=== PATIENT | male | born 1945 | race Caucasian/White ===

== ENCOUNTER → 2016-08-29 | Outpatient (CLI) | payer BC ==
[~2016-08-29] MED LIST: AMLO-110 PO; ASPI81TA28 PO; CRS/10 PO; FEXO1TAB46 PO; FISHOIL PO; FLAX1CAP11 PO; LPR25 PO; MOME50SP5; MULTTAB58 PO; NRV5 PO; PRED1SUS3 OPB; RIVA1TAB4 PO; TYLOTC500 PO; ZNTT/150 PO
[2016-08-29 11:56] LABS: BLOOD UREA NITROGEN 15 mg/dl (7-18); BUN/CREATININE RATIO 9.6 (10-20); CALCIUM 9.4 mg/dl (8.5-10.1); CARBON DIOXIDE 23 mmol/L (21-32); CHLORIDE 105 mmol/L (98-107); GLUCOSE 123 mg/dl (70-99); PHOSPHORUS 2.7 mg/dl (2.5-4.9); SODIUM 140 mmol/L (136-145)
== END | disposition home or self-care (01) ==
LOC: C.LAB1850 10:19
PROVIDERS: ATTEND Internal Medicine Nephrology
DX: E83.52 Hypercalcemia (principal); I10 Essential (primary) hypertension

== ENCOUNTER → 2016-10-31 | Outpatient (CLI) | payer BC ==
--- NOTE | 2016-10-31 10:40 | DIAGNOSTIC IMAGING REPORT ---
CHEST CT WITHOUT CONTRAST CT DOSE: 380.91 mGy.cm HISTORY: Parenchymal nodularity R59.0 Hilar adenopathy TECHNIQUE: Multiaxial CT images of the chest were performed without contrast. COMPARISON: 03/08/2016 FINDINGS: Stable multinodular appearance to both hemithoraces. Stable baseline interstitial change. Unchanging hilar as well as mediastinal adenopathy. Considerable components of the nodes are partially calcified. No evidence for new interval or progressive process. IMPRESSION: Chronic granulomatous change of both hemithoraces as well as hilar mediastinal regions. 2. Noncalcified lung nodules as well as mediastinal and hilar nodes also unchanged. 3. Study is considered generally consistent with a chronic granulomatous process, other entities considered less likely although routine screening should again be performed. A 1 year follow-up is felt to be sufficient Electronically signed by: Joselito Gunn M.D. 10/31/2016 10:38 AM Dictated Date/Time: 10/31/2016 10:34 AM
== END | disposition home or self-care (01) ==
LOC: C.CTS 10:14
PROVIDERS: ATTEND Family Medicine
DX: R59.0 Localized enlarged lymph nodes (principal)

== ENCOUNTER → 2016-12-14 | Outpatient (CLI) | payer BC ==
[2016-12-14 09:50] LABS: ESTIMATED AVERAGE GLUCOSE 126 mg/dl; HA1C FLAG Normal (Normal)
[2016-12-14 10:22] LABS: ALB/GLOB RATIO 0.8 (0.9-2); ALKALINE PHOSPHATASE 78 U/L (45-117); ALT/SGPT 36 U/L (12-78); AST/SGOT 20 U/L (15-37); BLOOD UREA NITROGEN 35 mg/dl (7-18); BUN/CREATININE RATIO 12.1 (10-20); CALCIUM 13.3 mg/dl (8.5-10.1); CARBON DIOXIDE 27 mmol/L (21-32); CHLORIDE 107 mmol/L (98-107); CHOLESTEROL 131 mg/dl (0-200); CHOLESTEROL/HDL RATIO 3.5; GLUCOSE 90 mg/dl (70-99); HDL CHOLESTEROL 37 mg/dl; LDL CHOLESTEROL CALCULATED 64 mg/dl; PHOSPHORUS 3.9 mg/dl (2.5-4.9); SODIUM 143 mmol/L (136-145); TRIGLYCERIDES 150 mg/dl (0-150); VERY LOW DENSITY LIPOPROT CALC 30 mg/dl
== END | disposition home or self-care (01) ==
LOC: C.LAB1850 08:07
PROVIDERS: ATTEND Family Medicine
DX: D86.9 Sarcoidosis, unspecified (principal); E78.5 Hyperlipidemia, unspecified; I10 Essential (primary) hypertension; D68.51 Activated protein C resistance; N28.9 Disorder of kidney and ureter, unspecified; R73.01 Impaired fasting glucose; D64.9 Anemia, unspecified

== ENCOUNTER → 2016-12-15 | Outpatient (CLI) | payer BC ==
[2016-12-15 14:59] LABS: URINE APPEARANCE CLEAR (CLEAR); URINE BILIRUBIN NEG (NEG); URINE COLOR YELLOW; URINE EPITHELIAL CELL AUTO 0-5 /lpf (0-5); URINE NITRITE NEG (NEG); URINE PH 5.5 (4.5-7.5); URINE SPECIFIC GRAVITY 1.012 (1.000-1.030); UROBILINOGEN NEG (NEG); ZZUR CULT IF INDIC CLEAN CATCH NO
[2016-12-15 15:00] LABS: MANUAL MICROSCOPIC REQUIRED? NO; REVIEW REQ? NO
== END | disposition home or self-care (01) ==
LOC: C.LAB1850 13:25
PROVIDERS: ATTEND Internal Medicine Nephrology
DX: N28.9 Disorder of kidney and ureter, unspecified (principal); D86.9 Sarcoidosis, unspecified; E83.52 Hypercalcemia

== ENCOUNTER → 2016-12-16 | Outpatient (CLI) | payer BC ==
[~2016-12-16] MED LIST changes: -FLAX1CAP11 PO; -MULTTAB58 PO; -NRV5 PO; -RIVA1TAB4 PO
[2016-12-16 16:11] LABS: BLOOD UREA NITROGEN 39 mg/dl (7-18); BUN/CREATININE RATIO 14.3 (10-20); CALCIUM 12.3 mg/dl (8.5-10.1); CARBON DIOXIDE 27 mmol/L (21-32); CHLORIDE 107 mmol/L (98-107); GLUCOSE 117 mg/dl (70-99); MAGNESIUM 2.4 mg/dl (1.8-2.4); PHOSPHORUS 3.7 mg/dl (2.5-4.9); POTASSIUM 3.6 mmol/L (3.5-5.1); SODIUM 142 mmol/L (136-145)
== END | disposition home or self-care (01) ==
LOC: C.LAB1850 14:19
PROVIDERS: ATTEND Internal Medicine Nephrology
DX: D86.9 Sarcoidosis, unspecified (principal)

== ENCOUNTER → 2016-12-26 | Outpatient (CLI) | payer BC ==
[2016-12-26 10:03] LABS: BLOOD UREA NITROGEN 38 mg/dl (7-18); BUN/CREATININE RATIO 17.9 (10-20); CARBON DIOXIDE 24 mmol/L (21-32); CHLORIDE 109 mmol/L (98-107); GLUCOSE 164 mg/dl (70-99); POTASSIUM 3.7 mmol/L (3.5-5.1); SODIUM 143 mmol/L (136-145)
== END | disposition home or self-care (01) ==
LOC: C.LAB1850 08:22
PROVIDERS: ATTEND Internal Medicine Nephrology
DX: I10 Essential (primary) hypertension (principal); N28.9 Disorder of kidney and ureter, unspecified

== ENCOUNTER → 2017-01-09 | Outpatient (CLI) | payer BC ==
[2017-01-09 14:16] LABS: BLOOD UREA NITROGEN 27 mg/dl (7-18); BUN/CREATININE RATIO 18.3 (10-20); CALCIUM 8.6 mg/dl (8.5-10.1); CARBON DIOXIDE 24 mmol/L (21-32); CHLORIDE 110 mmol/L (98-107); GLUCOSE 91 mg/dl (70-99); POTASSIUM 3.7 mmol/L (3.5-5.1); SODIUM 142 mmol/L (136-145)
[2017-01-09 14:17] LABS: PHOSPHORUS 1.9 mg/dl (2.5-4.9)
== END | disposition home or self-care (01) ==
LOC: C.LAB1850 11:58
PROVIDERS: ATTEND Internal Medicine Nephrology
DX: D86.9 Sarcoidosis, unspecified (principal)

== ENCOUNTER → 2017-02-24 | Outpatient (CLI) | payer BC ==
[2017-02-24 13:52] LABS: BLOOD UREA NITROGEN 24 mg/dl (7-18); BUN/CREATININE RATIO 13.8 (10-20); CALCIUM 8.8 mg/dl (8.5-10.1); CARBON DIOXIDE 27 mmol/L (21-32); CHLORIDE 108 mmol/L (98-107); GLUCOSE 96 mg/dl (70-99); PHOSPHORUS 2.2 mg/dl (2.5-4.9); POTASSIUM 3.8 mmol/L (3.5-5.1); SODIUM 141 mmol/L (136-145)
== END | disposition home or self-care (01) ==
LOC: C.LAB1850 11:25
PROVIDERS: ATTEND Internal Medicine Nephrology
DX: N28.9 Disorder of kidney and ureter, unspecified (principal)

== ENCOUNTER → 2017-04-05 | Outpatient (CLI) | payer BC ==
[2017-04-05 09:58] LABS: BLOOD UREA NITROGEN 21 mg/dl (7-18); BUN/CREATININE RATIO 13.1 (10-20); CALCIUM 8.4 mg/dl (8.5-10.1); CARBON DIOXIDE 25 mmol/L (21-32); CHLORIDE 111 mmol/L (98-107); GLUCOSE 119 mg/dl (70-99); PHOSPHORUS 2.8 mg/dl (2.5-4.9); POTASSIUM 3.4 mmol/L (3.5-5.1); SODIUM 141 mmol/L (136-145)
== END | disposition home or self-care (01) ==
LOC: C.LAB 08:15
PROVIDERS: ATTEND Internal Medicine Nephrology
DX: D86.9 Sarcoidosis, unspecified (principal)

== ENCOUNTER → 2017-05-30 | Outpatient (CLI) | payer BC ==
[2017-05-30 09:34] LABS: URINE APPEARANCE CLEAR (CLEAR); URINE BILIRUBIN NEG (NEG); URINE COLOR YELLOW; URINE EPITHELIAL CELL AUTO 0-5 /lpf (0-5); URINE NITRITE NEG (NEG); URINE PH 5.5 (4.5-7.5); URINE SPECIFIC GRAVITY 1.012 (1.000-1.030); UROBILINOGEN NEG (NEG); ZZUR CULT IF INDIC CLEAN CATCH NO
[2017-05-30 09:37] LABS: MANUAL MICROSCOPIC REQUIRED? NO; REVIEW REQ? NO
[2017-05-30 09:46] LABS: BLOOD UREA NITROGEN 21 mg/dl (7-18); BUN/CREATININE RATIO 12.4 (10-20); CALCIUM 9.1 mg/dl (8.5-10.1); CARBON DIOXIDE 27 mmol/L (21-32); CHLORIDE 107 mmol/L (98-107); CREATININE 1.67 mg/dl (0.60-1.40); GLUCOSE 94 mg/dl (70-99); MAGNESIUM 2.1 mg/dl (1.8-2.4); POTASSIUM 3.7 mmol/L (3.5-5.1); SODIUM 142 mmol/L (136-145)
[2017-05-30 09:58] LABS: CREATININE, URINE 43.3 mg/dl; URINE TOTAL PROTEIN < 5.0 mg/dl (0-11.9)
== END | disposition home or self-care (01) ==
LOC: C.LAB1850 07:19
PROVIDERS: ATTEND Internal Medicine Nephrology
DX: D86.9 Sarcoidosis, unspecified (principal)

== ENCOUNTER → 2017-07-15 | Outpatient (CLI) | payer BC ==
[~2017-07-15] MED LIST changes: +ACET1TAB84 PO; -AMLO-110 PO; +AMLO5TAB3 PO; +BRIM0.1S OPB; +BUTA1CAP17 PO; +MOME6000 NAE; +NTRGSL/4 UT; +OMEG120013 PO; +OMEG5CAP PO; +PRD/25 PO; +PRED1SUS3 OPL; +PRED1SUS3 OPR; +RANI150T85 PO; +VALA500T60 PO; -ZNTT/150 PO
[2017-07-15 10:58] LABS: BASO % 0.5 %; BASO ABS # 0.03 K/uL (0-0.2); EOS % 4.5 %; EOS ABS # 0.27 K/uL (0-0.5); HEMATOCRIT 42.5 % (42-52); HEMOGLOBIN 13.9 g/dL (14.0-18.0); IG# 0.01 K/uL (0.00-0.02); LYMPH % 39.9 %; LYMPH ABS # 2.42 K/uL (1.2-3.4); MEAN CELL VOLUME 86.9 fL (80-100); MEAN CORPUSCULAR HEMOGLOBIN 28.4 pg (25-34); MEAN CORPUSCULAR HGB CONC 32.7 g/dl (32-36); MEAN PLATELET VOLUME 9.8 fL (7.4-10.4); MONO % 9.4 %; MONO ABS # 0.57 K/uL (0.11-0.59); NEUT % 45.5 %; NEUT ABS # 2.76 K/uL (1.4-6.5); PLATELET COUNT 234 K/uL (130-400); RED CELL DISTRIBUTION WIDTH SD 44.4 fL (36.4-46.3); WHITE BLOOD COUNT 6.06 K/uL (4.8-10.8)
[2017-07-15 11:38] LABS: ALBUMIN 3.4 gm/dl (3.4-5.0); ALT/SGPT 29 U/L (12-78); AST/SGOT 14 U/L (15-37); BLOOD UREA NITROGEN 19 mg/dl (7-18); CALCIUM 8.6 mg/dl (8.5-10.1); CARBON DIOXIDE 29 mmol/L (21-32); CREATININE 1.47 mg/dl (0.60-1.40); GLUCOSE 87 mg/dl (70-99); POTASSIUM 3.6 mmol/L (3.5-5.1); SODIUM 140 mmol/L (136-145)
[2017-07-15 11:44] LABS: ALKALINE PHOSPHATASE 66 U/L (45-117); CHOLESTEROL 162 mg/dl (0-200); LDL CHOLESTEROL CALCULATED 72 mg/dl
[2017-07-15 12:51] LABS: HEMOGLOBIN A1C 6.7 % (4.5-5.6)
== END | disposition home or self-care (01) ==
LOC: C.LAB 09:06
PROVIDERS: ATTEND Nurse Practitioner Family
DX: E78.5 Hyperlipidemia, unspecified (principal); Z12.5 Encounter for screening for malignant neoplasm of prostate; I25.10 Atherosclerotic heart disease of native coronary artery without angina pectoris; N28.9 Disorder of kidney and ureter, unspecified; R73.01 Impaired fasting glucose

== ENCOUNTER → 2017-09-13 | Outpatient (CLI) | payer BC ==
[~2017-09-13] MED LIST changes: -ACET1TAB84 PO; +AMLO-110 PO; -AMLO5TAB3 PO; -BRIM0.1S OPB; -BUTA1CAP17 PO; -MOME6000 NAE; -NTRGSL/4 UT; -OMEG120013 PO; -OMEG5CAP PO; -PRD/25 PO; -PRED1SUS3 OPL; -PRED1SUS3 OPR; -VALA500T60 PO
[2017-09-13 10:06] LABS: ALBUMIN 3.3 gm/dl (3.4-5.0); BLOOD UREA NITROGEN 21 mg/dl (7-18); CALCIUM 9.1 mg/dl (8.5-10.1); CARBON DIOXIDE 27 mmol/L (21-32); CREATININE 1.46 mg/dl (0.60-1.40); GLUCOSE 88 mg/dl (70-99); POTASSIUM 3.4 mmol/L (3.5-5.1); SODIUM 139 mmol/L (136-145)
[2017-09-13 10:07] LABS: PHOSPHORUS 3.2 mg/dl (2.5-4.9)
== END | disposition home or self-care (01) ==
LOC: C.LAB1850 07:27
PROVIDERS: ATTEND Internal Medicine Nephrology
DX: D86.9 Sarcoidosis, unspecified (principal); N18.3 Chronic kidney disease, stage 3 (moderate)

== ENCOUNTER → 2017-09-28 | Outpatient (CLI) | payer BC | END | disposition home or self-care (01) | LOC: C.LAB1850 12:30 | DX: H20.9 Unspecified iridocyclitis (principal) ==

== ENCOUNTER → 2017-10-16 | Outpatient (CLI) | payer BC ==
[2017-10-16 16:09] LABS: ALBUMIN 3.5 gm/dl (3.4-5.0); BLOOD UREA NITROGEN 22 mg/dl (7-18); CARBON DIOXIDE 24 mmol/L (21-32); CREATININE 1.61 mg/dl (0.60-1.40); GLUCOSE 114 mg/dl (70-99); PHOSPHORUS 3.1 mg/dl (2.5-4.9); POTASSIUM 4.1 mmol/L (3.5-5.1); SODIUM 139 mmol/L (136-145)
== END | disposition home or self-care (01) ==
LOC: C.LAB1850 12:50
PROVIDERS: ATTEND Internal Medicine Nephrology
DX: N18.3 Chronic kidney disease, stage 3 (moderate) (principal)

== ENCOUNTER → 2017-10-17 | Outpatient (CLI) | payer BC | END | disposition home or self-care (01) | LOC: C.LAB1850 11:02 | DX: D86.9 Sarcoidosis, unspecified (principal) ==

== ENCOUNTER → 2017-10-30 | Outpatient (CLI) | payer BC ==
[2017-10-30 13:25] LABS: BASO % 0.8 %; BASO ABS # 0.04 K/uL (0-0.2); EOS ABS # 0.34 K/uL (0-0.5); HEMATOCRIT 44.2 % (42-52); HEMOGLOBIN 15.3 g/dL (14.0-18.0); IG# 0.01 K/uL (0.00-0.02); LYMPH % 26.6 %; LYMPH ABS # 1.29 K/uL (1.2-3.4); MEAN CELL VOLUME 87.2 fL (80-100); MEAN CORPUSCULAR HEMOGLOBIN 30.2 pg (25-34); MEAN PLATELET VOLUME 10.1 fL (7.4-10.4); MONO ABS # 0.39 K/uL (0.11-0.59); NEUT % 57.4 %; NEUT ABS # 2.78 K/uL (1.4-6.5); PLATELET COUNT 194 K/uL (130-400); RED CELL DISTRIBUTION WIDTH CV 14.3 % (11.5-14.5); RED CELL DISTRIBUTION WIDTH SD 45.3 fL (36.4-46.3); WHITE BLOOD COUNT 4.85 K/uL (4.8-10.8)
[2017-10-30 13:41] LABS: MEAN CORPUSCULAR HGB CONC 34.6 g/dl (32-36)
== END | disposition home or self-care (01) ==
LOC: C.LAB1850 12:42
PROVIDERS: ATTEND Ophthalmology
DX: H20.9 Unspecified iridocyclitis (principal)

== ENCOUNTER → 2017-11-13 | Outpatient (CLI) | payer BC ==
--- NOTE | 2017-11-13 13:34 | DIAGNOSTIC IMAGING REPORT ---
HEAD WITHOUT CONTRAST (CT) CLINICAL HISTORY: 72 years-old Male presenting with R51 left-sided headache R29.810 Facial droop, left thigh pain. TECHNIQUE: Multidetector CT imaging of the head was performed without the use of intravenous contrast. IV contrast: None. A dose lowering technique was used consistent with the principles of ALARA (as low as reasonably achievable). COMPARISON: 03/15/2015. CT DOSE (mGy.cm): The estimated cumulative dose is 537.48 mGy.cm. FINDINGS: Organic Preparation Technician topogram: Unremarkable. Proportional ventricular and sulcal prominence, likely age-related parenchymal volume loss. Periventricular and subcortical white matter hypoattenuation, nonspecific but likely indicative of chronic small vessel ischemic change. No mass effect or midline shift. No hemorrhage or acute territorial infarct. No extra-axial fluid collection. Paranasal sinuses and mastoid air cells clear. Calvarium intact. IMPRESSION: 1. No acute intracranial abnormality. Electronically signed by: Jagjit Prieto M.D. 11/13/2017 1:33 PM Dictated Date/Time: 11/13/2017 1:29 PM
== END | disposition home or self-care (01) ==
LOC: C.CTS 13:07
PROVIDERS: ATTEND Nurse Practitioner Family
DX: R29.810 Facial weakness (principal); R51 Headache

== ENCOUNTER 2017-11-18 20:34 | Emergency (ER) | payer BC ==
[~2017-11-18] VITALS: Ht 177.8 cm; Wt 86.9 kg
[2017-11-18 20:37] VITALS: TEMP 36.6; Ht 177.8 cm; Wt 86.9 kg
[2017-11-18] MEDS ORDERED: OMEG120013 PO (21:20)
[2017-11-18] MEDS ORDERED: OMEG5CAP PO (21:22)
[2017-11-18] MEDS ORDERED: MOME6000 NAE (21:28)
[2017-11-18 21:41] LABS: BASO % 1.1 %; BASO ABS # 0.05 K/uL (0-0.2); EOS % 8.5 %; HEMATOCRIT 45.5 % (42-52); IG# 0.01 K/uL (0.00-0.02); LYMPH % 31.8 %; MEAN CORPUSCULAR HEMOGLOBIN 29.9 pg (25-34); MEAN CORPUSCULAR HGB CONC 35.2 g/dl (32-36); MEAN PLATELET VOLUME 9.5 fL (7.4-10.4); MONO % 10.4 %; MONO ABS # 0.49 K/uL (0.11-0.59); NEUT ABS # 2.27 K/uL (1.4-6.5); PLATELET COUNT 206 K/uL (130-400); RED CELL DISTRIBUTION WIDTH CV 14.3 % (11.5-14.5); RED CELL DISTRIBUTION WIDTH SD 44.1 fL (36.4-46.3); WHITE BLOOD COUNT 4.72 K/uL (4.8-10.8)
[2017-11-18] MEDS ORDERED: NTRGSL/4 UT (21:41)
[2017-11-18] MEDS ORDERED: PRED1SUS3 OPL (21:45)
[2017-11-18] MEDS ORDERED: PRED1SUS3 OPR (21:47)
[2017-11-18 21:49] LABS: ALBUMIN 3.9 gm/dl (3.4-5.0); CALCIUM 9.1 mg/dl (8.5-10.1); CREATININE 1.56 mg/dl (0.60-1.40); POTASSIUM 3.7 mmol/L (3.5-5.1)
[2017-11-18] MEDS ORDERED: PRD/25 PO (21:49)
[2017-11-18] MEDS ORDERED: BRIM0.1S OPB (21:51)
[2017-11-18 21:52] LABS: TOTAL PROTEIN 8.2 gm/dl (6.4-8.2)
[2017-11-18] MEDS ORDERED: VALA500T60 PO (21:53)
[2017-11-18] MEDS ORDERED: ACET1TAB84 PO (21:54)
--- NOTE | 2017-11-18 22:17 | EMERGENCY ROOM VISIT NOTE ---
History Report prepared by Marty: Diane Butler Under the Supervision of: Dr. Jes Jaramillo D.O. First contact with patient: 21:45 Chief Complaint: NEURO SYMPTOMS Stated Complaint: HEADACHE, NUMBNESS ON LEFT SIDE OF BODY Nursing Triage Summary: Patient states "For about a month now I've been having pain and numbness in my left eye, left eyebrow and up my head. I've seen many doctors and am suppose to have surgery on my left eye Monday. I've had tests and scans. I saw my PCP Monday due to numbness and was sent here for a CT which was negative. I now have this numbness in my whole left side of my body, my face, my throat, my leg" Patient reports "my ribs don't feel numb, they just feel different from the right side" History of Present Illness The patient is a 72 year old male who presents to the Emergency Room with complaints of waxing and waning numbness on left side of face that started 3 days ago. The patient rates his pain a 4/10 in severity. He notes there is an aching pain on left side of face above his eye. The patient states "For about a month now I've been having pain and numbness in my left eye, left eyebrow and up my head. I've seen many doctors and am suppose to have surgery on my left eye Monday. I've had tests and scans. I saw my PCP Monday because of the numbness. I was sent here for a CT which was negative. I now have numbness in my whole left side of my body, my face, my throat, my leg, my arm. It started Monday with my face and then moved down the rest of my body." Patient reports "my ribs don't feel numb, they just feel different from the right side." He notes this all started with blurry vision in his left eye. He has been taking Prednisone for a couple of months. He was supposed to come off Prednisone in September but the blurry vision came on so he was advised to stay on 2.5 mg of Prednisone. He states his eye has been red and "tired feeling" for the past 3 days. The patient has had shingles on the right side in the past. He notes he has no feeling in his throat. He is able to swallow and breathe normally. The patient had a pinched nerve in his neck in the past. Pt denies fevers, chest pain, shortness of breath, nausea, vomiting, diarrhea, pain with urination, and melena. Source of History: patient Onset: 3 days ago Position: head Symptom Intensity: 4/10 Quality: numbness Timing: other (persistent) Associated Symptoms: + headache, + numbness (left side of body: face, arm, leg) Note: additional symptoms: blurred vision Review of Systems See HPI for pertinent positives & negatives. A total of 10 systems reviewed and were otherwise negative. Past Medical & Surgical Medical Problems: (1) Acute kidney failure (2) Appendectomy (3) Hypercalcemia (4) HYPERLIPIDEMIA NEC/NOS (5) Lyme disease (6) PERCUTANEOUS TRANSLUM CORON ANGIOPLASTY STATUS (7) Placement of stent in coronary artery Family History High cholesterol Social History Smoking Status: Never Smoker Drug Use: none Marital Status: Housing Status: lives with significant other Occupation Status: employed Current/Historical Medications Scheduled Amlodipine (Norvasc), 5 MG PO DAILY Aspirin (Aspirin Ec), 81 MG PO HS Brimonidine Tartrate (Alphagan P Oph), 1 DROPS OPB BID Agqwygivhl-Gcnbnczwxsnmo-Ezicq (Fioricet), 1 CAP PO Q6H Metoprolol Tartrate (Lopressor), 12.5 MG PO BID Mometasone Furoate (Nasal) (Mometasone Furoate), 2 SPRAYS LUISANA TID Nitroglycerin (Nitrostat), 0.4 MG UT PRN Ringle-3 Fatty Acids (Fish Oil), 2,400 MG PO QAM Ringle-3 Fatty Acids (Fish Oil 1200 mg), 1,200 MG PO QPM Prednisolone Acetate (Ophth) (Pred Forte 1% Oph), 1 DROPS OPL Q4-8HRS Prednisolone Acetate (Ophth) (Pred Forte 1% Oph), 1 DROPS OPR BID Prednisone (Prednisone), 2.5 MG PO DAILY Ranitidine (Zantac), 150 MG PO QAM Rosuvastatin Calcium (Crestor), 10 MG PO HS Valacyclovir (Valtrex), 1,000 MG PO TID Scheduled PRN Acetaminophen (Tylenol Arthritis Ext Rel), 650 MG PO Q8H PRN for Pain Fexofenadine Hcl (Bronwyn), 180 MG PO DAILY PRN for ALLERGY SX Allergies Coded Allergies: Penicillins (Unverified Allergy, Intermediate, HIVES- A CHILD, 12/15/16) Sulfa Antibiotics (Verified Allergy, Intermediate, rash, 12/15/16) Moxifloxacin (Verified Allergy, Unknown, unknowm, 12/15/16) Ubidecarenone (Verified Allergy, Unknown, UBIQUINOL CAUSES RASH, 12/15/16) Physical Exam Vital Signs Date Time Temp Pulse Resp B/P (MAP) Pulse Ox O2 Delivery O2 Flow Rate FiO2 11/19/17 01:55 68 18 139/90 98 Room Air 11/19/17 00:42 70 20 163/93 95 Room Air 11/19/17 00:08 69 20 146/102 97 Room Air 11/18/17 22:02 79 16 140/94 96 Room Air 11/18/17 20:37 36.6 78 18 148/100 96 Room Air Physical Exam GENERAL: alert, well appearing, well nourished, no distress, non-toxic EYE EXAM: mild scleral injection medially, PERRL and EOM's grossly intact. No hyphema, no periorbital edema. OROPHARYNX: no exudate, no erythema, lips, buccal mucosa, and tongue normal and mucous membranes are moist NECK: supple, no nuchal rigidity, no adenopathy, non-tender LUNGS: Clear to auscultation. Normal chest wall mechanics HEART: no murmurs, S1 normal and S2 normal ABDOMEN: abdomen soft, non-tender, normo-active bowel sounds, no masses, no rebound or guarding. BACK: Back is symmetrical on inspection and there is no deformity, no midline tenderness, no CVA tenderness. SKIN: no rashes and no bruising UPPER EXTREMITIES: upper extremities are grossly normal. LOWER EXTREMITIES: No pitting edema. NEURO EXAM: Normal sensorium, cranial nerves II-XII [grossly] intact, normal speech, no [gross] weakness of arms, no [gross] weakness of legs. [No drift. Finger to nose intact. Gross sensation intact.] Medical Decision & Procedures ER Provider Diagnostic Interpretation: Radiology results have been interpreted by the radiologist and reviewed by me. MRI HEAD: No evidence of acute infarct or intracranial hemorrhage. Periventricular and scattered T2/FLAIR white matter hyperintensities, nonspecific but most commonly related to chronic small vessel ischemic changes. Mild global cerebral volume loss. No mass effector hydrocephalus. Mild paranasal sinus mucosal thickening. Lens replacements. MRA HEAD: No evidence of large vessel occlusion or aneurysm. Small caliber right vertebral artery. MRI C SPINE: No fracture or malalignment. Spinal cord is normal in signal and caliber. C3-C4, small posterior disc/osteophyte complex and facet arthropathy causes mild canal and mild bilateral foraminal narrowing. C5-C6, posterior disc bulge causes minimal canal and foraminal narrowing. C7, posterior disc/osteophyte complex causes mild canal and mild foraminal narrowing. Laboratory Results 11/18/17 21:20 Red Blood Count 5.35, Mean Corpuscular Volume 85.0, Mean Corpuscular Hemoglobin 29.9, Mean Corpuscular Hemoglobin Concent 35.2, Mean Platelet Volume 9.5, Neutrophils (%) (Auto) 48.0, Lymphocytes (%) (Auto) 31.8, Monocytes (%) (Auto) 10.4, Eosinophils (%) (Auto) 8.5, Basophils (%) (Auto) 1.1, Neutrophils # (Auto ) 2.27, Lymphocytes # (Auto) 1.50, Monocytes # (Auto) 0.49, Eosinophils # (Auto ) 0.40, Basophils # (Auto) 0.05 11/18/17 21:20 Test 11/18/17 21:20 White Blood Count 4.72 K/uL (4.8-10.8) Red Blood Count 5.35 M/uL (4.7-6.1) Hemoglobin 16.0 g/dL (14.0-18.0) Hematocrit 45.5 % (42-52) Mean Corpuscular Volume 85.0 fL (80-100) Mean Corpuscular Hemoglobin 29.9 pg (25-34) Mean Corpuscular Hemoglobin Concent 35.2 g/dl (32-36) Platelet Count 206 K/uL (130-400) Mean Platelet Volume 9.5 fL (7.4-10.4) Neutrophils (%) (Auto) 48.0 % Lymphocytes (%) (Auto) 31.8 % Monocytes (%) (Auto) 10.4 % Eosinophils (%) (Auto) 8.5 % Basophils (%) (Auto) 1.1 % Neutrophils # (Auto) 2.27 K/uL (1.4-6.5) Lymphocytes # (Auto) 1.50 K/uL (1.2-3.4) Monocytes # (Auto) 0.49 K/uL (0.11-0.59) Eosinophils # (Auto) 0.40 K/uL (0-0.5) Basophils # (Auto) 0.05 K/uL (0-0.2) RDW Standard Deviation 44.1 fL (36.4-46.3) RDW Coefficient of Variation 14.3 % (11.5-14.5) Immature Granulocyte % (Auto) 0.2 % Immature Granulocyte # (Auto) 0.01 K/uL (0.00-0.02) Anion Gap 7.0 mmol/L (3-11) Est Creatinine Clear Calc Drug Dose 45.5 ml/min Estimated GFR () 51.4 Estimated GFR (Non- 44.3 BUN/Creatinine Ratio 15.4 (10-20) Calcium Level 9.1 mg/dl (8.5-10.1) Phosphorus Level 3.1 mg/dl (2.5-4.9) Magnesium Level 2.2 mg/dl (1.8-2.4) Total Bilirubin 0.8 mg/dl (0.2-1) Aspartate Amino Transf (AST/SGOT) 31 U/L (15-37) Alanine Aminotransferase (ALT/SGPT) 42 U/L (12-78) Alkaline Phosphatase 84 U/L (45-117) Total Protein 8.2 gm/dl (6.4-8.2) Albumin 3.9 gm/dl (3.4-5.0) Globulin 4.3 gm/dl (2.5-4.0) Albumin/Globulin Ratio 0.9 (0.9-2) Thyroid Stimulating Hormone (TSH) 0.960 uIu/ml (0.300-4.500) Lyme Disease IgG Antibody NEG (NEG) Lyme Disease IgM Antibody NEG (NEG) Laboratory results per my review. Medications Administered Medications (Trade) Dose Ordered Sig/Kiko Route Start Time Stop Time Status Last Admin Dose Admin Acetaminophen (Tylenol Tab) 650 mg NOW STAT PO 11/19/17 00:33 11/19/17 00:34 DC 11/19/17 00:41 650 MG Acetaminophen/ Butalbital/ Caffeine (Fioricet Tab) 1 tab NOW STAT PO 11/19/17 01:20 11/19/17 01:21 DC 11/19/17 01:53 1 TAB Ketorolac Tromethamine (Toradol Inj) 15 mg NOW STAT IV 11/19/17 01:30 11/19/17 01:31 DC 11/19/17 01:53 15 MG ED Course 2145: The patient was evaluated in room A9B. A complete history and physical exam was performed. 0033: Tylenol Tab 650 mg PO. 0055: I updated the patient on his results. He states the numbness on left side of body is better but he still has left frontal and retroorbital headache. 0100: Funduscopic exam attempted a bedside with ophthalmoscope, no evidence of acute papilledema, some vessels able to be identified and normal-appearing, optic disks not able to visualize. Slit exam performed bilaterally also. No evidence of iritis, no cell or flare in the anterior chamber bilaterally, no fulminant uveitis noted, mild appearance of likely episcleritis noted along the nasal aspect of the left eye. No foreign bodies seen, and patient denies any reported sense of foreign bodies. No anisocoria noted, mild arcus senilis noted b/l. 0120: Fioricet Tab 1 tab PO. 0130: Toradol Inj 15 mg IV. 0200: Upon reevaluation, the patient is feeling better. I discussed the findings and the treatment plan with the patient. He verbalizes agreement and understanding. He was discharged home. Medical Decision Differential diagnosis: Etiologies such as migraine headache, meningitis, sinusitis, CO exposure, ICH, SAH, infection, tumor, headache, sinus thrombosis, arterial dissection, as well as others were entertained. Unclear etiology of patient's symptoms here. Patient with prior headache and facial numbness, now with progression down the entire left side. No evidence of an MRI of new or subacute stroke. No evidence of any other lesions or mass. Patient refused IV contrast in MRI and they were all done without. Patient well-appearing here and symptoms did improve. Patient given medication to help with his headache. Patient already seeing a retinal specialist and scheduled for surgery on Monday including retinal biopsy. Patient has been being treated for likely uveitis. Tonight appeared to also have a mild episcleritis. Patient already on oral prednisone, has been slowly tapered down and is now only on 2.5 mg. Unclear if this is a contributing factor or if the level now that he is down to is the reason some of the symptoms worsened. Patient with prior evaluation for suspected sarcoid versus other autoimmune disease. This is not yet been clearly identified. I have no other evidence of occult infectious etiology. Patient's creatinine appears to be at baseline compared to prior EMR records. Patient well-appearing here throughout. Patient hemodynamically stable throughout. I do not suspect occult vasculitis or other vascular etiology at this time. I do not feel patient requires a lumbar puncture. Did discuss with the patient possible utility and close follow-up with neurology given paresthesias. Discussed with patient close follow-up, symptoms to watch and return for, he verbalized understanding and was agreeable with plan. Medication Reconcilliation Current Medication List: was personally reviewed by me Blood Pressure Screening Patient's blood pressure: Elevated blood pressure Blood pressure disposition: Elevated BP felt to be situational Impression Primary Impression: Headache Additional Impressions: Paresthesia Episcleritis Scribe Attestation The scribe's documentation has been prepared under my direction and personally reviewed by me in its entirety. I confirm that the note above accurately reflects all work, treatment, procedures, and medical decision making performed by me. Departure Information Dispostion Home / Self-Care Prescriptions Nfcemrcbqw-Tcoddwttrpupd-Zredw (FIORICET) 1 Cap Cap 1 CAP PO Q6H for Pain, #10 Prov: Jes Jaramillo, 11/19/17 Referrals Migue Banda III, CRNP (PCP) Patient Instructions My [facility] Additional Instructions Please continue your regular medications and eyedrops as prescribed. Please continue your regular steroids. Please be cautious when using any additional anti-inflammatories as they can irritate your stomach. You may use Tylenol. You may try the other medication if your headache is persistent despite Tylenol and rest. Please keep your appointment Monday with your eye doctor. Please consider using a lubricating eye drop daily to help prevent irritation of your eyes. If you develop worsening headaches, vision changes, weakness, increasing numbness, fevers, vomiting, or you have any other new or concerning symptoms, please return to the emergency room. Problem Qualifiers Primary Impression: Headache Headache type: unspecified Headache chronicity pattern: chronic headache Intractability: not intractable Qualified Codes: R51 - Headache Additional Impressions: Episcleritis Laterality: left Qualified Codes: H15.102 - Unspecified episcleritis, left eye
[2017-11-18 22:59] LABS: PHOSPHORUS 3.1 mg/dl (2.5-4.9)
[2017-11-19] MEDS ORDERED: ACETAMINOPHEN 325 MG TAB PO STA (00:33)
[2017-11-19] MEDS ORDERED: BUTALBITAL/ACETAMIN/CAFFEINE TAB PO STA (01:20)
[2017-11-19] MEDS ORDERED: KETOROLAC TROMETHAMINE 30 MG/ML VIAL IV STA (01:30)
[2017-11-19] MEDS ORDERED: BUTA1CAP17 PO (01:53)
[2017-11-19 01:55] VITALS: BP 139/90; PULSE 68; O2SAT 98
--- NOTE | 2017-11-19 10:20 | DIAGNOSTIC IMAGING REPORT ---
CERVICAL WITHOUT CONTRAST HISTORY: 72 years-old Male left neck numbness, LUE numbness, left chest wall numbness acute left neck and left upper extremity pain and numbness COMPARISON: MRI brain of same day TECHNIQUE: Multiplanar multisequence MRI of the cervical spine was obtained without contrast FINDINGS: Icer Air Conditioning localizer images demonstrate no gross abnormality. Mild atrophy of the cerebellum. No focal bone marrow edema, acute fracture or subluxation. Mild mucosal thickening of the sphenoid sinuses. Signal within the cervical and imaged thoracic spinal cord appear unremarkable. C2-C3: Mild intervertebral disc space narrowing with uncovertebral spurring. No central canal or foraminal narrowing. C3-C4: Mild intervertebral disc space narrowing with uncovertebral spurring and mild facet arthrosis. 5 mm synovial cyst involves the left facet joint. There is mild flattening of the ventral thecal sac with resultant mild central canal, mild left and mild to moderate right foraminal narrowing. C4-C5: Moderate intervertebral disc space narrowing with circumferential disc osteophyte complex, mild left and moderate right facet arthrosis. These findings cause mild central canal and moderate bilateral foraminal narrowing. C5-C6: Mild intervertebral disc space narrowing with spondylitic spurring and posterior disc bulge with mild to moderate facet arthrosis. No significant central canal narrowing. There is mild left and mild to moderate right foraminal narrowing. C6-C7: Moderate intervertebral disc space narrowing with circumferential disc osteophyte complex favoring the right lateral recess and right neural foramen and mild to moderate facet arthrosis. Mild central canal, mild left and mild to moderate right foraminal narrowing. C7-T1: Mild facet arthrosis without central canal or foraminal narrowing. Imaged upper thoracic levels are within normal limits. IMPRESSION: 1. No acute fracture, subluxation or focal bone marrow edema. 2. Multilevel discogenic degenerative changes and facet arthrosis as above with 5 mm synovial cyst involving the left C3-C4 facet joint. 3. Mild central canal narrowing is seen at C3-C4, C4-C5 and C6-C7 with multilevel foraminal stenosis as detailed above. The above report was generated using voice recognition software. It may contain grammatical, syntax or spelling errors. Electronically signed by: Robert Sanford M.D. 11/19/2017 10:19 AM Dictated Date/Time: 11/19/2017 10:10 AM
--- NOTE | 2017-11-19 10:24 | DIAGNOSTIC IMAGING REPORT ---
BRAIN WITHOUT CONTRAST HISTORY: 72 years-old Male left facial numbness, left headache, left eye vision prob acute left-sided facial numbness with headache COMPARISON: MRI cervical spine of same day, CT head 11/13/2017 TECHNIQUE: Multiplanar multisequence MRI of the brain was obtained without contrast FINDINGS: Floorworker localizer images demonstrate no gross abnormality. There is no restricted diffusion to suggest acute or subacute infarction. The midline structures including the corpus callosum, brainstem, optic chiasm, pituitary and pineal glands are unremarkable on the sagittal T1 series. No cerebellar tonsillar herniation. Degenerative changes of the imaged cervical spine. There is no acute intracranial hemorrhage, midline shift, abnormal extra-axial collections, hydrocephalus or intracranial mass. Moderate to extensive T2/FLAIR signal abnormalities are noted within the subcortical, deep and periventricular white matter of the cerebral hemispheres bilaterally. There is mild cerebral and cerebellar atrophy with ex vacuo ventriculomegaly. No pathologic blooming artifact. The major flow voids at the level of the skull base appear patent. Mastoid air cells are generally clear with trace right mastoid effusion. Mild maxillary and sphenoid with mild to moderate ethmoid sinus disease. Thinning of the optic lenses suggest prior cataract repair. Soft tissues and skull appear unremarkable. IMPRESSION: 1. No acute intracranial abnormality. 2. Mild atrophy with moderate to extensive chronic microvascular ischemic changes. 3. Paranasal sinus disease as above. The above report was generated using voice recognition software. It may contain grammatical, syntax or spelling errors. Electronically signed by: Robert Sanford M.D. 11/19/2017 10:22 AM Dictated Date/Time: 11/19/2017 10:19 AM
--- NOTE | 2017-11-19 10:37 | DIAGNOSTIC IMAGING REPORT ---
MRA HEAD WITHOUT CONTRAST HISTORY: 72 years-old Male left headache, left facial numbness acute left-sided headache COMPARISON: MRI had of same day TECHNIQUE: MRA of the head was obtained utilizing 3-D [id number] sequencing with MIP reformats FINDINGS: Beamer Helper localizer images demonstrate no gross abnormality. The imaged bilateral internal carotid arteries, middle and anterior cerebral arteries appear unremarkable. The anterior communicating artery is also within normal limits. The V4 segment of the right vertebral artery is diminutive with the majority of the vessel terminating into the adjacent PICA. Vertebral artery and posterior cerebral arteries appear patent and unremarkable. No high-grade stenosis, aneurysm, dissection or proximal branch occlusion. IMPRESSION: Unremarkable MRA without aneurysm, high-grade stenosis or proximal branch occlusion. The above report was generated using voice recognition software. It may contain grammatical, syntax or spelling errors. Electronically signed by: Robert Sanford M.D. 11/19/2017 10:36 AM Dictated Date/Time: 11/19/2017 10:31 AM
== END 2017-11-19 02:17 | disposition home or self-care (01) ==
LOC: C.EDB 20:35 → C.EDA 11-19 02:17
DX: R51 Headache (principal); R20.0 Anesthesia of skin; H15.102 Unspecified episcleritis, left eye; E78.5 Hyperlipidemia, unspecified; Z79.82 Long term (current) use of aspirin; Z79.899 Other long term (current) drug therapy; Z88.0 Allergy status to penicillin; Z88.1 Allergy status to other antibiotic agents; Z88.2 Allergy status to sulfonamides; Z88.8 Allergy status to other drugs, medicaments and biological substances

== ENCOUNTER → 2017-11-29 | Outpatient (CLI) | payer BC ==
[~2017-11-29] MED LIST changes: +ACET1TAB84 PO; +BRIM0.1S OPB; +BUTA1CAP17 PO; -FISHOIL PO; -MOME50SP5; +MOME6000 NAE; +NTRGSL/4 UT; +OMEG120013 PO; +OMEG5CAP PO; +PRD/25 PO; -PRED1SUS3 OPB; +PRED1SUS3 OPL; +PRED1SUS3 OPR; -TYLOTC500 PO; +VALA500T60 PO
== END | disposition home or self-care (01) ==
LOC: C.LAB1850 15:46
PROVIDERS: ATTEND Internal Medicine Nephrology
DX: D86.9 Sarcoidosis, unspecified (principal)

== ENCOUNTER → 2017-12-06 | Outpatient (CLI) | payer BC ==
--- NOTE | 2017-12-06 15:50 | DIAGNOSTIC IMAGING REPORT ---
(CHEST) THORAX WITHOUT CT DOSE: 453.96 mGycm CLINICAL HISTORY: 72 years-old Male with R91.1 Pulmonary nodule. Follow-up study in a patient with pulmonary nodule TECHNIQUE: Multiaxial CT images of the chest were performed without contrast. A dose lowering technique was utilized adhering to the principles of ALARA. COMPARISON: CT chest 10/31/2016 FINDINGS: Homogeneous thyroid. Calcified hilar and mediastinal lymph nodes compatible with prior granulomatous disease. Enlarged and prominent partially calcified lymph nodes are unchanged including a 9 mm left hilar lymph node at the level of the fernando on image 116 series 4. Enlarged subcarinal 1.6 x 3.0 cm lymph node is also stable. Heart is normal in size with coronary arterial calcifications. Fusiform dilation of the ascending thoracic aorta measures 4.4 x 4.4 cm, unchanged. The unopacified pulmonary arterial tree is unremarkable. There is no pneumothorax or pleural effusion. Calcified granulomata about the lungs noted bilaterally including conglomerate granulomata about the right upper lobe with adjacent pleural parenchymal scarring. Unchanged 5 mm solid nodule of the lateral segment right middle lobe. Multiple additional solid nodules, most of which measure in the 3 mm range also appear unchanged. No new or enlarging nodules identified. Central airways are patent. 6 mm solid nodule of the right lower lobe, image 181 series 4 previously measured 7 mm. Catheter granulomas about the spleen and liver. No acute process of the imaged upper abdomen. Soft tissues are within normal limits with bilateral gynecomastia. IMPRESSION: 1. Prior granulomatous disease with multiple calcified granulomata as well as multiple noncalcified solid pulmonary nodules throughout the lungs bilaterally measuring up to 6 mm. These findings appear unchanged from comparison study without new or enlarging nodules identified. 2. No pleural effusion or lobar airspace consolidation. 3. Fusiform dilation of the ascending thoracic aorta, 4.4 x 4.4 cm appears unchanged. Please refer to below summary of Fleischner criteria recommendations for follow-up of incidental CT nodules (Mag Gardner, Guidelines for management of small pulmonary nodules detected on CT scans: A statement from the Fleischner Society, Radiology 237: [phone].) SOLID NODULES Multiple nodules size: <6 mm * Low risk patients: no routine follow-up * high risk patients: optional CT at 12 months Multiple nodules size: 6-8 mm * Low risk patients: follow-up at 3-6 months, then consider further follow-up at 18-24 months * high risk patients: follow-up at 3-6 months, then at 18-24 months if no change Note: newly detected indeterminate nodule in persons 35 years of age or older. * Low risk patients: minimal or absent history of smoking and/or other known risk factors * high risk patients: history of smoking or of other known risk factors (e.g. first degree relative with lung cancer, or exposure to asbestos, radon, uranium) * if a nodule up to 8 mm is partly solid or is ground glass further follow-up is required after 24 months to exclude possible slow growing adenocarcinoma (OLIVE) The above report was generated using voice recognition software. It may contain grammatical, syntax or spelling errors. Electronically signed by: Robert Sanford M.D. 12/06/2017 3:48 PM Dictated Date/Time: 12/06/2017 3:39 PM
== END | disposition home or self-care (01) ==
LOC: C.CTS 15:06
PROVIDERS: ATTEND Nurse Practitioner Family
DX: R91.8 Other nonspecific abnormal finding of lung field (principal); I77.810 Thoracic aortic ectasia

== ENCOUNTER 2019-03-15 19:02 | Inpatient (IN) ==
[2019-03-15 20:28] LABS: Basophils # (auto) 0.02 K/uL (0-0.2); Basophils % (auto) 0.3 %; Eosinophils # (auto) 0.08 K/uL (0-0.5); Eosinophils % (auto) 1.4 %; Hematocrit (blood only) 40.3 % (42-52); Hemoglobin 13.6 g/dL (14.0-18.0); Immature Granulocytes # (auto) 0.01 K/uL (0.00-0.02); Immature Granulocytes % (auto) 0.2 %; Lymphocytes # (auto) 1.09 K/uL (1.2-3.4); Lymphocytes % (auto) 18.9 %; Mean Corpuscular Hemoglobin 29.8 pg (25-34); Mean Corpuscular Hgb Conc 33.7 g/dL (32-36); Mean Corpuscular Volume 88.4 fL (80-100); Monocytes # (auto) 0.55 K/uL (0.11-0.59); Monocytes % (auto) 9.5 %; Neutrophils # (auto) 4.03 K/uL (1.4-6.5); Neutrophils % (auto) 69.7 %; Platelet Count 158 K/uL (130-400); RDW Coefficient of Variation 12.8 % (11.5-14.5); RDW Standard Deviation 40.7 fL (36.4-46.3); Red Blood Count 4.56 M/uL (4.7-6.1); White Blood Count 5.78 K/uL (4.8-10.8)
--- NOTE | 2019-03-15 20:28 | XRay Report ---
XR chest 1V portable HISTORY: Atypical Chest Pain COMPARISON: Chest 10/03/2015. FINDINGS: No pneumothorax. No pleural effusions. The heart remains mildly enlarged. Diffuse interstit ial thickening persists. This favors a chronic interstitial process or mild congestive change. Stable calcified granuloma within the right upper lobe. No new focal lung consolidations. IMPRESSION: Diffuse interstitial thickening persists and favors a chronic interstitial lung disease or mild conge stive change. Electronically signed by: José Miguel Mason M.D. 03/15/2019 8:27 PM
[2019-03-15 20:33] LABS: Partial Thromboplastin Ratio 0.9; Partial Thromboplastin Time 24.1 Seconds (21.0-31.0); Prothrombin Time 10.5 Seconds (9.0-12.0)
[2019-03-15 20:41] LABS: Alanine Aminotransferase 23 U/L (12-78); Albumin Level 3.2 gm/dl (3.4-5.0); Aspartate Aminotransferase 15 U/L (15-37); BUN Creatinine Ratio 13.1 (10-20); Blood Urea Nitrogen 31 mg/dl (7-18); Calcium 11.6 mg/dl (8.5-10.1); Carbon Dioxide 27 mmol/L (21-32); Chloride 108 mmol/L (98-107); Creatinine Clr Calc Pharmacy 29.3 ml/min; Est GFR (African American) 30.9; Est GFR (Non-African American) 26.6; Glucose 120 mg/dl (70-99); Lipase 133 U/L (73-393); Potassium 3.6 mmol/L (3.5-5.1); Sodium 141 mmol/L (136-145)
[2019-03-15 20:46] LABS: Albumin Globulin Ratio 0.8 (0.9-2); Alkaline Phosphatase 70 U/L (45-117); Bilirubin,Total 0.7 mg/dl (0.2-1); Total Protein 7.2 gm/dl (6.4-8.2); Troponin I < 0.015 ng/ml (0-0.045)
--- NOTE | 2019-03-15 21:26 | Ultrasound Report ---
BILATERAL LOWER EXTREMITY VENOUS DOPPLER HISTORY: Leg swelling. COMPARISON STUDY: Left leg venous Doppler 06/05/2015. FINDINGS: Thrombus identified within the right posterior tibial veins, lesser saphenous vein at the p opliteal fossa, and additional superficial veins within the right medial calf. There is also thrombus identified within one of 2 mid left superficial femoral veins as well as super ficial thrombus within the left saphenous vein from the popliteal fossa through the distal calf. The bilateral common femoral, popliteal, anterior tibial, and peroneal veins are patent. IMPRESSION: Bilateral lower extremity deep and superficial vein thrombosis as described above. Electronically signed by: José Miguel Mason M.D. 03/15/2019 9:25 PM
--- NOTE | 2019-03-15 23:34 | History & Physical Report ---
Date of Service March 15, 2019 Assessment & Plan (1) DVT (deep venous thrombosis): Patient found to have bilateral lower extremity deep and superficial vein thrombosis in the right posterior tibial veins, lesser saphenous vein at the popliteal fossa and superficial veins of the right medial calf. Also thrombus within 1 of the 2 mid left superficial femoral veins as well as superficial thrombosis in the left saphenous vein from the popliteal fossa through the distal calf. Has history of prior venous thromboembolism. On 03/15/2015 he was found to have left lower extremity nonocclusive superficial femoral vein thrombosis. He was started on anticoagulation with Xarelto which was subsequently discontinued. Also found to be factor V Leiden heterozygous at that time. He has a strong family history of the same. Patient presently denies any chest pain, shortness of breath, pleurisy, hemoptysis or dizziness. Denies trauma to the lower extremities. He recently took a trip to [place], possible provoking factor. -Admit to medical floor -Anticoagulation with heparin drip -Creatinine clearance presently 29.3. Creatinine = 2.35. CKD 3 at baseline with baseline creatinine being 1.5. Would avoid use of an NOACs at this time given renal insufficiency. He may require lifetime anticoagulation, most likely with Coumadin. -Repeat chemistry panel in a.m. to assess renal function (2) Acute kidney injury: Patient with CKD stage III with baseline creatinine of approximately 1.5. Presenting today with elevated BUN = 31 and creatinine = 2.35. Patient appears euvolemic on clinical exam. States that he has been eating and drinking well. He has had SHUKRI in the past which was thought to be secondary to hypercalcemia which could very well be the case today as well as his calcium is 11.6. -Check urine sodium and creatinine to calculate FeNa -Hydration with normal saline solution at 125 mL/h x 2 L -Monitor BUN, creatinine, urine output and electrolytes -Avoid nephrotoxic agents -Renal dosing were appropriate -Consult nephrology. Patient is known to Dr. Salomon Present on Admission?: Yes (3) Hypercalcemia: Calcium = 11.6. Ionized calcium elevated as well at 1.43. Patient has had parathyroid hormone checked in the past which is been within normal range. Hypercalcemia possibly secondary to sarcoidosis. Low concern for malignancy. Patient also taking calcium supplements. Patient with no mental status changes/weakness/confusion. No evidence of tetany. Hypercalcemia most likely contributing to SHUKRI -Hydration with normal saline solution at 125 mL/h x 2 L -We will discontinue oral calcium supplementation -Patient to continue alendronate -Increase in prednisone dosing may also help to reduce plasma calcium levels if elevation is secondary to sarcoidosis -Consider sending parathyroid related peptide Present on Admission?: Yes (4) Stage 3 chronic kidney disease: Plan as above Present on Admission?: Yes (5) Sarcoidosis: Patient carries a diagnosis of sarcoidosis. He states that he has had a renal biopsy in the past which showed no evidence of sarcoid. He has never had a lung biopsy. He has had elevated AMARILIS levels in the past in 2018. Patient with elevated calcium today. -We will increase prednisone to 20 mg daily Present on Admission?: Yes (6) Hypertension: Blood pressure mildly elevated at 165/90. -Continue metoprolol 12.5 mg p.o. twice daily -Continue amlodipine 5 mg Present on Admission?: Yes (7) Gastro-esophageal reflux: Chronic. Stable. -Continue ranitidine 150 mg p.o. every morning Present on Admission?: Yes (8) Factor 5 Leiden mutation, heterozygous: See discussion of DVT above. This seems to be patient's second episode of VTE. Will most likely need long-term/lifelong anticoagulation. -Heparin drip for now -May need to be started on Coumadin versus NOAC pending renal function Present on Admission?: Yes (9) Dyslipidemia: Chronic stable -Continue Crestor 10 mg p.o. nightly Present on Admission?: Yes (10) CAD in [place] artery: Patient with no complaints of chest pain. EKG with no evidence of ischemia. Troponin x1 negative - continue aspirin -Continue metoprolol -Continue Crestor Present on Admission?: Yes (11) Aortic stenosis: Patient well compensated. No evidence of failure, angina, syncope or dyspnea - is routinely monitored by cardiology Present on Admission?: Yes (12) Anemia: No active bleeding -Continue folic acid FENnormal saline solution at 125 x 2 L, monitor electrolytes and replete as needed. Patient with normal phosphorus level. Heart healthy diet as tolerated Prophylaxis-heparin drip as above. Continue home ranitidine Code-full per discussion with patient Disposition-admission to medical floor Present on Admission?: Yes History of Present Illness Chief Complaint: Bilateral lower extremity edema pain Primary Care Provider: Migue Banda, III, [employer] Mr. Dena Bobo is a pleasant 74-year-old male with multiple medical problems to include sarcoidosis, HLA-B27, factor V Leiden mutation, CAD status post coronary artery stenting, CKD stage III, GERD, hypertension and anemia. Patient presents to the ER today complaining of pain in his legs bilaterally right more than left, as well as swelling and redness. He reports that his symptoms began approximately 5 to 6 months ago with pain in his left leg and the feeling of "a golf ball going through a hose". He was diagnosed with phlebitis. Allergies Allergy/AdvReac Type Severity Reaction Status Date / Time Penicillins Allergy Intermediate HIVES- A Verified 03/15/19 19:41 CHILD Sulfa (Sulfonamide Allergy Intermediate rash Verified 03/15/19 19:41 Antibiotics) moxifloxacin Allergy Mild Rash Verified 03/15/19 19:41 ubidecarenone Allergy Mild UBIQUINOL Verified 03/15/19 19:41 CAUSES itching of skin methotrexate Allergy Unknown Unknown Unverified 03/15/19 19:41 Ubiquino Allergy Unknown Unknown Uncoded 03/15/19 19:41 Home Medications Home Medications Medication Instructions Recorded Confirmed Type Alphagan P 1 drp OPHTHALMIC (EYE) BID 07/25/18 03/15/19 History acetaminophen [Tylenol Arthritis 650 mg PO Q8H PRN 07/25/18 03/15/19 History Pain] amlodipine 5 mg PO QAM 07/25/18 03/15/19 History aspirin 81 mg PO HS 07/25/18 03/15/19 History fexofenadine [Bronwyn Allergy] 180 mg PO DAILY PRN 07/25/18 03/15/19 History folic acid 1 mg PO HS 07/25/18 03/15/19 History metoprolol tartrate 12.5 mg PO BID 07/25/18 03/15/19 History nitroglycerin 1 tab SUBLINGUAL UD PRN 07/25/18 03/15/19 History prednisolone acetate [Pred Forte] 1 drp OPHTHALMIC (EYE) BID 07/25/18 03/15/19 History ranitidine HCl 150 mg PO QAM 07/25/18 03/15/19 History omega 1-awh-cis-fish oil 900 2 cap PO QAM cap 01/16/19 03/15/19 History mg-1,400 mg capsule,delayed release prednisone 2.5 mg tablet 5 mg PO QAM tab 01/16/19 03/15/19 History rosuvastatin 20 mg tablet 10 mg PO HS tab 01/16/19 03/15/19 History econazole 1 % topical cream 1 appln TOPICAL DAILY PRN #1 gm 02/14/19 03/15/19 History alendronate 70 mg PO WK 03/15/19 03/15/19 History calcium carbonate-vitamin D3 1 cap PO HS 03/15/19 03/15/19 History [Calcium 600 + D(3)] omega 8-tbc-ubm-fish oil 1 cap PO HS 03/15/19 03/15/19 History Past Med/Surg History Social History Preferred Language: Kinyarwanda Communication Ability: Effective Roof Slater Required: No Beliefs That Will Affect Care: None marital status: Current Living Situation: Spouse current occupational status: retired Feels Safe at Home: Yes Smoking Status: Never smoker Second Hand Exposure: No ; Hx Alcohol Use: Yes Alcohol type: beer, wine and hard liquor Hx Substance Use: No Childhood Exposure to Second-Hand Smoke: No Dental Care, Regularly: Yes Physical Activity Frequency: Daily Seatbelt Use: always Results & Data Vital Signs (Past 12 Hours) Vital Signs Temp Pulse Pulse Resp BP BP Pulse Ox 03/15/19 22:54 68 18 165/90 H 94 03/15/19 22:10 72 21 153/94 H 96 03/15/19 21:18 66 20 149/104 H 94 03/15/19 20:02 68 22 96 03/15/19 19:32 73 18 128/76 96 03/15/19 19:09 36.9 C 72 20 135/86 95 Code Status & VTE Plan VTE Prophylaxis Plan VTE Prophylaxis will be ordered: Yes PG Care Time/CCT Total # of Minutes Spent Total Time Spent with Patient: Total time spent is greater than 50% in coordination of care (as documented) at patient's floor/unit and/or counseling patient: (1) DVT (deep venous thrombosis) Affected thrombotic vein of extremity: other lower extremity vein Chronicity: acute DVT location: lower extremity Laterality: bilateral Qualified Code(s): I82.493 - Acute embolism and thrombosis of other specified deep vein of lower extremity, bilateral (2) Anemia Anemia type: unspecified type Qualified Code(s): D64.9 - Anemia, unspecified (3) Aortic stenosis Cardiac valve disease etiology: etiology unspecified Qualified Code(s): I35.0 - Nonrheumatic aortic (valve) stenosis (4) Gastro-esophageal reflux Esophagitis presence: esophagitis presence not specified Qualified Code(s): K21.9 - Gastro-esophageal reflux disease without esophagitis (5) Hypertension Hypertension type: essential hypertension Qualified Code(s): I10 - Essential (primary) hypertension
[2019-03-16] MEDS ORDERED: HEPARIN SODIUM/DEXTROSE 25,000 UNITS/500 ML BAG IV SCH (00:13)
[2019-03-16] MEDS ORDERED: ACETAMINOPHEN 325 MG TAB PO PRN (00:13)
[2019-03-16] MEDS ORDERED: NON-FORMULARY MEDICATION (Acetaminophen [Tylenol Arthritis Pain] 650 MG) PO PRN (00:13)
[2019-03-16] MEDS ORDERED: HEPARIN IV BOLUS 6,000 UNITS in SYRINGE 0 ML IV ONE (00:45)
[2019-03-16] MEDS: SODIUM CHLORIDE 0.9% 1000ML 1,000 ML IV SCH ×2 (00:59→09:11)
[2019-03-16 01:12] LABS: Magnesium 2.1 mg/dl (1.8-2.4); Phosphorus 3.4 mg/dl (2.5-4.9); Thyroid Stimulating Hormone 0.949 uIu/ml (0.300-4.500)
[2019-03-16] MEDS: ALPHAGAN~ORDER AWAITING ACTION SCH ×4 (01:14→23:14)
--- NOTE | 2019-03-16 01:18 | Emergency Department Note ---
Entered by Cherry Dalal acting as a scribe for Barney Herrera MD History of Present Illness General Chief complaint: Leg Injury/Pain Stated complaint: B/L LEG PAIN, LUMPS THAT HURT Time Seen by Provider: 03/15/19 19:43 Source: patient History of Present Illness Onset (ago): hour(s) (earlier today) Location: lower extremity, left and right Pain Consistency: + constant Maximum Pain Intensity: 6 Quality: + aching Associated symptoms: + denies other symptoms (injury, numbness) and + weakness; no chest pain The patient is a 74 year old male who presents to the Emergency Room with complaints of constant aching left leg pain beginning earlier today. The patient states that he has had intermittent left leg pain for several months. He states the pain feels like "marble pushing through a tube." The patient notes that he has right leg pain and redness starting today, and that he has weakness in both legs. He notes that there were sore and lumps on the left leg approximately one month ago. He states that he has an appointment for an US in about a week. The patient denies any injury, numbness, and chest pain. The patient notes that he flew home from [facility] this past week where he spent considerable time hiking and experienced weakness in his legs. He states that he is currently taking prednisone, and was taking methotrexate. He states that he has a history of cardiac problems and had 2 stents placed 20 years ago. Home Medications Home Medications Medication Instructions Recorded Confirmed Type Alphagan P 1 drp OPHTHALMIC (EYE) BID 07/25/18 03/15/19 History acetaminophen [Tylenol Arthritis 650 mg PO Q8H PRN 07/25/18 03/15/19 History Pain] amlodipine 5 mg PO QAM 07/25/18 03/15/19 History aspirin 81 mg PO HS 07/25/18 03/15/19 History fexofenadine [Bronwyn Allergy] 180 mg PO DAILY PRN 07/25/18 03/15/19 History folic acid 1 mg PO HS 07/25/18 03/15/19 History metoprolol tartrate 12.5 mg PO BID 07/25/18 03/15/19 History nitroglycerin 1 tab SUBLINGUAL UD PRN 07/25/18 03/15/19 History prednisolone acetate [Pred Forte] 1 drp OPHTHALMIC (EYE) BID 07/25/18 03/15/19 History ranitidine HCl 150 mg PO QAM 07/25/18 03/15/19 History omega 8-uaq-tks-fish oil 900 2 cap PO QAM cap 01/16/19 03/15/19 History mg-1,400 mg capsule,delayed release prednisone 2.5 mg tablet 5 mg PO QAM tab 01/16/19 03/15/19 History rosuvastatin 20 mg tablet 10 mg PO HS tab 01/16/19 03/15/19 History econazole 1 % topical cream 1 appln TOPICAL DAILY PRN #1 gm 02/14/19 03/15/19 History alendronate 70 mg PO WK 03/15/19 03/15/19 History calcium carbonate-vitamin D3 1 cap PO HS 03/15/19 03/15/19 History [Calcium 600 + D(3)] omega 1-lbq-ots-fish oil 1 cap PO HS 03/15/19 03/15/19 History Allergies Allergy/AdvReac Type Severity Reaction Status Date / Time Penicillins Allergy Intermediate HIVES- A Verified 03/15/19 19:41 CHILD Sulfa (Sulfonamide Allergy Intermediate rash Verified 03/15/19 19:41 Antibiotics) moxifloxacin Allergy Mild Rash Verified 03/15/19 19:41 ubidecarenone Allergy Mild UBIQUINOL Verified 03/15/19 19:41 CAUSES itching of skin methotrexate Allergy Unknown Unknown Unverified 03/15/19 19:41 Ubiquino Allergy Unknown Unknown Uncoded 03/15/19 19:41 Past Med/Surg History Medical History History of actinic keratosis (Resolved) Type 2 diabetes mellitus (Chronic) Tubular adenoma of colon (Resolved) Sarcoidosis (Chronic) Pulmonary nodule (Chronic) Onychomycosis of toenail (Chronic) Hypertension (Chronic) Hilar adenopathy (Chronic) HLA-B27 positive (Chronic) Gastro-esophageal reflux (Chronic) Factor 5 Leiden mutation, heterozygous (Chronic) Dyslipidemia (Chronic) CAD in [place] artery (Chronic) Ascending aorta dilation (Chronic) Aortic stenosis (Chronic) Ankle arthritis (Chronic) Anemia (Chronic) Acute deep vein thrombosis (DVT) of proximal vein of left lower extremity (Resolved) Acute kidney failure (Resolved) CVA (cerebral infarction) (Chronic) Hypercalcemia (Chronic) Encounter for pre-operative examination (Resolved) Encounter for screening colonoscopy (Resolved) Left leg DVT (Resolved) Numbness and tingling of left side of face (Resolved) Chronic steroid use Factor 5 Leiden mutation, heterozygous only on aspirin GERD (gastroesophageal reflux disease) HLA B27 positive Hyperlipidemia Hypertension Osteoarthritis Surgical History History of appendectomy History of bilateral cataract extraction History of cardiac cath hx of SOB---02/2000 @ [facility], 06/2010 @ [facility]---follows with Dr. Bright History of carpal tunnel surgery of right wrist History of colonoscopy History of esophagogastroduodenoscopy (EGD) History of heart artery stent 02/2000 x2 stents, 06/2010 x1 History of left inguinal hernia repair History of left wrist replacement History of open reduction and internal fixation (ORIF) procedure right foot--no longer has hardware in place History of tonsillectomy and adenoidectomy History of vitrectomy bilateral History of wisdom tooth extraction Status post biopsy of kidney benign Family History Mother Family history of diabetes mellitus Father Family history of diabetes mellitus Family hx colonic polyps Myocardial infarction Family/Other Family history of diabetes mellitus maternal aunts/uncles Aunt Breast cancer Social History Preferred Language: Italian Communication Ability: Effective Quilt Maker Required: No Beliefs That Will Affect Care: None marital status: Current Living Situation: Spouse current occupational status: retired Feels Safe at Home: Yes Smoking Status: Never smoker Second Hand Exposure: No ; Hx Alcohol Use: Yes Alcohol type: beer, wine and hard liquor Hx Substance Use: No Childhood Exposure to Second-Hand Smoke: No Dental Care, Regularly: Yes Physical Activity Frequency: Daily Seatbelt Use: always Review of Systems See HPI for pertinent positives & negatives. and A total of 10 systems reviewed and were otherwise negative Physical Exam Vital Signs Vital Signs - 24 hr 03/15/19 19:09 03/15/19 19:32 03/15/19 20:02 Temperature 36.9 C Temperature Source Oral Sepsis Recent Fever Within 48 Hours No Sepsis Action Taken by Nursing No Action Required Pulse Rate 72 68 Pulse Rate [Finger] 73 Pulse Rhythm Regular Pulse Strength Normal Respiratory Rate 20 18 22 Respiratory Effort / Characteristics Non-Labored Non-Labored Respiratory Depth Normal Normal Respiratory Pattern Regular Blood Pressure 135/86 Blood Pressure [Right Arm] 128/76 Blood Pressure Mean 102 Blood Pressure Mean [Right Arm] 93 Blood Pressure Position Sitting Pulse Oximetry 95 96 96 Oxygen Delivery Method Room Air Room Air Room Air 03/15/19 20:13 03/15/19 21:18 03/15/19 22:10 Temperature Temperature Source Sepsis Recent Fever Within 48 Hours Sepsis Action Taken by Nursing Pulse Rate Pulse Rate [Finger] 66 72 Pulse Rhythm Pulse Strength Respiratory Rate 20 21 Respiratory Effort / Characteristics Non-Labored Respiratory Depth Normal Respiratory Pattern Blood Pressure Blood Pressure [Right Arm] 149/104 H 153/94 H Blood Pressure Mean Blood Pressure Mean [Right Arm] 119 113 Blood Pressure Position Pulse Oximetry 94 96 Oxygen Delivery Method Room Air Room Air 03/15/19 22:54 Temperature Temperature Source Sepsis Recent Fever Within 48 Hours Sepsis Action Taken by Nursing Pulse Rate Pulse Rate [Finger] 68 Pulse Rhythm Pulse Strength Respiratory Rate 18 Respiratory Effort / Characteristics Respiratory Depth Respiratory Pattern Blood Pressure Blood Pressure [Right Arm] 165/90 H Blood Pressure Mean Blood Pressure Mean [Right Arm] 115 Blood Pressure Position Pulse Oximetry 94 Oxygen Delivery Method Room Air General: Non-ill appearing older male in no acute distress. HEENT: Normal cephalic atraumatic. Pupils are equal round and reactive to light. Extraocular movements are intact. Oropharynx is pink with moist mucous membranes. No swelling of the mouth lips or tongue. Neck: Supple with a midline trachea. No meningeal signs or stiffness, no JVD or bruits. No Stridor. Chest: Clear to auscultation bilaterally. No wheezes or rhonchi. No increased wo rk of breathing. Heart: regular rate and rhythm. Abdomen: Soft nontender, nondistended without rebound guarding or rigidity. Extremities: Mild lower edema bilaterally. No cyanosis clubbing. Minimal t enderness and minimal redness to the right ward. Slight tenderness to the left medial ankle. Spine/Back. Non tender to palpation. No CVA tenderness Skin: Good turgor without rashes. Neurologic exam: Cranial nerves two through 12 are intact. Motor and sensation are intact and symmetrical throughout. Course 1950: Past medical records reviewed. The patient was evaluated in room C06. A complete history and physical exam was performed. 2220: Upon reevaluation, the patient is resting more comfortably. 2222: Discussed the patient's case with Dr. Dean -[facility] Hospitalist who agrees to take the patient. The patient will be evaluated for further management. Administered Medications Heparin Sodium/Dextrose (Heparin Sodium/Dextrose) 25,000 units in 500 mls @ 28 mls/hr IV .[id number] [facility]; Protocol Stop: 04/15/19 00:12 Last Admin: 03/16/19 01:05 Dose: 1,400 units/hr, 28 mls/hr Documented by: [id number] Cosigned by: [id number] Sodium Chloride (Nss 1000ml) 1,000 mls @ 125 mls/hr IV .Q8H [facility] Stop: 03/16/19 16:12 Last Admin: 03/16/19 00:59 Dose: 125 mls/hr Documented by: [id number] Discontinued Medications Heparin Sodium (Porcine) 6,000 (units/ Syringe) 6 mls @ 10 mls/min IV NOW ONE Stop: 03/16/19 00:46 Last Admin: 03/16/19 00:53 Dose: 10 mls/min Documented by: [id number] Cosigned by: [id number] Medical Decision Making Differential Diagnosis DVT, electrolyte and metabolic abnormalities, infection, cardiac disease Medical Records Attestation: I reviewed the patient's medical records. Home Medications Current Medication List: was personally reviewed by me Laboratory Data Attestation: I reviewed the patient's lab results. Result diagrams: 03/15/19 20:03 03/15/19 20:03 Lab Results 03/15/19 03/15/19 03/15/19 Range/Units 20:03 20:03 20:03 WBC 5.78 (4.8-10.8) K/uL RBC 4.56 L (4.7-6.1) M/uL Hgb 13.6 L (14.0-18.0) g/dL Hct 40.3 L (42-52) % MCV 88.4 (80-100) fL MCH 29.8 (25-34) pg MCHC 33.7 (32-36) g/dL RDW Std Deviation 40.7 (36.4-46.3) fL RDW Coeff of [place] 12.8 (11.5-14.5) % Plt Count 158 (130-400) K/uL MPV 10.0 (7.4-10.4) fL Immature Gran % (Auto) 0.2 % Neut % (Auto) 69.7 % Lymph % (Auto) 18.9 % [place] % (Auto) 9.5 % Eos % (Auto) 1.4 % Baso % (Auto) 0.3 % Immature Gran # (Auto) 0.01 (0.00-0.02) K/uL Neut # (Auto) 4.03 (1.4-6.5) K/uL Lymph # (Auto) 1.09 L (1.2-3.4) K/uL [place] # (Auto) 0.55 (0.11-0.59) K/uL Eos # (Auto) 0.08 (0-0.5) K/uL Baso # (Auto) 0.02 (0-0.2) K/uL PT 10.5 (9.0-12.0) Seconds INR 1.0 (0.9-1.1) APTT 24.1 (21.0-31.0) Seconds PTT Ratio 0.9 Sodium 141 (136-145) mmol/L Potassium 3.6 (3.5-5.1) mmol/L Chloride 108 H (98-107) mmol/L Carbon Dioxide 27 (21-32) mmol/L Anion Gap 6.0 (3-11) BUN 31 H (7-18) mg/dl Creatinine 2.35 H (0.6-1.4) mg/dl Est Cr Clr Drug Dosing 29.3 ml/min Est GFR ( Amer) 30.9 Est GFR (Non-Af Amer) 26.6 BUN/Creatinine Ratio 13.1 (10-20) Glucose 120 H (70-99) mg/dl Calcium 11.6 H (8.5-10.1) mg/dl Total Bilirubin 0.7 (0.2-1) mg/dl AST 15 (15-37) U/L ALT 23 (12-78) U/L Alkaline Phosphatase 70 (45-117) U/L Troponin I < 0.015 (0-0.045) ng/ml Total Protein 7.2 (6.4-8.2) gm/dl Albumin 3.2 L (3.4-5.0) gm/dl Globulin 4.0 (2.5-4.0) gm/dl Albumin/Globulin Ratio 0.8 L (0.9-2) Lipase 133 (73-393) U/L Imaging Data Radiologist's Impression: Radiology results as stated below per my review and the radiologist's interpretation: BILATERAL LOWER EXTREMITY VENOUS DOPPLER HISTORY: Leg swelling. COMPARISON STUDY: Left leg venous Doppler 06/05/2015. FINDINGS: Thrombus identified within the right posterior tibial veins, lesser saphenous vein at the popliteal fossa, and additional superficial veins within the right medial calf. There is also thrombus identified within one of 2 mid left superficial femoral veins as well as superficial thrombus within the left saphenous vein from the popliteal fossa through the distal calf. The bilateral common femoral, popliteal, anterior tibial, and peroneal veins are patent. IMPRESSION: Bilateral lower extremity deep and superficial vein thrombosis as described above. Electronically signed by: José Miguel Mason M.D. 03/15/2019 9:25 PM XR chest 1V portable HISTORY: Atypical Chest Pain COMPARISON: Chest 10/03/2015. FINDINGS: No pneumothorax. No pleural effusions. The heart remains mildly enlarged. Diffuse interstitial thickening persists. This favors a chronic interstitial process or mild congestive change. Stable calcified granuloma within the right upper lobe. No new focal lung consolidations. IMPRESSION: Diffuse interstitial thickening persists and favors a chronic interstitial lung disease or mild congestive change. Electronically signed by: José Miguel Mason M.D. 03/15/2019 8:27 PM ECG Data Attestation: I personally reviewed and interpreted this ECG as follows: Indication: other (lower extremity pain) Rate (beats per minute): 67 Rhythm: sinus rhythm Findings: + RBBB; no acute ischemic change Comparison ECG Date: from (10/02/2018) Change: the following changes noted (RBBB is new) Blood Pressure Blood Pressure Findings: Elevated blood pressure Blood Pressure Disposition: further management by hospitalist [facility] Narrative This patient comes in as described above. He has been having bilateral leg pain for several weeks. He saw his regular doctor scheduled for an ultrasound in the next week. It started with his left leg however now is more in the right leg as well. The right ward is mildly red but no overtly cellulitic. he has had no fever or chills. no systemic complaints .no trauma or injury. No chest pain or shortness of breath. He is not on any blood thinners. he has been on Xarelto in the past . he does have chronic renal insufficiency. He is well-appearing. his feet are pink and well-perfused appearing with good distal pulses. IV access was established. EKG was obtained as well as chest x-ray, multiple blood testing was obtained. I did ultrasounds of both his legs and he had both superficial and deep clots in both legs. His creatinine had bumped up to 2.4 up from baseline in the mid 1 range. He has nothing clinically to suggest PE that he will need to be anticoagulated likely with IV heparin. I did discuss case with Dr. Dean, who is on-call for [facility] [place], she saw the patient will admit him evaluation. Impression & Plan Acute deep vein thrombosis (DVT) of both lower extremities, Bilateral leg pain, Renal failure, Factor 5 Leiden mutation, heterozygous, Sarcoid Discharge Plan Visit Data *Final* Discharge Date/Time: 03/15/19 23:57 Chief Complaint: Leg Injury/Pain Stated Complaint: B/L LEG PAIN, LUMPS THAT HURT ED Provider: Barney Herrera Discharge Problem: Acute deep vein thrombosis (DVT) of both lower extremities, Bilateral leg pain, Renal failure, Factor 5 Leiden mutation, heterozygous, Sarcoid Patient Disposition: Admitted As Inpatient Discharge Instructions Interventions: ED Discharge Assessment Last Done: 03/15/19 23:57 The scribe's documentation has been prepared under my direction and personally reviewed by me in its entirety. I confirm that the note above accurately reflects all work, treatment, procedures, and medical decision making performed by me.
[2019-03-16 07:15] LABS: Basophils # (auto) 0.05 K/uL (0-0.2); Basophils % (auto) 0.8 %; Eosinophils # (auto) 0.34 K/uL (0-0.5); Eosinophils % (auto) 5.6 %; Hematocrit (blood only) 40.7 % (42-52); Hemoglobin 13.8 g/dL (14.0-18.0); Immature Granulocytes # (auto) 0.02 K/uL (0.00-0.02); Immature Granulocytes % (auto) 0.3 %; Lymphocytes # (auto) 1.76 K/uL (1.2-3.4); Lymphocytes % (auto) 28.8 %; Mean Corpuscular Hemoglobin 29.9 pg (25-34); Mean Corpuscular Hgb Conc 33.9 g/dL (32-36); Mean Corpuscular Volume 88.3 fL (80-100); Mean Platelet Volume 10.2 fL (7.4-10.4); Monocytes # (auto) 0.74 K/uL (0.11-0.59); Monocytes % (auto) 12.1 %; Neutrophils % (auto) 52.4 %; Platelet Count 149 K/uL (130-400); RDW Coefficient of Variation 12.9 % (11.5-14.5); RDW Standard Deviation 41.1 fL (36.4-46.3); Red Blood Count 4.61 M/uL (4.7-6.1); White Blood Count 6.11 K/uL (4.8-10.8)
[2019-03-16 07:35] LABS: Partial Thromboplastin Ratio 3.7
[2019-03-16 07:38] LABS: Partial Thromboplastin Time 100.5 Seconds (21.0-31.0)
[2019-03-16 07:44] LABS: BUN Creatinine Ratio 13.2 (10-20); Calcium 10.6 mg/dl (8.5-10.1); Creatinine Clr Calc Pharmacy 31.1 ml/min; Est GFR (African American) 33.1; Est GFR (Non-African American) 28.5; Potassium 3.3 mmol/L (3.5-5.1)
[2019-03-16] MEDS: METOPROLOL TARTRATE 25 MG TAB PO SCH ×2 (08:26→20:20)
[2019-03-16] MEDS: AMLODIPINE BESYLATE 5 MG TAB PO SCH (08:27)
[2019-03-16] MEDS: predniSONE 20 MG TAB PO SCH (08:27)
[2019-03-16] MEDS: prednisoLONE acetate 1% OP SUSP 5 ML BTL OP SCH ×2 (08:28→20:21)
--- NOTE | 2019-03-16 10:51 | Nephrology Consultation ---
Date of Consultation March 16, 2019 Assessment & Plan (1) Acute kidney injury: -- SHUKRI due to dehydration associated w/ hypercalcemia -- Electrolyte balance is acceptable -- Monitor PRP (2) Stage 3 chronic kidney disease: -- Baseline creatinine 1.5 (3) Sarcoidosis: -- Diagnosis based on hypercalcemia in the setting of elevated AMARILIS level, low PTH, no urinary protein and no documented malignancy. Kidney biopsy was negative for granulomas. Patient condition has responded to steroid therapy -- Hold Ca + vitamin D supplement -- Agree w/ increasing Prednisone therapy -- Has received bisphosphonate as outpatient -- Continue IV hydration (4) Hypertension: -- On Amlodipine. Blood pressure has been variable. Will monitor (5) Factor 5 Leiden mutation, heterozygous: -- Bilateral LE DVT. Now on heparin gtt History of Present Illness Reason for Consultation: SHUKRI, hypercalcemia Attending Physician: Reynaldo Webber History of Present Illness Mr. Bobo is a 74 year old white male who is seen at the request of Dr. Webber for evaluation of SHUKRI and hypercalcemia. Medical records in the EMR were reviewed today and are summarized as follows: Mr. Castro has stage III CKD w/ baseline creatinine 1.5 and EGFR 44 cc/min. 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 Salomon. His medical history is significant for sarcoidosis, uveitis, osteoarthritis, factor V Leiden mutation, HTN, ASCVD, aortic aneurysm, chronic low back pain and HLA- B27 positivity. Mr. Bobo has been under the care of Dr. Gay (Rheumatology) for management of his sarcoidosis. He was intolerant of MTX due to breast tenderness. He remains on low dose prednisone, calcium + vitamin D. Over the last several weeks Mr. Bobo has experienced progressive leg pain. He presented to the ED yesterday where he was found to have bilateral LE DVT, Ca 11.6 and SHUKRI/CKD with serum creatinine 2.3. Allergies Allergy/AdvReac Type Severity Reaction Status Date / Time Penicillins Allergy Intermediate HIVES- A Verified 03/15/19 19:41 CHILD Sulfa (Sulfonamide Allergy Intermediate rash Verified 03/15/19 19:41 Antibiotics) moxifloxacin Allergy Mild Rash Verified 03/15/19 19:41 ubidecarenone Allergy Mild UBIQUINOL Verified 03/15/19 19:41 CAUSES itching of skin methotrexate Allergy Unknown Unknown Unverified 03/15/19 19:41 Ubiquino Allergy Unknown Unknown Uncoded 03/15/19 19:41 Home Medications Home Medications Medication Instructions Recorded Confirmed Type Alphagan P 1 drp OPHTHALMIC (EYE) BID 07/25/18 03/15/19 History acetaminophen [Tylenol Arthritis 650 mg PO Q8H PRN 07/25/18 03/15/19 History Pain] amlodipine 5 mg PO QAM 07/25/18 03/15/19 History aspirin 81 mg PO HS 07/25/18 03/15/19 History fexofenadine [Bronwyn Allergy] 180 mg PO DAILY PRN 07/25/18 03/15/19 History folic acid 1 mg PO HS 07/25/18 03/15/19 History metoprolol tartrate 12.5 mg PO BID 07/25/18 03/15/19 History nitroglycerin 1 tab SUBLINGUAL UD PRN 07/25/18 03/15/19 History prednisolone acetate [Pred Forte] 1 drp OPHTHALMIC (EYE) BID 07/25/18 03/15/19 History ranitidine HCl 150 mg PO QAM 07/25/18 03/15/19 History omega 5-emq-bsa-fish oil 900 2 cap PO QAM cap 01/16/19 03/15/19 History mg-1,400 mg capsule,delayed release prednisone 2.5 mg tablet 5 mg PO QAM tab 01/16/19 03/15/19 History rosuvastatin 20 mg tablet 10 mg PO HS tab 01/16/19 03/15/19 History econazole 1 % topical cream 1 appln TOPICAL DAILY PRN #1 gm 02/14/19 03/15/19 History alendronate 70 mg PO WK 03/15/19 03/15/19 History calcium carbonate-vitamin D3 1 cap PO HS 03/15/19 03/15/19 History [Calcium 600 + D(3)] omega 6-rzo-upu-fish oil 1 cap PO HS 03/15/19 03/15/19 History Patient History Medical History History of actinic keratosis (Resolved) Type 2 diabetes mellitus (Chronic) Tubular adenoma of colon (Resolved) Sarcoidosis (Chronic) Pulmonary nodule (Chronic) Onychomycosis of toenail (Chronic) Hypertension (Chronic) Hilar adenopathy (Chronic) HLA-B27 positive (Chronic) Gastro-esophageal reflux (Chronic) Factor 5 Leiden mutation, heterozygous (Chronic) Dyslipidemia (Chronic) CAD in [place] artery (Chronic) Ascending aorta dilation (Chronic) Aortic stenosis (Chronic) Ankle arthritis (Chronic) Anemia (Chronic) Acute deep vein thrombosis (DVT) of proximal vein of left lower extremity (Resolved) Acute kidney failure (Resolved) CVA (cerebral infarction) (Chronic) Hypercalcemia (Chronic) Encounter for pre-operative examination (Resolved) Encounter for screening colonoscopy (Resolved) Left leg DVT (Resolved) Numbness and tingling of left side of face (Resolved) Chronic steroid use Factor 5 Leiden mutation, heterozygous only on aspirin GERD (gastroesophageal reflux disease) HLA B27 positive Hyperlipidemia Hypertension Osteoarthritis Surgical History History of appendectomy History of bilateral cataract extraction History of cardiac cath hx of SOB---02/2000 @ [facility], 06/2010 @ [facility]---follows with Dr. Bright History of carpal tunnel surgery of right wrist History of colonoscopy History of esophagogastroduodenoscopy (EGD) History of heart artery stent 02/2000 x2 stents, 06/2010 x1 History of left inguinal hernia repair History of left wrist replacement History of open reduction and internal fixation (ORIF) procedure right foot--no longer has hardware in place History of tonsillectomy and adenoidectomy History of vitrectomy bilateral History of wisdom tooth extraction Status post biopsy of kidney benign Family History Mother Family history of diabetes mellitus Father Family history of diabetes mellitus Family hx colonic polyps Myocardial infarction Family/Other Family history of diabetes mellitus maternal aunts/uncles Aunt Breast cancer Social History Preferred Language: Mohawk Communication Ability: Effective Paint Stockman Required: No Beliefs That Will Affect Care: None marital status: Current Living Situation: Spouse Current Living Situation Comment: Lives at home with current occupational status: retired Other Information That Helps Us Care for You: No Feels Safe at Home: Yes Safety Concerns: Feels Safe At This Time Smoking Status: Never smoker Do You Dip or Chew Tobacco: No ; Second Hand Exposure: No ; Tobacco Cessation Education Requested by Patient: No Hx Alcohol Use: Yes Alcohol type: wine Hx Substance Use: No Childhood Exposure to Second-Hand Smoke: No Dental Care, Regularly: Yes Physical Activity Frequency: Daily Seatbelt Use: always Review of Systems Constitutional: no fever, no chills and no weakness Eyes: no worsening vision and no problem reported Ear, Nose, Mouth, Throat: no problem reported Respiratory: no cough and no dyspnea Cardiovascular: no chest pain, no palpitations and no edema Gastrointestinal: no abdominal pain, no nausea, no vomiting and no di arrhea/loose stools Genitourinary: no dysuria, no urinary hesitancy and no hematuria Musculoskeletal: no back pain Integumentary: no rash Neurologic: no falls, no dizziness and no confusion Physical Exam Constitutional: not in distress Eyes: PERRL, conjunctivae normal, anicteric sclerae ENMT: external ear and nose normal, oropharynx normal Neck: trachea midline, no thyromegaly Respiratory: normal respiratory effort, lungs clear to auscultation Cardiovascular: RRR, no murmur, no edema Gastrointestinal (Abdomen): normal bowel sounds, soft, nontender, no hepatosplenomegaly Musculoskeletal: Extremities: + lower leg abnormality (legs tender to palpation ) Bilateral Skin: no rashes, warm and dry Neurologic: awake; not confused Results & Data Vital Signs (Past 12 Hours) Vital Signs Temp Pulse Resp BP BP Pulse Ox 03/16/19 07:11 36.8 C 72 18 153/88 H 97 03/16/19 01:15 36.8 C 73 18 197/99 H 95 03/15/19 22:54 68 18 165/90 H 94 Laboratory Results Laboratory Tests 10/17/17 11/29/17 02/11/19 11:10 15:57 10:54 WBC Hgb Hct Plt Count Sodium Potassium Chloride Carbon Dioxide BUN Creatinine Glucose Calcium Angiotensin Convert Enz 80 H 71 H 25-OH Vitamin D Total TSH PTH Intact 18.7 02/11/19 03/15/19 03/16/19 10:54 20:03 00:34 WBC Hgb Hct Plt Count Sodium Potassium Chloride Carbon Dioxide BUN Creatinine 2.35 H Glucose Calcium 11.6 H Angiotensin Convert Enz 25-OH Vitamin D Total 45.1 TSH 0.949 PTH Intact 03/16/19 03/16/19 06:55 06:55 WBC 6.11 Hgb 13.8 L Hct 40.7 L Plt Count 149 Sodium 142 Potassium 3.3 L Chloride 110 H Carbon Dioxide 27 BUN 29 H Creatinine 2.22 H Glucose 90 Calcium 10.6 H Angiotensin Convert Enz 25-OH Vitamin D Total TSH PTH Intact Diagnostic Findings CXR 03/15/19: No pneumothorax. No pleural effusions. The heart remains mildly enlarged. Diffuse interstitial thickening persists. This favors a chronic interstitial process or mild congestive change. Stable calcified granuloma within the right upper lobe. No new focal lung consolidations. LE US 03/15/19: Thrombus identified within the right posterior tibial veins, lesser saphenous vein at the popliteal fossa, and additional superficial veins within the right medial calf. There is also thrombus identified within one of 2 mid left superficial femoral veins as well as superficial thrombus within the left saphenous vein from the popliteal fossa through the distal calf. The bilateral common femoral, popliteal, anterior tibial, and peroneal veins are patent. PG Care Time/CCT Total # of Minutes Spent Total Time Spent with Patient: Total time spent is greater than 50% in coordination of care (as documented) at patient's floor/unit and/or counseling patient: (1) Hypertension Hypertension type: essential hypertension Qualified Code(s): I10 - Essential (primary) hypertension
[2019-03-16 13:55] LABS: Partial Thromboplastin Ratio 2.5
[2019-03-16 15:06] VITALS: TEMP 98.2
[2019-03-16 19:53] LABS: Partial Thromboplastin Ratio 2.1; Partial Thromboplastin Time 56.4 Seconds (21.0-31.0)
[2019-03-16] MEDS: APIXABAN 5 MG TABLET PO SCH (20:19)
[2019-03-16] MEDS: POTASSIUM CHLORIDE 20 MEQ TABCR PO SCH (20:21)
[2019-03-16] MEDS ORDERED: FOLIC ACID 1 MG TAB PO SCH (21:00)
[2019-03-16] MEDS ORDERED: ROSUVASTATIN CALCIUM 20 MG TAB PO SCH (21:00)
[2019-03-16] MEDS ORDERED: ASPIRIN 81 MG ECTAB PO SCH (21:00)
--- NOTE | 2019-03-16 23:49 | Hospitalist Progress Note ---
Date of Service March 16, 2019 Assessment & Plan (1) DVT (deep venous thrombosis): Patient found to have bilateral lower extremity deep and superficial vein thrombosis in the right posterior tibial veins, lesser saphenous vein at the popliteal fossa and superficial veins of the right medial calf. Also thrombus within 1 of the 2 mid left superficial femoral veins as well as superficial thrombosis in the left saphenous vein from the popliteal fossa through the distal calf. Has history of prior venous thromboembolism. On 03/15/2015 he was found to have left lower extremity nonocclusive superficial femoral vein thrombosis. He was started on anticoagulation with Xarelto which was subsequently discontinued. Also found to be factor V Leiden heterozygous at that time. He has a strong family history of the same. Patient presently denies any chest pain, shortness of breath, pleurisy, hemoptysis or dizziness. Denies trauma to the lower extremities. He recently took a trip to [place], possible provoking factor. -Admit to medical floor -Anticoagulation with heparin drip Had extensive discussion with patient on multiple visits today. Patient was gvien option on eliquis or coumadin. Explained to patient lack of studies on patient with factor V leiden mutation. Patient darling decided on eliquis. Will transition to eliquis at 21:00. Will stop heparin. Anticipate discharge in AM. (2) Acute kidney injury: Patient with CKD stage III with baseline creatinine of approximately 1.5. Presenting today with elevated BUN = 31 and creatinine = 2.35. Patient appears euvolemic on clinical exam. States that he has been eating and drinking well. He has had SHUKRI in the past which was thought to be secondary to hypercalcemia which could very well be the case today as well as his calcium is 11.6. -creatinine is improving. Will continue IV fluid and monitor. -Consult nephrology. Patient is known to Dr. Salomon (3) Hypercalcemia: Calcium = 11.6. Ionized calcium elevated as well at 1.43. Patient has had parathyroid hormone checked in the past which is been within normal range. Hypercalcemia possibly secondary to sarcoidosis. Low concern for malignancy. Patient also taking calcium supplements. Patient with no mental status changes/weakness/confusion. No evidence of tetany. Hypercalcemia most likely contributing to SHUKRI -Hydration with normal saline solution at 125 mL/h x 2 L calcium improved to 10.6 (4) Stage 3 chronic kidney disease: Plan as above (5) Sarcoidosis: Patient carries a diagnosis of sarcoidosis. He states that he has had a renal biopsy in the past which showed no evidence of sarcoid. He has never had a lung biopsy. He has had elevated AMARILIS levels in the past in 2018. Patient with elevated calcium today. -We will increase prednisone to 20 mg daily (6) Hypertension: Blood pressure mildly elevated at 165/90. -Continue metoprolol 12.5 mg p.o. twice daily -Continue amlodipine 5 mg (7) Gastro-esophageal reflux: Chronic. Stable. -Continue ranitidine 150 mg p.o. every morning (8) Factor 5 Leiden mutation, heterozygous: See discussion of DVT above. This seems to be patient's second episode of VTE. Will most likely need long-term/lifelong anticoagulation. -Heparin drip for now/ WILL TRANSITION TO ELIQUIS -May need to be started on Coumadin versus NOAC pending renal function (9) Dyslipidemia: Chronic stable -Continue Crestor 10 mg p.o. nightly (10) CAD in [place] artery: Patient with no complaints of chest pain. EKG with no evidence of ischemia. Troponin x1 negative - continue aspirin -Continue metoprolol -Continue Crestor (11) Aortic stenosis: Patient well compensated. No evidence of failure, angina, syncope or dyspnea - is routinely monitored by cardiology (12) Anemia: No active bleeding -Continue folic acid SPENT 35 MINUTES IN MANAGEMNT OF PATIENT Subjective This is a pleasant 74 yo male who reports no new symptoms. He states his lower extremities are less swollen and painful. Patient denies any SOB, nausea, vomiting, palpatations. Review of Systems Review of Systems: All systems reviewed & are unremarkable except as noted in HPI & below Physical Exam Constitutional: WD/WN, vitals as above well developed and well nourished Eyes: PERRL, conjunctivae normal, anicteric sclerae ENMT: external ear and nose normal, oropharynx normal Neck: trachea midline, no thyromegaly Respiratory: normal respiratory effort, lungs clear to auscultation Cardiovascular: RRR, no murmur, no edema Gastrointestinal (Abdomen): normal bowel sounds, soft, nontender, no hepatosplenomegaly Neurologic: moves all extremities Psychiatric: A+Ox3, euthymic affect Lymphatic: no cervical or axillary lymphadenopathy Results & Data Vital Signs (Past 12 Hours) Vital Signs Temp Pulse Resp BP Pulse Ox 03/16/19 22:35 36.8 C 67 18 134/77 95 03/16/19 20:15 73 144/88 H 03/16/19 15:04 36.8 C 69 20 143/87 H 95 03/16/19 14:54 36.3 C L 71 16 142/82 H 95 PG Care Time/CCT Total # of Minutes Spent Total Time Spent with Patient: Total time spent is greater than 50% in coordination of care (as documented) at patient's floor/unit and/or counseling patient: (1) DVT (deep venous thrombosis) Affected thrombotic vein of extremity: other lower extremity vein Chronicity: acute DVT location: lower extremity Laterality: bilateral Qualified Code(s): I82.493 - Acute embolism and thrombosis of other specified deep vein of lower extremity, bilateral (2) Anemia Anemia type: unspecified type Qualified Code(s): D64.9 - Anemia, unspecified (3) Aortic stenosis Cardiac valve disease etiology: etiology unspecified Qualified Code(s): I35.0 - Nonrheumatic aortic (valve) stenosis (4) Gastro-esophageal reflux Esophagitis presence: esophagitis presence not specified Qualified Code(s): K21.9 - Gastro-esophageal reflux disease without esophagitis (5) Hypertension Hypertension type: essential hypertension Qualified Code(s): I10 - Essential (primary) hypertension
[2019-03-17 06:42] LABS: Calcium 10.1 mg/dl (8.5-10.1); Creatinine Clr Calc Pharmacy 33.1 ml/min; Est GFR (African American) 35.8; Est GFR (Non-African American) 30.9; Potassium 3.6 mmol/L (3.5-5.1)
[2019-03-17 06:55] LABS: Appearance Urine Clear (Clear); Bilirubin Urine Negative (Negative); Blood Urine Negative (Negative); Color Urine Yellow; Glucose Urine UA Negative (Negative); Ketones Urine Negative (Negative); Leukocyte Esterase Urine Negative (Negative); Nitrite Urine Negative (Negative); Protein Urine Negative (Negative); Specific Gravity Urine 1.016 (1.000-1.030); Urobilinogen Urine Negative (Negative); pH Urine 6.5 (4.5-7.5)
[2019-03-17 07:12] LABS: Creatinine Urine Random 58.2 mg/dl
[2019-03-17 08:10] VITALS: PULSE 75; O2SAT 91
[2019-03-17] MEDS: APIXABAN 5 MG TABLET PO SCH (08:11)
[2019-03-17] MEDS: POTASSIUM CHLORIDE 20 MEQ TABCR PO SCH (08:11)
[2019-03-17] MEDS: METOPROLOL TARTRATE 25 MG TAB PO SCH (08:12)
[2019-03-17] MEDS: AMLODIPINE BESYLATE 5 MG TAB PO SCH (08:13)
[2019-03-17] MEDS: predniSONE 20 MG TAB PO SCH (08:13)
[2019-03-17] MEDS: prednisoLONE acetate 1% OP SUSP 5 ML BTL OP SCH (08:14)
[2019-03-17] MEDS: ALPHAGAN~ORDER AWAITING ACTION SCH (08:15)
--- NOTE | 2019-03-17 10:03 | Nephrology Progress Note ---
Date of Service March 17, 2019 Assessment & Plan (1) Acute kidney injury: -- SHUKRI due to dehydration associated w/ hypercalcemia -- Nearing baseline kidney function (creatinine ~ 1.5). Electrolyte balance is acceptable -- Monitor PRP -- If discharge is anticipated please have patient schedule follow up appointment w/ Dr. Salomon ([facility] [phone]) within the next 7 - 14 days -- Will sign off. Please call if further Nephrology assistance is needed (2) Stage 3 chronic kidney disease: -- Baseline creatinine 1.5 (3) Sarcoidosis: -- Diagnosis based on hypercalcemia in the setting of elevated AMARILIS level, low PTH, no urinary protein and no documented malignancy. Kidney biopsy was negative for granulomas. Patient condition has responded to steroid therapy -- Hold Ca + vitamin D supplement -- Prednisone taper as per primary service -- Has received bisphosphonate as outpatient (4) Hypertension: -- On Amlodipine. Blood pressure has been variable. Will monitor (5) Factor 5 Leiden mutation, heterozygous: -- Bilateral LE DVT. Now on oral anticoagulant Subjective Mr. Bobo was seen & examined in his hospital room this morning. He is tolerating IV hydration without dyspnea or LE swelling. He voices no new medical concerns. Review of Systems Constitutional: no fever, no chills and no weakness Eyes: no worsening vision and no problem reported Ear, Nose, Mouth, Throat: no problem reported Respiratory: no cough and no dyspnea Cardiovascular: no chest pain, no palpitations and no edema Gastrointestinal: no abdominal pain, no nausea, no vomiting and no diarrhea/loose stools Genitourinary: no dysuria, no urinary hesitancy and no hematuria Musculoskeletal: no back pain Integumentary: no rash Neurologic: no falls, no dizziness and no confusion Physical Exam Constitutional: not in distress Eyes: PERRL, conjunctivae normal, anicteric sclerae ENMT: external ear and nose normal, oropharynx normal Neck: trachea midline, no thyromegaly Respiratory: normal respiratory effort, lungs clear to auscultation Cardiovascular: RRR, no murmur, no edema Gastrointestinal (Abdomen): normal bowel sounds, soft, nontender, no hepatosplenomegaly Musculoskeletal: Extremities: + lower leg abnormality (legs tender to palpation ) Skin: no rashes, warm and dry Neurologic: awake; not confused Results & Data Vital Signs (Past 12 Hours) Vital Signs Temp Pulse Resp BP Pulse Ox 03/17/19 08:00 36.8 C 75 20 144/84 H 91 03/16/19 22:35 36.8 C 67 18 134/77 95 Laboratory Results Laboratory Tests 03/16/19 03/17/19 06:55 05:15 WBC 6.11 Hgb 13.8 L Hct 40.7 L Plt Count 149 Sodium 143 Potassium 3.6 Chloride 111 H Carbon Dioxide 25 Creatinine 2.08 H Calcium 10.1 PG Care Time/CCT Total # of Minutes Spent Total Time Spent with Patient: Total time spent is greater than 50% in coordination of care (as documented) at patient's floor/unit and/or counseling patient: (1) Hypertension Hypertension type: essential hypertension Qualified Code(s): I10 - Essential (primary) hypertension
[2019-03-17 11:50] VITALS: BP 153/88
--- NOTE | 2019-03-24 20:24 | Discharge Summary ---
Date of Service March 17, 2019 Admission HPI Per Admitting Provider Mr. Dena Bobo is a pleasant 74-year-old male with multiple medical problems to include sarcoidosis, HLA-B27, factor V Leiden mutation, CAD status post coronary artery stenting, CKD stage III, GERD, hypertension and anemia. Patient presents to the ER today complaining of pain in his legs bilaterally right more than left, as well as swelling and redness. He reports that his symptoms began approximately 5 to 6 months ago with pain in his left leg and the feeling of "a golf ball going through a hose". He was diagnosed with phlebitis. Principal Diagnosis DVT thrombosis Discharge Exam Constitutional WD/WN, vitals as above well developed and well nourished Eyes PERRL, conjunctivae normal, anicteric sclerae ENMT external ear and nose normal, oropharynx normal Neck trachea midline, no thyromegaly Respiratory normal respiratory effort, lungs clear to auscultation Cardiovascular RRR, no murmur, no edema Gastrointestinal (Abdomen) normal bowel sounds, soft, nontender, no hepatosplenomegaly Neurologic moves all extremities Psychiatric A+Ox3, euthymic affect Lymphatic no cervical or axillary lymphadenopathy Discharge Data Allergies Allergy/AdvReac Type Severity Reaction Status Date / Time Penicillins Allergy Intermediate HIVES- A Verified 03/22/19 11:04 CHILD Sulfa (Sulfonamide Allergy Intermediate rash Verified 03/22/19 11:04 Antibiotics) moxifloxacin Allergy Mild Rash Verified 03/22/19 11:04 ubidecarenone Allergy Mild UBIQUINOL Verified 03/22/19 11:04 CAUSES itching of skin methotrexate AdvReac Intermediate sore Unverified 03/22/19 11:04 breasts Ubiquino Allergy Unknown Unknown Uncoded 03/22/19 11:04 Consultations 03/15/19 22:17 ED Decision to Admit Stat 03/16/19 00:13 Consult Nephrology Routine Ordered Studies 03/15/19 19:49 US venous doppler LE BI Stat Hospital Course (1) DVT (deep venous thrombosis): Patient found to have bilateral lower extremity deep and superficial vein thrombosis in the right posterior tibial veins, lesser saphenous vein at the popliteal fossa and superficial veins of the right medial calf. Also thrombus within 1 of the 2 mid left superficial femoral veins as well as superficial thrombosis in the left saphenous vein from the popliteal fossa through the distal calf. Has history of prior venous thromboembolism. On 03/15/2015 he was found to have left lower extremity nonocclusive superficial femoral vein thrombosis. He was started on anticoagulation with Xarelto which was subsequently discontinued. Also found to be factor V Leiden heterozygous at that time. He has a strong fam brett history of the same. Patient presently denies any chest pain, shortness of breath, pleurisy, hemoptysis or dizziness. Denies trauma to the lower extremities. He recently took a trip to [place], possible provoking factor. -Admit to medical floor -Anticoagulation with heparin drip Had extensive discussion with patient on multiple visits today. Patient was gvien option on eliquis or coumadin. Explained to patient lack of studies on patient with factor V leiden mutation. Patient ultimately decided on eliquis. On day prior to discharge, transitioned to eliquis at 21:00. Stopped heparin. On day of discharge, patient had no issues. (2) Acute kidney injury: Patient with CKD stage III with baseline creatinine of approximately 1.5. Presenting today with elevated BUN = 31 and creatinine = 2.35. Patient appears euvolemic on clinical exam. States that he has been eating and drinking well. He has had SHUKRI in the past which was thought to be secondary to hypercalcemia which could very well be the case today as well as his calcium is 11.6. -creatinine is improving. Will continue IV fluid and monitor. -Consult nephrology. Patient is known to Dr. Salomon (3) Hypercalcemia: Calcium = 11.6. Ionized calcium elevated as well at 1.43. Patient has had parathyroid hormone checked in the past which is been within normal range. Hypercalcemia possibly secondary to sarcoidosis. Low concern for malignancy. Patient also taking calcium supplements. Patient with no mental status chamorro es/weakness/confusion. No evidence of tetany. Hypercalcemia most likely contributing to SHUKRI -Hydration with normal saline solution at 125 mL/h x 2 L calcium improved to 10.1 (4) Stage 3 chronic kidney disease: Plan as above (5) Sarcoidosis: Patient carries a diagnosis of sarcoidosis. He states that he has had a renal biopsy in the past which showed no evidence of sarcoid. He has never had a lung biopsy. He has had elevated AMARILIS levels in the past in 2018. Patient with elevated calcium today. -We will increase prednisone to 20 mg daily (6) Hypertension: Blood pressure mildly elevated at 165/90. -Continue metoprolol 12.5 mg p.o. twice daily -Continue amlodipine 5 mg (7) Gastro-esophageal reflux: Chronic. Stable. -Continue ranitidine 150 mg p.o. every morning (8) Factor 5 Leiden mutation, heterozygous: See discussion of DVT above. This seems to be patient's second episode of VTE. Will most likely need long-term/lifelong anticoagulation. -Heparin drip for now/ WILL TRANSITION TO ELIQUIS -May need to be started on Coumadin versus NOAC pending renal function (9) Dyslipidemia: Chronic stable -Continue Crestor 10 mg p.o. nightly (10) CAD in [place] artery: Patient with no complaints of chest pain. EKG with no evidence of ischemia. Troponin x1 negative - continue aspirin -Continue metoprolol -Continue Crestor (11) Aortic stenosis: Patient well compensated. No evidence of failure, angina, syncope or dyspnea - is routinely monitored by cardiology (12) Anemia: No active bleeding -Continue folic acid Total Time Total Time Spent Total Time Spent (In Minutes): 32 Total Time Includes: Examination of the Patient, Discharge Planning and Medication Reconciliation Discharge Plan Discharge Items Patient Disposition: Home - Self-Care Reason For Visit: SHUKRI, DVT, HYPERCALCEMIA Discharge Diagnosis: Acute kidney injury Discharge Goals: Decrease discomfort Activity: Resume your previous activity Non-emergency contact: Primary Care Provider Call non-emergency contact if: you have any medication questions Follow-up/Referrals: Migue Banda III, CRNP [Primary Care Provider] - Diet: Heart Healthy Addtl Provider Instructions: Will continue on prendisone. Will gradually taper. 20mg for 4 days 10 mg for 4 days then resume 5 mg dose. In regards to Eliquis, Take 10 mg twice a day by mouth for 6 days; then 5 mg twice a day ongoing. F/U with PCP in 1-2 weeks F/U with nephrology in 1 week Prescriptions: New prednisone 20 mg Tablet 20 mg PO QAM Qty: 6 RF: 0 Eliquis 5 mg tablet See Rx Instructions .ROUTE .COMPLEX 30 Days Qty: 72 RF: 0 Continued econazole 1 % cream 1 appln topical DAILY PRN (Reason: Rash) Qty: 1 RF: 0 alendronate 70 mg tablet 70 mg PO WK RF: 0 omega 1-pgu-lfk-fish oil 900-1,400 mg Capsule,Delayed Release(Dr/Ec) 1 cap PO HS RF: 0 fexofenadine [[place] Allergy] 180 mg Tablet 180 mg PO DAILY PRN (Reason: Allergy Symptoms) RF: 0 amlodipine 5 mg Tablet 5 mg PO QAM RF: 0 aspirin 81 mg Tablet,Delayed Release (Dr/Ec) 81 mg PO HS RF: 0 acetaminophen [Tylenol Arthritis Pain] 650 mg Tablet Extended Release 650 mg PO Q8H PRN (Reason: Pain) RF: 0 prednisolone acetate [Pred Forte] 1 % Drops,Suspension 1 drp OPHTHALMIC (EYE) BID RF: 0 ranitidine HCl 150 mg Tablet 150 mg PO QAM RF: 0 nitroglycerin 0.4 mg Tablet, Sublingual 1 tab Sublingual UD PRN (Reason: Angina) RF: 0 folic acid 1 mg Tablet 1 mg PO HS RF: 0 metoprolol tartrate 25 mg Tablet 12.5 mg PO BID RF: 0 Alphagan P 0.1 % Drops 1 drp OPHTHALMIC (EYE) BID RF: 0 Fish Oil 900-1,400 mg capsule,delayed release(DR/EC) 2 cap PO QAM RF: 0 rosuvastatin 20 mg tablet 10 mg PO HS RF: 0 Discontinued Calcium 600 + D(3) 600 mg calcium- 200 unit Capsule 1 cap PO HS RF: 0 prednisone 2.5 mg tablet 5 mg PO QAM RF: 0 Stand-Alone Forms: [facility] Discharge Orders: Discharge Order (Routine); Ordered 03/17/19 Ordered By: Reynaldo Webber Admission Data Admit Date/Time: 03/15/19 23:31 Attending Provider: Reynaldo Webber Admit Provider: Martha Dean Primary Care Provider: Migue Banda III Other Providers: aJcob Travis Service: Medical Other Interventions: Discharge Summary Assessment (RN) Last Done: 03/17/19 11:48 DC Date/Time DO NOT enter until pt leaves facility: 03/17/19 13:40
== END 2019-03-17 13:40 | disposition home or self-care (01) | DRG 300 ==
LOC: ED 19:02 → 4W 23:31 → SUATTDRO 23:31 → 4W 23:57
DX: Z88.1 Allergy status to other antibiotic agents; E86.0 Dehydration; D86.9 Sarcoidosis, unspecified; I12.9 Hypertensive chronic kidney disease with stage 1 through stage 4 chronic kidney disease, or unspecified chronic kidney disease; Z79.82 Long term (current) use of aspirin; E78.5 Hyperlipidemia, unspecified; Z88.8 Allergy status to other drugs, medicaments and biological substances; Z88.0 Allergy status to penicillin; I82.412 Acute embolism and thrombosis of left femoral vein; I82.493 Acute embolism and thrombosis of other specified deep vein of lower extremity, bilateral; D63.1 Anemia in chronic kidney disease; I25.10 Atherosclerotic heart disease of native coronary artery without angina pectoris; I35.0 Nonrheumatic aortic (valve) stenosis; N17.9 Acute kidney failure, unspecified; Z88.2 Allergy status to sulfonamides; D68.51 Activated protein C resistance; Z79.52 Long term (current) use of systemic steroids; N18.3 Chronic kidney disease, stage 3 (moderate); E83.52 Hypercalcemia; K21.9 Gastro-esophageal reflux disease without esophagitis; Z95.5 Presence of coronary angioplasty implant and graft; I82.441 Acute embolism and thrombosis of right tibial vein; Z79.899 Other long term (current) drug therapy; I82.813 Embolism and thrombosis of superficial veins of lower extremities, bilateral

== ENCOUNTER 2023-02-17 13:34 | Inpatient (IN) ==
[2023-02-17 13:53] LABS: Hematocrit (blood only) 48.8 % (42.0-52.0); Hemoglobin 16.4 g/dl (14.0-18.0); Mean Corpuscular Hemoglobin 31.7 pg (25.0-34.0); Mean Corpuscular Hgb Conc 33.6 g/dL (32.0-36.0); Mean Corpuscular Volume 94.4 fL (80.0-100.0); Mean Platelet Volume 10.1 fL (9.4-12.4); Platelet Count 169 K/uL (130-400); RDW Coefficient of Variation 12.1 % (11.5-14.5); RDW Standard Deviation 42.2 fL (36.4-46.3); Red Blood Count 5.17 M/uL (4.70-6.10); White Blood Count 6.34 K/ul (4.8-10.8)
[2023-02-17] MEDS ORDERED: IOVERSOL 350 MG 125mL Prefilled Syringe IV ONE (13:53)
--- NOTE | 2023-02-17 13:57 | Emergency Department Note ---
Impression & Plan Stroke-like symptom, Right facial numbness ED Provider Note NAME: SINTIA VAN AGE: 78 SEX: M : 1945 ARRIVES VIA: Walk-In INFORMANT: Patient, the significant other ED PROVIDER(S): Klaus Pate DO CHIEF COMPLAINT: Facial numbness HPI: The patient is a 78-year-old male who presented to the emergency department through triage she was made a stroke alert immediately upon arrival. The patient states he started having right-sided numbness as well as difficulty speaking. The patient denies having any headache nausea or vomiting. He told his significant other he did not feel well throughout the day but had to travel to a city approximately 1 hour away. He presented to the emergency department for further evaluation as well as possible strokelike symptoms. The patient states he noticed a blurry vision in the right side. He also had discomfort over his right eye. He denies having any fever. He denies having any trauma. He does take Eliquis because of a history of DVT. He states he did take that medication this morning. ROS: See above HPI for pertinent positives & negatives. A total of 10 systems reviewed and were otherwise negative. PAST MEDICAL HISTORY: See Below PAST SURGICAL HISTORY: See Below FAMILY HISTORY: See Below SOCIAL HISTORY: See Below HOME MEDICATIONS: See Below ALLERGIES: See Below VITALS: See Below PHYSICAL EXAMINATION: GENERAL: Patient is awake alert in no acute distress patient is resting comfortably and showing no signs of anxiety EYES: The conjunctivae are clear. The pupils are round and reactive. EARS, NOSE, MOUTH AND THROAT: The nose is without any evidence of any deformity. NECK: The neck is nontender and supple. RESPIRATORY: Normal respiratory effort is noted there is no evidence of wheezing rhonchi or rales CARDIOVASCULAR: Regular rate and rhythm noted there no murmurs rubs or gallops normal S1 normal S2. GASTROINTESTINAL: The abdomen is soft. Abdomen is nontender. MUSCULOSKELETAL/EXTREMITIES: There is no evidence of gross deformity full range of motion is noted in the hips and shoulders. SKIN: There is no obvious evidence of any rash. There are no petechiae, pallor or cyanosis noted. NEUROLOGIC: Patient is awake alert and oriented x3 strength is symmetric patellar reflexes are 2+ bilaterally. There is no drift. Speech was clear. There is no facial droop. MEDICAL DECISION MAKING: The patient is a 78-year-old male who presented to the emergency department through triage was made a stroke alert. The patient was made a stroke alert prior to my arrival but the patient was seen before my shift started by myself. The patient had protocol orders placed. I evaluated the patient after he returned from CT. The patient mostly had right facial numbness and had some blurring of his right vision field. The blurring the right vision field significantly improved during the time in the emergency department. He was reevaluated multiple times. The right-sided facial numbness did not s ignificantly improved. He does appear to also have some discomfort over his right eye. Given the patient's history he was not a candidate for TNK given his use of apixaban. It was reconfirmed multiple times that the patient did take this medication prior to coming to the emergency department. I discussed patient's laboratory and radiographic studies with him. He was found to have no signs of intracranial hemorrhage or mass. He was not found to have a large vessel occlusion. Given the patient's ongoing symptoms the [facility] hospitalist was notified about the patient. They will evaluate the patient in the emergency department for further management and disposition. Triage Nursing notes reviewed. Prior medical records reviewed Vital Signs: reviewed and remarkable for initial hypertension Differential diagnosis: Infection, dehydration, metabolic abnormality, hypo/hyperglycemia, electrolyte disturbance, anemia, hypoxia, cardiac sources, intracerebral event, toxicologic, neurologic, as well as other pathologies. ER treatment provided: See below Diagnostics interpreted by me: ECG: EKG was obtained in the emergency department. My interpretation is sinus rhythm at 71 bpm. Right bundle wrench block pattern was noted. PVCs were noted. This was compared to a tracing from March 15, 2017. No changes were noted. Cardiac Monitoring: An order was placed for continuous cardiac monitoring. The monitor shows a rate of 70 bpm with sinus rhythm. Laboratory studies: As stated above and show below. Imaging studies: See below. Radiographic imaging was reviewed by myself Consultation(s): Dr. Santiago was notified about the patient. He will evaluate the patient in the emergency department. ED COURSE: Procedures: none Critical Care: I have personally spent greater than 35 minutes of critical care time in the direct management of this patient. This includes bedside care, interpretation of diagnostic studies, and testing, discussion with consultants, patient, and family members, and other required patient management activities. This 35 minutes is in excess of all separately billable procedures. Past Med/Surg History Medical History AAA (abdominal aortic aneurysm) Dr. 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 History of DVT (deep vein thrombosis) hx DVT BLLE 2018 following travel History of Lyme disease treated HLA-B27 positive tested 2013 Hyperlipidemia Hypertension Kidney insufficiency follows with Dr. Salomon Osteoarthritis Pulmonary nodule Sarcoidosis Tubular adenoma of colon Type 2 diabetes mellitus Surgical History History of appendectomy History of bilateral cataract extraction History of cardiac cath hx of SOB---02/2000 @ [place], 06/2010 @ [facility]---follows with Dr. Bright History of carpal tunnel surgery of right wrist History of colonoscopy History of esophagogastroduodenoscopy (EGD) History of heart artery stent 02/2000 x2 stents, 06/2010 x1 History of left inguinal hernia repair History of left wrist replacement History of open reduction and internal fixation (ORIF) procedure right foot--no longer has hardware in place History of tonsillectomy and adenoidectomy History of vitrectomy bilateral History of wisdom tooth extraction Status post biopsy of kidney benign Family History Mother Family history of diabetes mellitus Coronary heart disease Father Family history of diabetes mellitus Family hx colonic polyps Myocardial infarction Coronary heart disease Prostate cancer Family/Other Family history of diabetes mellitus maternal aunts/uncles Aunt Breast cancer Brother COPD (chronic obstructive pulmonary disease) Fibrosis of lung Sister Breast cancer Dementia Denies family history of Ovarian cancer Colorectal cancer Social History Smoking Status: Never smoker Second Hand Exposure: No; Do You Dip or Chew Tobacco: No; Hx Alcohol Use: Yes Alcohol type: wine Alcohol Intake Frequency: 4 or More x per/Week Alcohol Intake Frequency Comment: wine daily with dinner red wine Hx Substance Use: No Preferred Language: Frisian Communication Ability: Effective Visual Impairment: No Limitations Hearing Ability: Normal Last Puller Required: No Beliefs That Will Affect Care: None marital status: Current Living Situation: Spouse Current Living Situation Comment: Lives at home with 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 Feels Safe at Home: Yes Childhood Exposure to Second-Hand Smoke: No Diet: regular Diet Comment: regular Dental Care, Regularly: Yes Physical Activity Frequency: Daily Seatbelt Use: always Sunscreen Use: Yes Assistive Devices: Glasses Allergies Allergies Allergy/AdvReac Type Severity Reaction Status Date / Time Penicillins Allergy Intermediate HIVES- A Verified 11/23/22 15:32 CHILD Sulfa (Sulfonamide Allergy Intermediate rash Verified 11/23/22 15:32 Antibiotics) moxifloxacin Allergy Mild Rash Verified 11/23/22 15:32 ubidecarenone Allergy Mild UBIQUINOL Verified 11/23/22 15:32 CAUSES itching of skin doxycycline Allergy Rash Verified 11/23/22 15:32 methotrexate AdvReac Intermediate sore Verified 11/23/22 15:32 breasts Ubiquino Allergy Unknown Unknown Uncoded 11/23/22 15:32 Home Meds Home Medications Medication Instructions Recorded Confirmed acetaminophen 650 mg 650 mg PO Q8H PRN Pain 07/25/18 02/17/23 tablet,extended release (Tylenol Arthritis Pain) aspirin 81 mg tablet,delayed 81 mg PO HS 07/25/18 02/17/23 release (Adult Low Dose Aspirin) brimonidine 0.1 % eye drops 1 drp ophthalmic (eye) BID 07/25/18 02/17/23 (Alphagan P) fexofenadine 180 mg tablet 180 mg PO DAILY PRN Allergy 07/25/18 02/17/23 (Bronwyn Allergy) Symptoms prednisone 5 mg tablet 5 mg PO QAM 07/23/19 02/17/23 Vitamin B 1 dose PO QAM 05/20/20 02/17/23 Vitamin C 1 dose PO QAM 05/20/20 02/17/23 diphenhydramine 25 2 tab PO .q hs PRN sleep 05/20/20 02/17/23 mg-acetaminophen 500 mg tablet (Tylenol PM Extra Strength) cholecalciferol (vitamin D3) 125 5,000 unit PO QAM 07/06/20 02/17/23 mcg (5,000 unit) capsule (D3-5000) zoledronic acid 5 mg/100 mL in 1 ea IV YEARLY 01/14/21 02/17/23 mannitol 5 %-water intravenous piggybck (Reclast) prednisolone acetate 1 % eye 1 drp ophthalmic (eye) .qod 03/23/22 02/17/23 drops,suspension (Pred Forte) timolol 0.5 % eye drops 1 drp ophthalmic (eye) BID 04/29/22 02/17/23 vit C 250 mg-vit E 200 unit-zinc 250 cap PO DAILY 05/25/22 02/17/23 ox 12.5 vl-tezncc-[id number]-zeax capsule (ICaps AREDS2) mometasone 50 mcg/actuation nasal 2 spray intranasal DAILY PRN 02/17/23 02/17/23 spray (Nasonex 24hr Allergy) Congestion rosuvastatin 20 mg tablet (Crestor) 10 mg PO HS 02/17/23 02/17/23 Previous Rx's Medication Instructions Recorded compress.stocking,knee,reg,med #2 ea 09/09/19 famotidine 40 mg tablet 40 mg PO BID #90 tabs 10/10/22 tadalafil 5 mg tablet (Cialis) 5 mg PO DAILY #90 tabs 11/07/22 apixaban 5 mg tablet (Eliquis) See Rx Instructions .Route 11/16/22 .COMPLEX #180 tabs nitroglycerin 0.4 mg sublingual 0.4 mg sublingual .COMPLEX PRN 11/23/22 tablet Angina #25 tabs metoprolol tartrate 25 mg tablet See Rx Instructions .Route 12/23/22 .COMPLEX #90 tabs amlodipine 5 mg tablet 5 mg PO QAM #90 tabs 12/29/22 gabapentin 300 mg capsule See Rx Instructions .Route 02/10/23 .COMPLEX #180 caps Results & Data (ED) Vital Signs Vital Signs - 24 hr 02/17/23 13:36 02/17/23 13:55 02/17/23 13:55 Temperature 36.6 C Temperature Source Temporal Artery Scan Pulse Rate 72 Pulse Rate [Apical] 74 Pulse Rate from SpO2 Sensor Pulse Rhythm [Apical] Respiratory Rate 18 20 Respiratory Effort / Characteristics Non-Labored Spontaneous Non-Labored Respiratory Depth Normal Normal Respiratory Pattern Regular Blood Pressure 180/95 H Blood Pressure [Right Arm] Blood Pressure Mean 123 Blood Pressure Mean [Right Arm] Pulse Oximetry 98 98 98 Oxygen Delivery Method Room Air Room Air Room Air Sepsis Recent Fever Within 48 Hours No Sepsis New/Unexplained Change in Mental Status No Sepsis Action Taken by Nursing No Action Required 02/17/23 13:55 02/17/23 14:19 02/17/23 14:35 Temperature Temperature Source Pulse Rate Pulse Rate [Apical] 69 71 Pulse Rate from SpO2 Sensor Pulse Rhythm [Apical] Irregular Respiratory Rate 20 24 Respiratory Effort / Characteristics Non-Labored Non-Labored Respiratory Depth Normal Normal Respiratory Pattern Blood Pressure Blood Pressure [Right Arm] 129/77 137/100 Blood Pressure Mean Blood Pressure Mean [Right Arm] 94 112 Pulse Oximetry 98 94 94 Oxygen Delivery Method Room Air Room Air Room Air Sepsis Recent Fever Within 48 Hours Sepsis New/Unexplained Change in Mental Status Sepsis Action Taken by Nursing 02/17/23 14:45 02/17/23 14:48 02/17/23 14:50 Temperature Temperature Source Pulse Rate 69 71 Pulse Rate [Apical] 68 Pulse Rate from SpO2 Sensor 72 Pulse Rhythm [Apical] Respiratory Rate 25 H Respiratory Effort / Characteristics Respiratory Depth Respiratory Pattern Blood Pressure Blood Pressure [Right Arm] 144/77 H Blood Pressure Mean Blood Pressure Mean [Right Arm] 99 Pulse Oximetry 95 94 96 Oxygen Delivery Method Sepsis Recent Fever Within 48 Hours Sepsis New/Unexplained Change in Mental Status Sepsis Action Taken by Nursing 02/17/23 14:59 02/17/23 14:59 02/17/23 15:00 Temperature Temperature Source Pulse Rate 69 Pulse Rate [Apical] Pulse Rate from SpO2 Sensor 82 Pulse Rhythm [Apical] Respiratory Rate 24 Respiratory Effort / Characteristics Respiratory Depth Respiratory Pattern Blood Pressure 119/68 121/79 Blood Pressure [Right Arm] Blood Pressure Mean 85 93 Blood Pressure Mean [Right Arm] Pulse Oximetry 95 Oxygen Delivery Method Sepsis Recent Fever Within 48 Hours Sepsis New/Unexplained Change in Mental Status Sepsis Action Taken by Nursing 02/17/23 15:00 Temperature Temperature Source Pulse Rate 70 Pulse Rate [Apical] Pulse Rate from SpO2 Sensor 88 Pulse Rhythm [Apical] Respiratory Rate 25 H Respiratory Effort / Characteristics Respiratory Depth Respiratory Pattern Blood Pressure Blood Pressure [Right Arm] Blood Pressure Mean Blood Pressure Mean [Right Arm] Pulse Oximetry 94 Oxygen Delivery Method Sepsis Recent Fever Within 48 Hours Sepsis New/Unexplained Change in Mental Status Sepsis Action Taken by [facility] Medications Current Medication List: was personally reviewed by me Laboratory Data Attestation: I reviewed the patient's lab results. 02/17/23 13:43 02/17/23 13:43 Lab Results 02/17/23 02/17/23 02/17/23 Range/Units 13:43 13:43 13:43 WBC 6.34 (4.8-10.8) K/ul RBC 5.17 (4.70-6.10) M/uL Hgb 16.4 (14.0-18.0) g/dl POC Hgb (14.0-18.0) g/dl Hct 48.8 (42.0-52.0) % POC Hct (42-52) % MCV 94.4 (80.0-100.0) fL MCH 31.7 (25.0-34.0) pg MCHC 33.6 (32.0-36.0) g/dL RDW Std Deviation 42.2 (36.4-46.3) fL RDW Coeff of Jordan 12.1 (11.5-14.5) % Plt Count 169 (130-400) K/uL MPV 10.1 (9.4-12.4) fL PT 11.0 (9.0-12.0) Seconds INR 1.0 (0.9-1.1) APTT 27.6 (21.0-31.0) Seconds PTT Ratio 1.0 POC Sodium (135-144) mmol/L Sodium 137 (136-145) mmol/L POC Potassium (3.3-5.0) mmol/L Potassium 4.2 (3.5-5.1) mmol/L POC Chloride (101-112) mmol/L Chloride 106 (98-107) mmol/L Carbon Dioxide 25 (21-32) mmol/L POC Total CO2 (24-31) mmol/L Anion Gap 6 (3-11) POC Anion Gap (16-25) mmol/L POC BUN (7-18) mg/dl BUN 27 H (6-23) mg/dl Creatinine 1.44 H (0.6-1.4) mg/dl POC Creatinine (0.6-1.3) mg/dl Est Cr Clr Drug Dosing 45.8 ml/min Est GFR ( Amer) 54.3 ml/min Est GFR (Non-Af Amer) 46.8 ml/min BUN/Creatinine Ratio 18.8 (10-20) Glucose 145 H (70-99(Fasting)) mg/dl POC Glucose (70-99) mg/dl POC Glucose (other) (70-99) mg/dl Calcium 9.4 (8.6-10.3) mg/dl POC Ioniz Calcium Yuniel (1.12-1.32) mmol/l Magnesium 2.1 (1.7-2.4) mg/dl Total Bilirubin 0.9 (0.2-1.0) mg/dl AST 22 (13-39) U/L ALT 23 (7-52) U/L Alkaline Phosphatase 66 (34-104) U/L Total Protein 7.3 (6.0-8.3) gm/dl Albumin 4.1 (3.4-5.0) gm/dl Globulin 3.2 (2.5-4.0) gm/dl Albumin/Globulin Ratio 1.3 (0.9-2) Lyme Disease IgG Ab (Negative) Lyme Disease IgM Ab (Negative) 02/17/23 02/17/23 02/17/23 Range/Units 13:50 13:56 13:58 WBC (4.8-10.8) K/ul RBC (4.70-6.10) M/uL Hgb (14.0-18.0) g/dl POC Hgb 16.3 (14.0-18.0) g/dl Hct (42.0-52.0) % POC Hct 48 (42-52) % MCV (80.0-100.0) fL MCH (25.0-34.0) pg MCHC (32.0-36.0) g/dL RDW Std Deviation (36.4-46.3) fL RDW Coeff of Jordan (11.5-14.5) % Plt Count (130-400) K/uL MPV (9.4-12.4) fL PT (9.0-12.0) Seconds INR (0.9-1.1) APTT (21.0-31.0) Seconds PTT Ratio POC Sodium 139 (135-144) mmol/L Sodium (136-145) mmol/L POC Potassium 4.2 (3.3-5.0) mmol/L Potassium (3.5-5.1) mmol/L POC Chloride 105 (101-112) mmol/L Chloride (98-107) mmol/L Carbon Dioxide (21-32) mmol/L POC Total CO2 22 L (24-31) mmol/L Anion Gap (3-11) POC Anion Gap 17.0 (16-25) mmol/L POC BUN 27 H (7-18) mg/dl BUN (6-23) mg/dl Creatinine (0.6-1.4) mg/dl POC Creatinine 1.5 H (0.6-1.3) mg/dl Est Cr Clr Drug Dosing ml/min Est GFR ( Amer) ml/min Est GFR (Non-Af Amer) ml/min BUN/Creatinine Ratio (10-20) Glucose (70-99(Fasting)) mg/dl POC Glucose 156 H (70-99) mg/dl POC Glucose (other) 146 H (70-99) mg/dl Calcium (8.6-10.3) mg/dl POC Ioniz Calcium Yuniel 1.25 (1.12-1.32) mmol/l Magnesium (1.7-2.4) mg/dl Total Bilirubin (0.2-1.0) mg/dl AST (13-39) U/L ALT (7-52) U/L Alkaline Phosphatase (34-104) U/L Total Protein (6.0-8.3) gm/dl Albumin (3.4-5.0) gm/dl Globulin (2.5-4.0) gm/dl Albumin/Globulin Ratio (0.9-2) Lyme Disease IgG Ab Negative (Negative) Lyme Disease IgM Ab Negative (Negative) Administered Medications Discontinued Medications Ioversol (Ioversol 350 Mg 125ml Prefilled Syringe) 117 ml IV ONCE ONE Stop: 02/17/23 13:54 Last Admin: 02/17/23 13:53 Dose: 117 ml Documented By: EDK Imaging Data Attestation: I personally reviewed and interpreted this imaging study as follows: My Impression: 1 view chest x-ray was obtained in the emergency department. My interpretation is no free air or definite infiltrate, final report below. CT of the brain without contrast was obtained in the emergency department. My interpretation is no intracranial hemorrhage or mass effect, final report below. Radiologist's Impression: Chest X-Ray 02/17/23 13:40 XR chest 1V portable HISTORY: 78 years-old Male stroke alert acute stroke like symptoms COMPARISON: 06/27/2022 TECHNIQUE: AP view of the chest FINDINGS: Cardiac silhouette is enlarged. Chronic interstitial coarsening. Calcified granulomata of the right lung apex. No pneumothorax, pleural effusion or lobar airspace consolidation. Bones appear grossly intact. IMPRESSION: 1. Cardiomegaly with chronic interstitial coarsening. 2. Prior granulomatous disease. ACT 112: Negative or not required by law. The above report was generated using voice recognition software. It may contain grammatical, syntax or spelling errors. Electronically signed by: Ramirez Sanford M.D. 02/17/2023 2:[address] 02/17/23 13:[address] DOSE: 1357.02 mGy.cm HISTORY: Right-sided facial numbness. Neuro deficit, acute, stroke suspected TECHNIQUE: Multiaxial CT images of the head were performed without the use of intravenous contrast. Automated exposure control was utilized for this study. A dose lowering technique was utilized adhering to the principles of ALARA. Comparison: Head CT 05/23/2019 Findings: The paranasal sinuses and mastoid air cells are clear. The calvarium and skull base are intact. There is no mass, hematoma, midline shift, acute infarct. White matter hypodensity is nonspecific but suggestive of microvascular ischemic change. The ventricles and sulci demonstrate mild age-related involutional changes. Impression: No acute intracranial abnormality. Atrophy and microvascular ischemic changes. ACT 112: Negative or not required by law. Electronically signed by: José Miguel Mason M.D. 02/17/2023 2:10 PM Head CTA 02/17/23 13:46 CTA ANGIOGRAPHY OF THE HEAD CLINICAL HISTORY: Cerebrovascular accident. Right-sided facial numbness. COMPARISON STUDY: MRI of the brain July 25, 2019. Head CT May 23, 2019. MRA of the head November 18, 2017. TECHNIQUE: Helical axial images of the head were obtained following uneventful intravenous administration of 117 cc of Optiray. Sagittal and coronal reconstructions were viewed as well as maximal intensity projections on an independent 3-D workstation. Automated exposure control was utilized for the study. A dose lowering technique was utilized adhering to the principles of ALARA. CT DOSE: 468.64 mGy.cm FINDINGS: No acute intracranial hemorrhage is identified on this contrast enhanced exam. The bilateral M1, M2, A1 and A2 segments are patent. There is moderate plaque within the bilateral cavernous carotids without severe stenosis. There is mild stenosis of the bilateral cavernous carotids. No intracranial ane urysm is identified. There is short segment stenosis versus occlusion of the intracranial portion of the right vertebral artery. This has progressed since previous MRA. Basilar artery and posterior cerebral arteries are patent. IMPRESSION: 1. No large vessel occlusion within the anterior circulation. No intracranial aneurysm. 2. Moderate plaque within bilateral cavernous carotids with mild stenosis. 3. Short segment stenosis versus occlusion of the intracranial portion of the right vertebral artery with distal reconstitution. This has minimally progressed since previous MRA. ACT 112: Negative or not required by law. Electronically signed by: Issac Morales M.D. 02/17/2023 2:53 PM Neck CTA 02/17/23 13:46 CT angio neck with con CLINICAL HISTORY: 78 years-old Male with cva. Acute strokelike symptoms COMPARISON STUDY: CTA of the head of same day, chest CT 12/06/2017 TECHNIQUE: Following the IV administration of 117 mL of Optiray, CT angiogram of the neck was performed from the aortic arch to the skull base. Images are reviewed in the axial, sagittal, and coronal planes. 3-D MIPS images are created and assessed. IV contrast was administered without complication. All measurements were calculated based on NASCET criteria. A dose lowering t echnique was utilized adhering to the principles of ALARA. FINDINGS: There are numerous borderline enlarged upper mediastinal lymph nodes measuring up to 9-10 mm in short axis, increased in size from prior. Unremarkable thyroid and soft tissues. Calcified granulomata of the right upper lobe. Mild intralobular septal thickening with intermixed groundglass densities. Prior bilateral lens repair. Degenerative changes of the spine. Mild mucosal thickening of the paranasal sinuses. Atherosclerosis of the carotid arteries. No aneurysm, dissection, high-grade stenosis or arterial occlusion. Dominant left vertebral artery. The right selvin tebral artery terminates into the PICA. IMPRESSION: 1. Unremarkable CTA. 2. Nonspecific mildly enlarged mediastinal lymph nodes. ACT 112: Negative or not required by law. The above report was generated using voice recognition software. It may contain grammatical, syntax or spelling errors. Electronically signed by: Ramirez Sanford M.D. 02/17/2023 2:08 PM Discharge Plan Visit Data Chief Complaint: TIA Symptoms Stated Complaint: BLURRED VISION, RT SIDE NUMBNESS TO FACE ED Provider: Klaus Pate Discharge Problem: Stroke-like symptom, Right facial numbness Patient Disposition: Being Evaluated by Hospitalist Forms Stand Alone Forms: My [facility] Prescriptions Prescriptions: No Action (DME) compress.stocking,knee,reg,med Misc See Rx Instructions .ROUTE .MEDSUPPLY Qty: 2 2RF Rx Instructions: As directed famotidine 40 mg tablet 40 mg PO BID Qty: 90 3RF tadalafil [Cialis] 5 mg tablet 5 mg PO DAILY Qty: 90 3RF Eliquis 5 mg tablet See Rx Instructions .ROUTE .COMPLEX Qty: 180 3RF Dose Instruction: take 1 tablet by mouth twice a day Rx Instructions: take 1 tablet by mouth twice a day metoprolol tartrate 25 mg tablet See Rx Instructions .ROUTE .COMPLEX Qty: 90 0RF Dose Instruction: TAKE 1/2 A TABLET BY MOUTH TWICE DAILY Rx Instructions: TAKE 1/2 A TABLET BY MOUTH TWICE DAILY amlodipine 5 mg tablet 5 mg PO QAM Qty: 90 3RF gabapentin 300 mg capsule See Rx Instructions .ROUTE .COMPLEX Qty: 180 0RF Dose Instruction: TAKE 2 CAPSULES BY MOUTH AT BEDTIME Rx Instructions: TAKE 2 CAPSULES BY MOUTH AT BEDTIME prednisone 5 mg tablet 5 mg PO QAM nitroglycerin 0.4 mg tablet, sublingual 0.4 mg Sublingual .COMPLEX PRN (Reason: Angina) Qty: 25 1RF Rx Instructions: 0.4 mg sublingual Q5M FOR UP TO 3 DOSES PRN; zoledronic agbe-mdnozevf-mvpps [Reclast] 5 mg/100 mL piggyback 1 ea IV YEARLY timolol 0.5 % drops 1 drp ophthalmic (eye) BID Rx Instructions: Right eye ICaps AREDS2 250 mg-200 unit -12.5 mg-1 mg capsule 250 cap PO DAILY cholecalciferol (vitamin D3) [D3-5000] 125 mcg (5,000 unit) capsule 5,000 unit PO QAM diphenhydramine-acetaminophen [Tylenol PM Extra Strength] 25-500 mg tablet 2 tab PO .q hs PRN (Reason: sleep) Vitamin B 1 dose PO QAM Vitamin C 1 dose PO QAM fexofenadine [Bronwyn Allergy] 180 mg Tablet 180 mg PO DAILY PRN (Reason: Allergy Symptoms) aspirin [Adult Low Dose Aspirin] 81 mg Tablet,Delayed Release (Dr/Ec) 81 mg PO HS acetaminophen [Tylenol Arthritis Pain] 650 mg Tablet Extended Release 650 mg PO Q8H PRN (Reason: Pain) Alphagan P 0.1 % Drops 1 drp OPHTHALMIC (EYE) BID prednisolone acetate [Pred Forte] 1 % drops,suspension 1 drp OPHTHALMIC (EYE) .qod mometasone [Nasonex 24hr Allergy] 50 mcg/actuation spray,non-aerosol 2 spray intranasal DAILY PRN (Reason: Congestion) Rx Instructions: administer into each nostril rosuvastatin [Crestor] 20 mg tablet 10 mg PO HS Referrals Referrals: Migue Banda III, CRNP [Primary Care Provider] -
[2023-02-17 14:03] LABS: iSTAT Creatinine 1.5 mg/dl (0.6-1.3); iSTAT Hemoglobin 16.3 g/dl (14.0-18.0); iSTAT Ionized Calcium 1.25 mmol/l (1.12-1.32); iSTAT Potassium 4.2 mmol/L (3.3-5.0)
[2023-02-17 14:07] LABS: Partial Thromboplastin Time 27.6 Seconds (21.0-31.0)
--- NOTE | 2023-02-17 14:11 | CT Scan Report ---
HEAD CT NONCONTRAST CT DOSE: 1357.02 mGy.cm HISTORY: Right-sided facial numbness. Neuro deficit, acute, stroke suspected TECHNIQUE: Multiaxial CT images of the head were performed without the use of intravenous contrast. A utomated exposure control was utilized for this study. A dose lowering technique was utilized adheri ng to the principles of ALARA. Comparison: Head CT 05/23/2019 Findings: The paranasal sinuses and mastoid air cells are clear. The calvarium and skull base are int act. There is no mass, hematoma, midline shift, acute infarct. White matter hypodensity is nonspecifi c but suggestive of microvascular ischemic change. The ventricles and sulci demonstrate mild age-rela sagar involutional changes. Impression: No acute intracranial abnormality. Atrophy and microvascular ischemic changes. ACT 112: Negative or not required by law. Electronically signed by: José Miguel Mason M.D. 02/17/2023 2:10 PM
--- NOTE | 2023-02-17 14:11 | CT Scan Report ---
CT angio neck with con CLINICAL HISTORY: 78 years-old Male with cva. Acute strokelike symptoms COMPARISON STUDY: CTA of the head of same day, chest CT 12/06/2017 TECHNIQUE: Following the IV administration of 117 mL of Optiray, CT angiogram of the neck was perform ed from the aortic arch to the skull base. Images are reviewed in the axial, sagittal, and coronal pl anes. 3-D MIPS images are created and assessed. IV contrast was administered without complication. Al l measurements were calculated based on NASCET criteria. A dose lowering technique was utilized adhe ring to the principles of ALARA. FINDINGS: There are numerous borderline enlarged upper mediastinal lymph nodes measuring up to 9-10 mm in short axis, increased in size from prior. Unremarkable thyroid and soft tissues. Calcified granulomata of the right upper lobe. Mild intralobular septal thickening with intermixed groundglass densities. Prio r bilateral lens repair. Degenerative changes of the spine. Mild mucosal thickening of the paranasal sinuses. Atherosclerosis of the carotid arteries. No aneurysm, dissection, high-grade stenosis or arterial occ lusion. Dominant left vertebral artery. The right vertebral artery terminates into the PICA. IMPRESSION: 1. Unremarkable CTA. 2. Nonspecific mildly enlarged mediastinal lymph nodes. ACT 112: Negative or not required by law. The above report was generated using voice recognition software. It may contain grammatical, syntax o r spelling errors. Electronically signed by: Ramirez Sanford M.D. 02/17/2023 2:08 PM
[2023-02-17 14:13] LABS: Alanine Aminotransferase 23 U/L (7-52); Albumin Globulin Ratio 1.3 (0.9-2); Albumin Level 4.1 gm/dl (3.4-5.0); Alkaline Phosphatase 66 U/L (34-104); Anion Gap 6 (3-11); Aspartate Aminotransferase 22 U/L (13-39); BUN Creatinine Ratio 18.8 (10-20); Bilirubin,Total 0.9 mg/dl (0.2-1.0); Blood Urea Nitrogen 27 mg/dl (6-23); Calcium 9.4 mg/dl (8.6-10.3); Carbon Dioxide 25 mmol/L (21-32); Chloride 106 mmol/L (98-107); Creatinine Clr Calc Pharmacy 45.8 ml/min; Est GFR (African American) 54.3 ml/min; Est GFR (Non-African American) 46.8 ml/min; Globulin 3.2 gm/dl (2.5-4.0); Glucose 145 mg/dl (70-99(Fasting)); Magnesium 2.1 mg/dl (1.7-2.4); Potassium 4.2 mmol/L (3.5-5.1); Sodium 137 mmol/L (136-145); Total Protein 7.3 gm/dl (6.0-8.3)
--- NOTE | 2023-02-17 14:24 | XRay Report ---
XR chest 1V portable HISTORY: 78 years-old Male stroke alert acute stroke like symptoms COMPARISON: 06/27/2022 TECHNIQUE: AP view of the chest FINDINGS: Cardiac silhouette is enlarged. Chronic interstitial coarsening. Calcified granulomata of the right l dennis apex. No pneumothorax, pleural effusion or lobar airspace consolidation. Bones appear grossly int act. IMPRESSION: 1. Cardiomegaly with chronic interstitial coarsening. 2. Prior granulomatous disease. ACT 112: Negative or not required by law. The above report was generated using voice recognition software. It may contain grammatical, syntax o r spelling errors. Electronically signed by: Ramirez Sanford M.D. 02/17/2023 2:23 PM
[2023-02-17 14:47] LABS: Lyme Ab IgG w/WB Rflx Negative (Negative)
[2023-02-17 14:48] LABS: Lyme Ab IgM w/WB Rflx Negative (Negative)
--- NOTE | 2023-02-17 14:55 | CT Scan Report ---
CTA ANGIOGRAPHY OF THE HEAD CLINICAL HISTORY: Cerebrovascular accident. Right-sided facial numbness. COMPARISON STUDY: MRI of the brain July 25, 2019. Head CT May 23, 2019. MRA of the head November 18, 2017. TECHNIQUE: Helical axial images of the head were obtained following uneventful intravenous administr ation of 117 cc of Optiray. Sagittal and coronal reconstructions were viewed as well as maximal inten sity projections on an independent 3-D workstation. Automated exposure control was utilized for the study. A dose lowering technique was utilized adhering to the principles of ALARA. CT DOSE: 468.64 mGy.cm FINDINGS: No acute intracranial hemorrhage is identified on this contrast enhanced exam. The bilatera l M1, M2, A1 and A2 segments are patent. There is moderate plaque within the bilateral cavernous huber tids without severe stenosis. There is mild stenosis of the bilateral cavernous carotids. No intracra nial aneurysm is identified. There is short segment stenosis versus occlusion of the intracranial por tion of the right vertebral artery. This has progressed since previous MRA. Basilar artery and dance costume designer ior cerebral arteries are patent. IMPRESSION: 1. No large vessel occlusion within the anterior circulation. No intracranial aneurysm. 2. Moderate plaque within bilateral cavernous carotids with mild stenosis. 3. Short segment stenosis versus occlusion of the intracranial portion of the right vertebral artery with distal reconstitution. This has minimally progressed since previous MRA. ACT 112: Negative or not required by law. Electronically signed by: Issac Morales M.D. 02/17/2023 2:53 PM
--- NOTE | 2023-02-17 15:41 | History & Physical Report ---
Date of Service February 17, 2023 Assessment & Plan (1) Stroke-like symptom: Plan: Strokelike symptoms On initial stroke alert evaluation his right blurry vision improved, right-sided facial numbness did not improve. He was not a candidate for TNKase due to concurrent apixaban use. CTA: No large vessel occlusion, short segment stenosis versus occlusion of intracranial right vertebral artery with distal reconstitution minimally progressed compared to prior. Moderate cavernous carotid plaque. CThead: No acute finding CXR: No acute fine On TNKase candidate, no large vessel occlusion amenable to retrieval. Patient admitted for blood pressure management, stroke monitoring, completion of work-up MRI pending Permissive hypertension x24 hours Patient is on Eliquis/aspirin SPINNER IRON. Given strokelike symptoms on this, reasonable to switch to Eliquis/Plavix IF CVA noted on MRI continue permissive hypertension goal 220/110 for 24 hours, otherwise can treat to goal 180/100 CAD s/p PCI. - History of 3 stents. is on aspirin/eliquis. 1st 2 stents was in 1999 placed at [facility], had another stent in [address] Perera. NO NV and no sx since then. Stopped plaavix in october 2015 Given at least TIA symptoms above will switch to Eliquis/Plavix moving forward Continue metoprolol after 24-hours. AMARILIS previously discontinued due to renal dysfunction No chest pain, chest pressure or evidence of ACS on admission Hyperlipidemia Continue rosuvastatin, recommend increase to 20 mg will obtain lipid panel Hypertension Continue home antihypertensives after 24 hours, blood pressure currently well controlled DVT prophylaxis: Anticoagulated Disposition: PCU post stroke and for blood pressure monitoring CODE STATUS: DNR/DNI, discussed at bedside Diet: Heart healthy, low-sodium (2) Right facial numbness: (3) Ascending aorta dilation: (4) Gastro-esophageal reflux: (5) Hypertension: (6) Type 2 diabetes mellitus: (7) HLA-B27 positive: (8) Factor 5 Leiden mutation, heterozygous: (9) CAD in [place] artery: History of Present Illness Primary Care Provider: Migue Banda III, PAIGE Mr. Bobo is a 78-year-old male with a past medical history of type II DM, hypertension, HLAB27 positive, factor V Leiden heterozygote, CAD, CKD 3, GERD who presented to the ER as a stroke alert for right-sided numbness and dysarthria. Patient associated blurry vision in the right eye. He is on Eliquis for past DVT and factor V Leiden with last dose morning of 02/17. Danya is seen iwth his "[facility]". His reports this morning when he woke up his vision seemed more lurry than normal. Las tnknown normal was last night going to bed. Wa sat work and noticed while was working had increased blurriness of the RIGHT eye only and numbness/tinling on the whole side of his R face right up to the midpoint of his face, but right after the middle of his face sensation returned to normal. He called his and then came into the hospital because he was concerned about his sx. Did have a stroke card at home, and tried the steps it laid out but did not have any extremity strength deficits or facial asymmetry. Was able to smile and raise his eyebrows. No prior strokes initially reported, but pt subsequently notes he may have had similar symptoms many years ago in 2014. Right eye blurriness seems to have improved, but numbness/tingling seems about the same. No chest pain/chest pressure. nsr with occasional bigeminy in ER. Has a history of CAD w PCI.. history of 3 stents. is on aspirin/eliquis. 1st 2 stents was in 1999 placed at [facility], had another stent in [address] Perera. NO NV and no sx since then. Stopped plaavix in october 2015 DVT: 3 years ago, tx with eliquis HTN- bp normally well controlled at home ~110-120/70s normally on Amlodipine/Metorpolol. No longer on lisinopril (was stopped 02/[address] Salomon). Hx CKD bl creat 1.4-1.6. Medical History: Reviewed Medications: Reviewed Surgical History: Reviewed Family history: Reviewed Allergies: Reviewed Social History: No tobacco/EToh Code Status: Full Code Allergies Allergy/AdvReac Type Severity Reaction Status Date / Time Penicillins Allergy Intermediate HIVES- A Verified 11/23/22 15:32 CHILD Sulfa (Sulfonamide Allergy Intermediate rash Verified 11/23/22 15:32 Antibiotics) moxifloxacin Allergy Mild Rash Verified 11/23/22 15:32 ubidecarenone Allergy Mild UBIQUINOL Verified 05/10/23 15:32 CAUSES itching of skin doxycycline Allergy Rash Verified 11/23/22 15:32 methotrexate AdvReac Intermediate sore Verified 11/23/22 15:32 breasts Ubiquino Allergy Unknown Unknown Uncoded 11/23/22 15:32 Home Medications Medication Instructions Recorded Confirmed Type acetaminophen 650 mg 650 mg PO Q8H PRN Pain 07/25/18 02/17/23 History tablet,extended release (Tylenol Arthritis Pain) aspirin 81 mg tablet,delayed 81 mg PO HS 07/25/18 02/17/23 History release (Adult Low Dose Aspirin) brimonidine 0.1 % eye drops 1 drp ophthalmic (eye) BID 07/25/18 02/17/23 History (Alphagan P) fexofenadine 180 mg tablet 180 mg PO DAILY PRN Allergy 07/25/18 02/17/23 History ([place] Allergy) Symptoms prednisone 5 mg tablet 5 mg PO QAM 07/23/19 02/17/23 History compress.stocking,knee,reg,med #2 ea 09/09/19 02/17/23 Rx Vitamin B 1 dose PO QAM 05/20/20 02/17/23 History Vitamin C 1 dose PO QAM 05/20/20 02/17/23 History diphenhydramine 25 2 tab PO .q hs PRN sleep 05/20/20 02/17/23 History mg-acetaminophen 500 mg tablet (Tylenol PM Extra Strength) cholecalciferol (vitamin D3) 125 5,000 unit PO QAM 07/06/20 02/17/23 History mcg (5,000 unit) capsule (D3-5000) zoledronic acid 5 mg/100 mL in 1 ea IV YEARLY 01/14/21 02/17/23 History mannitol 5 %-water intravenous piggybck (Reclast) prednisolone acetate 1 % eye 1 drp ophthalmic (eye) .qod 03/23/22 02/17/23 History drops,suspension (Pred Forte) timolol 0.5 % eye drops 1 drp ophthalmic (eye) BID 04/29/22 02/17/23 History vit C 250 mg-vit E 200 unit-zinc 250 cap PO DAILY 05/25/22 02/17/23 History ox 12.5 ky-ctsrcc-zwzyxt-zeax capsule (ICaps AREDS2) famotidine 40 mg tablet 40 mg PO BID #90 tabs 10/10/22 02/17/23 Rx tadalafil 5 mg tablet (Cialis) 5 mg PO DAILY #90 tabs 11/07/22 02/17/23 Rx apixaban 5 mg tablet (Eliquis) See Rx Instructions .Route 11/16/22 02/17/23 Rx .COMPLEX #180 tabs nitroglycerin 0.4 mg sublingual 0.4 mg sublingual .COMPLEX PRN 11/23/22 02/17/23 Rx tablet Angina #25 tabs metoprolol tartrate 25 mg tablet See Rx Instructions .Route 12/23/22 02/17/23 Rx .COMPLEX #90 tabs amlodipine 5 mg tablet 5 mg PO QAM #90 tabs 12/29/22 02/17/23 Rx gabapentin 300 mg capsule See Rx Instructions .Route 02/10/23 02/17/23 Rx .COMPLEX #180 caps mometasone 50 mcg/actuation nasal 2 spray intranasal DAILY PRN 02/17/23 02/17/23 History spray (Nasonex 24hr Allergy) Congestion rosuvastatin 20 mg tablet (Crestor) 10 mg PO HS 02/17/23 02/17/23 History Past Med/Surg History Medical History AAA (abdominal aortic aneurysm) Dr. Bright monitors Aortic stenosis CAD in [place] artery Chronic steroid use Dyslipidemia Factor 5 Leiden mutation, heterozygous tested positive in 2014 GERD (gastroesophageal reflux disease) History of COVID-19 06/2021 [place]; congestion, headache, cough, chills; resolved. History of DVT (deep vein thrombosis) hx DVT BLLE 2018 following travel History of Lyme disease treated HLA-B27 positive tested 2013 Hyperlipidemia Hypertension Kidney insufficiency follows with Dr. Salomon Osteoarthritis Pulmonary nodule Sarcoidosis Tubular adenoma of colon Type 2 diabetes mellitus Surgical History History of appendectomy History of bilateral cataract extraction History of cardiac cath hx of SOB---02/2000 @ [facility], 06/2010 @ [facility]---follows with Dr. Bright History of carpal tunnel surgery of right wrist History of colonoscopy History of esophagogastroduodenoscopy (EGD) History of heart artery stent 02/2000 x2 stents, 06/2010 x1 History of left inguinal hernia repair History of left wrist replacement History of open reduction and internal fixation (ORIF) procedure right foot--no longer has hardware in place History of tonsillectomy and adenoidectomy History of vitrectomy bilateral History of wisdom tooth extraction Status post biopsy of kidney benign Family History Mother Family history of diabetes mellitus Coronary heart disease Father Family history of diabetes mellitus Family hx colonic polyps Myocardial infarction Coronary heart disease Prostate cancer Family/Other Family history of diabetes mellitus maternal aunts/uncles Aunt Breast cancer Brother COPD (chronic obstructive pulmonary disease) Fibrosis of lung Sister Breast cancer Dementia Denies family history of Ovarian cancer Colorectal cancer Social History Smoking Status: Never smoker Second Hand Exposure: No; Do You Dip or Chew Tobacco: No; Hx Alcohol Use: Yes Alcohol type: wine Alcohol Intake Frequency: 4 or More x per/Week Alcohol Intake Frequency Comment: wine daily with dinner red wine Hx Substance Use: No Preferred Language: Czech Communication Ability: Effective Visual Impairment: No Limitations Hearing Ability: Normal Campus Rep Required: No Beliefs That Will Affect Care: None marital status: Current Living Situation: Spouse Current Living Situation Comment: Lives at home with 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 NAD. Cooperative. HEENT: Atraumatic, normocephalic. Vision intact at time of assessment, acuity is sharp at time of assessment Pulm: Symmetrical chest rise. No increased work of breathing. No respiratory distress. Cardiac: RRR, occasional bigeminy radial pulses intact and symmetrical. Abdominal: Nontender, nondistended, soft. BS present. CRANIAL NERVES: II: Pupils equal and reactive, no relative afferent pupillary defect, no VF cuts III, IV, : EOM intact, no gaze preference or deviation, no nystagmus. V: Intact but slightly diminished sensation to soft touch on right V1, V2, and V3 segments bilaterally. Left sensation normal VII: no asymmetry, no nasolabial fold flattening VIII: normal hearing to speech IX, X: normal palatal elevation, no uvular deviation XI: 5/5 head turn and 5/5 shoulder shrug bilaterally XII: midline tongue protrusion MOTOR: RUE: 5/5 forming yardage control operator strength, finger flexion/extension, interosseus LUE: 5/5 forming yardage control operator strength, finger flexion/extension, interosseus RLE: 5/5 to hip flexion, ankle dorsiflexion/plantarflexion LLE: 5/5 to hip flexion, ankle dorsiflexion/plantarflexion SENSORY: Normal to touc in upper and lower extremities without deficit or asymmetry Results & Data Results & Data Vital Signs (Past 12 Hours) Vital Signs Temp Pulse Pulse Resp BP BP Pulse Ox 02/17/23 15:32 70 02/17/23 15:00 70 25 H 94 02/17/23 15:00 121/79 02/17/23 14:59 69 24 95 02/17/23 14:59 119/68 02/17/23 14:50 71 25 H 96 02/17/23 14:48 69 94 02/17/23 14:45 68 144/77 H 95 02/17/23 14:35 71 24 137/100 94 02/17/23 14:19 69 20 129/77 94 02/17/23 13:55 98 02/17/23 13:55 98 02/17/23 13:55 74 20 98 02/17/23 13:36 36.6 C 72 18 180/95 H 98 O2 Del Method 02/17/23 15:32 02/17/23 15:00 02/17/23 15:00 02/17/23 14:59 02/17/23 14:59 02/17/23 14:50 02/17/23 14:48 02/17/23 14:45 02/17/23 14:35 Room Air 02/17/23 14:19 Room Air 02/17/23 13:55 Room Air 02/17/23 13:55 Room Air 02/17/23 13:55 Room Air 02/17/23 13:36 Room Air PG Care Time/CCT Total # of Minutes Spent Total Time Spent with Patient: Total time spent is greater than 50% in coordination of care (as documented) at patient's floor/unit and/or counseling patient: Coding Level of Care Code 70498 INT INP/OBS CARE MIN Diagnoses Stroke-like symptom R29.90 Right facial numbness R20.0 Ascending aorta dilation I77.810 Gastro-esophageal reflux K21.9 Esophagitis presence: esophagitis presence not specified Hypertension I10 Hypertension type: essential hypertension Type 2 diabetes mellitus E11.9 HLA-B27 positive Z15.89 Factor 5 Leiden mutation, heterozygous D68.51 CAD in [place] artery I25.10 (4) Gastro-esophageal reflux Esophagitis presence: esophagitis presence not specified Qualified Code(s): K21.9 - Gastro-esophageal reflux disease without esophagitis (5) Hypertension Hypertension type: essential hypertension Qualified Code(s): I10 - Essential (primary) hypertension
[2023-02-17 15:59] LABS: C Reactive Protein < 0.50 mg/dl (0-0.5)
[2023-02-17] MEDS ORDERED: PHARMACIST DISCHARGE MED REC CONSULT PRN (18:59)
[2023-02-17] MEDS ORDERED: NITROGLYCERIN SL 0.4 MG/TAB TAB SL PRN (18:59)
[2023-02-17] MEDS ORDERED: LABETALOL HCL IV 5 MG/ML 20ML IV PRN (18:59)
[2023-02-17] MEDS: FAMOTIDINE 40 MG TABLET PO SCH (20:17)
[2023-02-17] MEDS: ROSUVASTATIN CALCIUM 20 MG TAB PO SCH (20:17)
[2023-02-17] MEDS: GABAPENTIN 300 MG CAP PO SCH (20:17)
[2023-02-17] MEDS: APIXABAN 5 MG TABLET PO SCH (20:18)
--- NOTE | 2023-02-17 22:07 | Magnetic Resonance Report ---
MRI OF THE BRAIN WITHOUT IV CONTRAST CLINICAL HISTORY: Strokelike symptoms. COMPARISON STUDY: CT of the brain dated 02/17/2023. TECHNIQUE: MRI of the brain was performed utilizing various T1 and T2-weighted sequences in the axial , sagittal, and coronal planes. IV contrast was not administered for this examination. FINDINGS: Brain parenchyma: There is age-related involutional change noting moderate confluent subcortical and periventricular microangiopathic disease. There is no hemorrhage or mass effect. There is no restrict ed diffusion to suggest acute ischemia. Abreu-white matter differentiation is preserved. No extra-axia l fluid collection is seen. The cerebellar tonsils are normal in configuration. Ventricles, sulci, and cisterns: Prominent secondary to involutional change. Pituitary and sella: Unremarkable. Intracranial vasculature: Normal flow voids are maintained at the skull base. Orbits: The bony orbits are grossly intact. Orbital contents are normal in appearance noting bilatera l ocular lens implants. Sinuses and mastoids: There is mild mucosal thickening within the maxillary, as well as the right fro ntal and right posterior ethmoid sinuses. Trace mucosal thickening is seen in the sphenoid sinuses. T he mastoid air cells are clear. Calvarium: Unremarkable. Cervical cord: Partially visualized cervical spinal cord is normal in morphology and signal intensity . IMPRESSION: No acute intracranial abnormality. ACT 112: Negative or not required by law. Electronically signed by: Tone Thomas M.D. 02/17/2023 10:05 PM
--- NOTE | 2023-02-18 00:30 | Electrocardiogram Report ---
Test Reason : Blood Pressure : / mmHG Vent. Rate : 071 BPM Atrial Rate : 071 BPM P-R Int : 172 ms QRS Dur : 142 ms QT Int : 432 ms P-R-T Axes : 047 122 026 degrees QTc Int : 469 ms Sinus rhythm with Premature ventricular complexes Right bundle branch block Left posterior fascicular block Bifascicular block Abnormal ECG When compared with ECG of 15-MAR-2019 19:58, Premature ventricular complexes are now Present Left posterior fascicular block is now Present Confirmed by Andrew Bright ([id number]) on 02/18/2023 12:30:04 AM Referred By: REFERRED SELF Confirmed By:Andrew Bright
[2023-02-18] MEDS: ACETAMINOPHEN 325 MG TAB PO PRN ×2 (04:34→09:10)
[2023-02-18 07:07] LABS: Basophils # (auto) 0.05 K/uL (0-0.2); Basophils % (auto) 1.1 %; Eosinophils # (auto) 0.42 K/uL (0-0.50); Hematocrit (blood only) 47.1 % (42.0-52.0); Hemoglobin 15.9 g/dl (14.0-18.0); Immature Granulocytes # (auto) 0.01 K/uL (0.01-0.20); Immature Granulocytes % (auto) 0.2 %; Lymphocytes # (auto) 1.66 K/uL (1.2-3.4); Lymphocytes % (auto) 35.7 %; Mean Corpuscular Hemoglobin 31.5 pg (25.0-34.0); Mean Corpuscular Hgb Conc 33.8 g/dL (32.0-36.0); Mean Corpuscular Volume 93.5 fL (80.0-100.0); Mean Platelet Volume 10.3 fL (9.4-12.4); Monocytes # (auto) 0.57 K/uL (0.11-0.59); Monocytes % (auto) 12.3 %; Neutrophils # (auto) 1.94 K/uL (1.40-6.50); Neutrophils % (auto) 41.7 %; Platelet Count 166 K/uL (130-400); RDW Coefficient of Variation 12.3 % (11.5-14.5); RDW Standard Deviation 42.3 fL (36.4-46.3); Red Blood Count 5.04 M/uL (4.70-6.10); White Blood Count 4.65 K/ul (4.8-10.8)
[2023-02-18 07:25] LABS: BUN Creatinine Ratio 16.4 (10-20); Chol HDL Ratio 3.7 (0-5); Creatinine Clr Calc Pharmacy 47.5 ml/min; Est GFR (African American) 62.6 ml/min; Potassium 3.4 mmol/L (3.5-5.1)
[2023-02-18] MEDS: FAMOTIDINE 40 MG TABLET PO SCH ×2 (08:14→21:06)
[2023-02-18] MEDS: predniSONE 5 MG TAB PO SCH (08:14)
[2023-02-18] MEDS: METOPROLOL TARTRATE 25 MG TAB PO SCH ×2 (08:15→21:06)
[2023-02-18] MEDS: CLOPIDOGREL BISULFATE 75 MG TAB PO SCH (08:15)
[2023-02-18] MEDS: APIXABAN 5 MG TABLET PO SCH ×2 (08:15→21:05)
[2023-02-18] MEDS: FEXOFENADINE HCL 180 MG TAB PO PRN (08:15)
[2023-02-18] MEDS: amLODIPine BESYLATE 5 MG TAB PO SCH (08:15)
[2023-02-18 08:21] LABS: Estimated Average Glucose 134 mg/dl; Hemoglobin A1C 6.3 % (4.5-5.6)
[2023-02-18] MEDS ORDERED: prednisoLONE acetate 1% OP SUSP 5 ML BTL OP SCH (09:00)
--- NOTE | 2023-02-18 10:47 | CT Scan Report ---
CT SCAN OF THE BRAIN WITHOUT IV CONTRAST CLINICAL HISTORY: Right facial numbness. COMPARISON STUDY: CT and MRI dictated 02/17/2023 of the brain TECHNIQUE: Unenhanced axial CT scan of the brain is performed from the vertex to the skull base. A do se lowering technique was utilized adhering to the principles of ALARA. CT DOSE: 625.80 mGy.cm FINDINGS: Brain parenchyma: There is age-related involutional change noting moderate subcortical and periventri cular microangiopathic disease. There is no hemorrhage, mass effect, or evidence of acute territorial ischemia by CT criteria. Abreu-white matter differentiation is preserved. No extra-axial fluid collec tion is seen. Ventricles, sulci, cisterns: Prominent secondary to involutional change. Intracranial vasculature: There is atherosclerotic calcification of the cavernous carotid and vertebr al arteries. Calvarium: Unremarkable. Sinuses and mastoids: The visualized paranasal sinuses are clear. The mastoid air cells are well pneu matized. Orbits: The bony orbits are grossly intact. There are bilateral ocular lens implants. IMPRESSION: There is no hemorrhage, mass effect, or evidence of acute territorial ischemia by CT dean mosley. ACT 112: Negative or not required by law. Electronically signed by: Tone Thomas M.D. 02/18/2023 10:45 AM
--- NOTE | 2023-02-18 13:37 | XCELERA ---
[id number]
--- NOTE | 2023-02-18 19:15 | Hospitalist Progress Note ---
Date of Service February 18, 2023 Assessment & Plan (1) Stroke-like symptom: Plan: Strokelike symptoms On initial stroke alert evaluation his right blurry vision improved, right-sided facial numbness did not improve. He was not a candidate for TNKase due to concurrent apixaban use. Recurrence of symptoms 8/5 am CTA: No large vessel occlusion, short segment stenosis versus occlusion of intracranial right vertebral artery with distal reconstitution minimally progres sed compared to prior. Moderate cavernous carotid plaque. CThead x2: No acute finding CXR: No acute fine On TNKase candidate, no large vessel occlusion amenable to retrieval. 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 Given strokelike symptoms on this, reasonable to switch to Eliquis/Plavix - Neuro consulted CAD s/p PCI. - History of 3 stents. is on aspirin/eliquis. 1st 2 st[place] [facility] [place] [address] Perera. NO [place] and no sx since then. Stopped plaavix in october 2015 Given at least TIA symptoms above will switch to Eliquis/Plavix moving forward BP management as below AMARILIS previously discontinued due to renal dysfunction No chest pain, chest pressure or evidence of ACS on admission Hyperlipidemia Continue rosuvastatin, recommend increase to 20 mg in spite of normal cholesterol and LDL Hypertension Resumed home amlodipine 5 mg daily plus metoprolol 12.5 mg twice daily DVT prophylaxis: Anticoagulated Disposition: PCU post stroke and for blood pressure monitoring CODE STATUS: DNR/DNI, discussed at bedside Diet: Heart healthy, low-sodium (2) Right facial numbness: (3) Ascending aorta dilation: (4) Gastro-esophageal reflux: (5) Hypertension: (6) Type 2 diabetes mellitus: (7) HLA-B27 positive: (8) Factor 5 Leiden mutation, heterozygous: (9) CAD in [place] artery: Admission and Anticipated Discharge Date Admission Date: February 18, 2023 Subjective At time of my evaluation, was reporting right-sided facial numbness with right side tongue numbness with associated head pain. Denies any speech difficulties, extremity numbness and tingling, or extremity weakness. Otherwise denies any lightheadedness or dizziness, chest pain, shortness of breath. Physical Exam Physical Exam: General: Well-appearing, NAD HEENT: Normal conjunctivae, EOMI, PERRL, non-erythematous oropharynx Neck: Supple, no midline cervical spine TTP, mild right sided cervical paraspinal TTP with hypertonicity Cardiovascular: RRR, no M/R/G Pulmonary: CTAB, no W/R/R Abdomen: Soft, NT/ND, no guarding Extremities: Moving all extremities, no pedal edema Integumentary: No suspicious rash or lesion on exposed skin Neurologic: AAOx3, no focal deficits, CN II-XII intact, SILT BUEs and BLEs in major dermatomal distribution, full and symmetric strength of BUEs and BLEs in major muscle groups, no dysdiadochokinesia, no dysmetria Psychiatric: Appropriate mood/affect Results & Data Results & Data Vital Signs (Past 12 Hours) Vital Signs Temp Pulse Pulse Resp BP Pulse Ox O2 Del Method 02/18/23 16:00 71 02/18/23 12:06 36.9 C 73 19 148/93 H 93 Room Air 02/18/23 09:15 37 C 71 16 158/80 H 97 Room Air Laboratory Results Reviewed CBC, BMP, A1c, cholesterol panel -notably unremarkable CBC, potassium low at 3.4, creatinine normalized to 1.28, hemoglobin A1c 6.3%, triglycerides mildly elevated 156, normal cholesterol and LDL Negative Lyme IgG and IgM Diagnostic Findings Repeat stat head CT scan given recurrence of right-sided facial symptomsno acute findings Reviewed brain MRIno acute findings TTE today demonstrates normal left ventricular function with EF 55 to 60%, severe aortic stenosis, normal bubble study PG Care Time/CCT Total # of Minutes Spent Total Time Spent with Patient: Total time spent is greater than 50% in coordination of care (as documented) at patient's floor/unit and/or counseling patient: Coding Level of Care Code 15269 SUB INP/OBS CARE 2/35MIN Diagnoses Stroke-like symptom R29.90 Right facial numbness R20.0 Ascending aorta dilation I77.810 Gastro-esophageal reflux K21.9 Esophagitis presence: esophagitis presence not specified Hypertension I10 Hypertension type: essential hypertension Type 2 diabetes mellitus E11.9 HLA-B27 positive Z15.89 Factor 5 Leiden mutation, heterozygous D68.51 CAD in [place] artery I25.10 (4) Gastro-esophageal reflux Esophagitis presence: esophagitis presence not specified Qualified Code(s): K21.9 - Gastro-esophageal reflux disease without esophagitis (5) Hypertension Hypertension type: essential hypertension Qualified Code(s): I10 - Essential (primary) hypertension
[2023-02-18] MEDS: ROSUVASTATIN CALCIUM 20 MG TAB PO SCH (21:06)
[2023-02-18] MEDS: GABAPENTIN 300 MG CAP PO SCH (21:06)
[2023-02-18] MEDS: BRIMONIDINE TARTRATE-P 0.15% 5 ML BTL OP SCH (21:52)
[2023-02-18] MEDS: TIMOLOL MALEATE 0.5% OP SOLN 5 ML BTL OP SCH (21:52)
[2023-02-19 07:06] LABS: Basophils # (auto) 0.05 K/uL (0-0.2); Eosinophils # (auto) 0.43 K/uL (0-0.50); Eosinophils % (auto) 8.8 %; Hematocrit (blood only) 46.5 % (42.0-52.0); Hemoglobin 15.9 g/dl (14.0-18.0); Immature Granulocytes # (auto) 0.02 K/uL (0.01-0.20); Immature Granulocytes % (auto) 0.4 %; Lymphocytes # (auto) 1.43 K/uL (1.2-3.4); Lymphocytes % (auto) 29.4 %; Mean Corpuscular Hemoglobin 31.8 pg (25.0-34.0); Mean Corpuscular Hgb Conc 34.2 g/dL (32.0-36.0); Monocytes # (auto) 0.54 K/uL (0.11-0.59); Monocytes % (auto) 11.1 %; Neutrophils % (auto) 49.3 %; Platelet Count 169 K/uL (130-400); RDW Coefficient of Variation 12.3 % (11.5-14.5); RDW Standard Deviation 42.2 fL (36.4-46.3); White Blood Count 4.87 K/ul (4.8-10.8)
[2023-02-19 07:21] LABS: BUN Creatinine Ratio 15.3 (10-20); Calcium 8.9 mg/dl (8.6-10.3); Creatinine Clr Calc Pharmacy 46.4 ml/min; Est GFR (African American) 60.9 ml/min; Est GFR (Non-African American) 52.5 ml/min; Potassium 3.5 mmol/L (3.5-5.1)
[2023-02-19] MEDS: APIXABAN 5 MG TABLET PO SCH (09:03)
[2023-02-19] MEDS: CLOPIDOGREL BISULFATE 75 MG TAB PO SCH (09:03)
[2023-02-19] MEDS: predniSONE 5 MG TAB PO SCH (09:04)
[2023-02-19] MEDS: METOPROLOL TARTRATE 25 MG TAB PO SCH (09:04)
[2023-02-19] MEDS: FEXOFENADINE HCL 180 MG TAB PO PRN (09:04)
[2023-02-19] MEDS: amLODIPine BESYLATE 5 MG TAB PO SCH (09:04)
[2023-02-19] MEDS: FAMOTIDINE 40 MG TABLET PO SCH (09:04)
[2023-02-19] MEDS: BRIMONIDINE TARTRATE-P 0.15% 5 ML BTL OP SCH (09:05)
[2023-02-19] MEDS: TIMOLOL MALEATE 0.5% OP SOLN 5 ML BTL OP SCH (09:05)
--- NOTE | 2023-02-19 09:49 | Neurology Consultation ---
Date of Consultation February 19, 2023 Assessment & Plan (1) Right facial numbness: (2) Blurry vision, right eye: (3) Chronic cerebral ischemia: (4) Hypertension: (5) Peripheral neuropathy: Plan patient had episode of right facial numbness and blurry vision in the right eye ( appears to have been the whole right eye, as opposed to his visual dukes off to the right). in addition to the symptoms he had a right-sided headache accompanying. All of the symptoms are resolved. His neurologic examination is unremarkable without focal findings, meningeal signs, or encephalopathy. MRI of the brain showed no stroke, but there was moderate diffuse old small vessel ischemic disease and CT angiography revealed some mild stenoses in places as listed. He was already on 81 milligram aspirin plus Eliquis 5 milligrams for DVT. Patient has a history of hypertension not adequately controlled on admission but quite controlled at 122/86 currently. Other risk factors for stroke would be diabetes and dyslipidemia. His lipids are fairly well controlled on low-dose rosuvastatin. The patient has generalized polyneuropathy, involving predominantly sensory fibers, likely secondary to diabetes but other etiologies are possible. The etiology of his symptoms is most likely vasospasm triggered by hypertension ( complicated migraine ). This is more likely because of the headache. I cannot entirely exclude calling this is a TIA, however, the treatment is going to end up being the same. Recommendations: 1. continue with clopidogrel 75 milligrams daily plus Eliquis 5 milligrams daily. I would not advocate "triple therapy" (aspirin, Plavix, and Eliquis). 2. blood pressure is controlled and aim for a mean arterial pressure 95-100 3. Control glucose trying to get hemoglobin A1c closer to 6.0. 4. the patient is lipids are fairly well controlled on low-dose rosuvastatin. I would consider increasing this to 20 milligrams daily. 5. I have no further neurologic testing or treatment recommendations to make at this time. We could follow up as an outpatient in 3 weeks or so ( with PA). History of Present Illness Reason for Consultation: Patient is a 78-year-old, who I was asked to see at the request Dr. Hernandez, for neurologic consultation regarding TIA versus stroke. Requesting Physician: Dr. Hernandez Attending Physician: Josi Hernandez MD History of Present Illness this patient has a history of hypertension, type 2 diabetes, dyslipidemia, and polyneuropathy a mild predominantly sensory in nature. He also has a history of factor 5 Leiden mutation, sarcoidosis ( pulmonary) positive HLA B27, coronary disease, history of DVT in 2019. He has been on 81 milligram aspirin and Eliquis 5 milligrams a day for years. In 2014, he had numbness and tingling of the left face and arm. He saw Dr. Virk. MRI of the brain showed old small vessel ischemic disease and MR angiography of the head and neck were unremarkable without any significant stenosis. He was on aspirin and was noted to have lower extremity DVT. He was discharged on clopidogrel and anticoagulant. over time he was back on aspirin alone and off the anticoagulant. In 2019, he had DVT was put on Eliquis 5 milligrams day in addition to the aspirin. On February 17, 2023, he awoke with some blurry vision in the right eye. When he closed his left eye the right eye was blurry in general. He could see out of his left eye. he drove to a town to do some errands when around 10 30 in the morning he had a worsening of vision off to the right and numbness on the right side of his face splitting the midline from top to bottom. He noted a pain abov e his right eye that radiated to his advent and then behind his ear. The right face had tingling and numbness but not the right arm, trunk, or leg. His speech was unaffected and he still had headache. He arrived to the emergency room on February 17 at 13:36 with a temperature 36.6, pulse 72 and regular, respiratory rate 18, blood pressure 180/95, new to saturation 98 percent. His neurologic examination was unremarkable according to the emergency room note. He did have a little bit of numbness and tingling at that time and a headache. CBC and Chem profile were unremarkable although he was slightly dehydrated with a BUN of 27 and creatinine of 1.4. Glucose was 145 and Lyme antibody titers were negative. Chest x-ray showed cardiomegaly and old granulomatous disease (history of sarc oidosis ). CT scan of the head showed no acute changes. CT angiography of the head was unremarkable with no significant vascular stenoses or anomalies. CT angiography of the neck showed mild stenosis in the cavernous internal carotid arteries bilaterally and in the distal right vertebral artery. MRI of the brain showed no acute changes but there were moderate bilateral white matter small vessel ischemic disease and generalized atrophy. Echocardiogram revealed aortic stenosis, a little bit worse than previous scan but no evidence of shunt or other significant problems. Laboratory studies from February 18 showed hemoglobin A1c of 6.3, triglycerides 156, and total cholesterol 176. when the patient woke up the morning of February 18 he was asymptomatic. Later in the morning he was up walking and noticed some tingling coming back on his right face and some blurry vision off to the right. A repeat CT scan of the head was unremarkable. Later on the symptoms resolved. This morning, he is asymptomatic and he has been up and around. He has no vision or numbness issues. Repeat CBC and Chem profile were unremarkable. Nursing reports no issues. He has been in normal sinus rhythm since admission. Allergies Allergy/AdvReac Type Severity Reaction Status Date / Time Penicillins Allergy Intermediate HIVES- A Verified 11/23/22 15:32 CHILD Sulfa (Sulfonamide Allergy Intermediate rash Verified 11/23/22 15:32 Antibiotics) moxifloxacin Allergy Mild Rash Verified 11/23/22 15:32 ubidecarenone Allergy Mild UBIQUINOL Verified 11/23/22 15:32 CAUSES itching of skin doxycycline Allergy Rash Verified 11/23/22 15:32 methotrexate AdvReac Intermediate sore Verified 11/23/22 15:32 breasts Ubiquino Allergy Unknown Unknown Uncoded 11/23/22 15:32 Home Medications Medication Instructions Recorded Confirmed Type acetaminophen 650 mg 650 mg PO Q8H PRN Pain 07/25/18 02/17/23 History tablet,extended release (Tylenol Arthritis Pain) aspirin 81 mg tablet,delayed 81 mg PO HS 07/25/18 02/17/23 History release (Adult Low Dose Aspirin) brimonidine 0.1 % eye drops 1 drp ophthalmic (eye) BID 07/25/18 02/17/23 History (Alphagan P) fexofenadine 180 mg tablet 180 mg PO DAILY PRN Allergy 07/25/18 02/17/23 History ([place] Allergy) Symptoms prednisone 5 mg tablet 5 mg PO QAM 07/23/19 02/17/23 History compress.stocking,knee,reg,med #2 ea 09/09/19 02/17/23 Rx Vitamin B 1 dose PO QAM 05/20/20 02/17/23 History Vitamin C 1 dose PO QAM 05/20/20 02/17/23 History diphenhydramine 25 2 tab PO .q hs PRN sleep 05/20/20 02/17/23 History mg-acetaminophen 500 mg tablet (Tylenol PM Extra Strength) cholecalciferol (vitamin D3) 125 5,000 unit PO QAM 07/06/20 02/17/23 History mcg (5,000 unit) capsule (D3-5000) zoledronic acid 5 mg/100 mL in 1 ea IV YEARLY 01/14/21 02/17/23 History mannitol 5 %-water intravenous piggybck (Reclast) prednisolone acetate 1 % eye 1 drp ophthalmic (eye) .qod 03/23/22 02/17/23 History drops,suspension (Pred Forte) timolol 0.5 % eye drops 1 drp ophthalmic (eye) BID 04/29/22 02/17/23 History vit C 250 mg-vit E 200 unit-zinc 250 cap PO DAILY 05/25/22 02/17/23 History ox 12.5 dh-dsszan-oxydgo-zeax capsule (ICaps AREDS2) famotidine 40 mg tablet 40 mg PO BID #90 tabs 10/10/22 02/17/23 Rx tadalafil 5 mg tablet (Cialis) 5 mg PO DAILY #90 tabs 11/07/22 02/17/23 Rx apixaban 5 mg tablet (Eliquis) See Rx Instructions .Route 11/16/22 02/17/23 Rx .COMPLEX #180 tabs nitroglycerin 0.4 mg sublingual 0.4 mg sublingual .COMPLEX PRN 11/23/22 02/17/23 Rx tablet Angina #25 tabs metoprolol tartrate 25 mg tablet See Rx Instructions .Route 12/23/22 02/17/23 Rx .COMPLEX #90 tabs amlodipine 5 mg tablet 5 mg PO QAM #90 tabs 12/29/22 02/17/23 Rx gabapentin 300 mg capsule See Rx Instructions .Route 02/10/23 02/17/23 Rx .COMPLEX #180 caps mometasone 50 mcg/actuation nasal 2 spray intranasal DAILY PRN 02/17/23 02/17/23 History spray (Nasonex 24hr Allergy) Congestion rosuvastatin 20 mg tablet (Crestor) 10 mg PO HS 02/17/23 02/17/23 History Patient History Medical History AAA (abdominal aortic aneurysm) Dr. Bright monitors Aortic stenosis CAD in [place] artery Chronic steroid use Dyslipidemia Factor 5 Leiden mutation, heterozygous tested positive in 2014 GERD (gastroesophageal reflux disease) History of COVID-19 06/2021 [place]; congestion, headache, cough, chills; resolved. History of DVT (deep vein thrombosis) hx DVT BLLE 2018 following travel History of Lyme disease treated HLA-B27 positive tested 2013 Hyperlipidemia Hypertension Kidney insufficiency follows with Dr. Salomon Osteoarthritis Pulmonary nodule Sarcoidosis Tubular adenoma of colon Type 2 diabetes mellitus Surgical History History of appendectomy History of bilateral cataract extraction History of cardiac cath hx of SOB---02/2000 @ [facility], 06/2010 @ [facility]---follows with Dr. Bright History of carpal tunnel surgery of right wrist History of colonoscopy History of esophagogastroduodenoscopy (EGD) History of heart artery stent 02/2000 x2 stents, 06/2010 x1 History of left inguinal hernia repair History of left wrist replacement History of open reduction and internal fixation (ORIF) procedure right foot--no longer has hardware in place History of tonsillectomy and adenoidectomy History of vitrectomy bilateral History of wisdom tooth extraction Status post biopsy of kidney benign Family History Mother , age 87 of senile dementia of the Alzheimer's type Family history of diabetes mellitus Coronary heart disease Dementia Father , age 89 Family history of diabetes mellitus Family hx colonic polyps Myocardial infarction Coronary heart disease Prostate cancer Family/Other Family history of diabetes mellitus maternal aunts/uncles Aunt Breast cancer Brother COPD (chronic obstructive pulmonary disease) Fibrosis of lung Sister Breast cancer Dementia Denies family history of Ovarian cancer Colorectal cancer Social History Smoking Status: Never smoker Second Hand Exposure: No; Do You Dip or Chew Tobacco: No; Hx Alcohol Use: Yes Alcohol type: wine Alcohol Intake Frequency: 4 or More x per/Week Alcohol Intake Frequency Comment: One red wine daily with dinner Hx Substance Use: No Preferred Language: Yakut Communication Ability: Effective Visual Impairment: No Limitations Hearing Ability: Normal Rail Switch Operator Required: No Beliefs That Will Affect Care: Scientology marital status: Current Living Situation: Spouse Current Living Situation Comment: Lives at home with current occupational status: retired 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[age], 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, [employer] 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 Feels Safe at Home: Yes Childhood Exposure to Second-Hand Smoke: No Diet: regular Diet Comment: regular Dental Care, Regularly: Yes Physical Activity Frequency: Daily Seatbelt Use: always Sunscreen Use: Yes Assistive Devices: Glasses Review of Systems Constitutional: no fever, no fatigue and no weakness Eyes: no diplopia, no eye pain and no worsening vision Ear, Nose, Mouth, Throat: no ear pain, no tinnitus, no hearing loss, no dizziness, no snoring, no hoarseness and no dysphagia Respiratory: no cough and no dyspnea Cardiovascular: no chest pain, no palpitations and no lightheadedness Gastrointestinal: no abdominal pain, no nausea and no vomiting Musculoskeletal: + neck pain and + joint pain; no back pain, no radicular pain and no myalgia Integumentary: no rash and no lesions Neurologic: no gait abnormality, no localized weakness, no generalized weakness, no tingling, no numbness, no tremor(s), no abnormal movements, no headache(s), no abnormal speech, no confusion and no memory loss Psychiatric: no depression, no irritability, no anxiety, no difficulty concentrating, no confusion and no hallucinations Endocrine: no fatigue and no flushing Hematologic / Lymphatic: no easy bleeding and no easy bruising Allergy / Immunological: no urticaria and no problem reported Exam (Neuro) Physical Exam: The patient is right-handed. The patient is awake, alert, and attentive. Speech is normal without any aphasia or dysarthria. The patient can name objects, repeat phrases, and has normal spontaneous speech. Mentation and thought processes are intact, with orientation to person, place and time, and normal fund of knowledge. Attention and concentration are normal. Mood and affect are normal and appropriate. General appearance and grooming are normal. Short and long-term memory are intact. Pupils are 4 mm bilaterally and reactive to light. Extraocular eye muscles are intact without nystagmus. Visual acuity and visual dukes seem normal grossly to confrontation. There are no deficits to sensation in the face in all 3 distributions of the fifth cranial nerve bilaterally. Corneal reflexes are positive bilaterally. Facial strength and symmetry was normal bilaterally. Hearing seems normal bilaterally. Palate moves well without asymmetry. There is normal sternocleidomastoid and trapezius (shoulder shrug) strength bilaterally. Tongue is midline with good strength bilaterally. Neck has a full range of motion without discomfort. There are no cervical bruits bilaterally. There are no cranial or ocular bruits. Heart is without murmur. There is a regular rhythm and rate. Cervical, thoracic, and lumbar spine are nontender to palpation. Gait is narrow based, with good arm swing, turns, and stance. Balance is normal eyes open or closed. With outstretched arms there is no drift. There are no resting, postural, or action tremors. There is no ataxia with finger to nose testing. There is good facility in the hands. No other abnormal involuntary movements are noted. Motor strength is 5/5 diffusely in the arms bilaterally including deltoids, biceps, triceps, brachioradialis, wrist flexors and extensors, piano technician, and intrinsic hand muscles. Motor strength is 5/5 diffusely in the legs bilaterally including hip flexors, quadriceps, hamstrings, gastrocnemius, tibialis anterior, tibialis posterior, and Peroneii muscles. Toe extensors are normal and there is good bulk in the extensor digitorum brevis muscles bilaterally. The limbs have good tone without rigidity or spasticity. There is no atrophy noted in the muscles. Muscle bulk is normal, there is no tenderness to palpation, no myotonia to percussion, and no fasciculations seen. Sensory examination is intact to touch and pin throughout all 4 limbs diffusely. Reflexes are 1/4 in the biceps, triceps, and brachioradialis tendons bilaterally. quadriceps and Achilles tendon reflexes are absent bilaterally. There is no clonus bilaterally. Toes are downgoing with plantar stimulation bilaterally. Peripheral pulses are present and of normal quality distally in all 4 limbs. There is no peripheral edema noted in the limbs. Results & Data Vital Signs (Past 12 Hours) Vital Signs Temp Pulse Pulse Resp BP Pulse Ox O2 Del Method 02/19/23 08:07 72 02/19/23 07:21 36.8 C 68 16 122/68 94 Room Air 02/19/23 03:14 36.3 C L 65 17 129/80 93 Room Air 02/19/23 01:03 66 02/18/23 23:01 36.5 C 64 16 127/76 95 Room Air PG Care Time/CCT Total # of Minutes Spent Total Time Spent with Patient: Total time spent is greater than 50% in coordination of care (as documented) at patient's floor/unit and/or counseling patient: Coding Level of Care Code 73206 INT INP/OBS CARE 3/75MIN Diagnoses Right facial numbness R20.0 Blurry vision, right eye H53.8 Chronic cerebral ischemia I67.82 Hypertension I10 Hypertension type: essential hypertension Peripheral neuropathy G62.9 (4) Hypertension Hypertension type: essential hypertension Qualified Code(s): I10 - Essential (primary) hypertension
[2023-02-19] MEDS ORDERED: STROKE PATIENT DISCHARGE STA (10:44)
--- NOTE | 2023-02-19 10:45 | Discharge Summary ---
Date of Service February 19, 2023 Admission HPI Per Admitting Provider Mr. Bobo is a 78-year-old male with a past medical history of type II DM, hypertension, HLAB27 positive, factor V Leiden heterozygote, CAD, CKD 3, GERD who presented to the ER as a stroke alert for right-sided numbness and dysarthria. Patient associated blurry vision in the right eye. He is on Eliquis for past DVT and factor V Leiden with last dose morning of 02/17. Danya is seen iwth his "newton". His reports this morning when he woke up his vision seemed more lurry than normal. Las tnknown normal was last night going to bed. Wa sat work and noticed while was working had increased blurriness of the RIGHT eye only and numbness/tinling on the whole side of his R face right up to the midpoint of his face, but right after the middle of his face sensation returned to normal. He called his and then came into the hospital because he was concerned about his sx. Did have a stroke card at home, and tried the steps it laid out but did not have any extremity strength deficits or facial asymmetry. Was able to smile and raise his eyebrows. No prior strokes initially reported, but pt subsequently notes he may have had similar symptoms many years ago in 2014. Right eye blurriness seems to have improved, but numbness/tingling seems about the same. No chest pain/chest pressure. nsr with occasional bigeminy in ER. Has a history of CAD w PCI.. history of 3 stents. is on aspirin/eliquis. 1st 2 stents was in 1999 placed at [facility], had another stent in [address] Perera. NO KS and no sx since then. Stopped plaavix in october 2015 DVT: 3 years ago, tx with eliquis HTN- bp normally well controlled at home ~110-120/70s normally on Amlodipine/Metorpolol. No longer on lisinopril (was stopped 02/[address] Salomon). Hx CKD bl creat 1.4-1.6. Medical History: Reviewed Medications: Reviewed Surgical History: Reviewed Family history: Reviewed Allergies: Reviewed Social History: No tobacco/EToh Code Status: Full Code Admission Exam Per Admitting Provider General: A&Ox3. NAD. Cooperative. HEENT: Atraumatic, normocephalic. Vision intact at time of assessment, acuity is sharp at time of assessment Pulm: Symmetrical chest rise. No increased work of breathing. No respiratory distress. Cardiac: RRR, occasional bigeminy radial pulses intact and symmetrical. Abdominal: Nontender, nondistended, soft. BS present. CRANIAL NERVES: II: Pupils equal and reactive, no relative afferent pupillary defect, no VF cuts III, IV, : EOM intact, no gaze preference or deviation, no nystagmus. V: Intact but slightly diminished sensation to soft touch on right V1, V2, and V3 segments bilaterally. Left sensation normal VII: no asymmetry, no nasolabial fold flattening VIII: normal hearing to speech IX, X: normal palatal elevation, no uvular deviation XI: 5/5 head turn and 5/5 shoulder shrug bilaterally XII: midline tongue protrusion MOTOR: RUE: 5/5 ticket attendant strength, finger flexion/extension, interosseus LUE: 5/5 ticket attendant strength, finger flexion/extension, interosseus RLE: 5/5 to hip flexion, ankle dorsiflexion/plantarflexion LLE: 5/5 to hip flexion, ankle dorsiflexion/plantarflexion SENSORY: Normal to touc in upper and lower extremities without deficit or asymmetry Principal Diagnosis TIA Discharge Exam General: Well-appearing, NAD HEENT: Normal conjunctivae Cardiovascular: RRR, +systolic murmur Pulmonary: CTAB, no W/R/R Extremities: Moving all extremities, no pedal edema Integumentary: No suspicious rash or lesion on exposed skin Neurologic: AAOx3, no focal deficits Psychiatric: Appropriate mood/affect Discharge Data Allergies Allergy/AdvReac Type Severity Reaction Status Date / Time Penicillins Allergy Intermediate HIVES- A Verified 11/23/22 15:32 CHILD Sulfa (Sulfonamide Allergy Intermediate rash Verified 11/23/22 15:32 Antibiotics) moxifloxacin Allergy Mild Rash Verified 11/23/22 15:32 ubidecarenone Allergy Mild UBIQUINOL Verified 11/23/22 15:32 CAUSES itching of skin doxycycline Allergy Rash Verified 11/23/22 15:32 methotrexate AdvReac Intermediate sore Verified 11/23/22 15:32 breasts Ubiquino Allergy Unknown Unknown Uncoded 11/23/22 15:32 Consultations 08/04/23 15:22 ED Decision to Admit Stat 02/18/23 10:17 Consult Neurology Routine Ordered Studies 02/17/23 13:40 CT head/brain wo con Stat 02/17/23 13:46 CT angio head w con Stat CT angio neck with con Stat 02/17/23 18:59 MR brain wo con Routine 02/18/23 10:15 CT head/brain wo con Stat Hospital Course (1) Stroke-like symptom: (2) Right facial numbness: (3) Ascending aorta dilation: (4) Gastro-esophageal reflux: (5) Hypertension: (6) Type 2 diabetes mellitus: (7) HLA-B27 positive: (8) Factor 5 Leiden mutation, heterozygous: (9) CAD in [place] artery: (10) Dyslipidemia: (11) Aortic stenosis: Plan Strokelike symptoms - TIA vs complex migraine On initial stroke alert evaluation his right blurry vision improved, right-sided facial numbness did not improve. He was not a candidate for TNKase due to concurrent apixaban use. Recurrence of symptoms 8/5 am CTA: No large vessel occlusion, short segment stenosis versus occlusion of intracranial right vertebral artery with distal reconstitution minimally progressed compared to prior. Moderate cavernous carotid plaque. 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 Given strokelike symptoms on this, switched to Eliquis/Plavix - Increased rosuvastatin to 20mg - Continue BP control as below - A1c 6.3 % - continue glucose control - Neuro consulted - f/u as outpatient in about 3 weeks CAD s/p PCI - History of 3 stents. is on aspirin/eliquis. 1st 2 stents was in 1999 placed at [facility], had another stent [place] [address] Perera. NO KS and no sx since then. Stopped Plavix in october 2015 Given TIA symptoms above switched to Eliquis/Plavix moving forward BP management as below AMARILIS previously discontinued due to renal dysfunction No chest pain, chest pressure or evidence of ACS on admission Hyperlipidemia Continue rosuvastatin, recommend increase to 20 mg in spite of normal cholesterol and LDL; TGs mildly elevated Hypertension Resumed home amlodipine 5 mg daily plus metoprolol 12.5 mg twice daily Aortic stenosis: - Continue monitoring with concrete curer Dr. Bright Total Time Total Time Spent Total Time Spent (In Minutes): 40 Total Time Includes: Examination of the Patient, Discharge Planning, Medication Reconciliation and Communication With Other Providers Discharge Plan Discharge Items Patient Disposition: Home - Self-Care Reason For Visit: CVA VS TIA Discharge Diagnosis: TIA Activity: Resume your previous activity Activity Comment: Try to minimize heavy lifting for this next week Non-emergency contact: Primary Care Provider, Imaging Clerk and Neurologist Call non-emergency contact if: your symptoms worsen Follow-up/Referrals: Migue Banda III, CRNP [Primary Care Provider] - Diet: Heart Healthy Addtl Attending Provider Instructions: group care worker your new prescriptions for the increased dose of rosuvastatin and new prescription for Plavix. If you do not hear anything in the next week for your follow up neurology appointment, contact your primary care provider. Pending Studies at Discharge: No Stand-Alone Forms: My [facility], Smoking Cessation Medications and DC Order Prescriptions: New clopidogrel 75 mg Tablet 75 mg PO DAILY Qty: 30 2RF rosuvastatin [Crestor] 20 mg Tablet 20 mg PO HS Qty: 30 2RF Continued famotidine 40 mg tablet 40 mg PO BID Qty: 90 3RF tadalafil [Cialis] 5 mg tablet 5 mg PO DAILY Qty: 90 3RF Eliquis 5 mg tablet See Rx Instructions .ROUTE .COMPLEX Qty: 180 3RF Dose Instruction: take 1 tablet by mouth twice a day Rx Instructions: take 1 tablet by mouth twice a day metoprolol tartrate 25 mg tablet See Rx Instructions .ROUTE .COMPLEX Qty: 90 0RF Dose Instruction: TAKE 1/2 A TABLET BY MOUTH TWICE DAILY Rx Instructions: TAKE 1/2 A TABLET BY MOUTH TWICE DAILY amlodipine 5 mg tablet 5 mg PO QAM Qty: 90 3RF gabapentin 300 mg capsule See Rx Instructions .ROUTE .COMPLEX Qty: 180 0RF Dose Instruction: TAKE 2 CAPSULES BY MOUTH AT BEDTIME Rx Instructions: TAKE 2 CAPSULES BY MOUTH AT BEDTIME prednisone 5 mg tablet 5 mg PO QAM nitroglycerin 0.4 mg tablet, sublingual 0.4 mg Sublingual .COMPLEX PRN (Reason: Angina) Qty: 25 1RF Rx Instructions: 0.4 mg sublingual Q5M FOR UP TO 3 DOSES PRN; zoledronic [id number] [Reclast] 5 mg/100 mL piggyback 1 ea IV YEARLY timolol 0.5 % drops 1 drp ophthalmic (eye) BID Rx Instructions: Right eye ICaps AREDS2 250 mg-200 unit -12.5 mg-1 mg capsule 250 cap PO DAILY cholecalciferol (vitamin D3) [D3-5000] 125 mcg (5,000 unit) capsule 5,000 unit PO QAM diphenhydramine-acetaminophen [Tylenol PM Extra Strength] 25-500 mg tablet 2 tab PO .q hs PRN (Reason: sleep) Vitamin B 1 dose PO QAM Vitamin C 1 dose PO QAM fexofenadine [Bronwyn Allergy] 180 mg Tablet 180 mg PO DAILY PRN (Reason: Allergy Symptoms) acetaminophen [Tylenol Arthritis Pain] 650 mg Tablet Extended Release 650 mg PO Q8H PRN (Reason: Pain) Alphagan P 0.1 % Drops 1 drp OPHTHALMIC (EYE) BID prednisolone acetate [Pred Forte] 1 % drops,suspension 1 drp OPHTHALMIC (EYE) .qod mometasone [Nasonex 24hr Allergy] 50 mcg/actuation spray,non-aerosol 2 spray intranasal DAILY PRN (Reason: Congestion) Rx Instructions: administer into each nostril Discontinued aspirin [Adult Low Dose Aspirin] 81 mg Tablet,Delayed Release (Dr/Ec) 81 mg PO HS rosuvastatin [Crestor] 20 mg tablet 10 mg PO HS No Action (DME) compress.stocking,knee,reg,med Misc See Rx Instructions .ROUTE .MEDSUPPLY Qty: 2 2RF Rx Instructions: As directed Discharge Orders: Discharge Order (Routine); Ordered 02/19/23 Ordered By: Josi Leyva/Other Patient Handouts: A1C Admission Data Admit Date/Time: 02/18/23 16:15 Attending Provider: Josi Hernandez Admit Provider: Jagjit Castaneda Primary Care Provider: Migue Banda III Other Providers: Jagjit Castaneda ; Benny Freedman Other Interventions: Discharge Summary Assessment (RN) Last Done: 02/19/23 11:24 Coding Level of Care Code 92766 INP/OBS DISCH >30 MIN Diagnoses Stroke-like symptom R29.90 Right facial numbness R20.0 Ascending aorta dilation I77.810 Gastro-esophageal reflux K21.9 Esophagitis presence: esophagitis presence not specified Hypertension I10 Hypertension type: essential hypertension Type 2 diabetes mellitus E11.9 HLA-B27 positive Z15.89 Factor 5 Leiden mutation, heterozygous D68.51 CAD in [place] artery I25.10 Dyslipidemia E78.5 Aortic stenosis I35.0 Cardiac valve disease etiology: etiology unspecified
--- NOTE | 2023-02-20 12:53 | Pharmacy Report ---
Pharmacist Stroke Counseling - Date of Service February 20, 2023 - Scope: Pharmacy has been consulted to provide medication discharge counseling for this patient admitted with transient ischemic attack vs complicated migraine as per the Pharmacist Discharge Counseling for Stroke Patients Protocol. - Medications on Discharge: Home Medications Medication Instructions Recorded Confirmed acetaminophen 650 mg 650 mg PO Q8H PRN Pain 07/25/18 02/20/23 tablet,extended release (Tylenol Arthritis Pain) brimonidine 0.1 % eye drops 1 drp ophthalmic (eye) BID 07/25/18 02/20/23 (Alphagan P) fexofenadine 180 mg tablet 180 mg PO DAILY PRN Allergy 07/25/18 02/20/23 (Bronwyn Allergy) Symptoms prednisone 5 mg tablet 5 mg PO QAM 07/23/19 02/20/23 diphenhydramine 25 2 tab PO .q hs PRN sleep 05/20/20 02/20/23 mg-acetaminophen 500 mg tablet (Tylenol PM Extra Strength) cholecalciferol (vitamin D3) 125 5,000 unit PO QAM 07/06/20 02/20/23 mcg (5,000 unit) capsule (D3-5000) zoledronic acid 5 mg/100 mL in 1 ea IV YEARLY 01/14/21 02/20/23 mannitol 5 %-water intravenous piggybck (Reclast) prednisolone acetate 1 % eye 1 drp ophthalmic (eye) .qod 03/23/22 02/20/23 drops,suspension (Pred Forte) vit C 250 mg-vit E 200 unit-zinc 250 cap PO DAILY 05/25/22 02/20/23 ox 12.5 mn-zomkpv-rmkwlr-zeax capsule (ICaps AREDS2) mometasone 50 mcg/actuation nasal 2 spray intranasal DAILY PRN 02/17/23 02/20/23 spray (Nasonex 24hr Allergy) Congestion Vitamin C 1 dose PO QAM 02/20/23 02/20/23 timolol 0.5 % eye drops 1 drp ophthalmic (eye) BID 02/20/23 02/20/23 New Rx's Medication Instructions Recorded compress.stocking,knee,reg,med #2 ea 09/09/19 famotidine 40 mg tablet 40 mg PO BID #90 tabs 10/10/22 tadalafil 5 mg tablet (Cialis) 5 mg PO DAILY #90 tabs 11/07/22 apixaban 5 mg tablet (Eliquis) See Rx Instructions .Route 11/16/22 .COMPLEX #180 tabs nitroglycerin 0.4 mg sublingual 0.4 mg sublingual .COMPLEX PRN 11/23/22 tablet Angina #25 tabs metoprolol tartrate 25 mg tablet See Rx Instructions .Route 12/23/22 .COMPLEX #90 tabs amlodipine 5 mg tablet 5 mg PO QAM #90 tabs 12/29/22 gabapentin 300 mg capsule See Rx Instructions .Route 02/10/23 .COMPLEX #180 caps clopidogrel 75 mg tablet 75 mg PO DAILY #30 tabs 02/19/23 rosuvastatin 20 mg tablet (Crestor) 20 mg PO HS #30 tabs 02/19/23 - Action: The above medications, specifically ones for stroke treatment/prophylaxis, have been reviewed in detail with the patient prior to discharge. This includes indication, common adverse reactions, drug interactions, and medication administration. Medication counseling has been employed using the teach-back method to ensure understanding. - Outcome: The patient demonstrated understanding of the medications. Additional comments: * Patient had several questions which were answered throughout the counseling session. * PCP is making a referral for patient to see neurology. Thank you for allowing pharmacy to be involved in the care of this patient. Please call [phone] with any additional questions
== END 2023-02-19 12:15 | disposition home or self-care (01) | DRG 69 ==
LOC: ED 13:34 → 2S 13:34 → SUATTDRO 16:19 → 2S 18:41

== ENCOUNTER 2023-07-19 15:15 | Inpatient (IN) ==
--- NOTE | 2023-07-19 15:23 | ED Triage Note ---
Date of Service July 19, 2023 Provider in Triage Author: Barry Chawla History of Present Illness This patient was briefly evaluated while in triage. An abbreviated physical exam was performed. This patient is a 78-year-old Male who presents to the ED for evaluation of chest pain/pressure started at 0330 this AM-woke him from sleep +cardiac history was supposed to have a diagnostic cath with Dr. Conklin today but "was full" was off Eliquis x 2 days for cath Physical Exam GENERAL: NAD CARDIOVASCULAR: RRR RESPIRATORY: CTA ABDOMEN: BS x 4. Nontender to palpation. Initial orders for labs and / or imaging were placed and patient was placed in the waiting area until a bed is available. Please see further documentation for the full ED course. MDM / Impression Impression Impression: Chest pain, Aortic stenosis
--- NOTE | 2023-07-19 15:56 | XRay Report ---
SINGLE VIEW CHEST CLINICAL HISTORY: Atypical chest pain FINDINGS: A PA radiograph is compared to study dated 02/17/2023. Correlation is made with chest CT date d 12/06/2017. There are calcified mediastinal lymph nodes. The heart is enlarged. The pulmonary vascul ature is noncongested. Chronic interstitial thickening similar to previous. Calcified granulomas are again seen in the right upper lobe. There is mild bibasilar scarring/atelectasis. The lungs and pleur al spaces are otherwise clear. No pneumothorax is seen. The skeletal structures are osteopenic. The b lb thorax is grossly intact. Degenerative change is noted in the spine. IMPRESSION: Cardiomegaly with no active disease in the chest. ACT 112: Negative or not required by law. Electronically signed by: Tone Thomas M.D. 07/19/2023 3:55 PM
[2023-07-19 16:06] LABS: Basophils # (auto) 0.03 K/uL (0.00-0.20); Basophils % (auto) 0.4 %; Eosinophils % (auto) 2.6 %; Hematocrit (blood only) 49.2 % (42.0-52.0); Hemoglobin 16.5 g/dl (14.0-18.0); Immature Granulocytes # (auto) 0.02 K/uL (0.01-0.20); Immature Granulocytes % (auto) 0.3 %; Lymphocytes # (auto) 1.08 K/uL (1.20-3.40); Mean Corpuscular Hemoglobin 31.6 pg (25.0-34.0); Mean Corpuscular Hgb Conc 33.5 g/dL (32.0-36.0); Mean Corpuscular Volume 94.3 fL (80.0-100.0); Mean Platelet Volume 9.9 fL (9.4-12.4); Monocytes # (auto) 0.55 K/uL (0.11-0.59); Monocytes % (auto) 7.1 %; Neutrophils # (auto) 5.85 K/uL (1.40-6.50); Neutrophils % (auto) 75.6 %; Platelet Count 153 K/uL (130-400); RDW Coefficient of Variation 12.8 % (11.5-14.5); RDW Standard Deviation 44.9 fL (36.4-46.3); Red Blood Count 5.22 M/uL (4.70-6.10); White Blood Count 7.73 K/ul (4.8-10.8)
[2023-07-19] MEDS ORDERED: NITROGLYCERIN 2% OINTMENT 30GM TUBE EXT STA (16:13)
[2023-07-19] MEDS ORDERED: ASPIRIN CHEW 324 MG PO STA (16:13)
[2023-07-19 16:18] LABS: Albumin Globulin Ratio 1.5 (0.9-2); Albumin Level 4.3 gm/dl (3.4-5.0); BUN Creatinine Ratio 17.5 (10-20); Bilirubin,Total 0.8 mg/dl (0.2-1.0); Calcium 9.5 mg/dl (8.6-10.3); Creatinine Clr Calc Pharmacy 56.6 ml/min; Est GFR (African American) 67.7 ml/min; Est GFR (Non-African American) 58.4 ml/min; Globulin 2.9 gm/dl (2.5-4.0); Total Protein 7.2 gm/dl (6.0-8.3)
--- NOTE | 2023-07-19 16:19 | Emergency Department Note ---
History of Present Illness General Chief Complaint: Chest Pain Stated Complaint: SEVERE CHEST PAINS, REF BY DOC Time Seen by Provider: 07/19/23 16:02 History of Present Illness Provider Complaint: chest pain Time: 03:15 Duration: improved Onset: during rest Pain Location: left chest Pain Radiation: none Severity: severe Current Pain Intensity: 2 Quality: + aching and + dull Relieved By: + nothing Exacerbated By: + nothing Context: no recent illness, no recent surgery, no recent immobilization, no recent travel or no trauma/injury Associated symptoms: no dyspnea, no palpitations, no fever or no leg swelling Was supposed to be scheduled for cardiac catheterization today outpatient but had to be canceled. Home Medications Medication Instructions Recorded Confirmed Type acetaminophen 650 mg 650 mg PO HS Pain 07/25/18 07/19/23 History tablet,extended release (Tylenol Arthritis Pain) brimonidine 0.1 % eye drops 1 drp OPB BID 07/25/18 07/19/23 History (Alphagan P) fexofenadine 180 mg tablet 180 mg PO DAILY PRN Allergy 07/25/18 07/19/23 History ([place] Allergy) Symptoms prednisone 5 mg tablet 5 mg PO QAM 07/23/19 07/19/23 History compress.stocking,knee,reg,med #2 ea 09/09/19 07/19/23 Rx cholecalciferol (vitamin D3) 125 5,000 unit PO QAM 07/06/20 07/19/23 History mcg (5,000 unit) capsule (D3-5000) zoledronic acid 5 mg/100 mL in 1 ea IV YEARLY 01/14/21 07/19/23 History mannitol 5 %-water intravenous piggybck (Reclast) nitroglycerin 0.4 mg sublingual 0.4 mg sublingual .COMPLEX PRN 11/23/22 07/19/23 Rx tablet Angina #25 tabs timolol 0.5 % eye drops 1 drp OPB BID 02/20/23 07/19/23 History rosuvastatin 20 mg tablet (Crestor) 20 mg PO HS #90 tabs 05/31/23 07/19/23 Rx famotidine 40 mg tablet 40 mg PO BID #180 tabs 06/07/23 07/19/23 Rx amlodipine 5 mg tablet 5 mg PO QAM #90 tabs 06/15/23 07/19/23 Rx mometasone 50 mcg/actuation nasal 2 spray intranasal DAILY PRN 06/15/23 07/19/23 Rx spray (Nasonex 24hr Allergy) Congestion #3 BTLS apixaban 5 mg tablet (Eliquis) 5 mg PO BID 07/19/23 07/19/23 History ascorbic acid (vitamin C) 1,000 mg 1 g PO DAILY 07/19/23 07/19/23 History tablet (Vitamin C) clopidogrel 75 mg tablet 75 mg PO QAM 07/19/23 07/19/23 History cyanocobalamin (vitamin B-12) 1,000 mcg PO DAILY 07/19/23 07/19/23 History 1,000 mcg tablet (Vitamin B-12) gabapentin 300 mg capsule 600 mg PO HS 07/19/23 07/19/23 History metoprolol tartrate 25 mg tablet 12.5 mg PO BID 07/19/23 07/19/23 History prednisolone acetate 1 % eye 1 drp OPB Q OTHER DAY 07/19/23 07/19/23 History drops,suspension vit C 250 mg-vit E 90 mg-zinc 40 1 tab PO BID 07/19/23 07/19/23 History mg-copper 1 ko-cenotm-hazdmo capsule (PreserVision AREDS-2) Allergies Allergy/AdvReac Type Severity Reaction Status Date / Time Penicillins Allergy Intermediate HIVES- A Verified 07/13/23 10:36 CHILD Sulfa (Sulfonamide Allergy Intermediate rash Verified 07/13/23 10:36 Antibiotics) moxifloxacin Allergy Mild Rash Verified 07/13/23 10:36 ubidecarenone Allergy Mild UBIQUINOL Verified 07/13/23 10:36 CAUSES itching of skin doxycycline Allergy Rash Verified 07/13/23 10:36 methotrexate AdvReac Intermediate sore Verified 07/13/23 10:36 breasts Ubiquino Allergy Unknown Unknown Uncoded 07/13/23 10:36 Past Med/Surg History Medical History History of COVID-19 06/2021 [place]; congestion, headache, cough, chills; resolved. AAA (abdominal aortic aneurysm) Dr. Bright monitors Kidney insufficiency follows with Dr. Salomon Sarcoidosis History of Lyme disease treated History of DVT (deep vein thrombosis) hx DVT BLLE 2019 following travel Type 2 diabetes mellitus Tubular adenoma of colon Pulmonary nodule Hypertension HLA-B27 positive tested 2013 Factor 5 Leiden mutation, heterozygous tested positive in 2014 Dyslipidemia CAD in [place] artery Aortic stenosis Osteoarthritis GERD (gastroesophageal reflux disease) Chronic steroid use Hyperlipidemia Surgical History History of carpal tunnel surgery of right wrist History of open reduction and internal fixation (ORIF) procedure right foot--no longer has hardware in place History of left wrist replacement Status post biopsy of kidney benign History of left inguinal hernia repair History of appendectomy History of esophagogastroduodenoscopy (EGD) History of colonoscopy History of wisdom tooth extraction History of tonsillectomy and adenoidectomy History of vitrectomy bilateral History of bilateral cataract extraction History of heart artery stent 02/2000 x2 stents, 06/2010 x1 History of cardiac cath hx of SOB---02/2000 @ [facility], 06/2010 @ [facility]---follows with Dr. Bright Family History Mother , age 87 of senile dementia of the Alzheimer's type Family history of diabetes mellitus Coronary heart disease Dementia Father , age 89 Family history of diabetes mellitus Family hx colonic polyps Myocardial infarction Coronary heart disease Prostate cancer Family/Other Family history of diabetes mellitus maternal aunts/uncles Aunt Breast cancer Brother COPD (chronic obstructive pulmonary disease) Fibrosis of lung Sister Breast cancer Dementia Denies family history of Ovarian cancer Colorectal cancer Social History Smoking Status: Never smoker Second Hand Exposure: No; Do You Dip or Chew Tobacco: No; Tobacco Cessation Education Requested by Patient: No Hx Alcohol Use: Yes Alcohol type: wine Alcohol Intake Frequency: 4 or More x per/Week Alcohol Intake Frequency Comment: One red wine daily with dinner Hx Substance Use: No Preferred Language: [place] Communication Ability: Effective Visual Impairment: No Limitations Hearing Ability: Normal Sew On Operator Required: No Beliefs That Will Affect Care: None marital status: Current Living Situation: Spouse Current Living Situation Comment: Lives at home with current occupational status: retired 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, [employer]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, [employer] How many Children do You have: 2 other: 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 Feels Safe at Home: Yes Safety Concerns: Feels Safe At This Time Childhood Exposure to Second-Hand Smoke: No Diet: regular Diet Comment: regular caffeine: Yes during the past year weight has: remained stable Dental Care, Regularly: Yes Physical Activity Frequency: Daily Seatbelt Use: always Sunscreen Use: Yes Assistive Devices: None Physical Exam Vital Signs Vital Signs - 24 hr 07/19/23 15:22 07/19/23 16:00 07/19/23 16:08 Temperature 36.3 C L Temperature Source Temporal Artery Scan Pulse Rate 71 67 Pulse Rate [Left Apical] 70 Pulse Rhythm Regular Pulse Strength Normal Respiratory Rate 20 19 Respiratory Effort / Characteristics Non-Labored Spontaneous Non-Labored Respiratory Depth Normal Normal Respiratory Pattern Regular Blood Pressure 161/101 H Blood Pressure [Right Arm] 174/110 H Blood Pressure Mean 121 Blood Pressure Mean [Right Arm] 131 Blood Pressure Position Sitting Pulse Oximetry 95 94 Oxygen Delivery Method Room Air Room Air Sepsis Recent Fever Within 48 Hours No Sepsis New/Unexplained Change in Mental Status No Sepsis Action Taken by Nursing No Action Required 07/19/23 16:30 07/19/23 16:56 07/19/23 16:56 Temperature Temperature Source Pulse Rate 65 65 Pulse Rate [Left Apical] Pulse Rhythm Pulse Strength Respiratory Rate 14 17 Respiratory Effort / Characteristics Respiratory Depth Respiratory Pattern Blood Pressure 144/96 H Blood Pressure [Right Arm] Blood Pressure Mean 112 Blood Pressure Mean [Right Arm] Blood Pressure Position Pulse Oximetry 92 95 95 Oxygen Delivery Method Room Air Room Air Room Air Sepsis Recent Fever Within 48 Hours Sepsis New/Unexplained Change in Mental Status Sepsis Action Taken by Nursing Physical Exam GENERAL: oriented to person, place, and time. appears well-developed and well- nourished. HENT: Exam performed. - Head: Normocephalic and atraumatic. EYES: Conjunctivae and EOM are normal. Right eye exhibits no discharge. Left eye exhibits no discharge. No scleral icterus. NECK: Normal range of motion. Neck supple. No JVD present. CV: Normal rate, regular rhythm, normal heart sounds and intact distal pulses. There is no peripheral edema. Palpable radial pulses bue. PULM/CHEST: Effort normal and breath sounds normal. No respiratory distress. No stridor. no wheezes. no rales. ABD: The abdomen is soft. There is no tenderness. NEURO: Motor and sensation grossly intact. SKIN: Skin is warm and dry. He is not diaphoretic. PSYCH: normal mood and affect. Behavior is normal. Judgment and thought content normal. Course Course 1602: The patient was evaluated in room B3. A complete history and physical exam was performed Cardiac monitoring: An order was placed for continuous cardiac monitoring. The monitor shows a rate of 70 with sinus rhythm interpreted by me 1628: Vital signs stable. Labs and imaging within normal limits. Patient be admitted to the [facility] team for chest pain workup. Administered Medications Famotidine (Famotidine 40 Mg Tablet) 40 mg PO BID GEMA Stop: 08/18/23 20:59 Last Admin: 07/19/23 20:13 Dose: 40 mg Documented By: VIRGINIA Gabapentin (Gabapentin 300 Mg Cap) 600 mg PO HS [facility] Stop: 08/18/23 20:59 Last Admin: 07/19/23 20:15 Dose: 600 mg Documented By: VIRGINIA Metoprolol Tartrate (Metoprolol Tartrate 25 Mg Tab) 12.5 mg PO BID GEMA Stop: 08/18/23 20:59 Last Admin: 07/19/23 20:14 Dose: 12.5 mg Documented By: VIRGINIA Nitroglycerin (Nitroglycerin 2% Ointment 30gm Tube) 1.5 inch EXT Q6H [facility] Stop: 08/18/23 19:04 Last Admin: 07/19/23 19:42 Dose: 1.5 inch Documented By: VIRGINIA Rosuvastatin Calcium (Rosuvastatin Calcium 20 Mg Tab) 20 mg PO HS [facility] Stop: 08/18/23 20:59 Last Admin: 07/19/23 20:14 Dose: 20 mg Documented By: VIRGINIA Timolol Maleate (Timolol Maleate 0.5% Op Soln 5 Ml Btl) 1 drops OP BID GEMA Stop: 08/18/23 20:59 Last Admin: 07/19/23 20:16 Dose: 1 drops Documented By: VIRGINIA Discontinued Medications Apixaban (Apixaban 5 Mg Tablet) 5 mg PO ONE ONE Stop: 07/19/23 19:05 Last Admin: 07/19/23 20:13 Dose: 5 mg Documented By: VIRGINIA Aspirin (Aspirin Chew 324 Mg) 324 mg PO NOW STA Stop: 07/19/23 16:14 Last Admin: 07/19/23 16:18 Dose: 324 mg Documented By: REINIER Nitroglycerin (Nitroglycerin 2% Ointment 30gm Tube) 0.5 inch EXT NOW STA Stop: 07/19/23 16:14 Last Admin: 07/19/23 16:18 Dose: 0.5 inch Documented By: REINIER Nitroglycerin (Nitroglycerin 2% Ointment 30gm Tube) 1 inch EXT Q6 GEMA Stop: 08/18/23 17:59 Last Admin: 07/19/23 19:32 Dose: Not Given Documented By: VIRGINIA Medical Decision Making Laboratory Data Attestation: I reviewed the patient's lab results. 07/19/23 15:33 07/19/23 15:33 Labs: Lab Results 07/19/23 Range/Units 15:33 WBC 7.73 (4.8-10.8) K/ul RBC 5.22 (4.70-6.10) M/uL Hgb 16.5 (14.0-18.0) g/dl Hct 49.2 (42.0-52.0) % MCV 94.3 (80.0-100.0) fL MCH 31.6 (25.0-34.0) pg MCHC 33.5 (32.0-36.0) g/dL RDW Std Deviation 44.9 (36.4-46.3) fL RDW Coeff of Jordan 12.8 (11.5-14.5) % Plt Count 153 (130-400) K/uL MPV 9.9 (9.4-12.4) fL Immature Gran % (Auto) 0.3 % Neut % (Auto) 75.6 % Lymph % (Auto) 14.0 % White % (Auto) 7.1 % Eos % (Auto) 2.6 % Baso % (Auto) 0.4 % Neut # (Auto) 5.85 (1.40-6.50) K/uL Lymph # (Auto) 1.08 L (1.20-3.40) K/uL White # (Auto) 0.55 (0.11-0.59) K/uL Eos # (Auto) 0.20 (0.00-0.50) K/uL Baso # (Auto) 0.03 (0.00-0.20) K/uL Immature Gran # (Auto) 0.02 (0.01-0.20) K/uL PT 10.6 (9.0-12.0) Seconds INR 1.0 (0.9-1.1) APTT 27 (21-31) Seconds PTT Ratio 1.0 Sodium 139 (136-145) mmol/L Potassium 4.0 (3.5-5.1) mmol/L Chloride 106 (98-107) mmol/L Carbon Dioxide 27 (21-32) mmol/L Anion Gap 6 (3-11) BUN 21 (6-23) mg/dl Creatinine 1.20 (0.6-1.4) mg/dl Est Cr Clr Drug Dosing 56.6 ml/min Est GFR ( Amer) 67.7 ml/min Est GFR (Non-Af Amer) 58.4 ml/min BUN/Creatinine Ratio 17.5 (10-20) Glucose 161 H (70-99(Fasting)) mg/dl Calcium 9.5 (8.6-10.3) mg/dl Total Bilirubin 0.8 (0.2-1.0) mg/dl AST 27 (13-39) U/L ALT 39 (7-52) U/L Alkaline Phosphatase 84 (34-104) U/L Troponin I High Sens 9.2 (0-20) pg/ml Total Protein 7.2 (6.0-8.3) gm/dl Albumin 4.3 (3.4-5.0) gm/dl Globulin 2.9 (2.5-4.0) gm/dl Albumin/Globulin Ratio 1.5 (0.9-2) Imaging Data Chest x-ray: Attestation: I personally reviewed and interpreted this imaging study as follows: My impression: Chest x-ray negative. Airway clear. No pneumothorax. No consolidation. cardiomegaly no cephalization.. No free air under the diaphragm. No fractures of the skeletal structures. Radiologist's impression: Chest X-Ray 07/19/23 15:23 SINGLE VIEW CHEST CLINICAL HISTORY: Atypical chest pain FINDINGS: A PA radiograph is compared to study dated 02/17/2023. Correlation is made with chest CT dated 12/06/2017. There are calcified mediastinal lymph nodes. The heart is enlarged. The pulmonary vasculature is noncongested. Chronic interstitial thickening similar to previous. Calcified granulomas are again seen in the right upper lobe. There is mild bibasilar scarring/atelectasis. The lungs and pleural spaces are otherwise clear. No pneumothorax is seen. The skeletal structures are osteopenic. The bony thorax is grossly intact. Degenerative change is noted in the spine. IMPRESSION: Cardiomegaly with no active disease in the chest. ACT 112: Negative or not required by law. Electronically signed by: Tone Thomas M.D. 07/19/2023 3:55 PM ECG Data Attestation: I personally reviewed and interpreted this ECG as follows: Indication: chest pain Rate (beats per minute): 72 Rhythm: normal sinus Findings: no ST depression, no ST elevation or no prolonged QT Comparison ECG Date: from (February 2023) Change: no significant change Additional Comments: Bifascicular block present MDM Narrative 1602: The patient was evaluated in room B3. A complete history and physical exam was performed Cardiac monitoring: An order was placed for continuous cardiac monitoring. The monitor shows a rate of 70 with sinus rhythm interpreted by me 1628: Vital signs stable. Labs and imaging within normal limits. Patient be admitted to the [facility] team for chest pain workup. Impression & Plan Chest pain, Aortic stenosis Discharge Plan Visit Data Chief Complaint: Chest Pain Stated Complaint: SEVERE CHEST PAINS, REF BY DOC ED Provider: Clint Anderson Discharge Problem: Chest pain, Aortic stenosis Patient Disposition: Admitted As Inpatient Discharge Instructions Interventions: ED Discharge Assessment Last Done: 07/19/23 18:00
[2023-07-19 16:24] LABS: Troponin I High Sensitivity 9.2 pg/ml (0-20)
[2023-07-19 16:29] LABS: Partial Thromboplastin Time 27 Seconds (21-31); Prothrombin Time 10.6 Seconds (9.0-12.0)
--- NOTE | 2023-07-19 16:58 | History & Physical Report ---
Date of Service July 19, 2023 Assessment & Plan (1) Chest pain: Plan: Patient developed severe 10/10 left-sided chest pain on the morning of 07/19 that woke him from sleep around 0315 Pain lasted 5 seconds, and then he had numbness and tingling radiating down the left arm No prior experiences like this one Hx of heart stents in 1999 and 2009 No chest pain at time of admission Of note, patient was supposed to have a cardiac catheterization on 07/19, however this was canceled as the hospital was full Cardiology consulted; reached out to Dr. Mc who will try to do the catheterization on 07/20 Nitropaste/Nitrostat as needed for acute chest pain A.m. CBC, BMP, mag (2) History of heart artery stent: Plan: 02/2000 x2 06/2010 x1 Continue Plavix (3) Factor 5 Leiden mutation, heterozygous: Plan: Hx of DVTs (on Eliquis) Patient was told to hold Eliquis starting Monday 07/17 for his upcoming cardiac cath; after it was canceled, he took 1 dose of Eliquis on the evening of 07/18 Per cardiology, okay to give evening dose of Eliquis on 07/19, and hold the morning dose SCDs (4) Dyslipidemia: Plan: Continue rosuvastatin (5) Hypertension: Plan: BP 144/96 at time of admission Continue metoprolol Hold amlodipine x 1 day prior to catheterization Plan Disposition: Admit to [facility] telemetry Full code AHA diet; n.p.o. at midnight VTE PPx: SCDs; okay to continue dose of Eliquis, Plavix prior to heart catheterization, per cardiology History of Present Illness Chief Complaint: Chest pain Primary Care Provider: Migue Banda, III, PAIGE Annekine is a 78-year-old male with PMH of CAD, multiple stents, aortic stenosis, dyslipidemia, factor V Leiden, HTN, sarcoidosis, and CKD stage III. Patient presented for severe 10/10 left-sided chest pain that developed around 0315 the morning of 07/19/2023. The pain lasted 5 seconds and woke him from sleep. He reports that it radiated down his left arm; he is still experiencing some numbness in his fingertips. He describes the pain as someone ripping his heart out of his chest. No prior experiences like this, per patient. He did not take any pain medications at the time. He reports that he took his normal morning medications around lunchtime today, including Plavix. He did not take Eliquis today on 07/19; last taken the night of 07/18. Patient was supposed to have an outpatient catheterization today, however it was canceled due to the [facility] full. Dr. Bright requested he come in to have the cath inpatient. Patient is hypertensive at 144/96 at time of admission; vitals otherwise stable. ED course: Aspirin 324 mg p.o. Nitropaste ROS: Patient endorses chest pain (resolved), chest pressure, and numbness/tingling in the left fingertips Patient denies fever, chills, sweating, GONZALEZ, dizziness, lightheadedness, cough, chest palpitations, SOB, abdominal pain, N/V/D, dysuria, burning with urination, or numbness/tingling in the legs. On Eliquis for DVT PPx; history of DVTs Patient denies prior history of MIs, CVA, or diabetes (Note: Patient has T2DM listed on his problems list, however he denies history of diabetes and is not currently taking any diabetic medications; last A1c 6.5% on 05/29/2023) Hx of two TIAs Allergies Allergy/AdvReac Type Severity Reaction Status Date / Time Penicillins Allergy Intermediate HIVES- A Verified 07/13/23 10:36 CHILD Sulfa (Sulfonamide Allergy Intermediate rash Verified 07/13/23 10:36 Antibiotics) moxifloxacin Allergy Mild Rash Verified 07/13/23 10:36 ubidecarenone Allergy Mild UBIQUINOL Verified 07/13/23 10:36 CAUSES itching of skin doxycycline Allergy Rash Verified 07/13/23 10:36 methotrexate AdvReac Intermediate sore Verified 07/13/23 10:36 breasts Ubiquino Allergy Unknown Unknown Uncoded 07/13/23 10:36 Home Medications Medication Instructions Recorded Confirmed Type acetaminophen 650 mg 650 mg PO HS Pain 07/25/18 07/19/23 History tablet,extended release (Tylenol Arthritis Pain) brimonidine 0.1 % eye drops 1 drp OPB BID 07/25/18 07/19/23 History (Alphagan P) fexofenadine 180 mg tablet 180 mg PO DAILY PRN Allergy 07/25/18 07/19/23 History ([place]wyn Allergy) Symptoms prednisone 5 mg tablet 5 mg PO QAM 07/23/19 07/19/23 History compress.stocking,knee,reg,med #2 ea 09/09/19 07/19/23 Rx cholecalciferol (vitamin D3) 125 5,000 unit PO QAM 07/06/20 07/19/23 History mcg (5,000 unit) capsule (D3-5000) zoledronic acid 5 mg/100 mL in 1 ea IV YEARLY 01/14/21 07/19/23 History mannitol 5 %-water intravenous piggybck (Reclast) nitroglycerin 0.4 mg sublingual 0.4 mg sublingual .COMPLEX PRN 11/23/22 07/19/23 Rx tablet Angina #25 tabs timolol 0.5 % eye drops 1 drp OPB BID 02/20/23 07/19/23 History rosuvastatin 20 mg tablet (Crestor) 20 mg PO HS #90 tabs 05/31/23 07/19/23 Rx famotidine 40 mg tablet 40 mg PO BID #180 tabs 06/07/23 07/19/23 Rx amlodipine 5 mg tablet 5 mg PO QAM #90 tabs 06/15/23 07/19/23 Rx mometasone 50 mcg/actuation nasal 2 spray intranasal DAILY PRN 06/15/23 07/19/23 Rx spray (Nasonex 24hr Allergy) Congestion #3 BTLS apixaban 5 mg tablet (Eliquis) 5 mg PO BID 07/19/23 07/19/23 History ascorbic acid (vitamin C) 1,000 mg 1 g PO DAILY 07/19/23 07/19/23 History tablet (Vitamin C) clopidogrel 75 mg tablet 75 mg PO QAM 07/19/23 07/19/23 History cyanocobalamin (vitamin B-12) 1,000 mcg PO DAILY 07/19/23 07/19/23 History 1,000 mcg tablet (Vitamin B-12) gabapentin 300 mg capsule 600 mg PO HS 07/19/23 07/19/23 History metoprolol tartrate 25 mg tablet 12.5 mg PO BID 07/19/23 07/19/23 History prednisolone acetate 1 % eye 1 drp OPB Q OTHER DAY 07/19/23 07/19/23 History drops,suspension vit C 250 mg-vit E 90 mg-zinc 40 1 tab PO BID 07/19/23 07/19/23 History mg-copper 1 [id number] capsule (PreserVision AREDS-2) Past Med/Surg History Medical History History of COVID-19 06/2021 [place]; congestion, headache, cough, chills; resolved. AAA (abdominal aortic aneurysm) Dr. Bright monitors Kidney insufficiency follows with Dr. Salomon Sarcoidosis History of Lyme disease treated History of DVT (deep vein thrombosis) hx DVT BLLE 2018 following travel Type 2 diabetes mellitus Tubular adenoma of colon Pulmonary nodule Hypertension HLA-B27 positive tested 2013 Factor 5 Leiden mutation, heterozygous tested positive in 2014 Dyslipidemia CAD in [place] artery Aortic stenosis Osteoarthritis GERD (gastroesophageal reflux disease) Chronic steroid use Hyperlipidemia Surgical History History of carpal tunnel surgery of right wrist History of open reduction and internal fixation (ORIF) procedure right foot--no longer has hardware in place History of left wrist replacement Status post biopsy of kidney benign History of left inguinal hernia repair History of appendectomy History of esophagogastroduodenoscopy (EGD) History of colonoscopy History of wisdom tooth extraction History of tonsillectomy and adenoidectomy History of vitrectomy bilateral History of bilateral cataract extraction History of heart artery stent 02/2000 x2 stents, 06/2010 x1 History of cardiac cath hx of SOB---02/2000 @ [place], 06/2010 @ [facility]---follows with Dr. Bright Family History Mother , age 87 of senile dementia of the Alzheimer's type Family history of diabetes mellitus Coronary heart disease Dementia Father , age 89 Family history of diabetes mellitus Family hx colonic polyps Myocardial infarction Coronary heart disease Prostate cancer Family/Other Family history of diabetes mellitus maternal aunts/uncles Aunt Breast cancer Brother COPD (chronic obstructive pulmonary disease) Fibrosis of lung Sister Breast cancer Dementia Denies family history of Ovarian cancer Colorectal cancer Social History Smoking Status: Never smoker Second Hand Exposure: No; Do You Dip or Chew Tobacco: No; Hx Alcohol Use: Yes Alcohol type: wine Alcohol Intake Frequency: 4 or More x per/Week Alcohol Intake Frequency Comment: One red wine daily with dinner Hx Substance Use: No Preferred Language: [place] Communication Ability: Effective Visual Impairment: No Limitations Hearing Ability: Normal Spinning Frame Changer Required: No Beliefs That Will Affect Care: Adventism marital status: Current Living Situation: Spouse Current Living Situation Comment: Lives at home with current occupational status: retired 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, 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, [employer] [place] How many Children do You have: 2 other: 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 Feels Safe at Home: Yes Childhood Exposure to Second-Hand Smoke: No Diet: regular Diet Comment: regular caffeine: Yes during the past year weight has: remained stable Dental Care, Regularly: Yes Physical Activity Frequency: Daily Seatbelt Use: always Sunscreen Use: Yes Assistive Devices: Glasses Review of Systems Review of Systems: See HPI above Physical Exam Physical Exam: General: no acute distress; pleasant affect non-toxic appearing; well-nourished; cooperative HEENT: normocephalic, atraumatic; no scleral icterus; dry mucus membrane; vision and hearing grossly intact Neck: supple; no lymphadenopathy; trachea midline Skin: warm, dry without signs of tenting; no cyanosis; no rashes, bruising, lesions, or erythema noted CV: chest wall NTP; RRR; 2/6 systolic ejection murmur noted at the second MCL ICS; pulses intact and symmetric at radial, DP, and PT Lungs: no acute respiratory distress; symmetrical chest wall expansion; clear breath sounds across all lung dukes w/o adventitious sounds; no wheezing ABD: Soft, NTP; BS present; no rebound/guarding; no ascites; no distention MSK: no tics or fasciculations; no edema noted in the LEs b/l, nonerythematous Neuro: A&Ox3; normal mood and affect; fluent speech; no focal deficits; sensation grossly intact in LEs B/L Results & Data Results & Data Vital Signs (Past 12 Hours) Vital Signs Temp Pulse Pulse Resp BP BP Pulse Ox 07/19/23 16:30 65 14 144/96 H 92 07/19/23 16:08 67 07/19/23 16:00 70 19 174/110 H 94 07/19/23 15:22 36.3 C L 71 20 161/101 H 95 O2 Del Method 07/19/23 16:30 Room Air 07/19/23 16:08 07/19/23 16:00 Room Air 07/19/23 15:22 Room Air Laboratory Results Abnormal lab results 07/19/23 Range/Units 15:33 Lymph # (Auto) 1.08 L (1.20-3.40) K/uL Glucose 161 H (70-99(Fasting)) mg/dl Diagnostic Findings Chest X-Ray 07/19/23 15:23 SINGLE VIEW CHEST CLINICAL HISTORY: Atypical chest pain FINDINGS: A PA radiograph is compared to study dated 02/17/2023. Correlation is made with chest CT dated 12/06/2017. There are calcified mediastinal lymph nodes. The heart is enlarged. The pulmonary vasculature is noncongested. Chronic interstitial thickening similar to previous. Calcified granulomas are again seen in the right upper lobe. There is mild bibasilar scarring/atelectasis. The lungs and pleural spaces are otherwise clear. No pneumothorax is seen. The skeletal structures are osteopenic. The bony thorax is grossly intact. Degenerative change is noted in the spine. IMPRESSION: Cardiomegaly with no active disease in the chest. ACT 112: Negative or not required by law. Electronically signed by: Tone Thomas M.D. 07/19/2023 3:55 PM Code Status & VTE Plan Code Status Full code VTE Prophylaxis Plan VTE Prophylaxis will be ordered: Yes Supervising Physician Co-Signing Physician Notes Patient seen and examined, chart reviewed, case discussed with José Miguel Molina PA-C and I agree with the assessment and plan as above except as otherwise noted. Labs and images reviewed. Mr. Bobo is a 78-year-old man with past history of aortic stenosis, CAD with PCI times 08/1999, times 08/05/2009, and factor V Leiden on Eliquis. He was pending a cardiac catheterization today as part of his evaluation for aortic stenosis and potential AVR which was unfortunately canceled due to high census however he awoke this morning with 10/10 left-sided chest pain which developed around 315 and woke him from sleep. He had radiation down his left arm. EKG was without acute ischemic changes and troponin was normal. Repeat pending. Case was discussed with cardiology, patient was recommended to present to the ER and is anticipated to have a catheterization 07/20. Pt last took eliquis last night, and did take his plaavix today. Plavix continued, okay to give 1 additional dose of Eliquis tonight and then hold. Heparinization not recommended at this time. At time bedside reassessment patient reports he is nearly pain-free. +sm. Heart rate is regular. Lungs are clear. Near euvolemic. Agree with assessment and management as above PG Care Time/CCT Total # of Minutes Spent Total Time Spent with Patient: Total time spent is greater than 50% in coordination of care (as documented) at patient's floor/unit and/or counseling patient: Coding [place] [address] INT INP/OBS CARE MIN Patient Type Established History Detailed Exam Detailed Medical Decision Making Low Complexity Diagnoses Chest pain R07.9 History of heart artery stent Z95.5 Factor 5 Leiden mutation, heterozygous D68.51 Dyslipidemia E78.5 Essential hypertension I10 Hypertension type: essential hypertension (5) Hypertension Hypertension type: essential hypertension Qualified Code(s): I10 - Essential (primary) hypertension
[2023-07-19] MEDS ORDERED: NITROGLYCERIN SL 0.4 MG/TAB TAB SL PRN (18:00)
[2023-07-19] MEDS ORDERED: NITROGLYCERIN 2% OINTMENT 30GM TUBE EXT SCH ×2 (18:00→22:00)
[2023-07-19] MEDS ORDERED: Nursing to Pharmacy Communication SCH (18:45)
[2023-07-19] MEDS ORDERED: APIXABAN 5 MG TABLET PO ONE (19:04)
[2023-07-19] MEDS: NITROGLYCERIN 2% OINTMENT 30GM TUBE EXT SCH (19:42)
[2023-07-19] MEDS: FAMOTIDINE 40 MG TABLET PO SCH (20:13)
[2023-07-19] MEDS: ROSUVASTATIN CALCIUM 20 MG TAB PO SCH (20:14)
[2023-07-19] MEDS: METOPROLOL TARTRATE 25 MG TAB PO SCH (20:14)
[2023-07-19] MEDS: GABAPENTIN 300 MG CAP PO SCH (20:15)
[2023-07-19] MEDS: TIMOLOL MALEATE 0.5% OP SOLN 5 ML BTL OP SCH (20:16)
[2023-07-20] MEDS: NITROGLYCERIN 2% OINTMENT 30GM TUBE EXT SCH ×4 (01:05→21:22)
[2023-07-20] MEDS: ACETAMINOPHEN 325 MG TAB PO PRN ×2 (03:10→16:23)
[2023-07-20 06:57] LABS: Basophils # (auto) 0.02 K/uL (0.00-0.20); Basophils % (auto) 0.4 %; Eosinophils # (auto) 0.15 K/uL (0.00-0.50); Eosinophils % (auto) 2.9 %; Hematocrit (blood only) 44.5 % (42.0-52.0); Immature Granulocytes # (auto) 0.01 K/uL (0.01-0.20); Immature Granulocytes % (auto) 0.2 %; Lymphocytes # (auto) 1.54 K/uL (1.20-3.40); Lymphocytes % (auto) 29.5 %; Mean Corpuscular Hemoglobin 31.6 pg (25.0-34.0); Mean Corpuscular Hgb Conc 33.7 g/dL (32.0-36.0); Mean Corpuscular Volume 93.9 fL (80.0-100.0); Mean Platelet Volume 10.1 fL (9.4-12.4); Monocytes # (auto) 0.56 K/uL (0.11-0.59); Monocytes % (auto) 10.7 %; Neutrophils # (auto) 2.94 K/uL (1.40-6.50); Neutrophils % (auto) 56.3 %; Platelet Count 141 K/uL (130-400); RDW Coefficient of Variation 12.8 % (11.5-14.5); RDW Standard Deviation 44.2 fL (36.4-46.3); Red Blood Count 4.74 M/uL (4.70-6.10); White Blood Count 5.22 K/ul (4.8-10.8)
[2023-07-20 07:11] LABS: BUN Creatinine Ratio 16.1 (10-20); Calcium 8.6 mg/dl (8.6-10.3); Creatinine Clr Calc Pharmacy 57.7 ml/min; Est GFR (African American) 69.1 ml/min; Est GFR (Non-African American) 59.6 ml/min; Magnesium 2.1 mg/dl (1.7-2.4); Potassium 3.9 mmol/L (3.5-5.1)
[2023-07-20 07:17] LABS: Troponin I High Sensitivity 9.4 pg/ml (0-20)
[2023-07-20] MEDS ORDERED: FEXOFENADINE HCL 180 MG TAB PO PRN (09:14)
[2023-07-20] MEDS ORDERED: FLUTICASONE PROPIONATE NA SPR 16 GM BTL PRN (09:17)
[2023-07-20] MEDS: predniSONE 5 MG TAB PO SCH (09:31)
[2023-07-20] MEDS: FAMOTIDINE 40 MG TABLET PO SCH ×2 (09:32→21:03)
[2023-07-20] MEDS: METOPROLOL TARTRATE 25 MG TAB PO SCH ×2 (09:32→17:27)
[2023-07-20] MEDS: CLOPIDOGREL BISULFATE 75 MG TAB PO SCH (09:33)
[2023-07-20] MEDS: TIMOLOL MALEATE 0.5% OP SOLN 5 ML BTL OP SCH ×2 (09:34→21:04)
[2023-07-20] MEDS ORDERED: NITROGLYCERIN/D5W 100MCG/ML 20ML SYR ONE (13:25)
[2023-07-20] MEDS ORDERED: niCARdipine HCL INJ 2.5 MG/ML 10 ML AMP ONE (13:25)
[2023-07-20] MEDS ORDERED: fentaNYL citrate PF 100 MCG/2 ML VIAL ONE (13:25)
[2023-07-20] MEDS ORDERED: HEPARIN (PORCINE) 1000 UNIT/ML 10 ML (CATH LAB USE ONLY) ONE (13:25)
[2023-07-20] MEDS ORDERED: MIDAZOLAM HCL 1 MG/ML 2ML VIAL ONE (13:25)
[2023-07-20] MEDS ORDERED: IODIXANOL (VISIPAQUE) 320 MG/ML 100ML IV ONE (13:50)
--- NOTE | 2023-07-20 14:03 | Electrocardiogram Report ---
Test Reason : Blood Pressure : / mmHG Vent. Rate : 072 BPM Atrial Rate : 072 BPM P-R Int : 154 ms QRS Dur : 132 ms QT Int : 400 ms P-R-T Axes : 052 -67 058 degrees QTc Int : 438 ms Sinus rhythm with Premature supraventricular complexes Right bundle branch block Left anterior fascicular block Bifascicular block Minimal voltage criteria for LVH, may be normal variant ( R in aVL ) Abnormal ECG When compared with ECG of 17-FEB-2023 13:57, Premature ventricular complexes are no longer Present Premature supraventricular complexes are now Present Left anterior fascicular block is now Present Left posterior fascicular block is no longer Present Confirmed by Klaus Rashid ([id number]) on 07/20/2023 2:02:51 PM Referred By: Confirmed By:Klaus Rashid
[2023-07-20] MEDS ORDERED: CLOPIDOGREL BISULFATE 300 MG TAB ONE (14:55)
--- NOTE | 2023-07-20 15:56 | Post Anesthesia Assessment ---
Date of Service July 20, 2023 Post Sedation Assessment Vital Signs Temp Pulse Pulse Pulse Resp BP BP 07/20/23 15:46 97.5 F L 70 18 160/96 H 07/20/23 15:34 97.2 F L 69 17 174/105 H 07/20/23 15:19 65 18 166/96 H 07/20/23 15:05 69 18 159/95 H 07/20/23 12:39 66 16 165/95 H 07/20/23 12:00 67 07/20/23 11:10 98.2 F 62 18 165/97 H 07/20/23 09:28 97.7 F 66 17 150/100 H 07/20/23 07:54 98.4 F 72 15 131/85 07/20/23 03:36 97.5 F L 62 20 07/20/23 02:49 65 07/20/23 02:39 97.5 F L 67 18 07/20/23 02:27 07/20/23 02:10 66 12 07/20/23 02:00 166/101 H 07/20/23 02:00 68 12 07/20/23 01:50 64 12 07/20/23 01:40 63 14 07/20/23 01:30 62 15 07/20/23 01:20 60 10 L 07/20/23 01:10 07/20/23 01:00 142/96 H 07/20/23 01:00 64 15 07/20/23 00:50 63 21 07/20/23 00:40 63 16 07/20/23 00:30 64 22 07/20/23 00:20 62 22 07/20/23 00:10 62 20 07/20/23 00:00 63 21 07/20/23 00:00 140/94 07/19/23 23:50 59 L 10 L 07/19/23 23:40 61 11 L 07/19/23 23:30 61 13 07/19/23 23:20 62 12 07/19/23 23:11 62 17 07/19/23 23:11 149/97 H 07/19/23 23:10 60 18 07/19/23 23:00 63 11 L 07/19/23 22:50 65 11 L 07/19/23 22:40 67 20 07/19/23 22:30 66 9 L 07/19/23 22:20 65 10 L 07/19/23 22:15 65 13 07/19/23 22:10 65 12 07/19/23 22:00 67 15 07/19/23 21:57 71 27 H 07/19/23 21:57 162/94 H 07/19/23 21:56 73 19 07/19/23 21:30 66 13 07/19/23 21:20 69 15 07/19/23 21:10 68 18 07/19/23 21:00 66 17 07/19/23 20:52 70 17 07/19/23 20:52 143/99 H 07/19/23 20:50 70 15 07/19/23 20:47 07/19/23 20:47 70 18 07/19/23 20:40 71 16 07/19/23 20:30 73 20 07/19/23 20:20 71 19 07/19/23 20:12 77 27 H 07/19/23 20:12 156/106 H 07/19/23 20:11 77 24 07/19/23 20:10 77 15 07/19/23 20:00 79 22 07/19/23 19:50 78 18 07/19/23 19:42 145/102 H 07/19/23 19:42 80 23 07/19/23 19:02 67 15 07/19/23 18:32 65 07/19/23 16:56 65 17 07/19/23 16:56 07/19/23 16:30 65 14 144/96 H 07/19/23 16:08 67 07/19/23 16:00 70 19 BP Pulse Ox O2 Del Method 07/20/23 15:46 96 Room Air 07/20/23 15:34 97 Room Air 07/20/23 15:19 96 Room Air 07/20/23 15:05 93 Room Air 07/20/23 12:39 96 Room Air 07/20/23 12:00 07/20/23 11:10 96 Room Air 07/20/23 09:28 98 Room Air 07/20/23 07:54 96 Room Air 07/20/23 03:36 145/80 H 95 Room Air 07/20/23 02:49 07/20/23 02:39 167/105 H 95 Room Air 07/20/23 02:27 Room Air 07/20/23 02:10 94 07/20/23 02:00 07/20/23 02:00 94 07/20/23 01:50 94 07/20/23 01:40 94 07/20/23 01:30 94 07/20/23 01:20 96 07/20/23 01:10 92 07/20/23 01:00 07/20/23 01:00 93 07/20/23 00:50 94 07/20/23 00:40 95 07/20/23 00:30 93 07/20/23 00:20 92 07/20/23 00:10 94 07/20/23 00:00 94 07/20/23 00:00 07/19/23 23:50 96 07/19/23 23:40 96 07/19/23 23:30 96 07/19/23 23:20 94 07/19/23 23:11 96 07/19/23 23:11 07/19/23 23:10 96 07/19/23 23:00 94 07/19/23 22:50 94 07/19/23 22:40 96 07/19/23 22:30 92 07/19/23 22:20 93 07/19/23 22:15 162/94 H 94 Room Air 07/19/23 22:10 93 07/19/23 22:00 96 07/19/23 21:57 96 07/19/23 21:57 07/19/23 21:56 07/19/23 21:30 07/19/23 21:20 07/19/23 21:10 07/19/23 21:00 07/19/23 20:52 07/19/23 20:52 07/19/23 20:50 07/19/23 20:47 Room Air 07/19/23 20:47 143/99 H 97 Room Air 07/19/23 20:40 07/19/23 20:30 07/19/23 20:20 07/19/23 20:12 07/19/23 20:12 07/19/23 20:11 156/106 H 98 Room Air 07/19/23 20:10 07/19/23 20:00 07/19/23 19:50 07/19/23 19:42 07/19/23 19:42 145/102 H 98 Room Air 07/19/23 19:02 162/97 H 95 Room Air 07/19/23 18:32 07/19/23 16:56 95 Room Air 07/19/23 16:56 95 Room Air 07/19/23 16:30 92 Room Air 07/19/23 16:08 07/19/23 16:00 174/110 H 94 Room Air Recovery Score Activity: Moves 4 extremities Respiration: Deep Breath/Cough Circulation: +/-20% PreAnes Value Consciousness: Fully Awake Oxygen Saturation: > 92% On Room Air Post Anesthesia Score: 10 Discharge Sedation Level of Care: Fast Track Phase II Post Sedation Plan On clinical assessment, the patient appears to have tolerated the sedation without complications. Patient is recovering as anticipated. Patient will continue to be monitored by nursing and may be discharged when sedation discharge criteria are met per below protocol. Upon Completions of procedure up to 15 minutes continue every 5 minute vital signs and the P.A.R. score; then discharge to a Phase I or Fast Track to Phase II per the following guidelines: * Discharge Patient to appropriate Phase II area if PAR is 8 or greater or return to pre- procedure baseline. The post - procedure orders will be as directed. * If PAR score is less than 8 or not return to pre-procedure baseline then patient will follow Phase I monitoring till PAR is reached for Phase II. The Phase I may be done in procedure room or may call to secure a Phase I area. * If naloxone or flumazenil are used for reversal, hold in Phase I for continued monitoring from when last reversal dose was given for a minimum of 60 minutes or longer pending the nurse and/or physician discretion of patient condition before discharge to Phase II. Please call the Sedation Physician to re-evaluate and complete post-note for discharge to Phase II area. Do NOT discharge from procedure sedation or Phase 1 until post- sedation evaluation note is complete by procedure /sedation MD Sedation Discharge Instructions to be given to the patient at discharge to home.
--- NOTE | 2023-07-20 15:58 | Cardiac Catheterization ---
[facility] Data: Burner Tender Cardiac Status Clinical evaluation leading to the procedure CAD Presenation: Unstable angina Diagnostic Physicians Name: Paul Mc MD Closure Device Recommendations: Medical Therapy and/or Counseling Cardiac Cath Procedure Full Procedure Date July 20, 2023 Pre-Procedure Diagnosis Pre-Procedure Diagnosis: Angina, CAD and Valvular Disease AUC Score AUC Score: 7 Post-Procedure Diagnosis Post-Procedure Diagnosis: Severe CAD and Successful PCI Procedure(s) Performed Procedure(s) Performed: Coronary Angiography and Drug Eluting Stent Glass Presser Paul Mc MD Chromium Plater(s) Susanne Estimated Blood Loss Estimated Blood Loss: 10 Medication(s) Medication(s): Fentanyl, Heparin, Lidocaine 1%, Nicardipine, Nitroglycerin and Versed Summary of Findings Indication: Chest pain, history of coronary disease, severe aortic stenosis Access: 6 Fr right radial artery Catheters: [place], diagnostic JL 3.5, JR4 guide Findings: LM -normal caliber, 20 to 30% distal stenosis LAD -large caliber, 40 % ostial, proximal stent with 30% in-stent restenosis, 40% earlymid segment disease, latemid short stent widely patent. Distal vessel without significant disease until 80% stenosis as wraps around apex Circumflex -small nondominant, 90% mid stenosis Ramusmedium caliber, proximal/mid luminal irregularities, focal 90% distal stenosis RCA -medium caliber, calcified, mild diffuse disease extending from proximal and mid segment. Latemid segment calcified/tortuous. 95% calcified stenosis at takeoff of very small PDA just before prior stent with moderate in-stent restenosis. Posterior lateral branch is medium caliber without significant disease. -- PCI -- Antithrombotic therapy: Heparin, clopidogrel Procedure: RCA cannulated with JR4 guide Pre-procedure flow YARELI 3 Heel Seat Pounder 50 wire passed across lesion into distal vessel Distal RCA lesion predilated with 2.0 and 2.5 compliant balloon With the aid of a telescope support catheter dilated lesion stented with 2.25 x 15 mm [place] drug-eluting stent Stent post-dilated with 2.5 noncompliant balloon IC vasodilators administered for spasm Post procedure YARELI 3 flow, stent well expanded with minimal residual stenosis. Compromised (YARELI I) flow in small PDA. Arterial Closure: TR band Summary: 1. Multivessel coronary artery disease -95% focal distal RCA just before prior stent 90% mid small nondominant circumflex 90% focal distal ramus 40% ostial LAD, patent proximal and mid LAD stents. Apical LAD with 80% stenosis. 2. Successful PCI of distal RCA with single JESSE (2.25 x 15 mm Frank; postdilated with 2.5 NC). Recommendations: To PCU for continued monitoring Reloaded with clopidogrel 300 mg in Burner Tender On discharge plan on dual therapy with clopidogrel, Eliquis. Plan to medically manage remainder of small and distal vessel disease. Outpatient decision on referral for AVR if recurrent symptoms post PCI. Hemodynamics Rest Ao:: 165/102/129 Final Ao: 142/84/109 LV: -- Recommendations Recommendations: Medical Therapy and/or Counseling Specimens Specimens: None Radiation Exposure (mGy) 4934 Contrast (mls) 140 Anesthesia Moderate 9665-0782 Procedural Complication(s) None Disposition PCU I attest to the content of the Intraoperative Record and any orders documented therein. Any exceptions are noted below. [facility] Card Cath Procedure Codes Cardiac Catheterization Procedure 1: Cardiovascular Cath Procedures: 22673 Coronaries Moderate Sedation Procedure 1: Sedation/Anesthesia: 08873 Mod Sedation by the same physician;Init15 Min Child Age 5 & Up Procedure 2: Sedation/Anesthesia: 20686 Mod Sedation by the same physician; Ea [id number] Minutes Stenting Procedure 1: Cardiovascular Stent Procedures: 10069 Perc transcatheter placement of intracoronary stent(s), with ang PG Care Time/CCT Total # of Minutes Spent Total Time Spent with Patient: Total time spent is greater than 50% in coordination of care (as documented) at patient's floor/unit and/or counseling patient:
--- NOTE | 2023-07-20 16:31 | Electrocardiogram Report ---
Test Reason : Blood Pressure : / mmHG Vent. Rate : 067 BPM Atrial Rate : 067 BPM P-R Int : 160 ms QRS Dur : 134 ms QT Int : 426 ms P-R-T Axes : 038 029 033 degrees QTc Int : 450 ms Normal sinus rhythm Right bundle branch block Abnormal ECG When compared with ECG of 19-JUL-2023 15:29, Premature supraventricular complexes are no longer Present Left anterior fascicular block is no longer Present Confirmed by Klaus Rashid ([id number]) on 07/20/2023 4:30:55 PM Referred By: Andrew Bright Confirmed By:Klaus Rashid
[2023-07-20] MEDS ORDERED: amLODIPine BESYLATE 5 MG TAB PO ONE (16:59)
--- NOTE | 2023-07-20 17:05 | Hospitalist Progress Note ---
Date of Service July 20, 2023 Assessment & Plan (1) Chest pain: Plan: Patient developed severe 10/10 left-sided chest pain on the morning of 07/19 that woke him from sleep around 0315 Pain lasted 5 seconds, and then he had numbness and tingling radiating down the left arm Hx of heart stents in 1999 and 2009 in the RCA and LAD No chest pain at time of admission Of note, patient was supposed to have a cardiac catheterization on 07/19, however this was canceled as the hospital was full Now s/p cardiac catheterization with stent placed to the distal RCA. Mild residual chest pain secondary to jailing of the very small PDA with compromised flow-medically managed with Nitropaste, blood pressure control and pain medicine as necessary -Monitor on telemetry for arrhythmias Echocardiogram here with moderate to severe AAS Resume Eliquis and Plavix Follow CBC, BMP. Give gentle IV fluids given history of CKD stage III and contrast-induced renal injury previously (2) CAD in [place] artery: Plan: As above (3) Aortic stenosis: Plan: Noted to be severe prior to cath, now noted to be borderline severe here Dr. Mc recommends repeat echocardiogram tomorrow to reassess and if aortic valve largely unchanged and remains asymptomatic post PCI, may be able to defer AVR and continue close surveillance (4) Hypertension: Plan: Blood pressures quite elevated post cath Give evening dose of metoprolol now and resume amlodipine now due to significantly elevated BPs continues on nitropaste too for CP (5) Factor 5 Leiden mutation, heterozygous: Plan: Hx of DVTs (on Eliquis) Resume Eliquis post cath (6) Dyslipidemia: Plan: Continue rosuvastatin (7) Stage 3 chronic kidney disease: Plan: Creatinine at baseline, monitor post cath (8) Type 2 diabetes mellitus: Plan: Hemoglobin A1c 6.5% in 05/2023 Not on medications at home Follow as an outpatient (9) Inflammatory polyarthritis: Plan: Continue home prednisone 5 mg daily, gabapentin Has HLA-B27 positive disease, follows with [facility] rheumatology Also with a history of sarcoidosis (10) Ascending aorta dilation: Plan: Followed by cardiology outpatient (11) Uveitis: Plan: Related to his inflammatory polyarthritis and sarcoidosis Continue prednisone drops and oral prednisone Plan Disposition: Continued stay on PCU Full code Admission and Anticipated Discharge Date Admission Date: July 19, 2023 Subjective Patient still having some ongoing chest pain that started during the cardiac catheterization and is related to the stent placement. Otherwise is eating dinner, feels well except for his blood pressures are high. I discussed his care with cardiology, Dr. Mc Telemetry with normal sinus rhythm and PVCs with rates in the 60s Physical Exam Constitutional: WD/WN, vitals as above Neck: trachea midline, no thyromegaly Respiratory: normal respiratory effort, lungs clear to auscultation Cardiovascular: Rate/Rhythm: regular rate and regular rhythm Heart Sounds: + murmur (2/6 KANDY at the RUSB) Extremities: no edema Chest (Breasts): Chest: normal inspection of chest Gastrointestinal (Abdomen): normal bowel sounds, soft, nontender, no hepatosplenomegaly Musculoskeletal: Extremities: extremities normal to inspection; no cyanosis and no clubbing Skin: no rashes, warm and dry Neurologic: moves all extremities and awake; no focal motor deficits Psychiatric: A+Ox3, euthymic affect Lymphatic: no lymphedema Results & Data Results & Data Vital Signs (Past 12 Hours) Vital Signs Temp Pulse Pulse Resp BP Pulse Ox O2 Del Method 07/20/23 16:18 36.3 C L 72 17 165/99 H 97 Room Air 07/20/23 15:46 36.4 C L 70 18 160/96 H 96 Room Air 07/20/23 15:34 36.2 C L 69 17 174/105 H 97 Room Air 07/20/23 15:19 65 18 166/96 H 96 Room Air 07/20/23 15:05 69 18 159/95 H 93 Room Air 07/20/23 12:39 66 16 165/95 H 96 Room Air 07/20/23 12:00 67 07/20/23 11:10 36.8 C 62 18 165/97 H 96 Room Air 07/20/23 09:28 36.5 C 66 17 150/100 H 98 Room Air 07/20/23 07:54 36.9 C 72 15 131/85 96 Room Air Laboratory Results CBC, BMP, troponin reviewed PG Care Time/CCT Total # of Minutes Spent Total Time Spent with Patient: Total time spent is greater than 50% in coordination of care (as documented) at patient's floor/unit and/or counseling patient: Coding Level of Care Code 50615 SUB INP/OBS CARE 3/50MIN Diagnoses Chest pain R07.9 CAD in [place] artery I25.10 Aortic valve stenosis, etiology of cardiac valve disease unspecified I35.0 Essential hypertension I10 Hypertension type: essential hypertension Factor 5 Leiden mutation, heterozygous D68.51 Dyslipidemia E78.5 Stage 3 chronic kidney disease N18.3 Type 2 diabetes mellitus E11.9 Inflammatory polyarthritis M06.4 Ascending aorta dilation I77.810 Uveitis H20.9 (4) Hypertension Hypertension type: essential hypertension Qualified Code(s): I10 - Essential (primary) hypertension
--- NOTE | 2023-07-20 17:30 | Cardiology Consultation ---
Date of Consultation July 20, 2023 Assessment & Plan (1) CAD in [place] artery: Post PCI with JESSE to distal RCA. Prior stents in right posterior AV branch and proximal, mid LAD patent Severe disease in small nondominant circumflex and very distal ramus, apical LAD 2. Borderline severe aortic stenosis 3. Preserved LV function 4. Hypertension 5. History of DVT, factor V Leiden heterozygous on chronic anticoagulation 6. Dyslipidemia 7. Sarcoidosis 8. AAA 9. Borderline dilated aortic root 10. CVI post left GSV VenaSeal 2018 Patient underwent successful PCI of distal RCA today with single JESSE. Mild residual chest pain post procedure likely secondary to jailing of very small PDA with compromised flow. Will plan to medically manage with nitrates, blood pressure control and pain medicines as necessary. Continue to monitor on telemetry overnight. Long-term reviewed patient's most recent echocardiogram. Aortic valve appears to open relatively well on 2D imaging and measured velocities/gradients consistent with more moderate to severe disease. Will repeat echocardiogram in morning. If aortic valve largely unchanged and remains asymptomatic as an outpatient post PCI may be able to defer AVR and continue close surveillance. Can resume anticoagulation with Eliquis tonight. Long-term home on dual therapy with clopidogrel, Eliquis. If stable overnight likely home tomorrow. History of Present Illness Attending Physician: Lavern Gordon MD History of Present Illness Mr. Bobo is a very pleasant 78-year-old man with a history of coronary artery disease post prior RCA and LAD stents and borderline severe aortic stenosis was admitted with chest pain. He is followed by Dr. Bright as an outpatient for his cardiac care. Other medical issues include type 2 diabetes, AAA, heterozygous factor V Leiden with prior DVT, hypertension, dyslipidemia, chronic venous insufficiency post left GSV VenaSeal 06/2019, sarcoidosis, GERD. Also hospitalized 02/2023 with possible TIA. At that time underwent echo which read as severe (PV 3.7, MG 41, THAO 0.84), EF 55%, mild MR, borderline dilated aortic root. Patient asymptomatic at that time. Recently seen by Dr. Bright and findings of severe discussed. Planning for cardiac catheterization in the near future. On Monday evening patient developed severe unrelenting chest pain, "felt like my heart was tearing apart." Presented to ED yesterday. ECG showed sinus rhythm with unchanged bifascicular block and occasional PVC. HS TropI negative x 4. Catheterization today showed multivessel CAD with 95% distal RCA stenosis just before prior stent. Also with severe disease and small nondominant circumflex, very distal ramus and apical LAD. Had PCI with single JESSE placed to distal RCA. Post procedure partially compromised flow in very small RPDA with mild postprocedure chest discomfort. Allergies Allergy/AdvReac Type Severity Reaction Status Date / Time Penicillins Allergy Intermediate HIVES- A Verified 07/13/23 10:36 CHILD Sulfa (Sulfonamide Allergy Intermediate rash Verified 07/13/23 10:36 Antibiotics) moxifloxacin Allergy Mild Rash Verified 07/13/23 10:36 ubidecarenone Allergy Mild UBIQUINOL Verified 07/13/23 10:36 CAUSES itching of skin doxycycline Allergy Rash Verified 07/13/23 10:36 methotrexate AdvReac Intermediate sore Verified 07/13/23 10:36 breasts Ubiquino Allergy Unknown Unknown Uncoded 07/13/23 10:36 Home Medications Medication Instructions Recorded Confirmed Type acetaminophen 650 mg 650 mg PO HS Pain 07/25/18 07/19/23 History tablet,extended release (Tylenol Arthritis Pain) brimonidine 0.1 % eye drops 1 drp OPB BID 07/25/18 07/19/23 History (Alphagan P) fexofenadine 180 mg tablet 180 mg PO DAILY PRN Allergy 07/25/18 07/19/23 History ([place] Allergy) Symptoms prednisone 5 mg tablet 5 mg PO QAM 07/23/19 07/19/23 History compress.stocking,knee,reg,med #2 ea 09/09/19 07/19/23 Rx cholecalciferol (vitamin D3) 125 5,000 unit PO QAM 07/06/20 07/19/23 History mcg (5,000 unit) capsule (D3-5000) zoledronic acid 5 mg/100 mL in 1 ea IV YEARLY 01/14/21 07/19/23 History mannitol 5 %-water intravenous piggybck (Reclast) nitroglycerin 0.4 mg sublingual 0.4 mg sublingual .COMPLEX PRN 11/23/22 07/19/23 Rx tablet Angina #25 tabs timolol 0.5 % eye drops 1 drp OPB BID 02/20/23 07/19/23 History rosuvastatin 20 mg tablet (Crestor) 20 mg PO HS #90 tabs 05/31/23 07/19/23 Rx famotidine 40 mg tablet 40 mg PO BID #180 tabs 06/07/23 07/19/23 Rx amlodipine 5 mg tablet 5 mg PO QAM #90 tabs 06/15/23 07/19/23 Rx mometasone 50 mcg/actuation nasal 2 spray intranasal DAILY PRN 06/15/23 07/19/23 Rx spray (Nasonex 24hr Allergy) Congestion #3 BTLS apixaban 5 mg tablet (Eliquis) 5 mg PO BID 07/19/23 07/19/23 History ascorbic acid (vitamin C) 1,000 mg 1 g PO DAILY 07/19/23 07/19/23 History tablet (Vitamin C) clopidogrel 75 mg tablet 75 mg PO QAM 07/19/23 07/19/23 History cyanocobalamin (vitamin B-12) 1,000 mcg PO DAILY 07/19/23 07/19/23 History 1,000 mcg tablet (Vitamin B-12) gabapentin 300 mg capsule 600 mg PO HS 07/19/23 07/19/23 History metoprolol tartrate 25 mg tablet 12.5 mg PO BID 07/19/23 07/19/23 History prednisolone acetate 1 % eye 1 drp OPB Q OTHER DAY 07/19/23 07/19/23 History drops,suspension vit C 250 mg-vit E 90 mg-zinc 40 1 tab PO BID 07/19/23 07/19/23 History mg-copper 1 [id number]-[id number] capsule (PreserVision AREDS-2) Patient History Medical History (Updated 07/20/23 @ 17:04 by Lavern Gordon MD) Uveitis Inflammatory polyarthritis History of COVID-19 06/2021 [place]; congestion, headache, cough, chills; resolved. AAA (abdominal aortic aneurysm) Dr. Bright monitors Kidney insufficiency follows with Dr. Salomon Sarcoidosis History of Lyme disease treated History of DVT (deep vein thrombosis) hx DVT BLLE 2018 following travel Type 2 diabetes mellitus Tubular adenoma of colon Pulmonary nodule Hypertension HLA-B27 positive tested 2013 Factor 5 Leiden mutation, heterozygous tested positive in 2014 Dyslipidemia CAD in [place] artery Aortic stenosis Osteoarthritis GERD (gastroesophageal reflux disease) Chronic steroid use Hyperlipidemia Surgical History History of carpal tunnel surgery of right wrist History of open reduction and internal fixation (ORIF) procedure right foot--no longer has hardware in place History of left wrist replacement Status post biopsy of kidney benign History of left inguinal hernia repair History of appendectomy History of esophagogastroduodenoscopy (EGD) History of colonoscopy History of wisdom tooth extraction History of tonsillectomy and adenoidectomy History of vitrectomy bilateral History of bilateral cataract extraction History of heart artery stent 02/2000 x2 stents, 06/2010 x1 History of cardiac cath hx of SOB---02/2000 @ [facility], 06/2010 @ [facility]---follows with Dr. Bright Family History Mother , age 87 of senile dementia of the Alzheimer's type Family history of diabetes mellitus Coronary heart disease Dementia Father , age 89 Family history of diabetes mellitus Family hx colonic polyps Myocardial infarction Coronary heart disease Prostate cancer Family/Other Family history of diabetes mellitus maternal aunts/uncles Aunt Breast cancer Brother COPD (chronic obstructive pulmonary disease) Fibrosis of lung Sister Breast cancer Dementia Denies family history of Ovarian cancer Colorectal cancer Social History Smoking Status: Never smoker Second Hand Exposure: No; Do You Dip or Chew Tobacco: No; Tobacco Cessation Education Requested by Patient: No Hx Alcohol Use: Yes Alcohol type: wine Alcohol Intake Frequency: 4 or More x per/Week Alcohol Intake Frequency Comment: One red wine daily with dinner Hx Substance Use: No Preferred Language: Thai Communication Ability: Effective Visual Impairment: No Limitations Hearing Ability: Normal Storeroom Supervisor Required: No Beliefs That Will Affect Care: None marital status: Current Living Situation: Spouse Current Living Situation Comment: Lives at home with current occupational status: retired 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[age], 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, [employer] How many Children do You have: 2 other: 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 Feels Safe at Home: Yes Safety Concerns: Feels Safe At This Time Childhood Exposure to Second-Hand Smoke: No Diet: regular Diet Comment: regular caffeine: Yes during the past year weight has: remained stable Dental Care, Regularly: Yes Physical Activity Frequency: Daily Seatbelt Use: always Sunscreen Use: Yes Assistive Devices: None Review of Systems Review of Systems: All systems reviewed & are unremarkable except as noted in HPI & below Physical Exam Physical Exam: General: Comfortable HEENT: Sclerae anicteric Lungs: Clear to auscultation bilaterally Cardiac: Regular rate and rhythm, 2/6 systolic ejection murmur Vascular: TR band in place Abdomen: Soft, nontender Extremities: Well perfused, no peripheral edema Neuro: Nonfocal Psych: Alert orient x3, normal affect and mood Results & Data Vital Signs (Past 12 Hours) Vital Signs Temp Pulse Pulse Resp BP Pulse Ox O2 Del Method 07/20/23 16:18 97.3 F L 72 17 165/99 H 97 Room Air 07/20/23 15:46 97.5 F L 70 18 160/96 H 96 Room Air 07/20/23 15:34 97.2 F L 69 17 174/105 H 97 Room Air 07/20/23 15:19 65 18 166/96 H 96 Room Air 07/20/23 15:05 69 18 159/95 H 93 Room Air 07/20/23 12:39 66 16 165/95 H 96 Room Air 07/20/23 12:00 67 07/20/23 11:10 98.2 F 62 18 165/97 H 96 Room Air 07/20/23 09:28 97.7 F 66 17 150/100 H 98 Room Air 07/20/23 07:54 98.4 F 72 15 131/85 96 Room Air PG Care Time/CCT Total # of Minutes Spent Total Time Spent with Patient: Total time spent is greater than 50% in coordination of care (as documented) at patient's floor/unit and/or counseling patient: Coding Level of Care Code 20061 INT INP/OBS CARE 2/55MIN Diagnoses CAD in [place] artery I25.10
[2023-07-20] MEDS: [UNRECOGNIZED DRUG - REMARK] SCH ×2 (17:38→23:41)
[2023-07-20] MEDS ORDERED: SODIUM CHLORIDE 0.9% 1,000 ML IV SCH (18:30)
[2023-07-20] MEDS ORDERED: Nursing to Pharmacy Communication SCH (20:15)
[2023-07-20] MEDS ORDERED: ACETAMINOPHEN 325 MG TAB PO SCH (21:00)
[2023-07-20] MEDS: GABAPENTIN 300 MG CAP PO SCH (21:03)
[2023-07-20] MEDS: CEROVITE ADV FORMULA TAB PO SCH (21:04)
[2023-07-20] MEDS: ROSUVASTATIN CALCIUM 20 MG TAB PO SCH (21:04)
[2023-07-20] MEDS ORDERED: MELATONIN 3 MG TAB PO PRN (23:54)
[2023-07-20] MEDS ORDERED: SODIUM CHLORIDE 0.65% NA SOLN 45 ML (OCEAN) PRN (23:55)
[2023-07-21] MEDS: ACETAMINOPHEN 325 MG TAB PO PRN (00:09)
[2023-07-21] MEDS: NITROGLYCERIN 2% OINTMENT 30GM TUBE EXT SCH ×2 (03:56→08:45)
[2023-07-21 06:49] LABS: Basophils # (auto) 0.02 K/uL (0.00-0.20); Basophils % (auto) 0.3 %; Eosinophils # (auto) 0.15 K/uL (0.00-0.50); Eosinophils % (auto) 2.2 %; Hematocrit (blood only) 43.4 % (42.0-52.0); Hemoglobin 14.6 g/dl (14.0-18.0); Immature Granulocytes # (auto) 0.01 K/uL (0.01-0.20); Immature Granulocytes % (auto) 0.1 %; Lymphocytes # (auto) 1.46 K/uL (1.20-3.40); Lymphocytes % (auto) 21.9 %; Mean Corpuscular Hemoglobin 31.5 pg (25.0-34.0); Mean Corpuscular Hgb Conc 33.6 g/dL (32.0-36.0); Mean Corpuscular Volume 93.5 fL (80.0-100.0); Mean Platelet Volume 9.9 fL (9.4-12.4); Monocytes # (auto) 0.64 K/uL (0.11-0.59); Monocytes % (auto) 9.6 %; Neutrophils # (auto) 4.39 K/uL (1.40-6.50); Neutrophils % (auto) 65.9 %; Platelet Count 141 K/uL (130-400); RDW Coefficient of Variation 12.7 % (11.5-14.5); RDW Standard Deviation 43.6 fL (36.4-46.3); Red Blood Count 4.64 M/uL (4.70-6.10); White Blood Count 6.67 K/ul (4.8-10.8)
[2023-07-21 07:15] LABS: BUN Creatinine Ratio 14.2 (10-20); Calcium 8.7 mg/dl (8.6-10.3); Creatinine Clr Calc Pharmacy 56.8 ml/min; Est GFR (African American) 67.7 ml/min; Est GFR (Non-African American) 58.4 ml/min; Potassium 3.8 mmol/L (3.5-5.1)
[2023-07-21] MEDS: FAMOTIDINE 40 MG TABLET PO SCH (08:31)
[2023-07-21] MEDS: CEROVITE ADV FORMULA TAB PO SCH (08:31)
[2023-07-21] MEDS: METOPROLOL TARTRATE 25 MG TAB PO SCH (08:31)
[2023-07-21] MEDS: predniSONE 5 MG TAB PO SCH (08:32)
[2023-07-21] MEDS: [UNRECOGNIZED DRUG - REMARK] SCH (08:32)
[2023-07-21] MEDS: CLOPIDOGREL BISULFATE 75 MG TAB PO SCH (08:32)
[2023-07-21] MEDS: TIMOLOL MALEATE 0.5% OP SOLN 5 ML BTL OP SCH (08:33)
[2023-07-21] MEDS ORDERED: amLODIPine BESYLATE 5 MG TAB PO SCH (09:00)
[2023-07-21] MEDS ORDERED: prednisoLONE acetate 1% OP SUSP 5 ML BTL OP SCH (09:00)
[2023-07-21] MEDS ORDERED: CLOPIDOGREL BISULFATE 75 MG TAB PO SCH (09:00)
[2023-07-21] MEDS ORDERED: CYANOCOBALAMIN (B-12) 500 MCG TABLET PO SCH (09:00)
[2023-07-21] MEDS ORDERED: APIXABAN 5 MG TABLET PO SCH (09:00)
--- NOTE | 2023-07-21 09:03 | XCELERA ---
[id number]
--- NOTE | 2023-07-21 10:25 | Cardiology Progress Note ---
Date of Service July 21, 2023 Assessment & Plan (1) CAD in [place] artery: Plan: Post PCI with JESSE to distal RCA. Prior stents in right posterior AV branch and proximal, mid LAD patent Severe disease in small nondominant circumflex and very distal ramus, apical LAD 2. Borderline severe aortic stenosis 3. Preserved LV function 4. Hypertension 5. History of DVT, factor V Leiden heterozygous on chronic anticoagulation 6. Dyslipidemia 7. Sarcoidosis 8. AAA 9. Borderline dilated aortic root 10. CVI post left GSV VenaSeal 2019 Chest pain-free this morning Hemodynamically electrically stable overnight No signs of accessory complications Post procedure labs stable Repeat echocardiogram today shows preserved LV function with borderline severe aortic stenosis, largely unchanged from 02/2023. Will discontinue nitropatch and have patient walk halls this morning. If stable OK with discharge later today. Continue dual therapy with Eliquis, clopidogrel Continue home amlodipine, metoprolol Continue current statin Follow-up with Dr. Bright in 2 weeks. Will discuss cardiac rehab. Admission and Anticipated Discharge Date Admission Date: July 19, 2023 Subjective Feeling well this morning. Slight headache. Had some LT flank/chest wall pain overnight that responded to tylenol (different than post procedure chest pain). Telemetry reviewed -- no events. Review of Systems Review of Systems: All systems reviewed & are unremarkable except as noted in HPI & below Physical Exam Physical Exam: General: Comfortable HEENT: Sclerae anicteric Lungs: Clear to auscultation bilaterally Cardiac: Regular rate and rhythm, 2/6 systolic ejection murmur Vascular: Right radial artery access site with no ecchymosis, hematoma. Distal pulse and sensation intact. Abdomen: Soft, nontender Extremities: Well perfused, no peripheral edema Neuro: Nonfocal Psych: Alert orient x3, normal affect and mood Results & Data Vital Signs (Past 12 Hours) Vital Signs Temp Pulse Pulse Resp BP Pulse Ox O2 Del Method 07/21/23 08:05 98.1 F 83 18 127/89 93 Room Air 07/21/23 07:00 79 07/21/23 03:54 77 117/61 07/20/23 23:26 98.1 F 72 18 143/87 H 97 Room Air PG Care Time/CCT Total # of Minutes Spent Total Time Spent with Patient: Total time spent is greater than 50% in coordination of care (as documented) at patient's floor/unit and/or counseling patient: Coding Level of Care Code 17137 SUB INP/OBS CARE 50MIN Diagnoses CAD in [place] artery I25.10
--- NOTE | 2023-07-21 14:45 | Discharge Summary ---
Discharge Summary Date of Service July 21, 2023 Notes For Next Care Provider Medication Changes From Visit None Admission HPI Per Admitting Provider Matthew is a 78-year-old male with PMH of CAD, multiple stents, aortic stenosis, dyslipidemia, factor V Leiden, HTN, sarcoidosis, and CKD stage III. Patient presented for severe 10/10 left-sided chest pain that developed around 0315 the morning of 07/19/2023. The pain lasted 5 seconds and woke him from sleep. He reports that it radiated down his left arm; he is still experiencing some numbness in his fingertips. He describes the pain as someone ripping his heart out of his chest. No prior experiences like this, per patient. He did not take any pain medications at the time. He reports that he took his normal morning me dications around lunchtime today, including Plavix. He did not take Eliquis today on 07/19; last taken the night of 07/18. Patient was supposed to have an outpatient catheterization today, however it was canceled due to the hospital being full. Dr. Bright requested he come in to have the cath inpatient. Patient is hypertensive at 144/96 at time of admission; vitals otherwise stable. ED course: Aspirin 324 mg p.o. Nitropaste ROS: Patient endorses chest pain (resolved), chest pressure, and numbness/tingling in the left fingertips Patient denies fever, chills, sweating, GONZALEZ, dizziness, lightheadedness, cough, chest palpitations, SOB, abdominal pain, N/V/D, dysuria, burning with urination, or numbness/tingling in the legs. On Eliquis for DVT PPx; history of DVTs Patient denies prior history of MIs, CVA, or diabetes (Note: Patient has T2DM listed on his problems list, however he denies history of diabetes and is not currently taking any diabetic medications; last A1c 6.5% on 05/29/2023) Hx of two TIAs Principal Dx & Hospital Course #1 = Principal Diagnosis (1) Chest pain: Patient developed severe 10/10 left-sided chest pain on the morning of 07/19 that woke him from sleep around 0315 Pain lasted 5 seconds, and then he had numbness and tingling radiating down the left arm Hx of heart stents in 1999 and 2009 in the RCA and LAD No chest pain at time of admission Of note, patient was supposed to have a cardiac catheterization on 07/19, however this was canceled as the hospital was full Now s/p cardiac catheterization with stent placed to the distal RCA. Mild residual chest pain secondary to jailing of the very small PDA with compromised flow-medically managed with Nitropaste, blood pressure control and pain medicine as necessary He had one more recurrence of a burning type of CP after walking the morning of discharge that went away and he was bale to walk many more laps again without recurrence-Cardiology did not think this was cardiac related. Repeat ECG negative -Monitored on telemetry for arrhythmias-had 7 beats VT, otherwise NSR Echocardiogram here with moderate to severe Resumed Eliquis after cath and continues on Plavix Renal function stable continue current meds otherwise and stable for discharge Close f/u with Cardiology in 2 weeks light activity only until then and wrist precautions given (2) CAD in [place] artery: As above (3) Aortic stenosis: Noted to be severe prior to cath, now noted to be borderline severe here Dr. Mc recommended repeat echocardiogram to reassess and aortic valve largely unchanged and if remains asymptomatic post PCI, may be able to defer AVR and continue close surveillance (4) Hypertension: Blood pressures quite elevated post cath-now controlled with resuming home meds continue amlodipine, metoprolol (5) Factor 5 Leiden mutation, heterozygous: Hx of DVTs (on Eliquis) (6) Dyslipidemia: Continue rosuvastatin (7) Stage 3 chronic kidney disease: Creatinine at baseline, monitored post cath and business process lead 1.2 (8) Type 2 diabetes mellitus: Hemoglobin A1c 6.5% in 05/2023 Not on medications at home Follow as an outpatient (9) Inflammatory polyarthritis: Continue home prednisone 5 mg daily, gabapentin Has HLA-B27 positive disease, follows with [facility] rheumatology Also with a history of sarcoidosis (10) Ascending aorta dilation: Followed by cardiology outpatient (11) Uveitis: Related to his inflammatory polyarthritis and sarcoidosis Continue prednisone drops and oral prednisone Plan Disposition: dc to home Discussed care with Cardiology on day of discharge Full code Discharge Exam Constitutional WD/WN, vitals as above Neck trachea midline, no thyromegaly Respiratory normal respiratory effort, lungs clear to auscultation Cardiovascular Rate/Rhythm: regular rate and regular rhythm Heart Sounds: + murmur (2/6 KANDY at the RUSB) Extremities: no edema Chest (Breasts) Chest: normal inspection of chest Gastrointestinal (Abdomen) normal bowel sounds, soft, nontender, no hepatosplenomegaly Musculoskeletal Extremities: extremities normal to inspection; no cyanosis and no clubbing Skin no rashes, warm and dry Neurologic moves all extremities and awake; no focal motor deficits Psychiatric A+Ox3, euthymic affect Lymphatic no lymphedema Updated Medication List Medication Instructions Recorded Confirmed Type acetaminophen 650 mg 650 mg PO HS Pain 07/25/18 07/19/23 History tablet,extended release (Tylenol Arthritis Pain) brimonidine 0.1 % eye drops 1 drp OPB BID 07/25/18 07/19/23 History (Alphagan P) fexofenadine 180 mg tablet 180 mg PO DAILY PRN Allergy 07/25/18 07/19/23 History ([place] Allergy) Symptoms prednisone 5 mg tablet 5 mg PO QAM 07/23/19 07/19/23 History compress.stocking,knee,reg,med #2 ea 09/09/19 07/19/23 Rx cholecalciferol (vitamin D3) 125 5,000 unit PO QAM 07/06/20 07/19/23 History mcg (5,000 unit) capsule (D3-5000) zoledronic acid 5 mg/100 mL in 1 ea IV YEARLY 01/14/21 07/19/23 History mannitol 5 %-water intravenous piggybck (Reclast) nitroglycerin 0.4 mg sublingual 0.4 mg sublingual .COMPLEX PRN 11/23/22 07/19/23 Rx tablet Angina #25 tabs timolol 0.5 % eye drops 1 drp OPB BID 02/20/23 07/19/23 History rosuvastatin 20 mg tablet (Crestor) 20 mg PO HS #90 tabs 05/31/23 07/19/23 Rx famotidine 40 mg tablet 40 mg PO BID #180 tabs 06/07/23 07/19/23 Rx amlodipine 5 mg tablet 5 mg PO QAM #90 tabs 06/15/23 07/19/23 Rx mometasone 50 mcg/actuation nasal 2 spray intranasal DAILY PRN 06/15/23 07/19/23 Rx spray (Nasonex 24hr Allergy) Congestion #3 BTLS apixaban 5 mg tablet (Eliquis) 5 mg PO BID 07/19/23 07/19/23 History ascorbic acid (vitamin C) 1,000 mg 1 g PO DAILY 07/19/23 07/19/23 History tablet (Vitamin C) clopidogrel 75 mg tablet 75 mg PO QAM 07/19/23 07/19/23 History cyanocobalamin (vitamin B-12) 1,000 mcg PO DAILY 07/19/23 07/19/23 History 1,000 mcg tablet (Vitamin B-12) gabapentin 300 mg capsule 600 mg PO HS 07/19/23 07/19/23 History metoprolol tartrate 25 mg tablet 12.5 mg PO BID 07/19/23 07/19/23 History prednisolone acetate 1 % eye 1 drp OPB Q OTHER DAY 07/19/23 07/19/23 History drops,suspension vit C 250 mg-vit E 90 mg-zinc 40 1 tab PO BID 07/19/23 07/19/23 History mg-copper 1 ej-rbpoaw-bhenen capsule (PreserVision AREDS-2) Hospital Stay Data Consultations 07/19/23 16:27 ED Decision to Admit Stat 07/19/23 18:00 Consult Cardiology Routine Procedures Performed Operation Date: 07/20/23 12:30 Actual Procedures p Cineradiography w/Routine Exam - Paul Mc MD p Cath, Coronaries ONLY (no LV) - Paul Mc MD s Drug Eluting Stent SGl Vessel - Paul Mc MD Diagnostic Imagining Performed 07/20/23 07:43 CL Cath Imgs for PACS use only Routine ECHO Pending Results Patient Have Any Pending Studies at Discharge: No Discharge Instructions Given to Patient (Per Discharging Provider) ACTIVITY RECOMMENDATIONS: Excess manipulation of the wrist should be avoided for the next 24-48 hours. * No lifting over 2 pounds (approximately a 1/2 gallon of milk) with the utilized arm for 24 hours. * No strenuous activity such as bowling or tennis for 3 days. * Keep the site of the procedure covered with a bandage for 24 hours. *You may shower the day after the procedure. Do not take a tub bath or submerge the puncture site in water for the next 3 days. *Do not operate any motorized equipment for 3 days. SPECIAL CARE INSTRUCTIONS: The site may be slightly bruised and sore following your procedure. Should any of the following occur, contact the Dr. who performed your procedure. 1. Redness/inflammation, swelling, chills, or fever, or colored drainage at procedure site within 3-7 days after your procedure. 2. Coldness, discoloration, ongoing numbness, severe pain, or swelling. Expect mild tingling of hand and tenderness at the puncture site for up to three days. If this persists beyond three days, or other symptoms develop, notify the Dr. who performed your procedure. BLEEDING: If the procedure site on your wrist begins to bleed, do not panic 1. Place 1 or 2 fingers firmly just slightly above the insertion site to stop the bleeding. You may be able to feel your pulse as you hold pressure. 2. Lift your finger after 5 minutes to see if the bleeding has stopped. 3. Once the bleeding has stopped, gently wipe the wrist area clean with a bandage. * If the bleeding from your wrist does not stop after 10 minutes, or if there is a large amount of bleeding or spurting, call 911 (do not drive yourself to the hospital). SKIN IRRITATION: * You may experience some redness and/or swelling in the area where radiation was administered. If any skin irritation occurs, please contact your family physician. FOLLOW UP VISIT: Keep any scheduled doctor appointments. Total Time Total Time Spent Total Time Spent (In Minutes): 40 min Coding Level of Care Code 97648 INP/OBS DISCH >30 MIN Diagnoses Chest pain R07.9 CAD in [place] artery I25.10 Aortic valve stenosis, etiology of cardiac valve disease unspecified I35.0 Essential hypertension I10 Hypertension type: essential hypertension Factor 5 Leiden mutation, heterozygous D68.51 Dyslipidemia E78.5 Stage 3 chronic kidney disease N18.3 Type 2 diabetes mellitus E11.9 Inflammatory polyarthritis M06.4 Ascending aorta dilation I77.810 Uveitis H20.9
--- NOTE | 2023-07-21 15:38 | Electrocardiogram Report ---
Test Reason : Blood Pressure : / mmHG Vent. Rate : 072 BPM Atrial Rate : 072 BPM P-R Int : 174 ms QRS Dur : 132 ms QT Int : 418 ms P-R-T Axes : 069 -68 014 degrees QTc Int : 457 ms Poor data quality, interpretation may be adversely affected Normal sinus rhythm Right bundle branch block Left anterior fascicular block Bifascicular block Minimal voltage criteria for LVH, may be normal variant Abnormal ECG When compared with ECG of 20-JUL-2023 15:07, Left anterior fascicular block is now Present Confirmed by Klaus Rashid ([id number]) on 07/21/2023 3:38:14 PM Referred By: Andrew Bright Confirmed By:Klaus Rashid
--- NOTE | 2023-07-27 07:39 | Coding Query ---
CODING QUERY To promote full compliance with coding requirements relating to patient care, provider participation is requested in all cases of verification specialist uncertainty. Please assist us with the question(s) below: Coding Question(s): Pt s/p cardiac catheterization with stent placed to the distal RCA. Mild residual chest pain secondary to jailing of the very small PDA with compromised flow medically managed with Nitropaste, blood pressure control and pain medicine as necessary. Pt had one more recurrence of a burning type chest pain. Please check below the phrase that describes the mild residual chest post cardiac cath /jailing of the small PDA. Thanks for your help! TEZ Sharp [facility] Physician's Response(s): Residual chest pain d/t jailing of PDA is expected post cardiac catheterization Residual chest pain d/t jailing of the PDA is a postoperative complication Other: please document: Principal Diagnosis: "that condition established after study, to be chiefly responsible for occasioning the admission of the patient to the hospital for care." Co-Existing Principal Diagnosis: "when two or more diagnoses equally meet the criteria for principal diagnosis as determined by the circumstances of admission, diagnostic work up, and/or therapy provided, and the Alphabetic Index, Tabular List, or another coding guideline does not provide sequencing direction, any one of the diagnoses may be sequenced first." "When the physician has documented what appears to be a current diagnosis in the body of the record, but has not included the diagnosis in the final diagnostic statement, the physician should be asked whether the diagnosis should be added." ([facility] 2 QTR90. p3-4) HECTOR
--- NOTE | 2023-07-31 05:48 | Coding Query ---
CODING QUERY To promote full compliance with coding requirements relating to patient care, provider participation is requested in all cases of certified pediatric nurse practitioner uncertainty. Please assist us with the question(s) below: Coding Question(s): Pt s/p cardiac catheterization with stent placed to the distal RCA. Mild residual chest pain postprocedure secondary to jailing of the very small PDA with compromised flow medically managed with Nitropaste, blood pressure control and pain medicine as necessary. Pt had one more recurrence of a burning type chest pain. Please check below the phrase that describes the mild residual chest post-cath jailing of the PDA. Thanks for your help! Erik [facility] Physician's Response(s): __x Residual chest pain d/t jailing of the PDA is an expected post cardiac cahteterization Residual chest pain d/t jailing of the PDA is a postoperative complication Other: Please document: Principal Diagnosis: "that condition established after study, to be chiefly responsible for occasioning the admission of the patient to the hospital for care." Co-Existing Principal Diagnosis: "when two or more diagnoses equally meet the criteria for principal diagnosis as determined by the circumstances of admission, diagnostic work up, and/or therapy provided, and the Alphabetic Index, Tabular List, or another coding guideline does not provide sequencing direction, any one of the diagnoses may be sequenced first." "When the physician has documented what appears to be a current diagnosis in the body of the record, but has not included the diagnosis in the final diagnostic statement, the physician should be asked whether the diagnosis should be added." ([facility] 2 QTR90. p3-4) HECTOR
== END 2023-07-21 16:10 | disposition home or self-care (01) | DRG 322 ==
LOC: ED 15:15 → SUATTDRO 17:25 → EDINP 17:25 → 2N 07-20 02:27 → 2S 07-20 09:13
PROC: CLB.CCO (2023-07-20 12:30)

== ENCOUNTER 2025-01-05 20:11 | Observation (INO) ==
[2025-01-05] MEDS ORDERED: Patient's HEIGHT &/or WEIGHT Needed SCH (20:30)
--- NOTE | 2025-01-05 20:30 | Emergency Department Note ---
Impression & Plan Weakness, Headache, Dysrhythmia, cardiac ED Provider Note NAME: SITNIA VAN AGE: 80 SEX: M : 1945 ARRIVES VIA: Ambulance INFORMANT: Patient, EMS, the patient's ED PROVIDER(S): Klaus Pate DO CHIEF COMPLAINT: Generalized weakness HPI: The patient is a 80-year-old male who presented to the emergency department for an evaluation of generalized weakness. The patient states he was walking in his home when he had an acute onset of generalized weakness. He feels that his arms and legs are weak. He has a frontal headache. He is also had some nausea vomiting. He does feel dizzy but he also feels though he may pass out. The patient denies having any chest pain or difficulty breathing. He denies having any abdominal pain. The patient denies having any recent trauma. The patient is been compliant with his outpatient medications and he does take Eliquis. ROS: See above HPI for pertinent positives & negatives. A total of 10 systems reviewed and were otherwise negative. PAST MEDICAL HISTORY: See Below PAST SURGICAL HISTORY: See Below FAMILY HISTORY: See Below SOCIAL HISTORY: See Below HOME MEDICATIONS: See Below ALLERGIES: See Below VITALS: See Below PHYSICAL EXAMINATION: GENERAL: The patient is listless and slow to respond to questioning. Voice is soft. EYES: The conjunctivae are clear. The pupils are round and reactive. EARS, NOSE, MOUTH AND THROAT: The nose is without any evidence of any deformity. NECK: The neck is nontender and supple. RESPIRATORY: Normal respiratory effort is noted there is no evidence of wheezing rhonchi or rales CARDIOVASCULAR: Regular rate and rhythm noted there no murmurs rubs or gallops normal S1 normal S2. GASTROINTESTINAL: The abdomen is soft. There is tenderness in the right side of the abdomen. There is no guarding rigidity. MUSCULOSKELETAL/EXTREMITIES: There is no evidence of gross deformity full range of motion is noted in the hips and shoulders. SKIN: There is no obvious evidence of any rash. There are no petechiae, pallor or cyanosis noted. NEUROLOGIC: Patient is awake and oriented to person place and situation. Strength is symmetric but diminished. Speech was soft but clear. Both hands have a drift. There is no facial droop. MEDICAL DECISION MAKING: The patient is a 80-year-old male who presented to the emergency department for generalized weakness. The patient's initial evaluation was very confusing at first. He had generalized weakness. His speech was soft. He also complained of nausea. He states that he could not walk. I was unsure if he was having a posterior circulation stroke syndrome. He was made a stroke alert. I discussed the patient's laboratory and radiographic studies with him. I discussed this case with the telestroke neurologist. Ultimately the patient was felt to be a candidate for inpatient management however stroke may not be the leading diagnosis. He does take Eliquis. He is not a candidate for TNK. He to has no signs of large vessel occlusion. I discussed his condition with the on-call [facility]. They have agreed to evaluate the patient in the emergency department. He was having episodes of ectopy on the campus monitor. At times it looks like SVT versus rapid atrial fibrillation/flutter. He may require further cardiac workup. Given his past history of TAVR. Triage Nursing notes reviewed. Prior medical records reviewed Vital Signs: reviewed and remarkable for elevated blood pressure. Differential diagnosis: Infection, dehydration, metabolic abnormality, hypo/hyperglycemia, electrolyte disturbance, anemia, hypoxia, cardiac sources, intracerebral event, toxicologic, neurologic, as well as other pathologies. ER treatment provided: See below Diagnostics interpreted by me: ECG: EKG was obtained in the emergency department. My interpretation is sinus rhythm at 70 bpm. Frequent PVCs were noted. Right bundle-branch block pattern was noted. This was compared to a tracing from October 29, 2024. The ectopy is new otherwise no specific changes were noted. A second EKG was obtained in the emergency department. My interpretation is sinus rhythm at 72 bpm. Frequent PVCs were still noted. Right bundle branch block pattern was also noted. This compares similar to the initial tracing obtained in the emergency department. Cardiac Monitoring: An order was placed for continuous cardiac monitoring. The monitor shows a rate of 70 bpm with sinus rhythm. Frequent PVCs were noted. Laboratory studies: As stated above and show below. Imaging studies: See below. Radiographic imaging was reviewed by myself Consultation(s): I discussed this case with Dr. Bryan who is on-call for the [facility] group. ED COURSE: Procedures: none Critical Care: I have personally spent greater than 35 minutes of critical care time in the direct management of this patient. This includes bedside care, interpretation of diagnostic studies, and testing, discussion with consultants, patient, and family members, and other required patient management activities. This 35 minutes is in excess of all separately billable procedures. 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 Pulsatile tinnitus Peripheral neuropathy Chronic venous insufficiency (Chronic) Stage 3 chronic kidney disease (Chronic) Type 2 diabetes mellitus (Chronic) Sarcoidosis (Chronic) Pulmonary nodule (Chronic) Hypertension (Chronic) Hilar adenopathy (Chronic) HLA-B27 positive (Chronic) tested 2013 Gastro-esophageal reflux (Chronic) Factor 5 Leiden mutation, heterozygous (Chronic) tested positive in 2014 Dyslipidemia (Chronic) CAD in [place] artery (Chronic) Ascending aorta dilation (Chronic) Aortic stenosis (Chronic) Anemia (Chronic) Medical History TIA (transient ischemic attack) Chest pain History of COVID-19 06/2021 [place]; congestion, headache, cough, chills; resolved. AAA (abdominal aortic aneurysm) Dr. Bright monitors Kidney insufficiency follows with Dr. Salomon Sarcoidosis History of Lyme disease treated History of DVT (deep vein thrombosis) hx DVT BLLE 2018 following travel Tubular adenoma of colon Osteoarthritis GERD (gastroesophageal reflux disease) Chronic steroid use Hyperlipidemia Surgical History Aortic valve replaced History of carpal tunnel surgery of right wrist History of open reduction and internal fixation (ORIF) procedure right foot--no longer has hardware in place History of left wrist replacement Status post biopsy of kidney benign History of left inguinal hernia repair History of appendectomy History of esophagogastroduodenoscopy (EGD) History of colonoscopy History of wisdom tooth extraction History of tonsillectomy and adenoidectomy History of vitrectomy bilateral History of bilateral cataract extraction History of cardiac cath hx of SOB---02/2000 @ [facility], 06/2010 @ [facility]---follows with Dr. Bright Family History Mother , age 87 of senile dementia of the Alzheimer's type Family history of diabetes mellitus Coronary heart disease Dementia Father , age 89 Family history of diabetes mellitus Family hx colonic polyps Myocardial infarction Coronary heart disease Prostate cancer Family/Other Family history of diabetes mellitus maternal aunts/uncles Aunt Breast cancer Brother COPD (chronic obstructive pulmonary disease) Fibrosis of lung Sister Breast cancer Dementia Denies family history of Ovarian cancer Colorectal cancer Social History Smoking Status: Never smoker Second Hand Exposure: No; Do You Dip or Chew Tobacco: No; Hx Alcohol Use: Yes Alcohol type: beer and wine Alcohol Intake Frequency: 4 or More x per/Week Alcohol Intake Frequency Comment: One red wine daily with dinner Hx Substance Use: No Preferred Language: American Communication Ability: Effective Visual Impairment: No Limitations Hearing Ability: Normal Public Health Sanitarian Technician Required: No Beliefs That Will Affect Care: None marital status: Current Living Situation: Spouse Current Living Situation Comment: Lives at home with current occupational status: retired current occupation: Retired How many Children do You have: 2 other: 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 Feels Safe at Home: Yes Childhood Exposure to Second-Hand Smoke: No Diet Comment: MED caffeine: Yes during the past year weight has: remained stable Dental Care, Regularly: Yes Physical Activity Frequency: Daily Seatbelt Use: always Sunscreen Use: Yes Assistive Devices: Glasses Allergies Allergies Allergy/AdvReac Type Severity Reaction Status Date / Time doxycycline Allergy Intermediate Rash Verified 01/05/25 20:53 Penicillins Allergy Intermediate HIVES- A Verified 01/05/25 20:53 CHILD Sulfa (Sulfonamide Allergy Intermediate rash Verified 01/05/25 20:53 Antibiotics) moxifloxacin Allergy Mild Rash Verified 01/05/25 20:53 ubidecarenone Allergy Mild UBIQUINOL Verified 01/05/25 20:53 CAUSES itching of skin methotrexate AdvReac Intermediate sore Verified 01/05/25 20:53 breasts Home Meds Home Medications Medication Instructions Recorded Confirmed acetaminophen 650 mg 650 mg PO DIRECTED PRN Pain 07/25/18 01/05/25 tablet,extended release (Tylenol Arthritis Pain) brimonidine 0.1 % eye drops 1 drp OPB BID 07/25/18 01/05/25 (Alphagan P) fexofenadine 180 mg tablet 180 mg PO DAILY PRN Allergy 07/25/18 01/05/25 ([place]wyn Allergy) Symptoms prednisone 5 mg tablet 5 mg PO QAM 07/23/19 01/05/25 cholecalciferol (vitamin D3) 125 5,000 unit PO QAM 07/06/20 01/05/25 mcg (5,000 unit) capsule (D3-5000) zoledronic acid 5 mg/100 mL in 1 ea IV YEARLY 01/14/21 01/05/25 mannitol 5 %-water intravenous piggybck (Reclast) timolol 0.5 % eye drops 1 drp OPB BID 02/20/23 01/05/25 ascorbic acid (vitamin C) 1,000 mg 1 g PO DAILY 07/19/23 01/05/25 tablet (Vitamin C) cyanocobalamin (vitamin B-12) 1,000 mcg PO DAILY 07/19/23 01/05/25 1,000 mcg tablet (Vitamin B-12) prednisolone acetate 1 % eye 1 drp OPB Q OTHER DAY 07/19/23 01/05/25 drops,suspension vit C 250 mg-vit E 90 mg-zinc 40 1 tab PO BID 07/19/23 01/05/25 mg-copper 1 [id number] capsule (PreserVision AREDS-2) Lactobacillus acidophilus 10 10,000 mmu cells PO DAILY 01/05/25 01/05/25 billion cell capsule (Probiotic) amlodipine 5 mg tablet 5 mg PO QAM 01/05/25 01/05/25 melatonin 10 mg tablet 10 mg PO HS 01/05/25 01/05/25 Previous Rx's Medication Instructions Recorded compress.stocking,knee,reg,med #2 ea 09/09/19 nitroglycerin 0.4 mg sublingual 0.4 mg sublingual .COMPLEX PRN 11/23/22 tablet Angina #25 tabs mometasone 50 mcg/actuation nasal 2 spray intranasal DAILY PRN 06/15/23 spray (Nasonex 24hr Allergy) Congestion #3 BTLS famotidine 40 mg tablet 40 mg PO BID #180 tabs 04/16/24 apixaban 5 mg tablet (Eliquis) 5 mg PO BID #180 tabs 07/22/24 clopidogrel 75 mg tablet 75 mg PO QAM #90 tabs 08/12/24 gabapentin 300 mg capsule 600 mg (2 x 300 mg) PO HS #180 caps 10/09/24 metoprolol tartrate 25 mg tablet 12.5 mg (1/2 x 25 mg) PO BID 90 10/21/24 days #90 tabs rosuvastatin 20 mg tablet (Crestor) 20 mg PO HS #90 tabs 11/11/24 Results & Data (ED) Vital Signs Vital Signs - 24 hr 01/05/25 20:18 01/05/25 20:43 01/05/25 20:44 Temperature Temperature Source Pulse Rate 68 68 Pulse Rate [Finger] Pulse Rhythm [Finger] Pulse Strength [Finger] Respiratory Rate Respiratory Effort / Characteristics Respiratory Depth Blood Pressure 190/111 H Blood Pressure [Right Arm] Blood Pressure Mean Blood Pressure Mean [Right Arm] Pulse Oximetry 88 L Oxygen Delivery Method Room Air Nasal Cannula Oxygen Flow Rate 0 Sepsis Recent Fever Within 48 Hours Sepsis New/Unexplained Change in Mental Status Sepsis Action Taken by Nursing Oxygen Flow Rate - Titration 2 Pulse Oximetry Post Tiitration 94 01/05/25 20:45 01/05/25 20:47 01/05/25 20:55 Temperature 36.5 C Temperature Source Oral Pulse Rate Pulse Rate [Finger] 70 66 Pulse Rhythm [Finger] Regular Regular Pulse Strength [Finger] Normal Normal Respiratory Rate 17 14 Respiratory Effort / Characteristics Non-Labored Spontaneous Non-Labored Spontaneous Respiratory Depth Shallow Normal Blood Pressure Blood Pressure [Right Arm] 163/98 H 163/98 H Blood Pressure Mean Blood Pressure Mean [Right Arm] 119 119 Pulse Oximetry 93 92 Oxygen Delivery Method Nasal Cannula Nasal Cannula Oxygen Flow Rate 2 2 Sepsis Recent Fever Within 48 Hours No Sepsis New/Unexplained Change in Mental Status N/A Sepsis Action Taken by Nursing No Action Required Oxygen Flow Rate - Titration Pulse Oximetry Post Tiitration 01/05/25 21:06 01/05/25 21:18 01/05/25 21:29 Temperature Temperature Source Pulse Rate 65 Pulse Rate [Finger] 68 69 Pulse Rhythm [Finger] Pulse Strength [Finger] Respiratory Rate 12 20 Respiratory Effort / Characteristics Respiratory Depth Blood Pressure 146/91 H Blood Pressure [Right Arm] 151/82 H 151/82 H Blood Pressure Mean Blood Pressure Mean [Right Arm] 105 105 Pulse Oximetry 93 93 Oxygen Delivery Method Nasal Cannula Nasal Cannula Oxygen Flow Rate 2 Sepsis Recent Fever Within 48 Hours Sepsis New/Unexplained Change in Mental Status Sepsis Action Taken by Nursing Oxygen Flow Rate - Titration Pulse Oximetry Post Tiitration 01/05/25 21:38 01/05/25 21:44 01/05/25 21:45 Temperature Temperature Source Pulse Rate 139 H 65 Pulse Rate [Finger] 70 Pulse Rhythm [Finger] Pulse Strength [Finger] Respiratory Rate 20 16 Respiratory Effort / Characteristics Respiratory Depth Blood Pressure 154/90 H Blood Pressure [Right Arm] 146/92 H Blood Pressure Mean 103 Blood Pressure Mean [Right Arm] 110 Pulse Oximetry 92 94 Oxygen Delivery Method Room Air Nasal Cannula Oxygen Flow Rate 2 Sepsis Recent Fever Within 48 Hours Sepsis New/Unexplained Change in Mental Status Sepsis Action Taken by Nursing Oxygen Flow Rate - Titration Pulse Oximetry Post Tiitration 01/05/25 22:05 01/05/25 22:30 Temperature Temperature Source Pulse Rate 70 71 Pulse Rate [Finger] Pulse Rhythm [Finger] Pulse Strength [Finger] Respiratory Rate 18 16 Respiratory Effort / Characteristics Respiratory Depth Blood Pressure 146/84 H 152/95 H Blood Pressure [Right Arm] Blood Pressure Mean 106 115 Blood Pressure Mean [Right Arm] Pulse Oximetry 94 97 Oxygen Delivery Method Nasal Cannula Nasal Cannula Oxygen Flow Rate 2 2 Sepsis Recent Fever Within 48 Hours Sepsis New/Unexplained Change in Mental Status Sepsis Action Taken by Nursing Oxygen Flow Rate - Titration Pulse Oximetry Post Tiitration Home Medications Current Medication List: was personally reviewed by me Laboratory Data Attestation: I reviewed the patient's lab results. 01/05/25 20:21 01/05/25 20:21 Lab Results 01/05/25 01/05/25 01/05/25 Range/Units 20:21 20:22 20:27 WBC 4.25 L (4.8-10.8) K/ul RBC 4.47 L (4.70-6.10) M/uL Hgb 13.9 L (14.0-18.0) g/dl POC Hgb 13.6 L (14.0-18.0) g/dl Hct 42.2 (42.0-52.0) % POC Hct 40 L (42-52) % MCV 94.4 (80.0-100.0) fL MCH 31.1 (25.0-34.0) pg MCHC 32.9 (32.0-36.0) g/dL RDW Std Deviation 44.5 (36.4-46.3) fL RDW Coeff of [place] 13.0 (11.5-14.5) % Plt Count 125 L (130-400) K/uL MPV 10.6 (9.4-12.4) fL Immature Gran % (Auto) 0.2 % Neut % (Auto) 50.6 % Lymph % (Auto) 32.2 % [place] % (Auto) 11.3 % Eos % (Auto) 4.5 % Baso % (Auto) 1.2 % Neut # (Auto) 2.15 (1.40-6.50) K/uL Lymph # (Auto) 1.37 (1.20-3.40) K/uL [place] # (Auto) 0.48 (0.11-0.59) K/uL Eos # (Auto) 0.19 (0.00-0.50) K/uL Baso # (Auto) 0.05 (0.00-0.20) K/uL Immature Gran # (Auto) 0.01 (0.01-0.20) K/uL PT 11.0 (9.0-12.0) Seconds INR 1.0 (0.9-1.1) APTT 24 (21-31) Seconds PTT Ratio 0.9 POC Sodium 141 (135-144) mmol/L Sodium 140 (136-145) mmol/L POC Potassium 3.7 (3.3-5.0) mmol/L Potassium 3.8 (3.5-5.1) mmol/L POC Chloride 108 (101-112) mmol/L Chloride 110 H (98-107) mmol/L Carbon Dioxide 22 (21-32) mmol/L POC Total CO2 20 L (24-31) mmol/L Anion Gap 8 (3-11) POC Anion Gap 18.0 (16-25) mmol/L POC BUN 19 H (7-18) mg/dl BUN 22 (6-23) mg/dl Creatinine 1.18 (0.6-1.4) mg/dl POC Creatinine 1.3 (0.6-1.3) mg/dl Est Cr Clr Drug Dosing 51.6 ml/min eGFR 63.16 BUN/Creatinine Ratio 18.6 (10-20) Glucose 141 H (70-99(Fasting)) mg/dl POC Glucose 131 H (70-99) mg/dl POC Glucose (other) 139 H (70-99) mg/dl Calcium 8.7 (8.6-10.3) mg/dl POC Ioniz Calcium Yuniel 1.20 (1.12-1.32) mmol/l Magnesium 2.0 (1.7-2.4) mg/dl Total Bilirubin 0.8 (0.2-1.0) mg/dl AST 19 (13-39) U/L ALT 23 (7-52) U/L Alkaline Phosphatase 64 (34-104) U/L Troponin I High Sens 7.6 (0-20) pg/ml Total Protein 6.0 (6.0-8.3) gm/dl Albumin 3.4 (3.4-5.0) gm/dl Globulin 2.6 (2.5-4.0) gm/dl Albumin/Globulin Ratio 1.3 (0.9-2) Urine Color Urine Appearance (Clear) Urine pH (4.5-7.5) Ur Specific [place] (1.000-1.030) Urine Protein (Negative) Urine Glucose (UA) (Negative) Urine Ketones (Negative) Urine Blood (Negative) Urine Nitrite (Negative) Urine Bilirubin (Negative) Urine Urobilinogen (Negative) Ur Leukocyte Esterase (Negative) Urine Comment Anaplasma Smear See Comment Babesia Smear See Comment 01/05/25 Range/Units 21:18 WBC (4.8-10.8) K/ul RBC (4.70-6.10) M/uL Hgb (14.0-18.0) g/dl POC Hgb (14.0-18.0) g/dl Hct (42.0-52.0) % POC Hct (42-52) % MCV (80.0-100.0) fL MCH (25.0-34.0) pg MCHC (32.0-36.0) g/dL RDW Std Deviation (36.4-46.3) fL RDW Coeff of Jordan (11.5-14.5) % Plt Count (130-400) K/uL MPV (9.4-12.4) fL Immature Gran % (Auto) % Neut % (Auto) % Lymph % (Auto) % [place] % (Auto) % Eos % (Auto) % Baso % (Auto) % Neut # (Auto) (1.40-6.50) K/uL Lymph # (Auto) (1.20-3.40) K/uL [place] # (Auto) (0.11-0.59) K/uL Eos # (Auto) (0.00-0.50) K/uL Baso # (Auto) (0.00-0.20) K/uL Immature Gran # (Auto) (0.01-0.20) K/uL PT (9.0-12.0) Seconds INR (0.9-1.1) APTT (21-31) Seconds PTT Ratio POC Sodium (135-144) mmol/L Sodium (136-145) mmol/L POC Potassium (3.3-5.0) mmol/L Potassium (3.5-5.1) mmol/L POC Chloride (101-112) mmol/L Chloride (98-107) mmol/L Carbon Dioxide (21-32) mmol/L POC Total CO2 (24-31) mmol/L Anion Gap (3-11) POC Anion Gap (16-25) mmol/L POC BUN (7-18) mg/dl BUN (6-23) mg/dl Creatinine (0.6-1.4) mg/dl POC Creatinine (0.6-1.3) mg/dl Est Cr Clr Drug Dosing ml/min eGFR BUN/Creatinine Ratio (10-20) Glucose (70-99(Fasting)) mg/dl POC Glucose (70-99) mg/dl POC Glucose (other) (70-99) mg/dl Calcium (8.6-10.3) mg/dl POC Ioniz Calcium Yuniel (1.12-1.32) mmol/l Magnesium (1.7-2.4) mg/dl Total Bilirubin (0.2-1.0) mg/dl AST (13-39) U/L ALT (7-52) U/L Alkaline Phosphatase (34-104) U/L Troponin I High Sens (0-20) pg/ml Total Protein (6.0-8.3) gm/dl Albumin (3.4-5.0) gm/dl Globulin (2.5-4.0) gm/dl Albumin/Globulin Ratio (0.9-2) Urine Color Yellow Urine Appearance Clear (Clear) Urine pH 7.0 (4.5-7.5) Ur Specific [place] 1.019 (1.000-1.030) Urine Protein Negative (Negative) Urine Glucose (UA) Negative (Negative) Urine Ketones Negative (Negative) Urine Blood Negative (Negative) Urine Nitrite Negative (Negative) Urine Bilirubin Negative (Negative) Urine Urobilinogen Negative (Negative) Ur Leukocyte Esterase Negative (Negative) Urine Comment Anaplasma Smear Babesia Smear Administered Medications Discontinued Medications Sodium Chloride (Nss) 1,000 mls @ 999 mls/hr IV .Q1H1M ONE Stop: 01/05/25 22:23 Last Infusion: 01/05/25 22:32 Dose: Infused Documented By: Admin: 01/05/25 21:31 Dose: 999 mls/hr Documented By: MARIO Ioversol (Optiray 320 125ml) 119 ml IV ONCE ONE Stop: 01/05/25 20:33 Last Admin: 01/05/25 20:32 Dose: 119 ml Documented By: MARIAM Labetalol HCl (Labetalol Hcl Iv 5 Mg/Ml 20ml) 10 mg IV NOW STA Stop: 01/05/25 20:41 Last Admin: 01/05/25 20:44 Dose: 10 mg Documented By: MARIO Ondansetron HCl (Ondansetron Inj 2 Mg/Ml 2 Ml Vial) 4 mg IV NOW STA Stop: 01/05/25 20:26 Last Admin: 01/05/25 20:42 Dose: 4 mg Documented By: FAINA Imaging Data Attestation: I personally reviewed and interpreted this imaging study as follows: My Impression: CT of the brain was obtained in the emergency department. My interpretation is no intracranial hemorrhage or mass effect, final report below. 1 view chest x-ray was obtained in the emergency department. My interpretation is volume overload with mild cardiomegaly, final report pending. Radiologist's Impression: Abdomen/Pelvis CT 01/05/25 20:25 Exam(s): CT ABDOMEN + PELVIS With Contrast IV Amt: 118ml EXAM: CT Abdomen and Pelvis With Intravenous Contrast CLINICAL HISTORY: Reason for exam: right sided pain. TECHNIQUE: Axial computed tomography images of the abdomen and pelvis with intravenous contrast. CTDI is 26 mGy and DLP is 1533 mGy-cm. Automated exposure control was utilized for the study. A dose lowering technique was utilized adhering to the principles of ALARA. CONTRAST: Patient received 118ml of IV contrast COMPARISON: 03/08/2016 FINDINGS: Lung bases: Mild atelectatic change. Pulmonary micronodules right middle lobe stable from 2016 and considered benign. No follow-up indicated per Fleischner society guidelines. Heart: Aortic valve replacement. Coronary artery atherosclerosis. ABDOMEN: Liver: Unremarkable. No mass. Gallbladder and bile ducts: Unremarkable. No calcified stones. No ductal dilation. Pancreas: Unremarkable. No mass. No ductal dilation. Spleen: Calcified splenic granulomata. Adrenals: Unremarkable. No mass. Kidneys and ureters: Unremarkable. No solid mass. No hydronephrosis. Stomach and bowel: No bowel obstruction. Sigmoid diverticulosis. No mucosal thickening. PELVIS: Appendix: Appendix not identified. Bladder: Unremarkable. No mass. Reproductive: Unremarkable as visualized. ABDOMEN and PELVIS: Intraperitoneal space: Unremarkable. No free fluid or free air. Bones/joints: Osteopenia. Degenerative change in the lumbar spine. Benign intraosseous hemangioma L3 vertebral body. No acute fracture. No dislocation. Soft tissues: Small fat containing inguinal hernias. Vasculature: Atherosclerosis of the aorta. Lymph nodes: Calcified mediastinal and right hilar lymph nodes with enlarged subcarinal lymph node, likely on the basis of chronic granulomatous disease and stable from prior. No intra-abdominal lymphadenopathy. IMPRESSION: No acute findings in the abdomen or pelvis. Electronically signed by: Eddie Leon M.D. 01/05/25 21:32 PM Chest X-Ray 01/05/25 20:25 Exam(s): XR CXR 1 VIEW EXAM: XR Chest, 1 View CLINICAL HISTORY: Reason for exam: neuro deficit, acute stroke suspected. TECHNIQUE: Frontal view of the chest. COMPARISON: 10/02/2024 FINDINGS: Lungs: Pulmonary vascular congestion and interstitial prominence, possibly reflecting mild edema. No airspace consolidation. Pleural space: No significant pleural effusion. No pneumothorax. Heart: Cardiomegaly and aortic valve replacement. Bones/joints: No acute fracture. No dislocation. IMPRESSION: Pulmonary vascular congestion and interstitial prominence, possibly reflecting mild edema. Electronically signed by: Eddie Leon M.D. 01/05/25 22:[address] 01/05/25 20:25 CR Exam(s): CT HEAD Without Contrast EXAM: CT Head Without Intravenous Contrast CLINICAL HISTORY: Reason for exam: neuro deficit, acute stroke suspected. TECHNIQUE: Axial computed tomography images of the head/brain without intravenous contrast. CTDI is 37 mGy and DLP is 624 mGy-cm. Automated exposure control was utilized for the study. A dose lowering technique was utilized adhering to the principles of ALARA. COMPARISON: No relevant prior studies available. FINDINGS: Brain: Generalized parenchymal volume loss. Periventricular and deep cerebral white matter hypoattenuation suggesting chronic small vessel ischemic change. Abreu-white matter differentiation maintained. No hemorrhage, mass effect, parenchymal edema, or midline shift. Ventricles: No hydrocephalus. Bones/joints: No acute fracture. Soft tissues: Unremarkable. Vasculature: Intracranial atherosclerosis. Gas in the right certified industrial hygienist space. Sinuses: Unremarkable as visualized. Mastoid air cells: No significant mastoid effusion. Orbits: Lens replacements. IMPRESSION: 1. No acute intracranial process. 2. Gas in the right certified industrial hygienist space. This may represent intravenous gas from recent IV manipulation. Communications: Call Doctor Stroke Electronically signed by: Eddie Leon M.D. 01/05/25 20:50 PM Head CTA 01/05/25 20:25 CR Exam(s): CTA HEAD With Contrast IV Amt: 119ml EXAM: CT Angiography Head With Intravenous Contrast CLINICAL HISTORY: Reason for exam: neuro deficit, acute stroke suspected. TECHNIQUE: Axial computed tomographic angiography images of the head with intravenous contrast. CTDI is 31 mGy and DLP is 472 mGy-cm. Automated exposure control was utilized for the study. A dose lowering technique was utilized adhering to the principles of ALARA. MIP reconstructed images were created and reviewed. CONTRAST: Patient received 119ml of IV contrast COMPARISON: 10/02/2024 FINDINGS: Right internal carotid artery: Calcification of the intracranial right ICA without significant stenosis. No aneurysm. Right anterior cerebral artery: Unremarkable. No occlusion or significant stenosis. No aneurysm. Right middle cerebral artery: Unremarkable. No occlusion or significant stenosis. No aneurysm. Right posterior cerebral artery: Unremarkable. No occlusion or significant stenosis. No aneurysm. Right vertebral artery: Right vertebral artery terminates in PICA. Left internal carotid artery: Calcification of the intracranial left ICA without significant stenosis. No aneurysm. Left anterior cerebral artery: Unremarkable. No occlusion or significant stenosis. No aneurysm. Left middle cerebral artery: Unremarkable. No occlusion or significant stenosis. No aneurysm. Left posterior cerebral artery: Unremarkable. No occlusion or significant stenosis. No aneurysm. Left vertebral artery: Unremarkable as visualized. Basilar artery: Unremarkable. No occlusion or significant stenosis. No aneurysm. 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 IMPRESSION: Patent intracranial circulation. Communications: 01/05/25 20:52 Call Doctor Regarding Stroke, called Dr. Pate on 01/05 20: 52 (-04:00) Electronically signed by: Eddie Leon M.D. 01/05/25 20:52 PM Neck CTA 01/05/25 20:25 CR Exam(s): CTA NECK With Contrast IV Amt: 119ml EXAM: CT Angiography Neck With Intravenous Contrast CLINICAL HISTORY: Reason for exam: neuro deficit, acute stroke suspected. TECHNIQUE: Routine carotid CT angiography protocol was performed with intravenous contrast. NASCET criteria using the distal ICAs for comparison were used for evaluation of stenoses. CTDI is 12.41 mGy and DLP is 472 mGy-cm. Automated exposure control was utilized for the study. A dose lowering technique was utilized adhering to the principles of ALARA. MIP reconstructed images were created and reviewed. CONTRAST: Patient received 119ml of IV contrast COMPARISON: 10/02/2024 FINDINGS: VASCULATURE: Right common carotid artery: Unremarkable. No occlusion or significant stenosis. No dissection. Right internal carotid artery: Unremarkable. Extracranial segment is patent with no occlusion or significant stenosis. No dissection. Right external carotid artery: Unremarkable. No occlusion. Right vertebral artery: Unremarkable. No occlusion or significant stenosis. No dissection. Left common carotid artery: Unremarkable. No occlusion or significant stenosis. No dissection. Left internal carotid artery: Unremarkable. Extracranial segment is patent with no occlusion or significant stenosis. No dissection. Left external carotid artery: Unremarkable. No occlusion. Left vertebral artery: Unremarkable. No occlusion or significant stenosis. No dissection. Other vasculature: Intravenous gas from recent IV manipulation. NECK: Bones/joints: Degenerative change in the cervical spine. No acute fracture. Soft tissues: Unremarkable. Lung apices: Calcified granuloma right lung apex. CAROTID STENOSIS REFERENCE USING NASCET CRITERIA: % ICA stenosis = (1 - narrowest ICA diameter/diameter of distal cervical ICA) x 100. Mild - <50% stenosis. Moderate - 50-69% stenosis. Severe - 70-94% stenosis. Near occlusion - 95-99% stenosis. Occluded - 100% stenosis. IMPRESSION: No dissection, hemodynamically significant stenosis, or occlusion. Communications: Call Doctor Stroke Electronically signed by: Eddie Leon M.D. 01/05/25 20:57 PM Discharge Plan Visit Data Chief Complaint: Weakness Stated Complaint: WEAKNESS IN LEGS, NEAR SYNCOPE ED Provider: Klaus Pate Discharge Problem: Weakness, Headache, Dysrhythmia, cardiac Patient Disposition: Being Evaluated by Hospitalist Condition: Fair Forms Stand Alone Forms: [facility] [email or web address] Textbook Time Prescriptions Prescriptions: No Action (DME) compress.stocking,knee,reg,med Misc See Rx Instructions .ROUTE .MEDSUPPLY Qty: 2 2RF Rx Instructions: As directed mometasone [Nasonex 24hr Allergy] 50 mcg/actuation spray,non-aerosol 2 spray intranasal DAILY PRN (Reason: Congestion) Qty: 3 3RF Rx Instructions: administer into each nostril famotidine 40 mg tablet 40 mg PO BID Qty: 180 3RF Eliquis 5 mg tablet 5 mg PO BID Qty: 180 3RF clopidogrel 75 mg tablet 75 mg PO QAM Qty: 90 3RF gabapentin 300 mg capsule 600 mg PO HS Qty: 180 3RF metoprolol tartrate 25 mg tablet 12.5 mg PO BID 90 Days Qty: 90 3RF rosuvastatin [Crestor] 20 mg tablet 20 mg PO HS Qty: 90 3RF prednisone 5 mg tablet 5 mg PO QAM nitroglycerin 0.4 mg tablet, sublingual 0.4 mg Sublingual .COMPLEX PRN (Reason: Angina) Qty: 25 1RF Rx Instructions: 0.4 mg sublingual Q5M FOR UP TO 3 DOSES PRN; zoledronic [id number] [Reclast] 5 mg/100 mL piggyback 1 ea IV YEARLY timolol 0.5 % drops 1 drp OPB BID Rx Instructions: both eyes cholecalciferol (vitamin D3) [D3-5000] 125 mcg (5,000 unit) capsule 5,000 unit PO QAM fexofenadine [Bronwyn Allergy] 180 mg Tablet 180 mg PO DAILY PRN (Reason: Allergy Symptoms) acetaminophen [Tylenol Arthritis Pain] 650 mg Tablet Extended Release 650 mg PO DIRECTED PRN (Reason: Pain) brimonidine [Alphagan P] 0.1 % Drops 1 drp OPB BID prednisolone acetate 1 % drops,suspension 1 drp OPB Q OTHER DAY ascorbic acid (vitamin C) [Vitamin C] 1,000 mg Tablet 1 g PO DAILY PreserVision AREDS-2 250-90-40-1 mg Capsule 1 tab PO BID cyanocobalamin (vitamin B-12) [Vitamin B-12] 1,000 mcg Tablet 1,000 mcg PO DAILY melatonin 10 mg Tablet 10 mg PO HS Probiotic 10 billion cell Capsule 10,000 mmu cells PO DAILY amlodipine 5 mg tablet 5 mg PO QAM Referrals Referrals: Migue Banda III, CRNP [Primary Care Provider] -
[2025-01-05] MEDS: OPTIRAY 320 125ml IV ONE (20:32)
[2025-01-05 20:38] LABS: iSTAT Creatinine 1.3 mg/dl (0.6-1.3); iSTAT Hemoglobin 13.6 g/dl (14.0-18.0); iSTAT Ionized Calcium 1.2 mmol/l (1.12-1.32); iSTAT Potassium 3.7 mmol/L (3.3-5.0)
[2025-01-05] MEDS: ONDANSETRON INJ 2 MG/ML 2 ML VIAL IV STA (20:42)
[2025-01-05] MEDS: LABETALOL HCL IV 5 MG/ML 20ML IV STA (20:44)
--- NOTE | 2025-01-05 20:51 | CT Scan Report ---
Exam(s): CT HEAD Without Contrast EXAM: CT Head Without Intravenous Contrast CLINICAL HISTORY: Reason for exam: neuro deficit, acute stroke suspected. TECHNIQUE: Axial computed tomography images of the head/brain without intravenous contrast. CTDI is 37 mGy and DLP is 624 mGy-cm. Automated exposure control was utilized for the study. A dose lowering technique was utilized adhering to the principles of ALARA. COMPARISON: No relevant prior studies available. FINDINGS: Brain: Generalized parenchymal volume loss. Periventricular and deep cerebral white matter hypoattenuation suggesting chronic small vessel ischemic change. Abreu-white matter differentiation maintained. No hemorrhage, mass effect, parenchymal edema, or midline shift. Ventricles: No hydrocephalus. Bones/joints: No acute fracture. Soft tissues: Unremarkable. Vasculature: Intracranial atherosclerosis. 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 Sinuses: Unremarkable as visualized. Mastoid air cells: No significant mastoid effusion. Orbits: Lens replacements. IMPRESSION: 1. No acute intracranial process. 2. 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 This may represent intravenous gas from recent IV manipulation. Communications: Call Doctor Stroke Electronically signed by: Eddie Leon M.D. 01/05/25 20:50 PM
[2025-01-05 20:52] LABS: Albumin Globulin Ratio 1.3 (0.9-2); BUN Creatinine Ratio 18.6 (10-20); Bilirubin,Total 0.8 mg/dl (0.2-1.0); Calcium 8.7 mg/dl (8.6-10.3); Creatinine Clr Calc Pharmacy 51.6 ml/min; Globulin 2.6 gm/dl (2.5-4.0); Potassium 3.8 mmol/L (3.5-5.1)
--- NOTE | 2025-01-05 20:54 | CT Scan Report ---
Exam(s): CTA HEAD With Contrast IV Amt: 119ml EXAM: CT Angiography Head With Intravenous Contrast CLINICAL HISTORY: Reason for exam: neuro deficit, acute stroke suspected. TECHNIQUE: Axial computed tomographic angiography images of the head with intravenous contrast. CTDI is 31 mGy and DLP is 472 mGy-cm. Automated exposure control was utilized for the study. A dose lowering technique was utilized adhering to the principles of ALARA. MIP reconstructed images were created and reviewed. CONTRAST: Patient received 119ml of IV contrast COMPARISON: 10/02/2024 FINDINGS: Right internal carotid artery: Calcification of the intracranial right ICA without significant stenosis. No aneurysm. Right anterior cerebral artery: Unremarkable. No occlusion or significant stenosis. No aneurysm. Right middle cerebral artery: Unremarkable. No occlusion or significant stenosis. No aneurysm. Right posterior cerebral artery: Unremarkable. No occlusion or significant stenosis. No aneurysm. Right vertebral artery: Right vertebral artery terminates in PICA. Left internal carotid artery: Calcification of the intracranial left ICA without significant stenosis. No aneurysm. Left anterior cerebral artery: Unremarkable. No occlusion or significant stenosis. No aneurysm. Left middle cerebral artery: Unremarkable. No occlusion or significant stenosis. No aneurysm. Left posterior cerebral artery: Unremarkable. No occlusion or significant stenosis. No aneurysm. Left vertebral artery: Unremarkable as visualized. Basilar artery: Unremarkable. No occlusion or significant stenosis. No aneurysm. 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 IMPRESSION: Patent intracranial circulation. Communications: 01/05/25 20:52 Call Doctor Regarding Stroke, called Dr. Pate on 01/05 20: 52 (-04:00) Electronically signed by: Eddie Leon M.D. 01/05/25 20:52 PM
[2025-01-05 20:55] LABS: Basophils # (auto) 0.05 K/uL (0.00-0.20); Basophils % (auto) 1.2 %; Eosinophils # (auto) 0.19 K/uL (0.00-0.50); Eosinophils % (auto) 4.5 %; Hematocrit (blood only) 42.2 % (42.0-52.0); Hemoglobin 13.9 g/dl (14.0-18.0); Immature Granulocytes # (auto) 0.01 K/uL (0.01-0.20); Immature Granulocytes % (auto) 0.2 %; Lymphocytes # (auto) 1.37 K/uL (1.20-3.40); Lymphocytes % (auto) 32.2 %; Mean Corpuscular Hemoglobin 31.1 pg (25.0-34.0); Mean Corpuscular Hgb Conc 32.9 g/dL (32.0-36.0); Mean Corpuscular Volume 94.4 fL (80.0-100.0); Mean Platelet Volume 10.6 fL (9.4-12.4); Monocytes # (auto) 0.48 K/uL (0.11-0.59); Monocytes % (auto) 11.3 %; Neutrophils # (auto) 2.15 K/uL (1.40-6.50); Neutrophils % (auto) 50.6 %; Platelet Count 125 K/uL (130-400); RDW Standard Deviation 44.5 fL (36.4-46.3); Red Blood Count 4.47 M/uL (4.70-6.10); White Blood Count 4.25 K/ul (4.8-10.8)
[2025-01-05 20:57] LABS: Troponin I High Sensitivity 7.6 pg/ml (0-20)
--- NOTE | 2025-01-05 20:58 | CT Scan Report ---
Exam(s): CTA NECK With Contrast IV Amt: 119ml EXAM: CT Angiography Neck With Intravenous Contrast CLINICAL HISTORY: Reason for exam: neuro deficit, acute stroke suspected. TECHNIQUE: Routine carotid CT angiography protocol was performed with intravenous contrast. NASCET criteria using the distal ICAs for comparison were used for evaluation of stenoses. CTDI is 12.41 mGy and DLP is 472 mGy-cm. Automated exposure control was utilized for the study. A dose lowering technique was utilized adhering to the principles of ALARA. MIP reconstructed images were created and reviewed. CONTRAST: Patient received 119ml of IV contrast COMPARISON: 10/02/2024 FINDINGS: VASCULATURE: Right common carotid artery: Unremarkable. No occlusion or significant stenosis. No dissection. Right internal carotid artery: Unremarkable. Extracranial segment is patent with no occlusion or significant stenosis. No dissection. Right external carotid artery: Unremarkable. No occlusion. Right vertebral artery: Unremarkable. No occlusion or significant stenosis. No dissection. Left common carotid artery: Unremarkable. No occlusion or significant stenosis. No dissection. Left internal carotid artery: Unremarkable. Extracranial segment is patent with no occlusion or significant stenosis. No dissection. Left external carotid artery: Unremarkable. No occlusion. Left vertebral artery: Unremarkable. No occlusion or significant stenosis. No dissection. Other vasculature: Intravenous gas from recent IV manipulation. NECK: Bones/joints: Degenerative change in the cervical spine. No acute fracture. Soft tissues: Unremarkable. Lung apices: Calcified granuloma right lung apex. CAROTID STENOSIS REFERENCE USING NASCET CRITERIA: % ICA stenosis = (1 - narrowest ICA diameter/diameter of distal cervical ICA) x 100. Mild - <50% stenosis. Moderate - 50-69% stenosis. Severe - 70-94% stenosis. Near occlusion - 95-99% stenosis. Occluded - 100% stenosis. IMPRESSION: No dissection, hemodynamically significant stenosis, or occlusion. Communications: Call Doctor Stroke Electronically signed by: Eddie Leon M.D. 01/05/25 20:57 PM
[2025-01-05 21:14] LABS: Partial Thromboplastin Ratio 0.9; Partial Thromboplastin Time 24 Seconds (21-31)
[2025-01-05] MEDS: SODIUM CHLORIDE 0.9% 1,000 ML IV ONE (21:31)
--- NOTE | 2025-01-05 21:33 | CT Scan Report ---
Exam(s): CT ABDOMEN + PELVIS With Contrast IV Amt: 118ml EXAM: CT Abdomen and Pelvis With Intravenous Contrast CLINICAL HISTORY: Reason for exam: right sided pain. TECHNIQUE: Axial computed tomography images of the abdomen and pelvis with intravenous contrast. CTDI is 26 mGy and DLP is 1533 mGy-cm. Automated exposure control was utilized for the study. A dose lowering technique was utilized adhering to the principles of ALARA. CONTRAST: Patient received 118ml of IV contrast COMPARISON: 03/08/2016 FINDINGS: Lung bases: Mild atelectatic change. Pulmonary micronodules right middle lobe stable from 2016 and considered benign. No follow-up indicated per Fleischner society guidelines. Heart: Aortic valve replacement. Coronary artery atherosclerosis. ABDOMEN: Liver: Unremarkable. No mass. Gallbladder and bile ducts: Unremarkable. No calcified stones. No ductal dilation. Pancreas: Unremarkable. No mass. No ductal dilation. Spleen: Calcified splenic granulomata. Adrenals: Unremarkable. No mass. Kidneys and ureters: Unremarkable. No solid mass. No hydronephrosis. Stomach and bowel: No bowel obstruction. Sigmoid diverticulosis. No mucosal thickening. PELVIS: Appendix: Appendix not identified. Bladder: Unremarkable. No mass. Reproductive: Unremarkable as visualized. ABDOMEN and PELVIS: Intraperitoneal space: Unremarkable. No free fluid or free air. Bones/joints: Osteopenia. Degenerative change in the lumbar spine. Benign intraosseous hemangioma L3 vertebral body. No acute fracture. No dislocation. Soft tissues: Small fat containing inguinal hernias. Vasculature: Atherosclerosis of the aorta. Lymph nodes: Calcified mediastinal and right hilar lymph nodes with enlarged subcarinal lymph node, likely on the basis of chronic granulomatous disease and stable from prior. No intra-abdominal lymphadenopathy. IMPRESSION: No acute findings in the abdomen or pelvis. Electronically signed by: Eddie Leon M.D. 01/05/25 21:32 PM
[2025-01-05 21:43] LABS: Appearance Urine Clear (Clear); Bilirubin Urine Negative (Negative); Blood Urine Negative (Negative); Color Urine Yellow; Glucose Urine UA Negative (Negative); Ketones Urine Negative (Negative); Leukocyte Esterase Urine Negative (Negative); Nitrite Urine Negative (Negative); Protein Urine Negative (Negative); Specific Gravity Urine 1.019 (1.000-1.030); Urobilinogen Urine Negative (Negative)
--- NOTE | 2025-01-05 21:55 | History & Physical Report ---
Date of Service January 05, 2025 Assessment & Plan (1) Weakness: (2) Pancytopenia: (3) Type 2 diabetes mellitus: Plan 80-year-old male PMHx T2DM, CAD s/p PCI, s/p TAVR, HTN, dyslipidemia, CKD stage III, HLA-B27 positive, factor V Leiden mutation, sarcoidosis, and multiple pulmonary nodules determined by CT presenting for sudden feeling of presyncope on day of arrival. ED evaluation reveals leukopenia 4.25, H&H 13.9/42.2, platelets 125; PT/INR WNL; CMP chloride 110, glucose 141; troponin 7.6; UA negative; CTAP no acute findings; CXR pending official read; head CT no acute findings, gas located in R inclusion paraeducator space; head CTA patent intracranial circulation; neck CTA no dissection significant stenosis or occlusion; EKG sinus rhythm with PS PACs and occasional PVCs as well as RBBB and LAFB at 72 bpm.; Provided with 1L NSS, Zofran 4 mg IV, labetalol 10 mg IV in ED. Stroke alert was called in ED. #Weakness/Gas in inclusion paraeducator space/Pancytopenia Weakness starting day of arrival, sudden onset feeling as though he may pass out; denies associated diaphoresis and "feeling hot", no h/o falls, no associated symptoms of chest pain or SOB. No infectious symptoms. No neurological deficits, h/o prior TIA. Does have some outside exposure, ? tick involvement. Low suspicion for CVA at this time. No recent facial trauma, no dental complaints. After reviewing ED note from 10/02/2024 and cardiology note from 10/03/2024, it appears that the patient has had similar symptoms in the past, being evaluated for leg weakness and feeling lightheaded, followed by a headache. Was treated with abortive migraine medications and discharged home at that time. At present, pt is without headache but if this does result, could consider migraine cocktail and possibility of complex migraines. Also, history consistent with ? fevers as well as pancytopenia, possible early infection. - CBC leukopenia 4.25, H&H 13.9/42.4, platelets 125; PT/INR WNL; CMP chloride 110, glucose 141; trop 7.6, pending repeat- CBC am - ESR 4, CRP < 0.50, TSH 0.676; tick panel pending - Blood cx pending - UA negative for infection - EKG sinus rhythm with PSVC, PVCs at 72 bpm - CXR pulmonary vascular congestion and interstitial prominence, possibly reflecting mild edema - Head CT with no acute findings, does reveal gas located in R inclusion paraeducator space -- Dr Boss made aware, will evaluate on 01/06/2025 -- appreciate input + recs - CTAP, head CTA, and neck CTA all WNL - Echo 07/2024 EF 60%, otherwise grossly unremarkable - echo pending - Hypoxic on arrival at 88% -- IS, O2 prn (none at baseline), and DuoNebs prn SOB - Fall precautions - PT/OT consults placed - Will provide stress dose steroids given chronic use -- Prednisone 20 mg now then in am, then resume normal dosing - ? infection (diaphoresis earlier, now cold, ? fever) vs autoimmune vs tick vs neurological Will empirically give ceftriaxone (cover for lyme and if infection based on CT findings) Added doxycycline for tick borne illnesses - history and patient's environment suspicious for tick bite Spoke with pt regarding his prior "allergy" to doxycycline, no anaphylactic symptoms at that time, no hives or throat swelling Patient agreeable to trial of doxycycline in a.m. (0615 on 01/06/2025) as compared to alternative rifampin. EpiPen will be at bedside. Both myself and attending Dr. Bryan aware of when dose will be provided. #T2DM H/o DMT2, diet controlled. Insulin carl. Does take gabapentin. - Most recent A1C 10/2024 @ 6.7% - SSI with target BSG range 110-160mg/dL, CF 40, carb ratio deferred - BSG ACHS - Adjust regimen if needed #CAD s/p PCI/ s/p TAVR- Catheterization 10/2024 w/ PCI 2/2 90% occlusion of circumflex, TAVR 07/2024, follows with cardiology, most recent visit being 11/26/2024; Plavix - continue #HTN- Amlodipine, metoprolol - continue #FVL- Unprovoked DVTs (2019), on Eliquis - continue (plts low at admission, no active bleeding per report) #HLAB27 (+)- Follows with rheumatology, most recent visit being 12/13/2024; daily prednisone - continue as above #Dyslipidemia- Rosuvastatin - continue #CKD stage III- Follows with nephrology, most recent visit being 10/21/2024; Cr 1.18 at admission - BMP am #Sarcoidosis/Pulm. nodules- Has been encouraged to follow up pulm in the past but has not, consider inpatient eval if clinically relevant - no pulm symptoms at present, was hypoxic and requiring O2 at initial ED eval #GERD- Famotidine - continue Dispo: Admit, med/tele VTE prophylaxis: On Eliquis This document was dictated utilizing [employer]. Please excuse any grammatical errors that may be secondary to use of this software. Admission and Anticipated Discharge Date Admission Date: 01/05/2025 History of Present Illness Chief Complaint: Weakness Primary Care Provider: Migue Banda III, PAIGE 80-year-old male PMHx T2DM, CAD s/p PCI, s/p TAVR, HTN, dyslipidemia, CKD stage III, HLA-B27 positive, factor V Leiden mutation, sarcoidosis, and multiple pulmonary nodules determined by CT presenting for sudden feeling of presyncope on day of arrival. Patient started his day in normal health per his . They were able to visit with her child and attend [employer] the morning of arrival. He did eat breakfast and lunch today, and when he got home and unloaded some things from the car, he was able to rest for some time. Around approximately 1830- 1900, he decided to walk into the kitchen where his was going to be preparing soup for their dinner. At that time, he had a very sudden onset of full body weakness, and he began to fall to his left side. He caught himself on the counter and did not fall to the ground. His states that she was able to help him get to a chair and sit down and at that time, he did experience full body diaphoresis and reports feeling very hot. He was able to get to a laying position in a chair and states that he had to close his eyes because he was having some dizziness. He did not feel as though the room was spinning around him, but he just felt dizzy in his head. He states that the symptoms are still ongoing but have significantly improved since being evaluated in the hospital. He did take a nitroglycerin at the time of the symptoms starting because he said that he had a slight "twinge passed through the heart" and so he wanted to ensure that this was not a cardiac event. He states this does not feel like any prior cardiac events. He feels as though his heart rate was fluctuating throughout the day. His main complaint is that he just felt "totally weak." He has not been sick otherwise, denying any chest pain, SOB, palpitations, cough, abdominal pain, N/V/D/C, numbness/tingling, fever/chills, URI symptoms, dental complaints, headache, vision changes, rigors, or LOC. He has never had this happen before. He does not wear oxygen at baseline. Patient does have a history of Lyme disease around 2009 timeframe, and he does spend some significant time outdoors. He did just recently mow the lawn the Monday [employer]. Patient is still feeling overly weak, states that he would not be able to stand or walk on his own even if he wanted to. He is not having specific areas of weakness just a generalized feeling of such. ED evaluation reveals leukopenia 4.25, H&H 13.9/42.2, platelets 125; PT/INR WNL; CMP chloride 110, glucose 141; troponin 7.6; UA negative; CTAP no acute findings; CXR pending official read; head CT no acute findings, gas located in R inclusion paraeducator space; head CTA patent intracranial circulation; neck CTA no dissection significant stenosis or occlusion; EKG sinus rhythm with PS PACs and occasional PVCs as well as RBBB and LAFB at 72 bpm.; Provided with 1L NSS, Zofran 4 mg IV, labetalol 10 mg IV in ED. Stroke alert was called in ED. Please see Dr. Bryan's attestation for adjustments/additions to treatment plan. Allergies Allergy/AdvReac Type Severity Reaction Status Date / Time doxycycline Allergy Intermediate Rash Verified 01/05/25 20:53 Penicillins Allergy Intermediate HIVES- A Verified 01/05/25 20:53 CHILD Sulfa (Sulfonamide Allergy Intermediate rash Verified 01/05/25 20:53 Antibiotics) moxifloxacin Allergy Mild Rash Verified 01/05/25 20:53 ubidecarenone Allergy Mild UBIQUINOL Verified 01/05/25 20:53 CAUSES itching of skin methotrexate AdvReac Intermediate sore Verified 01/05/25 20:53 breasts Home Medications Medication Instructions Recorded Confirmed Type acetaminophen 650 mg 650 mg PO DIRECTED PRN Pain 07/25/18 01/05/25 History tablet,extended release (Tylenol Arthritis Pain) brimonidine 0.1 % eye drops 1 drp OPB BID 07/25/18 01/05/25 History (Alphagan P) fexofenadine 180 mg tablet 180 mg PO DAILY PRN Allergy 07/25/18 01/05/25 History ([place] Allergy) Symptoms prednisone 5 mg tablet 5 mg PO QAM 07/23/19 01/05/25 History compress.stocking,knee,reg,med #2 ea 09/09/19 12/16/24 Rx cholecalciferol (vitamin D3) 125 5,000 unit PO QAM 07/06/20 01/05/25 History mcg (5,000 unit) capsule (D3-5000) zoledronic acid 5 mg/100 mL in 1 ea IV YEARLY 01/14/21 01/05/25 History mannitol 5 %-water intravenous piggybck (Reclast) nitroglycerin 0.4 mg sublingual 0.4 mg sublingual .COMPLEX PRN 11/23/22 01/05/25 Rx tablet Angina #25 tabs timolol 0.5 % eye drops 1 drp OPB BID 02/20/23 01/05/25 History mometasone 50 mcg/actuation nasal 2 spray intranasal DAILY PRN 06/15/23 01/05/25 Rx spray (Nasonex 24hr Allergy) Congestion #3 BTLS ascorbic acid (vitamin C) 1,000 mg 1 g PO DAILY 07/19/23 01/05/25 History tablet (Vitamin C) cyanocobalamin (vitamin B-12) 1,000 mcg PO DAILY 07/19/23 01/05/25 History 1,000 mcg tablet (Vitamin B-12) prednisolone acetate 1 % eye 1 drp OPB Q OTHER DAY 07/19/23 01/05/25 History drops,suspension vit C 250 mg-vit E 90 mg-zinc 40 1 tab PO BID 07/19/23 01/05/25 History mg-copper 1 [id number] capsule (PreserVision AREDS-2) famotidine 40 mg tablet 40 mg PO BID #180 tabs 04/16/24 01/05/25 Rx apixaban 5 mg tablet (Eliquis) 5 mg PO BID #180 tabs 07/22/24 01/05/25 Rx clopidogrel 75 mg tablet 75 mg PO QAM #90 tabs 08/12/24 01/05/25 Rx gabapentin 300 mg capsule 600 mg (2 x 300 mg) PO HS #180 caps 10/09/24 01/05/25 Rx metoprolol tartrate 25 mg tablet 12.5 mg (1/2 x 25 mg) PO BID 90 10/21/24 01/05/25 Rx days #90 tabs rosuvastatin 20 mg tablet (Crestor) 20 mg PO HS #90 tabs 11/11/24 01/05/25 Rx Lactobacillus acidophilus 10 10,000 mmu cells PO DAILY 01/05/25 01/05/25 History billion cell capsule (Probiotic) amlodipine 5 mg tablet 5 mg PO QAM 01/05/25 01/05/25 History melatonin 10 mg tablet 10 mg PO HS 01/05/25 01/05/25 History Past Med/Surg History Problem List (Updated 01/05/25 @ 23:09 by Lisa Camargo PA-C) Pancytopenia Dysrhythmia, cardiac (Acute) Headache (Acute) Weakness (Acute) S/p TAVR (transcatheter aortic valve replacement), bioprosthetic Multiple pulmonary nodules determined by computed tomography of lung BPH (benign prostatic hyperplasia) Uveitis Inflammatory polyarthritis History of heart artery stent 02/2000 x2 stents, 06/2010 x1, stents x 3 deployed in [place] 08/25/24 Dyspnea on exertion Chronic cerebral ischemia History of colon polyps Sensorineural hearing loss of both ears [place] choroidopathy Pulsatile tinnitus Peripheral neuropathy Chronic venous insufficiency (Chronic) Stage 3 chronic kidney disease (Chronic) Type 2 diabetes mellitus (Chronic) Sarcoidosis (Chronic) Pulmonary nodule (Chronic) Hypertension (Chronic) Hilar adenopathy (Chronic) HLA-B27 positive (Chronic) tested 2013 Gastro-esophageal reflux (Chronic) Factor 5 Leiden mutation, heterozygous (Chronic) tested positive in 2014 Dyslipidemia (Chronic) CAD in [place] artery (Chronic) Ascending aorta dilation (Chronic) Aortic stenosis (Chronic) Anemia (Chronic) Medical History TIA (transient ischemic attack) Chest pain History of COVID-19 06/2021 [place]; congestion, headache, cough, chills; resolved. AAA (abdominal aortic aneurysm) Dr. Bright monitors Kidney insufficiency follows with Dr. Salomon Sarcoidosis History of Lyme disease treated History of DVT (deep vein thrombosis) hx DVT BLLE 2018 following travel Tubular adenoma of colon Osteoarthritis GERD (gastroesophageal reflux disease) Chronic steroid use Hyperlipidemia Surgical History Aortic valve replaced History of carpal tunnel surgery of right wrist History of open reduction and internal fixation (ORIF) procedure right foot--no longer has hardware in place History of left wrist replacement Status post biopsy of kidney benign History of left inguinal hernia repair History of appendectomy History of esophagogastroduodenoscopy (EGD) History of colonoscopy History of wisdom tooth extraction History of tonsillectomy and adenoidectomy History of vitrectomy bilateral History of bilateral cataract extraction History of cardiac cath hx of SOB---02/2000 @ [place], 06/2010 @ [facility]---follows with Dr. Bright Family History Mother , age 87 of senile dementia of the Alzheimer's type Family history of diabetes mellitus Coronary heart disease Dementia Father , age 89 Family history of diabetes mellitus Family hx colonic polyps Myocardial infarction Coronary heart disease Prostate cancer Family/Other Family history of diabetes mellitus maternal aunts/uncles Aunt Breast cancer Brother COPD (chronic obstructive pulmonary disease) Fibrosis of lung Sister Breast cancer Dementia Denies family history of Ovarian cancer Colorectal cancer Social History Smoking Status: Never smoker Second Hand Exposure: No; Do You Dip or Chew Tobacco: No; Hx Alcohol Use: Yes Alcohol type: beer and wine Alcohol Intake Frequency: 4 or More x per/Week Alcohol Intake Frequency Comment: One red wine daily with dinner Hx Substance Use: No Preferred Language: Tuvaluan Communication Ability: Effective Visual Impairment: No Limitations Hearing Ability: Normal Crater And Packer Required: No Beliefs That Will Affect Care: None marital status: Current Living Situation: Spouse Current Living Situation Comment: Lives at home with current occupational status: retired current occupation: Retired How many Children do You have: 2 other: 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 Feels Safe at Home: Yes Childhood Exposure to Second-Hand Smoke: No Diet Comment: MED caffeine: Yes during the past year weight has: remained stable Dental Care, Regularly: Yes Physical Activity Frequency: Daily Seatbelt Use: always Sunscreen Use: Yes Assistive Devices: Glasses Review of Systems Review of Systems: All systems reviewed & are unremarkable except as noted in Subjective Physical Exam Physical Exam: General: No acute distress Skin: Warm and dry Head: Normocephalic, atraumatic Eyes: Keeps eyes closed throughout exam; PERRL, conjunctivae clear, sclera non- icteric ENT: External ear and ear canal without swelling, posterior ear unremarkable bilat; nose atraumatic; good dentition, tongue normal appearance, pharynx normal Neck: Supple, no LAD Cardio: RRR, no M/G/R, S1 and S2 normal Resp: Wearing O2 via NC; no respiratory distress, Lungs CTA in all lobes bilaterally, no wheezes, rales, or rhonchi Abdomen: Soft, symmetric, nontender; No masses or hepatosplenomegaly; Bowel sounds normoactive MSK: No deformities; pulses palpable and equal; no edema. Neuro: II- PERRL, no VF deficits III, IV, - EOMs intact, no deviation, no nystagmus V- Normal sensation in all locations VII- No asymmetry, no nasolabial fold flattening VIII- Normal hearing to speech IX, X- Normal palatal elevation, no ulnar deviation XI- 5/5 head turn + shoulder shrug bilaterally XII- Midline tongue protrusion Motor: 5/5 strength throughout BUE; ELIAN with weakness raising legs against resistance, normal dorsi and plantarflexion against resistance; no pronator drift Reflexes: WNL throughout Sensory: Normal sensation throughout, no hemineglect Coordination: Normal [id number], no tremor Gait: Unable to asses Psych: Appropriate mood and affect; good judgement and insight. is present in room at time of visit. Results & Data Results & Data Vital Signs (Past 12 Hours) Vital Signs Temp Pulse Pulse Resp BP BP Pulse Ox 01/05/25 21:44 70 20 146/92 H 92 01/05/25 21:38 139 H 01/05/25 21:29 69 20 151/82 H 93 01/05/25 21:18 68 12 151/82 H 93 01/05/25 21:06 65 146/91 H 01/05/25 20:55 36.5 C 66 14 163/98 H 92 01/05/25 20:45 70 17 163/98 H 93 01/05/25 20:44 68 190/111 H 01/05/25 20:43 88 L 01/05/25 20:18 68 O2 Del Method O2 Flow Rate 01/05/25 21:44 Room Air 01/05/25 21:38 01/05/25 21:29 Nasal Cannula 01/05/25 21:18 Nasal Cannula 2 01/05/25 21:06 01/05/25 20:55 Nasal Cannula 2 01/05/25 20:45 Nasal Cannula 2 01/05/25 20:44 01/05/25 20:43 Room Air, Nasal Cannula 0 01/05/25 20:18 Laboratory Results 01/05/25 01/05/25 01/05/25 21:18 20:27 20:22 WBC RBC Hgb POC Hgb 13.6 L Hct POC Hct 40 L MCV MCH MCHC RDW Std Deviation RDW Coeff of Jordan Plt Count MPV Immature Gran % (Auto) Neut % (Auto) Lymph % (Auto) Butler % (Auto) Eos % (Auto) Baso % (Auto) Neut # (Auto) Lymph # (Auto) Butler # (Auto) Eos # (Auto) Baso # (Auto) Immature Gran # (Auto) PT INR APTT PTT Ratio POC Sodium 141 Sodium POC Potassium 3.7 Potassium POC Chloride 108 Chloride Carbon Dioxide POC Total CO2 20 L Anion Gap POC Anion Gap 18.0 POC BUN 19 H BUN Creatinine POC Creatinine 1.3 Est Cr Clr Drug Dosing eGFR BUN/Creatinine Ratio Glucose POC Glucose 131 H POC Glucose (other) 139 H Calcium POC Ioniz Calcium Yuniel 1.20 Magnesium Total Bilirubin AST ALT Alkaline Phosphatase Troponin I High Sens Total Protein Albumin Globulin Albumin/Globulin Ratio Urine Color Yellow Urine Appearance Clear Urine pH 7.0 Ur Specific [place] 1.019 Urine Protein Negative Urine Glucose (UA) Negative Urine Ketones Negative Urine Blood Negative Urine Nitrite Negative Urine Bilirubin Negative Urine Urobilinogen Negative Ur Leukocyte Esterase Negative Urine Comment 01/05/25 20:21 WBC 4.25 L RBC 4.47 L Hgb 13.9 L POC Hgb Hct 42.2 POC Hct MCV 94.4 MCH 31.1 MCHC 32.9 RDW Std Deviation 44.5 RDW Coeff of [place] 13.0 Plt Count 125 L MPV 10.6 Immature Gran % (Auto) 0.2 Neut % (Auto) 50.6 Lymph % (Auto) 32.2 Butler % (Auto) 11.3 Eos % (Auto) 4.5 Baso % (Auto) 1.2 Neut # (Auto) 2.15 Lymph # (Auto) 1.37 Butler # (Auto) 0.48 Eos # (Auto) 0.19 Baso # (Auto) 0.05 Immature Gran # (Auto) 0.01 PT 11.0 INR 1.0 APTT 24 PTT Ratio 0.9 POC Sodium Sodium 140 POC Potassium Potassium 3.8 POC Chloride Chloride 110 H Carbon Dioxide 22 POC Total CO2 Anion Gap 8 POC Anion Gap POC BUN BUN 22 Creatinine 1.18 POC Creatinine Est Cr Clr Drug Dosing 51.6 eGFR 63.16 BUN/Creatinine Ratio 18.6 Glucose 141 H POC Glucose POC Glucose (other) Calcium 8.7 POC Ioniz Calcium Yuniel Magnesium 2.0 Total Bilirubin 0.8 AST 19 ALT 23 Alkaline Phosphatase 64 Troponin I High Sens 7.6 Total Protein 6.0 Albumin 3.4 Globulin 2.6 Albumin/Globulin Ratio 1.3 Urine Color Urine Appearance Urine pH Ur Specific [place] Urine Protein Urine Glucose (UA) Urine Ketones Urine Blood Urine Nitrite Urine Bilirubin Urine Urobilinogen Ur Leukocyte Esterase Urine Comment Diagnostic Findings Abdomen/Pelvis CT 01/05/25 20:25 Exam(s): CT ABDOMEN + PELVIS With Contrast IV Amt: 118ml EXAM: CT Abdomen and Pelvis With Intravenous Contrast CLINICAL HISTORY: Reason for exam: right sided pain. TECHNIQUE: Axial computed tomography images of the abdomen and pelvis with intravenous contrast. CTDI is 26 mGy and DLP is 1533 mGy-cm. Automated exposure control was utilized for the study. A dose lowering technique was utilized adhering to the principles of ALARA. CONTRAST: Patient received 118ml of IV contrast COMPARISON: 03/08/2016 FINDINGS: Lung bases: Mild atelectatic change. Pulmonary micronodules right middle lobe stable from 2016 and considered benign. No follow-up indicated per Fleischner society guidelines. Heart: Aortic valve replacement. Coronary artery atherosclerosis. ABDOMEN: Liver: Unremarkable. No mass. Gallbladder and bile ducts: Unremarkable. No calcified stones. No ductal dilation. Pancreas: Unremarkable. No mass. No ductal dilation. Spleen: Calcified splenic granulomata. Adrenals: Unremarkable. No mass. Kidneys and ureters: Unremarkable. No solid mass. No hydronephrosis. Stomach and bowel: No bowel obstruction. Sigmoid diverticulosis. No mucosal thickening. PELVIS: Appendix: Appendix not identified. Bladder: Unremarkable. No mass. Reproductive: Unremarkable as visualized. ABDOMEN and PELVIS: Intraperitoneal space: Unremarkable. No free fluid or free air. Bones/joints: Osteopenia. Degenerative change in the lumbar spine. Benign intraosseous hemangioma L3 vertebral body. No acute fracture. No dislocation. Soft tissues: Small fat containing inguinal hernias. Vasculature: Atherosclerosis of the aorta. Lymph nodes: Calcified mediastinal and right hilar lymph nodes with enlarged subcarinal lymph node, likely on the basis of chronic granulomatous disease and stable from prior. No intra-abdominal lymphadenopathy. IMPRESSION: No acute findings in the abdomen or pelvis. Electronically signed by: Eddie Leon M.D. 01/05/25 21:[address] 01/05/25 20:25 CR Exam(s): CT HEAD Without Contrast EXAM: CT Head Without Intravenous Contrast CLINICAL HISTORY: Reason for exam: neuro deficit, acute stroke suspected. TECHNIQUE: Axial computed tomography images of the head/brain without intravenous contrast. CTDI is 37 mGy and DLP is 624 mGy-cm. Automated exposure control was utilized for the study. A dose lowering technique was utilized adhering to the principles of ALARA. COMPARISON: No relevant prior studies available. FINDINGS: Brain: Generalized parenchymal volume loss. Periventricular and deep cerebral white matter hypoattenuation suggesting chronic small vessel ischemic change. Abreu-white matter differentiation maintained. No hemorrhage, mass effect, parenchymal edema, or midline shift. Ventricles: No hydrocephalus. Bones/joints: No acute fracture. Soft tissues: Unremarkable. Vasculature: Intracranial atherosclerosis. Gas in the right inclusion paraeducator space. Sinuses: Unremarkable as visualized. Mastoid air cells: No significant mastoid effusion. Orbits: Lens replacements. IMPRESSION: 1. No acute intracranial process. 2. Gas in the right inclusion paraeducator space. This may represent intravenous gas from recent IV manipulation. Communications: Call Doctor Stroke Electronically signed by: Eddie Leon M.D. 01/05/25 20:50 PM Head CTA 01/05/25 20:25 CR Exam(s): CTA HEAD With Contrast IV Amt: 119ml EXAM: CT Angiography Head With Intravenous Contrast CLINICAL HISTORY: Reason for exam: neuro deficit, acute stroke suspected. TECHNIQUE: Axial computed tomographic angiography images of the head with intravenous contrast. CTDI is 31 mGy and DLP is 472 mGy-cm. Automated exposure control was utilized for the study. A dose lowering technique was utilized adhering to the principles of ALARA. MIP reconstructed images were created and reviewed. CONTRAST: Patient received 119ml of IV contrast COMPARISON: 10/02/2024 FINDINGS: Right internal carotid artery: Calcification of the intracranial right ICA without significant stenosis. No aneurysm. Right anterior cerebral artery: Unremarkable. No occlusion or significant stenosis. No aneurysm. Right middle cerebral artery: Unremarkable. No occlusion or significant stenosis. No aneurysm. Right posterior cerebral artery: Unremarkable. No occlusion or significant stenosis. No aneurysm. Right vertebral artery: Right vertebral artery terminates in PICA. Left internal carotid artery: Calcification of the intracranial left ICA without significant stenosis. No aneurysm. Left anterior cerebral artery: Unremarkable. No occlusion or significant stenosis. No aneurysm. Left middle cerebral artery: Unremarkable. No occlusion or significant stenosis. No aneurysm. Left posterior cerebral artery: Unremarkable. No occlusion or significant stenosis. No aneurysm. Left vertebral artery: Unremarkable as visualized. Basilar artery: Unremarkable. No occlusion or significant stenosis. No aneurysm. Other findings: Gas in the right inclusion paraeducator space, possibly from recent IV manipulation. IMPRESSION: Patent intracranial circulation. Communications: 01/05/25 20:52 Call Doctor Regarding Stroke, called Dr. Pate on 01/05 20: 52 (-04:00) Electronically signed by: Eddie Leon M.D. 01/05/25 20:52 PM Neck CTA 01/05/25 20:25 CR Exam(s): CTA NECK With Contrast IV Amt: 119ml EXAM: CT Angiography Neck With Intravenous Contrast CLINICAL HISTORY: Reason for exam: neuro deficit, acute stroke suspected. TECHNIQUE: Routine carotid CT angiography protocol was performed with intravenous contrast. NASCET criteria using the distal ICAs for comparison were used for evaluation of stenoses. CTDI is 12.41 mGy and DLP is 472 mGy-cm. Automated exposure control was utilized for the study. A dose lowering technique was utilized adhering to the principles of ALARA. MIP reconstructed images were created and reviewed. CONTRAST: Patient received 119ml of IV contrast COMPARISON: 10/02/2024 FINDINGS: VASCULATURE: Right common carotid artery: Unremarkable. No occlusion or significant stenosis. No dissection. Right internal carotid artery: Unremarkable. Extracranial segment is patent with no occlusion or significant stenosis. No dissection. Right external carotid artery: Unremarkable. No occlusion. Right vertebral artery: Unremarkable. No occlusion or significant stenosis. No dissection. Left common carotid artery: Unremarkable. No occlusion or significant stenosis. No dissection. Left internal carotid artery: Unremarkable. Extracranial segment is patent with no occlusion or significant stenosis. No dissection. Left external carotid artery: Unremarkable. No occlusion. Left vertebral artery: Unremarkable. No occlusion or significant stenosis. No dissection. Other vasculature: Intravenous gas from recent IV manipulation. NECK: Bones/joints: Degenerative change in the cervical spine. No acute fracture. Soft tissues: Unremarkable. Lung apices: Calcified granuloma right lung apex. CAROTID STENOSIS REFERENCE USING NASCET CRITERIA: % ICA stenosis = (1 - narrowest ICA diameter/diameter of distal cervical ICA) x 100. Mild - <50% stenosis. Moderate - 50-69% stenosis. Severe - 70-94% stenosis. Near occlusion - 95-99% stenosis. Occluded - 100% stenosis. IMPRESSION: No dissection, hemodynamically significant stenosis, or occlusion. Communications: Call Doctor Stroke Electronically signed by: Eddie Leon M.D. 01/05/25 20:57 PM Medications Administered 1L NSS Ondansetron 4 mg IV Labetalol 10 mg IV ECG Additional Comments: Sinus rhythm with P SVC and PVCs, RBBB, LAFB 72 bpm, CA 168, QRS 150, QT/QTc 450/492, PRT 5/-59/56 Code Status & VTE Plan Code Status Full Pt does not desire ocean transportation intermediary measures to be pursued. Supervising Physician Co-Signing Physician Notes Attending Attestation & Admission Note: Pt seen/examined, chart reviewed, admit care plan d/w DESIREE Camargo. I agree with the [place] components of her admission documentation. 80yo male with T2DM, CAD s/p PCI, s/p TAVR, HTN, dyslipidemia, CKD stage III, HLA-B27 positive, seronegative polyarthritis, b/l uveitis, factor V Leiden mutation, sarcoidosis, and multiple pulmonary nodules on CT imaging. He is on chronic prednisone therapy 5mg/day for the uveitis/seronegative arthritis/HLA-B27 + status. Presents from home with sudden onset of diffuse/generalized weakness. [place] lightheaded when this occurred, and was diaphoretic. He states he had 2 very brief "twinges going through my heart" but it wasn't chest pain. He did mention that the "heart twinge" today was very different than his cardiac symptoms with prior events in the early 1999s. Given the weakness and the chest symptoms he came to the ER for evaluation. Patient was initially deemed a stroke alert patient and CT head, CTA head, and CTA neck were negative for acute findings with the exception of air in the right inclusion paraeducator space. He denies any recent dental work, trauma to his face, and no facial pain on the right. He did have a slight frontal headache earlier today but this has already resolved. While I was performing my assessment he reports feeling very cold with chills since arriving in the ER. Denies any cough. Denies orthopnea. Denies dyspnea. No recent fevers. No recent travel or sick contacts. PMH/PSH/allergies/meds/sochx/famhx - reviewed VSS, afebrile; o2 sats were 88% in RA at ER presentation - NC O2 applied, sats normal since gen - lying comfortably under copious amounts of blankets, looks tired but nontoxic, NAD; pleasant neck - no JVD mouth - MMM, numerous dental fillings but otherwise buccal/gingival mucosa is normal face - no gross abnormalities; no facial pain to palpation on the right heart - irregular, s1 s2, 1/6 KANDY RUSB lungs - CTA b/l, no rales appreciated; no increased work of breathing abd - soft NT ND BS+; no HSM ext - no edema, pulses feet 2+; radial pulses 2+ b/l neuro - no facial droop; speech fluent/clear; strength 5/5 x 4 exts; DTRs 1-2+ b/l upper/lower exts labs reviewed - mildly low platelets, mildly low WBCs, mildly low H/H; Cr 1.1; troponin negative all imaging reviewed in detail - cxr my reading - interstitial infiltrates b/l; these were present on prior cxr, but they are more prominent today; tiny nodules present b/l CT head with right inclusion paraeducator space AIR EKG - my reading - NSR, PVCs, PACs, RBBB, no ST changes; no change from prior EKG earlier this year A/P: 1. sudden-onset weakness 2. diaphoresis followed by cold chills 3. mild pancytopenia 4. extensive autoimmune history - seronegative arthritis, uveitis, etc - on chronic prednisone 5mg daily 5. extensive CAD history 6. air in right inclusion paraeducator space, etiology uncertain; no trauma, no recent dental work, etc. 7. atypical chest discomfort -brewing infectious process? (given hot/cold chills, mildly low platelets, mild leukopenia, and all in the setting of immunocompromised state) -check respiratory [employer] -blood cx's x 2 -tickborne w/u -empiric rocephin and doxy (see discussion in Ms Camargo's documentation re: plan for doxy) -consider repeat cxr 2-view in am -CAD - r/o ACS as cause of presentation; repeat troponin tonight -small amount of stress dose steroids - give 20mg prednisone x 1 -air in R inclusion paraeducator space - I corresponded with Dr Boss from oral surgery - he will consult in am -will hold off on MRI brain - I do not think this was TIA or primary neuro process; neuro exam is normal, weakness was generalized not focal -abnormal cxr - due to sarcoid? due to atypical process? if o2 requirement continues and he develops more pulmonary symptoms consider pulm consult Dieter Bryan MD PG Care Time/CCT Total # of Minutes Spent Total Time Spent with Patient: Total time spent is greater than 50% in coordination of care (as documented) at patient's floor/unit and/or counseling patient: Coding Level of Care Code 79489 INT INP/OBS CARE 3/75MIN Diagnoses Weakness R53.1 Pancytopenia D61.818 Type 2 diabetes mellitus without complication, without long-term current use of insulin E11.9 Diabetes mellitus complication status: without complication Diabetes mellitus senior living insulin use: without senior living use (3) Type 2 diabetes mellitus Diabetes mellitus complication status: without complication Diabetes mellitus ocean transportation intermediary insulin use: without ocean transportation intermediary use Qualified Code(s): E11.9 - Type 2 diabetes mellitus without complications
--- NOTE | 2025-01-05 22:03 | XRay Report ---
Exam(s): XR CXR 1 VIEW EXAM: XR Chest, 1 View CLINICAL HISTORY: Reason for exam: neuro deficit, acute stroke suspected. TECHNIQUE: Frontal view of the chest. COMPARISON: 10/02/2024 FINDINGS: Lungs: Pulmonary vascular congestion and interstitial prominence, possibly reflecting mild edema. No airspace consolidation. Pleural space: No significant pleural effusion. No pneumothorax. Heart: Cardiomegaly and aortic valve replacement. Bones/joints: No acute fracture. No dislocation. IMPRESSION: Pulmonary vascular congestion and interstitial prominence, possibly reflecting mild edema. Electronically signed by: Eddie Leon M.D. 01/05/25 22:02 PM
[2025-01-05 23:15] LABS: C Reactive Protein < 0.50 mg/dl (0-0.5)
[2025-01-05 23:31] LABS: Thyroid Stimulating Hormone 0.676 uIu/ml (0.300-4.500)
[2025-01-06] MEDS ORDERED: POLYETHYLENE (MIRALAX) 17 GM PACK PO PRN
[2025-01-06] MEDS ORDERED: ALBUT/IPRATROP 3MG/0.5MG NEB 3 ML VIAL NEB PRN
[2025-01-06] MEDS ORDERED: ONDANSETRON INJ 2 MG/ML 2 ML VIAL IV PRN
[2025-01-06] MEDS ORDERED: ACETAMINOPHEN 325 MG TAB PO PRN
[2025-01-06] MEDS ORDERED: NITROGLYCERIN SL 0.4 MG/TAB TAB SL PRN
[2025-01-06] MEDS: predniSONE 20 MG TAB PO STA (00:51)
[2025-01-06] MEDS: cefTRIAXone SODIUM 2,000 MG/50 ML BAG IV SCH (00:51)
[2025-01-06] MEDS: APIXABAN 5 MG TABLET PO ONE (01:15)
[2025-01-06 02:17] LABS: Adenovirus PCR Not Detected (NotDetected); Bordetella parapertussis PCR Not Detected (NotDetected); Bordetella pertussis PCR Not Detected (NotDetected); Chlamydia pneumoniae PCR Not Detected (NotDetected); Coronavirus 229E PCR Not Detected (NotDetected); Coronavirus CoV-2 (COVID19)PCR Not Detected (NotDetected); Coronavirus HKU1 PCR Not Detected (NotDetected); Coronavirus NL63 PCR Not Detected (NotDetected); Coronavirus OC43PCR Not Detected (NotDetected); Human Metapneumovirus PCR Not Detected (NotDetected); Influenza A PCR Not Detected (NotDetected); Influenza B PCR Not Detected (NotDetected); Mycoplasma pneumoniae PCR Not Detected (NotDetected); Parainfluenza Virus 1 PCR Not Detected (NotDetected); Parainfluenza Virus 2 PCR Not Detected (NotDetected); Parainfluenza Virus 3 PCR Not Detected (NotDetected); Parainfluenza Virus 4 PCR Not Detected (NotDetected); Respiratory Syncytial VirusPCR Not Detected (NotDetected); Rhinovirus/Enterovirus PCR Not Detected (NotDetected)
[2025-01-06] MEDS: DOXYCYCLINE HYCLATE 100 MG in DEXTROSE 5% MINI-B 100 ML IV ONE (05:44)
[2025-01-06 06:25] LABS: Hemoglobin 14.3 g/dl (14.0-18.0); Mean Corpuscular Hgb Conc 32.5 g/dL (32.0-36.0); Mean Corpuscular Volume 95.2 fL (80.0-100.0); Mean Platelet Volume 10.6 fL (9.4-12.4); Platelet Count 129 K/uL (130-400); RDW Coefficient of Variation 12.9 % (11.5-14.5); RDW Standard Deviation 45.1 fL (36.4-46.3); Red Blood Count 4.62 M/uL (4.70-6.10); White Blood Count 7.71 K/ul (4.8-10.8)
[2025-01-06 06:43] LABS: BUN Creatinine Ratio 14.2 (10-20); Calcium 8.4 mg/dl (8.6-10.3); Creatinine Clr Calc Pharmacy 53.9 ml/min; Potassium 3.4 mmol/L (3.5-5.1)
[2025-01-06] MEDS ORDERED: GLUCOSE 10 TAB/TUBE PO PRN ×2 (07:45)
[2025-01-06] MEDS ORDERED: CARBOHYDRATES FOR HYPOGLYCEMIA PO PRN ×2 (07:45)
[2025-01-06] MEDS ORDERED: GLUCAGON FOR INJ 1 MG VIAL SQ PRN ×2 (07:45)
[2025-01-06] MEDS ORDERED: GLUCOSE 40% GEL 15 GM TUBE PO PRN ×2 (07:45)
[2025-01-06] MEDS ORDERED: methylPREDNISolone 10 mg/mL (For Ped Dose < 7mg) IV SCH (07:45)
[2025-01-06] MEDS ORDERED: DEXTROSE 50% 50 ML SYRINGE IV PRN ×2 (07:45)
[2025-01-06] MEDS: EPINEPHrine INJ 1 MG/ML AMP IM SCH (08:40)
[2025-01-06] MEDS ORDERED: TIMOLOL MALEATE 0.5% OP SOLN 5 ML BTL OP SCH (09:00)
[2025-01-06] MEDS ORDERED: predniSONE 20 MG TAB PO ONE (09:00)
[2025-01-06] MEDS: POTASSIUM CHLORIDE CRTAB 20 MEQ TABCR PO STA (09:08)
[2025-01-06] MEDS: APIXABAN 5 MG TABLET PO SCH (09:08)
[2025-01-06] MEDS: FAMOTIDINE 40 MG TABLET PO SCH (09:10)
[2025-01-06] MEDS: METOPROLOL TARTRATE 25 MG TAB PO SCH (09:10)
[2025-01-06] MEDS: prednisoLONE acetate 1% OP SUSP 5 ML BTL OPB SCH (09:10)
[2025-01-06] MEDS: CLOPIDOGREL BISULFATE 75 MG TAB PO SCH (09:10)
[2025-01-06] MEDS: TIMOLOL MALEATE 0.5% OP SOLN 5 ML BTL OP SCH (09:11)
[2025-01-06] MEDS: amLODIPine BESYLATE 5 MG TAB PO SCH (09:11)
[2025-01-06] MEDS: methylPREDNISolone 60 MG in SYRINGE 0 ML IV SCH (09:14)
--- NOTE | 2025-01-06 09:32 | XCELERA ---
[id number] \\[id number]
--- NOTE | 2025-01-06 10:58 | Hospitalist Progress Note ---
Date of Service January 06, 2025 Assessment & Plan (1) Viral pneumonia: Plan: Suspected on admission. Bilateral. Parenteral steroid therapy. Supportive care. Repeat chest x-ray again tomorrow, January 07. Continue Rocephin and doxycycline until cultures are proven negative for bacterial infection (2) Weakness: Plan: Generalized. Should improve with treatment of viral illness. Supportive care (3) Pancytopenia: Plan: Mild on admission. Will follow with serial labs. Tickborne disease tests are negative to date (4) Type 2 diabetes mellitus: Plan: ADA diet. Sliding scale coverage. He may need basal insulin therapy if hyperglycemia results from parenteral steroid use (5) CAD in [place] artery: Plan: Stable. No acute EKG changes. Troponin levels normal x 2 Plan Anticipate eventual discharge to home within the next 2 to 3 days Admission and Anticipated Discharge Date Admission Date: January 05, 2025 Subjective Alert and oriented. He is complaining of generalized weakness. He appears to have developed a viral bilateral pneumonia. Tickborne disease tests are negative to date. However, he continues on Rocephin and doxycycline, day 1. Mild hypokalemia noted and oral potassium supplementation ordered. He is now on parenteral steroid therapy. Will repeat chest x-ray again tomorrow, January 07. He is steroid-dependent and immunosuppressed due to chronic steroid use for his sarcoidosis. Glucose 142 this morning, January 06. Review of Systems 2 Review of Systems: Constitutionalchills and generalized weakness ENTno blurred vision, no double vision, no epistaxis, no sore throat Respiratorynonproductive cough. No hemoptysis. No pleuritic pain. Denies shortness of breath at rest Cardiacno palpitations, no chest pain, no syncope Jaren nausea, vomiting, diarrhea, melena, hematochezia GUno urinary retention, no urinary incontinence, no dysuria, no hematuria Musculoskeletalno joint pain, no muscle tenderness Skinno bruising, no rashes, no pruritus Neurono isolated weakness, no paresthesia. He does have generalized weakness Psychno depression, no anxiety Physical Exam 2 Physical Exam: General-alert and oriented x3. Complaining of generalized weakness HEENT-head atraumatic and normocephalic, pupils equal and reactive to light, extraocular muscles intact Neck-no lymphadenopathy or thyromegaly, trachea midline Chest-clear to auscultation. No rales, wheezing or rhonchi Cardiac-regular rate and rhythm, normal S1 and S2 Abdomen-normal bowel sounds, no hepatosplenomegaly Extremities-no cyanosis, clubbing, or edema Neuro-cranial nerves II through XII intact, motor and sensory function within normal limits, strength symmetrical but was generalized weakness, no focal deficits Psych-normal affect, normal mood Results & Data Results & Data Vital Signs (Past 12 Hours) Vital Signs Temp Pulse Pulse Resp BP BP Pulse Ox 01/06/25 07:53 36.6 C 60 16 128/74 97 01/06/25 07:21 71 01/06/25 05:27 36.6 C 72 18 140/79 94 01/05/25 23:58 74 01/05/25 23:50 36.4 C L 76 18 175/91 H 92 01/05/25 23:15 71 16 135/75 94 01/05/25 23:00 16 159/89 H 94 O2 Del Method O2 Flow Rate 01/06/25 07:53 Room Air 01/06/25 07:21 01/06/25 05:27 Room Air 01/05/25 23:58 01/05/25 23:50 Room Air 01/05/25 23:15 Nasal Cannula 2 01/05/25 23:00 Nasal Cannula 2 Laboratory Results 01/06/25 05:35 01/06/25 05:35 PG Care Time/CCT Total # of Minutes Spent Total Time Spent with Patient: Total time spent is greater than 50% in coordination of care (as documented) at patient's floor/unit and/or counseling patient: Coding Level of Care Code 53437 SUB INP/OBS CARE 3/50MIN Diagnoses Viral pneumonia J12.9 Weakness R53.1 Pancytopenia D61.818 Type 2 diabetes mellitus without complication, without long-term current use of insulin E11.9 Diabetes mellitus custodial insulin use: without custodial use Diabetes mellitus complication status: without complication CAD in [place] artery I25.10 (4) Type 2 diabetes mellitus Diabetes mellitus long term care phlebotomist insulin use: without custodial use Diabetes mellitus complication status: without complication Qualified Code(s): E11.9 - Type 2 diabetes mellitus without complications
[2025-01-06] MEDS: INSULIN ASPART PER UNIT CHARGE SC SCH ×2 (11:31→12:53)
[2025-01-06] MEDS: MELATONIN 3 MG TAB PO SCH (20:24)
[2025-01-06] MEDS: GABAPENTIN 600 MG TAB PO SCH (20:25)
[2025-01-06] MEDS: ROSUVASTATIN CALCIUM 20 MG TAB PO SCH (20:26)
[2025-01-06] MEDS: BRIMONIDINE TAR 0.1% 75 DROPS/5 ML BTL OP SCH (21:44)
[2025-01-07 06:25] LABS: Hematocrit (blood only) 46.7 % (42.0-52.0); Hemoglobin 15.8 g/dl (14.0-18.0); Mean Corpuscular Hemoglobin 31.7 pg (25.0-34.0); Mean Corpuscular Hgb Conc 33.8 g/dL (32.0-36.0); Mean Corpuscular Volume 93.8 fL (80.0-100.0); Mean Platelet Volume 10.8 fL (9.4-12.4); Platelet Count 147 K/uL (130-400); RDW Coefficient of Variation 12.8 % (11.5-14.5); Red Blood Count 4.98 M/uL (4.70-6.10); White Blood Count 10.39 K/ul (4.8-10.8)
[2025-01-07 07:00] LABS: Basophils # (auto) 0.01 K/uL (0.00-0.20); Basophils % (auto) 0.1 %; Immature Granulocytes # (auto) 0.05 K/uL (0.01-0.20); Immature Granulocytes % (auto) 0.5 %; Lymphocytes # (auto) 0.75 K/uL (1.20-3.40); Lymphocytes % (auto) 7.2 %; Monocytes # (auto) 0.05 K/uL (0.11-0.59); Monocytes % (auto) 0.5 %; Neutrophils # (auto) 9.53 K/uL (1.40-6.50); Neutrophils % (auto) 91.7 %
[2025-01-07 07:03] LABS: BUN Creatinine Ratio 16.4 (10-20); Calcium 9.2 mg/dl (8.6-10.3); Creatinine Clr Calc Pharmacy 47.6 ml/min; Potassium 4.5 mmol/L (3.5-5.1)
--- NOTE | 2025-01-07 09:07 | XRay Report ---
XR chest 2V PA/lateral CLINICAL HISTORY: suspected bilateral viral pneumonia COMPARISON STUDY: 01/05/2025 FINDINGS: Stable cardiac valve repair. Stable mild cardiomegaly without pulmonary vascular congestion . Stable mild diffuse interstitial prominence in the lungs. Stable scattered small pulmonary nodules most prominent at the right upper lobe, consistent with the calcified granuloma seen on the prior [facility] st CT. There is no lobar consolidation or pleural effusion. No pneumothorax. IMPRESSION: Stable exam. ACT 112: Negative or not required by law. Electronically signed by: Elie Mantilla M.D. 01/07/2025 9:06 AM
[2025-01-07] MEDS ORDERED: methylPREDNISolone 10 mg/mL (For Ped Dose < 7mg) IV SCH (14:00)
[2025-01-07] MEDS: methylPREDNISolone 40 MG in SYRINGE 0 ML IV SCH (14:59)
--- NOTE | 2025-01-07 16:16 | Hospitalist Progress Note ---
Date of Service January 07, 2025 Assessment & Plan (1) Viral pneumonia: Plan: Suspected on admission. Bilateral. Chest x-ray looks better with parenteral steroid therapy which was down titrated today, January 07. He has some facial and neck flushing from the parenteral steroids. Antibiotics have been discontinued (2) Weakness: Plan: Generalized on admission. Improving. Continue OT and PT while hospitalized. Home health services at discharge (3) Pancytopenia: Plan: Mild on admission. Will follow with serial labs. Tickborne disease tests are negative to date (4) Type 2 diabetes mellitus: Plan: ADA diet. Sliding scale coverage. It does not appear that he will need any basal insulin therapy. (5) CAD in [place] artery: Plan: Stable. No acute EKG changes. Troponin levels normal x 2 Plan Hopeful discharge to home tomorrow, January 08, on a prednisone tapering dose along with home health services. Admission and Anticipated Discharge Date Admission Date: January 05, 2025 Subjective Alert. Afebrile. He is regaining his strength but continues to remain somewhat weak. Suspected viral etiology of his bilateral pneumonia. Chest x-ray done today, January 08, it is improved. Solu-Medrol dosage has been tapered down. Potassium corrected to 4.5. Antibiotics have been discontinued. He probably will go home tomorrow, January 08, on a tapering dose of prednisone. He has some facial and neck flushing due to parenteral steroid therapy. Review of Systems 2 Review of Systems: Constitutionalno fever or chills ENTno blurred vision, no double vision, no epistaxis, no sore throat Respiratoryno cough, no wheezing, no shortness of breath Cardiacno palpitations, no chest pain, no syncope Jaren nausea, vomiting, diarrhea, melena, hematochezia GUno urinary retention, no urinary incontinence, no dysuria, no hematuria Musculoskeletalno joint pain, no muscle tenderness Skinno bruising, no rashes, no pruritus. Some facial and neck flushing from parenteral steroid therapy Neurono isolated weakness, no paresthesia. Generalized weakness present on admission is improving Psychno depression, no anxiety Physical Exam 2 Physical Exam: General-alert and oriented x3. Complaining of generalized weakness HEENT-head atraumatic and normocephalic, pupils equal and reactive to light, extraocular muscles intact Neck-no lymphadenopathy or thyromegaly, trachea midline Chest-clear to auscultation. No rales, wheezing or rhonchi Cardiac-regular rate and rhythm, normal S1 and S2 Abdomen-normal bowel sounds, no hepatosplenomegaly Extremities-no cyanosis, clubbing, or edema Neuro-cranial nerves II through XII intact, motor and sensory function within normal limits, strength symmetrical but was generalized weakness, no focal deficits Psych-normal affect, normal mood Results & Data Results & Data Vital Signs (Past 12 Hours) Vital Signs Temp Pulse Pulse Resp BP Pulse Ox O2 Del Method 01/07/25 15:57 36.6 C 62 18 151/90 H 97 Room Air 01/07/25 13:51 62 01/07/25 11:27 36.4 C L 59 L 18 148/89 H 96 Room Air 01/07/25 08:00 36.6 C 69 18 157/86 H 95 Room Air 01/07/25 07:26 68 Laboratory Results 01/07/25 05:39 01/07/25 05:39 PG Care Time/CCT Total # of Minutes Spent Total Time Spent with Patient: Total time spent is greater than 50% in coordination of care (as documented) at patient's floor/unit and/or counseling patient: Coding Level of Care Code 97055 SUB INP/OBS CARE 3/50MIN Diagnoses Viral pneumonia J12.9 Weakness R53.1 Pancytopenia D61.818 Type 2 diabetes mellitus without complication, without long-term current use of insulin E11.9 Diabetes mellitus terminal manager insulin use: without terminal manager use Diabetes mellitus complication status: without complication CAD in [place] artery I25.10 (4) Type 2 diabetes mellitus Diabetes mellitus senior living insulin use: without terminal manager use Diabetes mellitus complication status: without complication Qualified Code(s): E11.9 - Type 2 diabetes mellitus without complications
--- NOTE | 2025-01-07 16:23 | Electrocardiogram Report ---
Test Reason : Blood Pressure : */* mmHG Vent. Rate : 74 BPM Atrial Rate : 74 BPM P-R Int : 186 ms QRS Dur : 150 ms QT Int : 440 ms P-R-T Axes : 47 -65 61 degrees QTcB Int : 488 ms Sinus rhythm with Premature supraventricular complexes and with occasional Premature ventricular comp lexes Right bundle branch block Left anterior fascicular block Bifascicular block Left ventricular hypertrophy with repolarization abnormality Abnormal ECG When compared with ECG of 05-Jan-2025 20:37, (unconfirmed) No significant change was found Confirmed by Tu Grewal ([id number]) on 01/07/2025 4:23:01 PM Referred By: REFERRED SELF Confirmed By: Tu Grewal
[2025-01-08 07:18] LABS: Hematocrit (blood only) 46.4 % (42.0-52.0); Hemoglobin 15.8 g/dl (14.0-18.0); Mean Corpuscular Hemoglobin 31.9 pg (25.0-34.0); Mean Corpuscular Hgb Conc 34.1 g/dL (32.0-36.0); Mean Corpuscular Volume 93.5 fL (80.0-100.0); Mean Platelet Volume 10.9 fL (9.4-12.4); Platelet Count 142 K/uL (130-400); RDW Standard Deviation 44.9 fL (36.4-46.3); Red Blood Count 4.96 M/uL (4.70-6.10); White Blood Count 13.07 K/ul (4.8-10.8)
[2025-01-08 07:37] VITALS: BP 131/78; PULSE 63; RESP 18; TEMP 98.1; O2SAT 94
[2025-01-08 07:46] LABS: Basophils # (auto) 0.01 K/uL (0.00-0.20); Basophils % (auto) 0.1 %; Immature Granulocytes # (auto) 0.06 K/uL (0.01-0.20); Immature Granulocytes % (auto) 0.5 %; Lymphocytes # (auto) 0.78 K/uL (1.20-3.40); Monocytes # (auto) 0.27 K/uL (0.11-0.59); Monocytes % (auto) 2.1 %; Neutrophils # (auto) 11.95 K/uL (1.40-6.50); Neutrophils % (auto) 91.3 %
[2025-01-08 07:47] LABS: BUN Creatinine Ratio 22.4 (10-20); Creatinine Clr Calc Pharmacy 48.7 ml/min; Potassium 4.2 mmol/L (3.5-5.1)
--- NOTE | 2025-01-08 11:37 | Discharge Summary ---
Discharge Summary Date of Service January 08, 2025 Principal Dx & Hospital Course #1 = Principal Diagnosis (1) Viral pneumonia: Suspected on admission. Bilateral. Chest x-ray looks better with parenteral steroid therapy which was down titrated on January 07. He has some facial and neck flushing from the parenteral steroids. Antibiotics have been discontinued. He will be discharged on a prednisone tapering dose down to his usual 5 mg daily (2) Weakness: Generalized on admission. Improving. Continue OT and PT while hospitalized. Home health services at discharge (3) Pancytopenia: Mild on admission. Will follow with serial labs. Tickborne disease tests are negative to date (4) Type 2 diabetes mellitus: ADA diet. Sliding scale coverage. It does not appear that he will need any basal insulin therapy. (5) CAD in [place] artery: Stable. No acute EKG changes. Troponin levels normal x 2 Plan Home today, January 08 Admission HPI Per Admitting Provider 80-year-old male PMHx T2DM, CAD s/p PCI, s/p TAVR, HTN, dyslipidemia, CKD stage III, HLA-B27 positive, factor V Leiden mutation, sarcoidosis, and multiple pulmonary nodules determined by CT presenting for sudden feeling of presyncope on day of arrival. Patient started his day in normal health per his . They were able to visit with her child and attend taoism the morning of arrival. He did eat breakfast and lunch today, and when he got home and unloaded some things from the car, he was able to rest for some time. Around approximately 1830- 1900, he decided to walk into the kitchen where his was going to be preparing soup for their dinner. At that time, he had a very sudden onset of full body weakness, and he began to fall to his left side. He caught himself on the counter and did not fall to the ground. His states that she was able to help him get to a chair and sit down and at that time, he did experience full body diaphoresis and reports feeling very hot. He was able to get to a laying position in a chair and states that he had to close his eyes because he was having some dizziness. He did not feel as though the room was spinning around him, but he just felt dizzy in his head. He states that the symptoms are still ongoing but have significantly improved since being evaluated in the hospital. He did take a nitroglycerin at the time of the symptoms starting because he said that he had a slight "twinge passed through the heart" and so he wanted to ensure that this was not a cardiac event. He states this does not feel like any prior cardiac events. He feels as though his heart rate was fluctuating throughout the day. His main complaint is that he just felt "totally weak." He has not been sick otherwise, denying any chest pain, SOB, palpitations, cough, abdominal pain, N/V/D/C, numbness/tingling, fever/chills, URI symptoms, dental complaints, headache, vision changes, rigors, or LOC. He has never had this happen before. He does not wear oxygen at baseline. Patient does have a history of Lyme disease around 2009 timeframe, and he does spend some significant time outdoors. 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 Patient is still feeling overly weak, states that he would not be able to stand or walk on his own even if he wanted to. He is not having specific areas of weakness just a generalized feeling of such. 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 Stroke alert was called in ED. Please see Dr. Bryan's attestation for adjustments/additions to treatment plan. Discharge Exam General-alert and oriented x3. Complaining of generalized weakness HEENT-head atraumatic and normocephalic, pupils equal and reactive to light, extraocular muscles intact Neck-no lymphadenopathy or thyromegaly, trachea midline Chest-clear to auscultation. No rales, wheezing or rhonchi Cardiac-regular rate and rhythm, normal S1 and S2 Abdomen-normal bowel sounds, no hepatosplenomegaly Extremities-no cyanosis, clubbing, or edema Neuro-cranial nerves II through XII intact, motor and sensory function within normal limits, strength symmetrical but was generalized weakness, no focal deficits Psych-normal affect, normal mood Discharge Plan Discharge Items Patient Disposition: Home - Home Health Services Reason For Visit: GENERALIZED WEAKNESS Discharge Diagnosis: Viral illness, bilateral viral pneumonia, generalized weakness Condition on Discharge: Good Activity: Per Instructions section Activity Comment: Avoid overexertion until strength has completely returned Non-emergency contact: Primary Care Provider Call non-emergency contact if: your symptoms worsen Follow-up/Referrals: Migue Banda III, CRNP [Primary Care Provider] - Diet: Carb Consistent or DM2 and Heart Healthy Addtl Attending Provider Instructions: Take prednisone in a tapering dose fashion as directed and then resume prednisone 5 mg daily as before. All other medications remain the same. Home health services have been requested. Pending Studies at Discharge: No Stand-Alone Forms: My [employer], Smoking Cessation Medications and DC Order Prescriptions: New prednisone 10 mg tablet See Rx Instructions .ROUTE .COMPLEX Qty: 12 0RF Rx Instructions: 10 mg orally 3 times a day for 2 days, then 10 mg twice a day for 2 days, then 10 mg once a day for 2 days, then resume usual prednisone dosing Continued (DME) compress.stocking,knee,reg,med Misc See Rx Instructions .ROUTE .MEDSUPPLY Qty: 2 2RF Rx Instructions: As directed mometasone [Nasonex 24hr Allergy] 50 mcg/actuation spray,non-aerosol 2 spray intranasal DAILY PRN (Reason: Congestion) Qty: 3 3RF Rx Instructions: administer into each nostril famotidine 40 mg tablet 40 mg PO BID Qty: 180 3RF Eliquis 5 mg tablet 5 mg PO BID Qty: 180 3RF clopidogrel 75 mg tablet 75 mg PO QAM Qty: 90 3RF gabapentin 300 mg capsule 600 mg PO HS Qty: 180 3RF metoprolol tartrate 25 mg tablet 12.5 mg PO BID 90 Days Qty: 90 3RF rosuvastatin [Crestor] 20 mg tablet 20 mg PO HS Qty: 90 3RF prednisone 5 mg tablet 5 mg PO QAM nitroglycerin 0.4 mg tablet, sublingual 0.4 mg Sublingual .COMPLEX PRN (Reason: Angina) Qty: 25 1RF Rx Instructions: 0.4 mg sublingual Q5M FOR UP TO 3 DOSES PRN; zoledronic mjqb-devojdbl-clipd [Reclast] 5 mg/100 mL piggyback 1 ea IV YEARLY timolol 0.5 % drops 1 drp OPB BID Rx Instructions: both eyes cholecalciferol (vitamin D3) [D3-5000] 125 mcg (5,000 unit) capsule 5,000 unit PO QAM fexofenadine [Bronwyn Allergy] 180 mg Tablet 180 mg PO DAILY PRN (Reason: Allergy Symptoms) acetaminophen [Tylenol Arthritis Pain] 650 mg Tablet Extended Release 650 mg PO DIRECTED PRN (Reason: Pain) brimonidine [Alphagan P] 0.1 % Drops 1 drp OPB BID prednisolone acetate 1 % drops,suspension 1 drp OPB Q OTHER DAY ascorbic acid (vitamin C) [Vitamin C] 1,000 mg Tablet 1 g PO DAILY PreserVision AREDS-2 250-90-40-1 mg Capsule 1 tab PO BID cyanocobalamin (vitamin B-12) [Vitamin B-12] 1,000 mcg Tablet 1,000 mcg PO DAILY melatonin 10 mg Tablet 10 mg PO HS Probiotic 10 billion cell Capsule 10,000 mmu cells PO DAILY amlodipine 5 mg tablet 5 mg PO QAM Discharge Orders: Discharge Order (Routine); Ordered 01/08/25 Ordered By: Chandler Wagner Admission Data Admit Date/Time: 01/05/25 22:31 Attending Provider: Chandler Wagner Admit Provider: Dieter Bryan Primary Care Provider: Migue Banda III Other Providers: Dieter Bryan; Jeffery Boss Hospital Stay Data Consultations 01/05/25 21:43 ED Decision to Admit Stat 01/06/25 00:00 Consult Oromaxillofacial Surgery Routine Diagnostic Imagining Performed 01/05/25 20:25 CT abd pelvis IV con only Stat CT angio head w con Stat CT angio neck with con Stat CT head/brain wo con Stat Pending Results Patient Have Any Pending Studies at Discharge: No Discharge Instructions Given to Patient (Per Discharging Provider) Take prednisone in a tapering dose fashion as directed and then resume prednisone 5 mg daily as before. All other medications remain the same. Home health services have been requested. 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
--- NOTE | 2025-01-08 12:46 | Electrocardiogram Report ---
Test Reason : Blood Pressure : */* mmHG Vent. Rate : 70 BPM Atrial Rate : 92 BPM P-R Int : 152 ms QRS Dur : 142 ms QT Int : 450 ms P-R-T Axes : * -58 40 degrees QTcB Int : 486 ms Sinus rhythm with marked sinus arrhythmia with Premature supraventricular complexes and with occasion al Premature ventricular complexes Right bundle branch block Left anterior fascicular block Bifascicular block Minimal voltage criteria for LVH, may be normal variant ( R in aVL ) Abnormal ECG When compared with ECG of 29-Oct-2024 08:48, Premature ventricular complexes are now Present Premature supraventricular complexes are now Present Confirmed by Tu Grewal ([id number]) on 01/08/2025 12:46:30 PM Referred By: REFERRED SELF Confirmed By: Tu Grewal
--- NOTE | 2025-01-08 12:47 | Electrocardiogram Report ---
Test Reason : Blood Pressure : */* mmHG Vent. Rate : 72 BPM Atrial Rate : 72 BPM P-R Int : 168 ms QRS Dur : 150 ms QT Int : 450 ms P-R-T Axes : 5 -59 56 degrees QTcB Int : 492 ms Sinus rhythm with Premature supraventricular complexes and with occasional Premature ventricular comp lexes Right bundle branch block Left anterior fascicular block Bifascicular block Minimal voltage criteria for LVH, may be normal variant ( R in aVL ) Abnormal ECG When compared with ECG of 05-Jan-2025 20:18, (unconfirmed) No significant change was found Confirmed by Tu Grewal ([id number]) on 01/08/2025 12:46:47 PM Referred By: REFERRED SELF Confirmed By: Tu Grewal
[2025-01-09 16:28] LABS: Babesia microti DNA Not Detected (Not Detected)
--- NOTE | 2025-01-14 09:41 | Oral/Maxillofacial Consult ---
Date of Consultation January 14, 2025 History of Present Illness Reason for Consultation: air in R head bander and liner operator space - Attending Physician: Chandler Wagner MD History of Present Illness air in R head bander and liner operator space I was asked to see Mr Bobo regarding air in R head bander and liner operator space The patient told me he did fall or hit his face, jaw or nose. Yet there is a small area of redness over the right eye lid--maybe he did hit his eye--yet no swelling, pain or eye issues. I am glad to say he is doing very well and has no facial issues No swelling, redness is subsiding and no issues with nose, sinus or jaws. I reviewed the CT and there are no fractures. No pain on pressure, no dental or TMJ issues No sinus or congestion issues noted. The redness, swelling, bruising is resolving very well No neck issues Over all feeling well and will not require any treatment or follow up from the noted air in R head bander and liner operator space We both agree that no treatment is indicated and the small amount is insignificant No treatment needed No explanation as to this finding No clinical symptoms or suggestion of air in the head bander and liner operator space on palpitation. Allergies Allergy/AdvReac Type Severity Reaction Status Date / Time doxycycline Allergy Intermediate Rash Verified 01/05/25 20:53 Penicillins Allergy Intermediate HIVES- A Verified 01/05/25 20:53 CHILD Sulfa (Sulfonamide Allergy Intermediate rash Verified 01/05/25 20:53 Antibiotics) moxifloxacin Allergy Mild Rash Verified 01/05/25 20:53 ubidecarenone Allergy Mild UBIQUINOL Verified 01/05/25 20:53 CAUSES itching of skin methotrexate AdvReac Intermediate sore Verified 01/05/25 20:53 breasts Home Medications Medication Instructions Recorded Confirmed Type acetaminophen 650 mg 650 mg PO DIRECTED PRN Pain 07/25/18 01/05/25 History tablet,extended release (Tylenol Arthritis Pain) brimonidine 0.1 % eye drops 1 drp OPB BID 07/25/18 01/05/25 History (Alphagan P) fexofenadine 180 mg tablet 180 mg PO DAILY PRN Allergy 07/25/18 01/05/25 History (Bronwyn Allergy) Symptoms prednisone 5 mg tablet 5 mg PO QAM 07/23/19 01/05/25 History compress.stocking,knee,reg,med #2 ea 09/09/19 12/16/24 Rx cholecalciferol (vitamin D3) 125 5,000 unit PO QAM 07/06/20 01/05/25 History mcg (5,000 unit) capsule (D3-5000) zoledronic acid 5 mg/100 mL in 1 ea IV YEARLY 01/14/21 01/05/25 History mannitol 5 %-water intravenous piggybck (Reclast) nitroglycerin 0.4 mg sublingual 0.4 mg sublingual .COMPLEX PRN 11/23/22 01/05/25 Rx tablet Angina #25 tabs timolol 0.5 % eye drops 1 drp OPB BID 02/20/23 01/05/25 History mometasone 50 mcg/actuation nasal 2 spray intranasal DAILY PRN 06/15/23 01/05/25 Rx spray (Nasonex 24hr Allergy) Congestion #3 BTLS ascorbic acid (vitamin C) 1,000 mg 1 g PO DAILY 07/19/23 01/05/25 History tablet (Vitamin C) cyanocobalamin (vitamin B-12) 1,000 mcg PO DAILY 07/19/23 01/05/25 History 1,000 mcg tablet (Vitamin B-12) prednisolone acetate 1 % eye 1 drp OPB Q OTHER DAY 07/19/23 01/05/25 History drops,suspension vit C 250 mg-vit E 90 mg-zinc 40 1 tab PO BID 07/19/23 01/05/25 History mg-copper 1 ue-jbujqg-ctaima capsule (PreserVision AREDS-2) famotidine 40 mg tablet 40 mg PO BID #180 tabs 04/16/24 01/05/25 Rx apixaban 5 mg tablet (Eliquis) 5 mg PO BID #180 tabs 07/22/24 01/05/25 Rx clopidogrel 75 mg tablet 75 mg PO QAM #90 tabs 08/12/24 01/05/25 Rx gabapentin 300 mg capsule 600 mg (2 x 300 mg) PO HS #180 caps 10/09/24 01/05/25 Rx metoprolol tartrate 25 mg tablet 12.5 mg (1/2 x 25 mg) PO BID 90 10/21/24 01/05/25 Rx days #90 tabs rosuvastatin 20 mg tablet (Crestor) 20 mg PO HS #90 tabs 11/11/24 01/05/25 Rx Lactobacillus acidophilus 10 10,000 mmu cells PO DAILY 01/05/25 01/05/25 History billion cell capsule (Probiotic) amlodipine 5 mg tablet 5 mg PO QAM 01/05/25 01/05/25 History melatonin 10 mg tablet 10 mg PO HS 01/05/25 01/05/25 History prednisone 10 mg tablet See Rx Instructions .Route 01/08/25 Rx .COMPLEX #12 tabs Patient History Medical History TIA (transient ischemic attack) Chest pain History of COVID-19 06/2021 [place]; congestion, headache, cough, chills; resolved. AAA (abdominal aortic aneurysm) Dr. Bright monitors Kidney insufficiency follows with Dr. Salomon Sarcoidosis History of Lyme disease treated History of DVT (deep vein thrombosis) hx DVT BLLE 2018 following travel Tubular adenoma of colon Osteoarthritis GERD (gastroesophageal reflux disease) Chronic steroid use Hyperlipidemia Surgical History Aortic valve replaced History of carpal tunnel surgery of right wrist History of open reduction and internal fixation (ORIF) procedure right foot--no longer has hardware in place History of left wrist replacement Status post biopsy of kidney benign History of left inguinal hernia repair History of appendectomy History of esophagogastroduodenoscopy (EGD) History of colonoscopy History of wisdom tooth extraction History of tonsillectomy and adenoidectomy History of vitrectomy bilateral History of bilateral cataract extraction History of cardiac cath hx of SOB---02/2000 @ [place], 06/2010 @ [facility]---follows with Dr. Bright Family History Mother , age 87 of senile dementia of the Alzheimer's type Family history of diabetes mellitus Coronary heart disease Dementia Father , age 89 Family history of diabetes mellitus Family hx colonic polyps Myocardial infarction Coronary heart disease Prostate cancer Family/Other Family history of diabetes mellitus maternal aunts/uncles Aunt Breast cancer Brother COPD (chronic obstructive pulmonary disease) Fibrosis of lung Sister Breast cancer Dementia Denies family history of Ovarian cancer Colorectal cancer Social History Smoking Status: Never smoker Second Hand Exposure: No; Do You Dip or Chew Tobacco: No; Hx Alcohol Use: Yes Alcohol type: wine Alcohol Intake Frequency: 4 or More x per/Week Alcohol Intake Frequency Comment: One red wine daily with dinner Hx Substance Use: No Preferred Language: Citizen Of [place] Communication Ability: Effective Visual Impairment: No Limitations Hearing Ability: Normal Dairy Equipment Installer Required: No Beliefs That Will Affect Care: None marital status: Current Living Situation: Spouse Current Living Situation Comment: Lives at home with current occupational status: retired current occupation: Retired How many Children do You have: 2 other: 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
== END 2025-01-08 14:51 | disposition home or self-care (01) | DRG 194 ==
LOC: ED 20:11 → 2N 22:31 → INTOOBSV 22:31 → SUATTDRO 22:31 → 2N 23:26